=== PATIENT | female | born 1940 | race Caucasian/White ===

== ENCOUNTER → 2016-08-15 | Outpatient (CLI) | payer OTHER ==
[~2016-08-15] MED LIST: AMLO10CA PO; AMOX875T PO; ASCO100T PO; ASPI81TA28 PO; ATOR-22 PO; CHOL1000 PO; CIPR-255 PO; DFL100 PO; FERR1TAB23 PO; FURO40TA3 PO; GLC/500 PO; GLIM2TAB2 PO; MOME6000 NAE; OXYC-57 PO; PHEN-775 PO; PHEN-939 PO; POTA10CA28 PO; PRD10 PO; PRED-301 PO; PRED10TA PO
[2016-08-15 13:53] LABS: ESTIMATED AVERAGE GLUCOSE 203 mg/dl; HA1C FLAG Normal (Normal)
[2016-08-15 13:59] LABS: BLOOD UREA NITROGEN 17 mg/dl (7-18); BUN/CREATININE RATIO 20.4 (10-20); CALCIUM 8.9 mg/dl (8.5-10.1); CARBON DIOXIDE 25 mmol/L (21-32); CHLORIDE 106 mmol/L (98-107); CREATININE 0.82 mg/dl (0.60-1.20); GLUCOSE 162 mg/dl (70-99); POTASSIUM 3.7 mmol/L (3.5-5.1); SODIUM 139 mmol/L (136-145)
[2016-08-15 14:01] LABS: ALB/GLOB RATIO 0.8 (0.9-2); ALKALINE PHOSPHATASE 70 U/L (45-117); ALT/SGPT 17 U/L (12-78); AST/SGOT 10 U/L (15-37)
--- NOTE | 2016-08-20 12:50 | CODING QUERY MEDICAL NECESSITY ---
SUPPORTING DIAGNOSIS NEEDED Dr. Hanna, A supporting diagnosis is required for the test/procedure performed on this patient in order for us to be reimbursed by the patient's insurance. Please provide a supporting diagnosis for the following test/procedure listed below next to the test name along with your signature. *If there is no additional diagnosis for this patient that would support the following test/procedure please document that below next to the test/procedure. Test(s)/Procedure(s) that require a supporting diagnosis: * [id number] GLYCATED HEMOGLOBIN DIAGNOSIS: DATE OF SERVICE: 08/15/16 Provider Signature: Date: Thank you Ricardo Pearson [facility] Information Management Once completed, please kindly fax back to [phone] For questions please call [phone]
== END | disposition home or self-care (01) ==
LOC: C.LABBC 10:00
PROVIDERS: ATTEND Internal Medicine
DX: E78.5 Hyperlipidemia, unspecified (principal); E11.9 Type 2 diabetes mellitus without complications

== ENCOUNTER 2016-08-24 18:12 | Inpatient (IN) | payer OTHER ==
[~2016-08-24] VITALS: Ht 144.8 cm; Wt 67.4 kg
[2016-08-24] MEDS ORDERED: SODIUM CHLORIDE 0.9% 1000ML 1,000 ML IV ONE (18:17)
[2016-08-24] MEDS ORDERED: ACETAMINOPHEN 500 MG TAB PO STA (18:17)
[2016-08-24] MEDS ORDERED: GLIM2TAB2 PO (18:37)
[2016-08-24] MEDS ORDERED: ASCO100T4 PO (18:37)
[2016-08-24] MEDS ORDERED: ATOR-22 PO (18:37)
[2016-08-24] MEDS ORDERED: FERR1TAB23 PO (18:37)
[2016-08-24] MEDS ORDERED: ASPI81TA28 PO (18:37)
[2016-08-24] MEDS ORDERED: CHOL1000 PO (18:37)
[2016-08-24] MEDS ORDERED: GLC/500 PO (18:37)
[2016-08-24] MEDS ORDERED: PRED-301 PO (18:37)
[2016-08-24] MEDS ORDERED: MOME6000 NAE (18:37)
[2016-08-24] MEDS ORDERED: AMLO10CA PO (18:37)
[2016-08-24 18:40] LABS: BASO % 0.2 %; BASO ABS # 0.01 K/uL (0-0.2); COMPLETE YES; EOS % 0.2 %; HEMATOCRIT 31.1 % (37-47); LYMPH ABS # 0.43 K/uL (1.2-3.4); MEAN CELL VOLUME 90.4 fL (80-100); MEAN CORPUSCULAR HEMOGLOBIN 29.9 pg (25-34); MEAN CORPUSCULAR HGB CONC 33.1 g/dl (32-36); MEAN PLATELET VOLUME 9.3 fL (7.4-10.4); MONO % 0.5 %; NEUT % 91.1 %; PLATELET COUNT 318 K/uL (130-400); RED BLOOD COUNT 3.44 M/uL (4.2-5.4); WHITE BLOOD COUNT 6.12 K/uL (4.8-10.8)
[2016-08-24 18:48] LABS: INR 1.2 (0.9-1.1); PARTIAL THROMBOPLASTIN RATIO 1.2; PROTHROMBIN TIME (PATIENT) 13.1 SECONDS (9.0-12.0)
--- NOTE | 2016-08-24 19:03 | DIAGNOSTIC IMAGING REPORT ---
CHEST ONE VIEW PORTABLE CLINICAL HISTORY: Sepsis dyspnea COMPARISON STUDY: 06/09/2013 FINDINGS: Infiltrate left base. Lungs otherwise appear clear. No evidence for cardiac enlargement. IMPRESSION: Infiltrate left base Electronically signed by: Richardson Boo M.D. 08/24/2016 7:02 PM Dictated Date/Time: 08/24/2016 7:02 PM
[2016-08-24] MEDS ORDERED: SODIUM CHLORIDE 0.9% 1000ML 1,000 ML IV STA (19:06)
[2016-08-24] MEDS ORDERED: LEVAQUIN 750MG / 150ML D5W IV STA (19:06)
[2016-08-24 19:38] LABS: ALB/GLOB RATIO 0.8 (0.9-2); ALKALINE PHOSPHATASE 186 U/L (45-117); ALT/SGPT 15 U/L (12-78); AST/SGOT 15 U/L (15-37); BLOOD UREA NITROGEN 35 mg/dl (7-18); BUN/CREATININE RATIO 14.4 (10-20); CALCIUM 8.5 mg/dl (8.5-10.1); CARBON DIOXIDE 17 mmol/L (21-32); CHLORIDE 105 mmol/L (98-107); GLUCOSE 199 mg/dl (70-99); PHOSPHORUS 3.8 mg/dl (2.5-4.9); SODIUM 140 mmol/L (136-145)
[2016-08-24] MEDS ORDERED: VANCOMYCIN INJ 1,000 MG in SODIUM CHLORIDE 0.9% 250ML 250 ML IV STA (20:49)
[2016-08-24] MEDS ORDERED: NOREPINEPHRINE BIT INJ 8 MG in DEXTROSE 5% 500ML 500 ML IV STA (20:52)
[2016-08-24] MEDS ORDERED: PIPERACILLIN/TAZOBACTAM 3.375 GM/100ML D5W IV STA (20:52)
[2016-08-24] MEDS ORDERED: FLUTICASONE PROPIONATE NA SPR 16 GM BTL NAE PRN (21:00)
[2016-08-24] MEDS ORDERED: LEVOFLOXACIN / D5W 500 MG in PREMIXED IN D5W 100 ML IV SCH (21:00)
[2016-08-24] MEDS ORDERED: LEVALBUTEROL/IPRATROPIUM NEB INH SCH (21:00)
[2016-08-24] MEDS ORDERED: ONDANSETRON INJ 2 MG/ML 2 ML VIAL IV PRN (21:00)
[2016-08-24] MEDS ORDERED: GLUCOSE 40% GEL 15 GM TUBE PO PRN (21:00)
[2016-08-24] MEDS ORDERED: GLUCAGON FOR INJ 1 MG VIAL SQ PRN (21:00)
[2016-08-24] MEDS ORDERED: GLUCOSE 10 TABS/TUBE PO PRN (21:00)
[2016-08-24 21:14] LABS: INFLUENZA A PCR Neg for Influ A (NEG); INFLUENZA B PCR Neg for Influ B (NEG)
--- NOTE | 2016-08-24 21:21 | EMERGENCY ROOM VISIT NOTE ---
History Report prepared by Shahram: Ute Brar Under the Supervision of: Dr. Hamlet Holguin D.O. First contact with patient: 18:12 Chief Complaint: FEVER Stated Complaint: FEVER, LETHERGY, SOB History of Present Illness The patient is a 75 year old female who presents to the Emergency Room with complaints of a persistent fever starting yesterday evening. She also reports chills, weakness, back pain, and fatigue. She was brought to the ED by EMS and received 1 L of fluid en route. EMS reports that she was alert and oriented on the way here. She denies any urinary symptoms. She denies any cough, SOB, chest pain, or rhinorrhea. She had the flu back in July and says that the symptoms do not feel similar. She denies any tobacco or alcohol use. Source of History: patient Onset: yesterday evening Position: other (global) Quality: other (fever) Timing: other (persistent) Associated Symptoms: + back pain, + chills, + fatigue, + weakness, No SOB, No chest pain, No cough, No urinary symptoms Note: Pt denies rhinorrhea. Review of Systems See HPI for pertinent positives & negatives. A total of 10 systems reviewed and were otherwise negative. Past Medical & Surgical Medical Problems: (1) Diabetes (2) High cholesterol (3) Septic shock Family History Non contributory secondary to age. Social History Alcohol Use: none Marital Status: Occupation Status: retired Current/Historical Medications Scheduled Amlodipine/Benazepril (Lotrel 10MG/20MG), 1 CAP PO DAILY Ascorbic Acid (Vitamin C), 1 TAB PO DAILY Aspirin (Aspirin Ec), 81 MG PO DAILY Atorvastatin (Lipitor), 20 MG PO DAILY Cholecalciferol (Vitamin D3), 3 TAB PO DAILY Ferrous Sulfate (Iron), 1 TAB PO DAILY Glimepiride (Glimepiride), 1 TAB PO DAILY Metformin Hcl (Glucophage), 1,000 MG PO BID Prednisone (Prednisone), 9 MG PO DAILY Scheduled PRN Mometasone Furoate (Nasal) (Mometasone Furoate), 2 SPRAYS JAKOB DAILY PRN for Nasal Congestion Allergies Coded Allergies: No Known Allergies (Unverified , 08/24/16) Physical Exam Vital Signs Date Time Temp Pulse Resp B/P Pulse Ox O2 Delivery O2 Flow Rate FiO2 08/24/16 21:22 96 18 71/55 100 Room Air 08/24/16 20:53 97 18 76/43 98 Room Air 08/24/16 20:20 102 27 94 08/24/16 20:15 102 23 72/61 93 08/24/16 20:10 102 33 94 08/24/16 20:05 104 19 94 08/24/16 20:00 102 26 81/45 93 08/24/16 19:48 38.0 104 16 86/49 93 Room Air 08/24/16 19:39 105 08/24/16 18:22 93 Room Air 08/24/16 18:16 39.5 107 28 80/62 93 Room Air Physical Exam GENERAL: Patient is awake, alert, and non-anxious. Patient is febrile. EYES: The conjunctivae are clear. The pupils are round and reactive. EARS, NOSE, MOUTH AND THROAT: The nose is without any evidence of any deformity. Mucous membranes are dry tongue is midline NECK: The neck is nontender and supple. RESPIRATORY: Lung sounds diminished at left base. Mild conversational dyspnea noted. CARDIOVASCULAR: Tachycardic rate and regular rhythm. No definite murmurs appreciated. GASTROINTESTINAL: The abdomen is soft. Bowel sounds are present in all quadrants. Abdomen is nontender MUSCULOSKELETAL/EXTREMITIES: There is no evidence of gross deformity full range of motion is noted in the hips and shoulders SKIN: Warm and dry. Trace pedal edema bilaterally. NEUROLOGIC: Patient is awake alert and oriented x3 Medical Decision & Procedures ER Provider Diagnostic Interpretation: X-ray results as stated below per interpretation by me and the radiologist. CHEST ONE VIEW PORTABLE CLINICAL HISTORY: Sepsis dyspnea COMPARISON STUDY: 06/09/2013 FINDINGS: Infiltrate left base. Lungs otherwise appear clear. No evidence for cardiac enlargement. IMPRESSION: Infiltrate left base Electronically signed by: Ricahrdson Boo M.D. 08/24/2016 7:02 PM Dictated Date/Time: 08/24/2016 7:02 PM Laboratory Results 08/24/16 17:30 Red Blood Count 3.44, Mean Corpuscular Volume 90.4, Mean Corpuscular Hemoglobin 29.9, Mean Corpuscular Hemoglobin Concent 33.1, Mean Platelet Volume 9.3, Neutrophils (%) (Auto) 91.1, Lymphocytes (%) (Auto) 7.0, Monocytes (%) (Auto) 0.5, Eosinophils (%) (Auto) 0.2, Basophils (%) (Auto) 0.2, Neutrophils # (Auto) 5.58, Lymphocytes # (Auto) 0.43, Monocytes # (Auto) 0.03, Eosinophils # (Auto) 0.01, Basophils # (Auto) 0.01 08/24/16 17:30 Test 08/24/16 17:30 08/24/16 18:17 White Blood Count 6.12 K/uL (4.8-10.8) Red Blood Count 3.44 M/uL (4.2-5.4) Hemoglobin 10.3 g/dL (12.0-16.0) Hematocrit 31.1 % (37-47) Mean Corpuscular Volume 90.4 fL (80-100) Mean Corpuscular Hemoglobin 29.9 pg (25-34) Mean Corpuscular Hemoglobin Concent 33.1 g/dl (32-36) Platelet Count 318 K/uL (130-400) Mean Platelet Volume 9.3 fL (7.4-10.4) Neutrophils (%) (Auto) 91.1 % Lymphocytes (%) (Auto) 7.0 % Monocytes (%) (Auto) 0.5 % Eosinophils (%) (Auto) 0.2 % Basophils (%) (Auto) 0.2 % Neutrophils # (Auto) 5.58 K/uL (1.4-6.5) Lymphocytes # (Auto) 0.43 K/uL (1.2-3.4) Monocytes # (Auto) 0.03 K/uL (0.11-0.59) Eosinophils # (Auto) 0.01 K/uL (0-0.5) Basophils # (Auto) 0.01 K/uL (0-0.2) RDW Standard Deviation 48.6 fL (36.4-46.3) RDW Coefficient of Variation 14.9 % (11.5-14.5) Immature Granulocyte % (Auto) 1.0 % Immature Granulocyte # (Auto) 0.06 K/uL (0.00-0.02) Erythrocyte Sedimentation Rate 50 mm/hr (0-21) Prothrombin Time 13.1 SECONDS (9.0-12.0) Prothromb Time International Ratio 1.2 (0.9-1.1) Activated Partial Thromboplast Time 30.3 SECONDS (21.0-31.0) Partial Thromboplastin Ratio 1.2 Anion Gap 18.0 mmol/L (3-11) Est Creatinine Clear Calc Drug Dose 14.3 ml/min Estimated GFR () 22.0 Estimated GFR (Non- 19.0 BUN/Creatinine Ratio 14.4 (10-20) Calcium Level 8.5 mg/dl (8.5-10.1) Phosphorus Level 3.8 mg/dl (2.5-4.9) Magnesium Level 1.0 mg/dl (1.8-2.4) Total Bilirubin 0.6 mg/dl (0.2-1) Aspartate Amino Transf (AST/SGOT) 15 U/L (15-37) Alanine Aminotransferase (ALT/SGPT) 15 U/L (12-78) Alkaline Phosphatase 186 U/L (45-117) Total Creatine Kinase 66 U/L (26-192) Creatine Kinase MB < 0.5 ng/ml (0.5-3.6) Creatine Kinase MB Ratio (0-3.0) Troponin I 0.123 ng/ml (0-0.045) C-Reactive Protein 18.80 mg/dl (0-0.29) Pro-B-Type Natriuretic Peptide 74589 pg/ml (0-1800) Total Protein 7.0 gm/dl (6.4-8.2) Albumin 3.1 gm/dl (3.4-5.0) Globulin 3.9 gm/dl (2.5-4.0) Albumin/Globulin Ratio 0.8 (0.9-2) Lipase 97 U/L (73-393) Influenza Type A (RT-PCR) Neg for Influ A (NEG) Influenza Type A Antigen Neg for Influ A (NEG) Influenza Type B Antigen Neg for Influ B (NEG) Influenza Type B (RT-PCR) Neg for Influ B (NEG) Laboratory results per my review. Medications Administered Medications (Trade) Dose Ordered Sig/Tamika Route Start Time Stop Time Status Last Admin Dose Admin Sodium Chloride (Nss 1000ml) 1,000 ml @ 999 mls/hr Q1H1M ONCE IV 08/24/16 18:17 08/24/16 19:17 DC 08/24/16 18:46 999 MLS/HR Acetaminophen 1000 mg 1,000 mg NOW STAT PO 3/24/17 18:17 08/24/16 18:20 DC 08/24/16 18:45 1,000 MG Sodium Chloride (Nss 1000ml) 1,000 ml @ 999 mls/hr Q1H1M STAT IV 08/24/16 19:06 08/24/16 20:06 DC 08/24/16 19:48 999 MLS/HR Levofloxacin (Levaquin / D5W) 750 mg NOW STAT IV 08/24/16 19:06 08/24/16 19:07 DC 08/24/16 19:48 750 MG Piperacillin Sod/ Tazobactam Sod 3.375 gm 3.375 gm NOW STAT IV 08/24/16 20:52 08/24/16 20:53 DC 08/24/16 21:17 3.375 GM Norepinephrine Bitartrate/ Dextrose (Levophed Inj/ D5W 500ml) 508 ml @ 0 mls/hr Q0M STAT IV 08/24/16 20:52 08/24/16 20:53 DC 08/24/16 21:17 32 MLS/HR Procedure Femoral Central Venous Catheter Indication: sepsis Catheter Type: triple lumen Location: right femoral vein Verbal consent was obtained after the risks and benefits were explained, including but not limited to intra-abdominal injury, vessel injury, bleeding, scarring, infection, pain, and bone/joint/nerve damage. At this time, the risks of the procedure are less than the risks of NOT performing the procedure. A time out was taken and the correct patient and site identified. The patient was placed in the supine position and the skin was prepped in the standard fashion with chlorhexidine and full sterile drapes applied. The proper landmarks were identified, anesthetized with 1% lidocaine without epinephrine, and the needle was inserted through the skin in the standard fashion. The needle was carefully advanced into blood vessel lumen with ultrasound guidance. The guidewire was placed uneventfully. The vessel is dilated and the catheter was placed. It was sutured into position. There was good blood return from all ports. The patient tolerated the procedure well and there were no complications. ECG Indication: weakness Rate (beats per minute): 111 Rhythm: sinus tachycardia Findings: ST depression (Lateral), T-wave inversion (Lateral), no ectopy Comparison ECG Date: no prior available ED Course 1814: The patient was evaluated in room C9. A complete history and physical examination were performed. 1816: Acetaminophen 1000 mg PO, NSS 1000 ml @ 999 mls/hr IV. 1904: I reevaluated the patient. She is resting comfortably. 1905: Levofloxacin 750 mg IV, NSS 1000 ml @ 999 mls/hr IV. 1908: I reevaluated the patient. She is resting comfortably. 1957: I discussed the patient's case with AIDEN Romero - hospitalkarine. She will be evaluated for further management. 2019: I reevaluated the patient. Many of her family members have come. I updated them on the results and treatment plan. They verbalized agreement and understanding. The patient will be evaluated for further management and care. 2029: I placed a central line according to the procedure note. Medical Decision Prior records/ancillary studies reviewed. Triage Nursing notes reviewed. Additional history obtained from the patient's family. Differential diagnosis: Etiologies such as sepsis, UTI, pneumonia, metabolic, electrolyte abnormalities , cardiac sources, intracerebral event, toxicologic, neurologic, as well as others were entertained. The patient is a 75-year-old female who presented to the emergency department for an evaluation of fever. The patient states that she's been having difficulty breathing and cough. She had similar symptoms a few weeks ago when she had the flu. The patient has not had Tylenol recently. She was treated with IV fluids by the prehospital personnel prior to arrival. The patient was treated with IV fluids and IV antibiotics. She had continued hypotension so a central line was placed and she was started on pressors. I discussed the patient 's laboratory and radiographic studies with her as well as her family members. I discussed his case with the on-call [facility] hospitalist group. They've agreed to evaluate the patient in the emergency department for further management and disposition. The patient had persistent hypotension while she was in the emergency department. She did respond somewhat to IV fluid. She was found have an elevated creatinine from her baseline. Consults Time Called: 1952 Consulting Physician: AIDEN Romero - hospitalist Returned Call: 1957 I discussed the patient's case with him. She will be evaluated for further management. Impression Primary Impression: Sepsis Additional Impressions: Left lower lobe pneumonia Fever Abnormal EKG Critical Care I have personally spent greater than 45 minutes of critical care time in the direct management of this patient. This includes bedside care, interpretation of diagnostic studies, and testing, discussion with consultants, patient, and family members, and other required patient management activities. This 45 minutes is in excess of all separately billable procedures. Scribe Attestation The scribe's documentation has been prepared under my direction and personally reviewed by me in its entirety. I confirm that the note above accurately reflects all work, treatment, procedures, and medical decision making performed by me. Departure Information Dispostion Being Evaluated By Hospitalist Felton Fofana M.D. (PCP) Patient Instructions My [facility] Problem Qualifiers Primary Impression: Sepsis Sepsis type: sepsis due to unspecified organism Qualified Codes: A41.9 - Sepsis, unspecified organism Additional Impressions: Left lower lobe pneumonia Pneumonia type: due to unspecified organism Qualified Codes: J18.1 - Lobar pneumonia, unspecified organism Fever Fever type: unspecified Qualified Codes: R50.9 - Fever, unspecified
--- NOTE | 2016-08-24 22:00 | History and Physical ---
History & Physical Date & Time of Service: Aug 24, 2016 at 22:00 Chief Complaint: Fever, Lethergy, Sob Primary Care Physician: Felton Hanna M.D. History of Present Illness Source: patient, family The patient is a 75-year-old female presents emergency department with elevated temperature, chills, generalized weakness, back pain and fatigue since yesterday evening. She was given 1 L of fluid en route to the ED via EMS. She has not had any recent travels. She does not have any sick exposures. She did have the flu in July for which the symptoms resolved. She denies any shortness of breath and any urinary symptoms. Past Medical/Surgical History Medical Problems: (1) Diabetes Status: Chronic (2) High cholesterol Status: Chronic Social History Smoking Status: Never Smoker Smokeless Tobacco Use: No Alcohol Use: none Drug Use: none Marital Status: Occupational Status: retired Multi-Drug Resistant Organisms History of MDRO: No Allergies Coded Allergies: No Known Allergies (Unverified , 08/24/16) Home Medications Scheduled Amlodipine/Benazepril (Lotrel 10MG/20MG), 1 CAP PO DAILY Ascorbic Acid (Vitamin C), 1 TAB PO DAILY Aspirin (Aspirin Ec), 81 MG PO DAILY Atorvastatin (Lipitor), 20 MG PO DAILY Cholecalciferol (Vitamin D3), 3 TAB PO DAILY Ferrous Sulfate (Iron), 1 TAB PO DAILY Glimepiride (Glimepiride), 1 TAB PO DAILY Metformin Hcl (Glucophage), 1,000 MG PO BID Prednisone (Prednisone), 9 MG PO DAILY Scheduled PRN Mometasone Furoate (Nasal) (Mometasone Furoate), 2 SPRAYS JAKOB DAILY PRN for Nasal Congestion Review of Systems The patient denies chest pain, palpitations, shortness of breath, cough, lower extremity swelling, vision change, hearing change, sweats, weight change, fatigue, nausea, vomiting, abdominal pain, pelvic pain, blood in urine or stool , dysuria, urinary frequency or urgency, memory loss, rash, abnormal bruising or bleeding, imbalance, focal weakness, numbness or tingling in arms or legs, arthralgias or myalgias, back or neck pain, night sweats, or allergy symptoms. The review of systems is otherwise negative other than for that already noted above, and at least 10 systems have been reviewed. Physical Exam Vital Signs Date Time Temp Pulse Resp B/P Pulse Ox O2 Delivery O2 Flow Rate FiO2 08/24/16 21:22 96 18 71/55 100 Room Air 08/24/16 20:53 97 18 76/43 98 Room Air 08/24/16 20:20 102 27 94 08/24/16 20:15 102 23 72/61 93 08/24/16 20:10 102 33 94 08/24/16 20:05 104 19 94 08/24/16 20:00 102 26 81/45 93 08/24/16 19:48 38.0 104 16 86/49 93 Room Air 08/24/16 19:39 105 08/24/16 18:22 93 Room Air 08/24/16 18:16 39.5 107 28 80/62 93 Room Air The patient is awake, well-developed and adequately nourished, alert and oriented 3, normocephalic and atraumatic, lying in bed and in no acute distress. HEENT--PERRL, EOMI, mucous membranes and oropharynx dry. Neck--supple, no JVD or bruits, thyroid normal, trachea midline, no adenopathy. Heart--normal S1 and S2, no extra beats, no murmurs, rubs or gallops. Lungs--clear bilaterally ,no respiratory distress, no accessory muscle use. Abdomen--normal bowel sounds and soft, nontender and nondistended, no hernias or masses, no organomegaly. Extremities--no cyanosis, clubbing or edema. There are good distal pulses b/l. Dermatologic--normal skin turgor, normal color, warm and dry, no abnormal lymph nodes, no rash. Neurologic--cranial nerves II through XII grossly intact, motor and sensory examination normal. Rheumatologic--normal range of motion, nontender, muscles and joints. Psychiatric--normal affect. Diagnostics Laboratory Results Results Past 24 Hours Test 08/24/16 17:30 08/24/16 18:17 Range/Units White Blood Count 6.12 4.8-10.8 K/uL Red Blood Count 3.44 4.2-5.4 M/uL Hemoglobin 10.3 12.0-16.0 g/dL Hematocrit 31.1 37-47 % Mean Corpuscular Volume 90.4 80-100 fL Mean Corpuscular Hemoglobin 29.9 25-34 pg Mean Corpuscular Hemoglobin Concent 33.1 32-36 g/dl Platelet Count 318 130-400 K/uL Mean Platelet Volume 9.3 7.4-10.4 fL Neutrophils (%) (Auto) 91.1 % Lymphocytes (%) (Auto) 7.0 % Monocytes (%) (Auto) 0.5 % Eosinophils (%) (Auto) 0.2 % Basophils (%) (Auto) 0.2 % Neutrophils # (Auto) 5.58 1.4-6.5 K/uL Lymphocytes # (Auto) 0.43 1.2-3.4 K/uL Monocytes # (Auto) 0.03 0.11-0.59 K/uL Eosinophils # (Auto) 0.01 0-0.5 K/uL Basophils # (Auto) 0.01 0-0.2 K/uL RDW Standard Deviation 48.6 36.4-46.3 fL RDW Coefficient of Variation 14.9 11.5-14.5 % Immature Granulocyte % (Auto) 1.0 % Immature Granulocyte # (Auto) 0.06 0.00-0.02 K/uL Erythrocyte Sedimentation Rate 50 0-21 mm/hr Prothrombin Time 13.1 9.0-12.0 SECONDS Prothromb Time International Ratio 1.2 0.9-1.1 Activated Partial Thromboplast Time 30.3 21.0-31.0 SECONDS Partial Thromboplastin Ratio 1.2 Sodium Level 140 136-145 mmol/L Potassium Level 4.0 3.5-5.1 mmol/L Chloride Level 105 98-107 mmol/L Carbon Dioxide Level 17 21-32 mmol/L Anion Gap 18.0 3-11 mmol/L Blood Urea Nitrogen 35 7-18 mg/dl Creatinine 2.40 0.60-1.20 mg/dl Est Creatinine Clear Calc Drug Dose 14.3 ml/min Estimated GFR () 22.0 Estimated GFR (Non- 19.0 BUN/Creatinine Ratio 14.4 10-20 Random Glucose 199 70-99 mg/dl Calcium Level 8.5 8.5-10.1 mg/dl Phosphorus Level 3.8 2.5-4.9 mg/dl Magnesium Level 1.0 1.8-2.4 mg/dl Total Bilirubin 0.6 0.2-1 mg/dl Aspartate Amino Transf (AST/SGOT) 15 15-37 U/L Alanine Aminotransferase (ALT/SGPT) 15 12-78 U/L Alkaline Phosphatase 186 45-117 U/L Total Creatine Kinase 66 26-192 U/L Creatine Kinase MB < 0.5 0.5-3.6 ng/ml Creatine Kinase MB Ratio 0-3.0 Troponin I 0.123 0-0.045 ng/ml C-Reactive Protein 18.80 0-0.29 mg/dl Pro-B-Type Natriuretic Peptide 08664 0-1800 pg/ml Total Protein 7.0 6.4-8.2 gm/dl Albumin 3.1 3.4-5.0 gm/dl Globulin 3.9 2.5-4.0 gm/dl Albumin/Globulin Ratio 0.8 0.9-2 Lipase 97 73-393 U/L Random Cortisol 52.70 mcg/dl Influenza Type A (RT-PCR) Neg for Influ A NEG Influenza Type A Antigen Neg for Influ A NEG Influenza Type B Antigen Neg for Influ B NEG Influenza Type B (RT-PCR) Neg for Influ B NEG Microbiology Results 08/24/16 Blood Culture, Received Pending 08/24/16 Blood Culture, Received Pending Diagnostic Radiology Patient Name: APRIL LUJAN Unit Number: [id number] Dictated: 08/24/161901 Transcribed: 08/24/161901 MS Printed Date/Time: [~ rep prt dt]/[~ rep prt tm] [~ rep ct labl] - [~ rep ct ivnm] [facility] Radiology Department [place] [id number] Dictated: 08/24/161901 Transcribed: 08/24/161901 MS Printed Date/Time: [~ rep prt dt]/[~ rep prt tm] [~ rep ct labl] - [~ rep ct ivnm] CHEST ONE VIEW PORTABLE CLINICAL HISTORY: Sepsis dyspnea COMPARISON STUDY: 06/09/2013 FINDINGS: Infiltrate left base. Lungs otherwise appear clear. No evidence for cardiac enlargement. IMPRESSION: Infiltrate left base Electronically signed by: Richardson Boo M.D. 08/24/2016 7:02 PM Dictated Date/Time: 08/24/2016 7:02 PM The status of this report is Signed. Draft = Not yet reviewed or approved by Radiologist. Signed = Reviewed and approved by Radiologist. <AttendingPhy></AttendingPhy> <FamilyPhy>Felton Hanna M.D.</FamilyPhy> < PrimaryPhy>Felton Hanna M.D.</PrimaryPhy> <UnitNumber>[id number]</UnitNumber> <VisitNumber>[id number]</VisitNumber> <PatientName>APRIL LUJAN</PatientName> < DateOfBirth>1940</DateOfBirth> <Location>[facility]</Location> <ServiceDate></ServiceDate> <MNE>ESINDI</MNE> <OrderingPhy>Hamlet Holguin D.O.</ OrderingPhy> <OrderingPhyMNE>f rep ord dr ambrose</OrderingPhyMNE> <DictatingPhyMNE> f rep dict dr ambrose</DictatingPhyMNE> <CCListMNE>f rep ct mne</CCListMNE> < AdmittingPhyMNE>f pt admit dr ambrose</AdmittingPhyMNE> <AttendingPhyMNE>f pt attend dr ambrose</AttendingPhyMNE> <ConsultingPhyMNE>f pt consult dr ambrose</ConsultingPhyMNE> <FamilyPhyMNE>f pt fam dr ambrose</FamilyPhyMNE> <OtherPhyMNE>f pt other dr ambrose</OtherPhyMNE> < PrimaryPhyMNE>f pt prim care dr ambrose</PrimaryPhyMNE> <ReferringPhyMNE>f pt referring dr ambrose</ReferringPhyMNE> EKG EKG shows sinus tachycardia at 111 bpm, with nonspecific lateral ST/T changes. Impression Assessment and Plan Septic shock/elevated troponin 0.123--the patient will be admitted to the ICU for serial cardiac enzymes, cardiac rhythm monitoring and a 2-D echocardiogram with Dopplers. She's received 2 L of normal saline in the ED +1 L en route for a total of 3 L. She'll be continued on normal saline at 150 ML's per hour.. We 'll start levofed infusion per protocol for MAP of greater than or equal to 65. Antibiotic therapy with vancomycin IV renal dosing, Zosyn 3.375 mg IV every 8 hours, levofloxacin 500 mg IV every 24 hours, and Xopenex with Atrovent nebulizer every 6 hours while awake and every 2 hours when necessary. Hold prednisone 10 mg by mouth daily, and place on methylprednisolone 20 mg IV every 8 hours. Sources of infection including possible left lower lobe pneumonia and/ or UTI. Follow blood cultures. We'll follow serial CBC with differential, BMP , magnesium, liver profile and PT PTT every morning. Continue aspirin 81 mg by mouth daily. Hold amlodipine 10 mg by mouth daily and benazepril 20 mg by mouth daily. Acute renal failure/hypertension--creatinine 2.40 well above baseline of 0.9 few weeks ago. Hydrate as noted above with IV fluids, repeat labs serially. Holding amlodipine and benazepril as noted. Hypomagnesemia--magnesium was 1.0. We'll give 3 g magnesium sulfate IV and repeat labs in a.m. Diabetes mellitus--hold metformin 1000 mg by mouth twice a day and did not resume unless creatinine 1.3 or less. Hold glime[address]ide. Place on Accu-Cheks before meals and at bedtime with NovoLog coverage. Hypercholesterolemia--continue atorvastatin 20 mg by mouth daily. Critical care time was 50 minutes. Level of Care Telemetry Advanced Directives Existing Advance Directive: No Existing Living Will: No Existing Power of Instructor Adjunct Pharmacy Technician: No Resuscitation Status FULL RESUSCITATION VTE Prophylaxis VTE Risk Assessment Done? Y/N: Yes Risk Level: Moderate Given or contraindicated: SCD's
[2016-08-24 22:14] VITALS: BP 97/68; PULSE 109; TEMP 38.1; O2SAT 96; Ht 144.8 cm; Wt 67.4 kg
[2016-08-24] MEDS ORDERED: LEVALBUTEROL 1.25MG/0.5ML NEB INH PRN (22:15)
[2016-08-24] MEDS ORDERED: LEVOFLOXACIN CONSULT ACTIVE PRN (22:15)
[2016-08-24] MEDS ORDERED: IPRATROPIUM BROMIDE NEB SOLN 0.02% 2.5 ML VIAL INH PRN (22:15)
[2016-08-24] MEDS ORDERED: PIPERACILL/TAZOBAC CONSULT ACTIVE PRN (22:15)
[2016-08-24] MEDS ORDERED: VANCOMYCIN CONSULT ACTIVE PRN (22:15)
[2016-08-24 22:18] LABS: URINE APPEARANCE TURBID (CLEAR); URINE BILIRUBIN NEG (NEG); URINE COLOR YELLOW; URINE EPITHELIAL CELL AUTO >30 /lpf (0-5); URINE NITRITE NEG (NEG); URINE PH 5.5 (4.5-7.5); URINE SPECIFIC GRAVITY 1.013 (1.000-1.030); UROBILINOGEN NEG (NEG); ZZUR CULT IF INDIC CLEAN CATCH YES
[2016-08-24 22:19] LABS: MANUAL MICROSCOPIC REQUIRED? NO; REVIEW REQ? YES
[2016-08-24] MEDS: METHYLPREDNISOLONE IV 20 MG in SYRINGE 0 ML IV SCH (22:27)
[2016-08-24] MEDS: SODIUM CHLORIDE 0.9% 1000ML 1,000 ML IV SCH (22:27)
[2016-08-24] MEDS: INSULIN ASPART 100 UNITS/ML 3 ML PEN SC SCH (22:28)
[2016-08-24] MEDS ORDERED: VANCOMYCIN INJ 1,400 MG in SODIUM CHLORIDE 0.9% 500ML 500 ML IV SCH (22:30)
[2016-08-24 23:00] VITALS: BP 102/55; PULSE 132; O2SAT 92
[2016-08-24 23:30] VITALS: BP 107/42; PULSE 134; O2SAT 92
[2016-08-24 23:35] VITALS: TEMP 39.1
[2016-08-24] MEDS: GUAIFENESIN 200 MG TAB PO SCH (23:35)
[2016-08-24] MEDS: LORAZEPAM 2 MG/ML 1 ML VIAL IV PRN (23:36)
[2016-08-24] MEDS: ACETAMINOPHEN 325 MG TAB PO PRN (23:36)
[2016-08-24 23:59] VITALS: O2SAT 94
[2016-08-25] VITALS (48 sets, daily range): BP systolic 61–148; BP diastolic 39–83; PULSE 94–135; TEMP 36.7–38.7; O2SAT 87–100
[2016-08-25] MEDS: MAGNESIUM SULFATE 1GM / D5W 1 GM in PREMIXED IN D5W 100 ML IV SCH ×3 (01:33→03:22)
[2016-08-25] MEDS: LEVALBUTEROL 1.25MG/0.5ML NEB INH SCH ×3 (02:13→15:00)
[2016-08-25] MEDS: IPRATROPIUM BROMIDE NEB SOLN 0.02% 2.5 ML VIAL INH SCH ×3 (02:13→15:00)
[2016-08-25] MEDS: ACETAMINOPHEN 325 MG TAB PO PRN ×2 (04:09→08:28)
[2016-08-25] MEDS: LORAZEPAM 2 MG/ML 1 ML VIAL IV PRN (04:28)
[2016-08-25] MEDS ORDERED: NURSING VERBAL MED ORDER STA ×2 (05:23→06:01)
[2016-08-25] MEDS: SODIUM CHLORIDE 0.9% 1000ML 1,000 ML IV SCH (05:28)
[2016-08-25] MEDS: NOREPINEPHRINE BIT INJ 8 MG in DEXTROSE 5% 500ML 500 ML IV PRN ×4 (05:30→21:59)
[2016-08-25] MEDS: METHYLPREDNISOLONE IV 20 MG in SYRINGE 0 ML IV SCH ×2 (05:31→14:40)
[2016-08-25] MEDS ORDERED: ALBUMIN HUMAN 25% 12.5 GM/50 ML VIAL IV STA ×2 (05:32→06:08)
[2016-08-25 05:36] LABS: HEMATOCRIT 26.1 % (37-47); MEAN CELL VOLUME 92.2 fL (80-100); MEAN CORPUSCULAR HGB CONC 32.6 g/dl (32-36); MEAN PLATELET VOLUME 9.4 fL (7.4-10.4); PLATELET COUNT 205 K/uL (130-400); RED BLOOD COUNT 2.83 M/uL (4.2-5.4); WHITE BLOOD COUNT 9.86 K/uL (4.8-10.8)
[2016-08-25] MEDS: HEPARIN SOD 5000 UNIT/0.5 ML CARP SQ SCH ×3 (05:39→21:39)
[2016-08-25] MEDS ORDERED: SODIUM BICARB 8.4% INJ 50 MEQ/50 ML SYR IV ONE ×4 (05:46→20:00)
[2016-08-25 05:50] LABS: INR 1.5 (0.9-1.1); PARTIAL THROMBOPLASTIN RATIO 1.4; PROTHROMBIN TIME (PATIENT) 16.3 SECONDS (9.0-12.0)
[2016-08-25 05:57] LABS: ISTAT ALLEN TEST Pass; ISTAT ARTERIAL BLOOD GAS HCO3 11 meq/L (19-24); ISTAT ARTERIAL BLOOD GAS PCO2 24 mmHg (35-46); ISTAT ARTERIAL BLOOD GAS PO2 73 mmHg (80-95); ISTAT ARTERIAL BLOOD GAS pH 7.28 (7.35-7.45); ISTAT CARBON DIOXIDE 12 mEq/l (24-31); ISTAT DELIVERY SYSTEM Cannula; ISTAT SITE R Radial
[2016-08-25] MEDS: INSULIN ASPART 100 UNITS/ML 3 ML PEN SC SCH ×3 (06:00→21:00)
[2016-08-25 06:12] LABS: BASO ABS # 0.35 K/uL (0-0.2); BASOPHIL % 3.5 %; COMPLETE YES; ECHINOCYTES 2+; EOSINOPHIL % 1.7 %; GIANT PLATELETS 1+; LYMPH ABS # 0.42 K/uL (1.2-3.4); LYMPHOCYTE % 4.3 %; META ABS # 2.23 K/uL (0-0); METAMYELOCYTE % 22.6 %; VACUOLIZATION 2+
[2016-08-25] MEDS ORDERED: NURSING VERBAL MED ORDER ONE ×6 (06:15→23:15)
[2016-08-25 06:49] LABS: BUN/CREATININE RATIO 14.1 (10-20); CALCIUM 6.8 mg/dl (8.5-10.1); CKMB/CK RATIO 1.8 (0-3.0); CREATININE 2.7 mg/dl (0.60-1.20); MAGNESIUM 1.8 mg/dl (1.8-2.4); PHOSPHORUS 3.9 mg/dl (2.5-4.9); POTASSIUM 3.8 mmol/L (3.5-5.1)
--- NOTE | 2016-08-25 07:32 | DIAGNOSTIC IMAGING REPORT ---
SINGLE VIEW CHEST CLINICAL HISTORY: Pneumonia. FINDINGS: An AP, portable, upright chest radiograph is compared to study dated 08/24/2016. The examination is degraded by portable technique and patient rotation. The heart is mildly enlarged. Pulmonary vascular congestion is new from yesterday. There is elevation of the right hemidiaphragm. Left basilar airspace consolidation is unchanged from yesterday. No large pleural effusion is identified. No pneumothorax is seen. The skeletal structures are osteopenic. The bony thorax is grossly intact. IMPRESSION: 1. Mild cardiac enlargement. Pulmonary vascular congestion is new from yesterday. 2. Left basilar airspace consolidation persists. Electronically signed by: Gabriele Díaz M.D. 08/25/2016 7:31 AM Dictated Date/Time: 08/25/2016 7:30 AM
[2016-08-25] MEDS: ATORVASTATIN 20 MG TAB PO SCH ×2 (08:25→08:51)
[2016-08-25] MEDS: PANTOprazole INJ 40 MG in SYRINGE 0 ML IV SCH (08:25)
[2016-08-25] MEDS: GUAIFENESIN 200 MG TAB PO SCH ×3 (08:25→20:38)
[2016-08-25] MEDS: ASPIRIN 81 MG ECTAB PO SCH ×2 (08:25→08:51)
[2016-08-25] MEDS: CHOLECALCIFEROL 1000 INTER.UNIT TAB PO SCH ×2 (08:25→08:52)
[2016-08-25] MEDS: PIPERACILL/TAZOBAC IV 3.375 GM in DEXTROSE 5% 100ML 100 ML IV SCH ×2 (08:25→21:04)
[2016-08-25] MEDS ORDERED: SODIUM BICARB 8.4% INJ 50 MEQ/50 ML SYR IV STA ×2 (08:35→21:19)
[2016-08-25] MEDS ORDERED: SODIUM BICARBONATE 8.4% INJ 150 MEQ in DEXTROSE 5% 1000ML 1,000 ML IV STA (08:35)
[2016-08-25] MEDS ORDERED: CALCIUM CHLORIDE 10% 10 ML SYR IV STA (08:41)
[2016-08-25] MEDS ORDERED: PHARMACY GLYCEMIC MGMT CONSULT SCH (08:48)
[2016-08-25] MEDS: SODIUM CHLORIDE 0.9% 500ML 500 ML IV SCH ×2 (08:52→09:25)
[2016-08-25] MEDS: VASOPRESSIN INJ 50 UNITS in SODIUM CHLORIDE 0.9% 500ML 500 ML IV SCH (09:15)
--- NOTE | 2016-08-25 09:27 | Pharmacy Progress Note ---
Pharmacy Antibiotic Consult Date of Service: Aug 25, 2016. Pharmacy Dosing Scope Pharmacy is consulted to initiate IV Vancomycin dosing therapy, order appropriate labs and adjust drug dose/frequency. Subjective The patient is a 75 year old female admitted on Aug 24, 2016 at 20:49. Objective Height (Feet): 4 Height (Inches): 9.00 Weight (Kilograms): 60.500 Lab Results (24hrs): Laboratory Tests Test 08/24/16 17:30 08/25/16 04:59 BUN/Creatinine Ratio 14.4 14.1 Blood Urea Nitrogen 35 mg/dl 38 mg/dl Creatinine 2.40 mg/dl 2.70 mg/dl White Blood Count 6.12 K/uL 9.86 K/uL Red Blood Count 3.44 M/uL 2.83 M/uL Hemoglobin 10.3 g/dL 8.5 g/dL Hematocrit 31.1 % 26.1 % Mean Corpuscular Volume 90.4 fL 92.2 fL Mean Corpuscular Hemoglobin 29.9 pg 30.0 pg Mean Corpuscular Hemoglobin Concent 33.1 g/dl 32.6 g/dl Platelet Count 318 K/uL 205 K/uL Mean Platelet Volume 9.3 fL 9.4 fL Neutrophils (%) (Auto) 91.1 % Lymphocytes (%) (Auto) 7.0 % Monocytes (%) (Auto) 0.5 % Eosinophils (%) (Auto) 0.2 % Basophils (%) (Auto) 0.2 % Neutrophils # (Auto) 5.58 K/uL Lymphocytes # (Auto) 0.43 K/uL Monocytes # (Auto) 0.03 K/uL Eosinophils # (Auto) 0.01 K/uL Basophils # (Auto) 0.01 K/uL Micro Results: Item Value Date Time MRSA DNA Surveillance Screen - Final Complete 08/24/16 0000 Nasal Specimen Negative for MRSA by DNA Probe Urine Culture Received 08/24/16 0000 Urine , Clean Catch Pending Blood Culture Received 08/24/16 1930 Blood Pending Blood Culture Received 08/24/16 193 Blood Pending Recent Pertinent Medications Item Value Date Time Vancomycin HCl 528 ml @ 200 mls/hr 08/24/162229 1400 mg/Sodium TODAY@2230/IV 08/24/16 2227 Chloride Item Value Date Time Levofloxacin 750 mg 08/24/16 1906 (Levaquin / D5W) NOW STAT/IV 08/24/16 194 Levofloxacin 500 100 ml @ 100 mls/hr 08/26/16 2000 mg/Prmx Q48H/IV Item Value Date Time Piperacillin Sod/ 3.375 gm 08/24/162051 Tazobactam Sod NOW STAT/IV 08/24/162116 (Zosyn Iv) Piperacillin Sod/ 115 ml @ 28 mls/hr 08/25/16 0900 Tazobactam Sod Q12H/IV 08/25/16 0825 3.375 gm/Dextrose Assessment & Plan Vancomycin * Loading dose: Vancomycin 1400mg IV x 1 dose (~25mg/kg) * Goal peak level: 30-40mcg/mL * Goal trough level: 15-20mcg/mL * Est half-life ~ 45hr, pt renal fxn declined further overnight * Random level has been ordered for: 08/26/16 AM Labs Pharmacy will continue to follow and will adjust dose/frequency as necessary. Thank you
[2016-08-25 10:32] LABS: IPAP 12; ISTAT ARTERIAL BLOOD GAS HCO3 12 meq/L (19-24); ISTAT ARTERIAL BLOOD GAS PCO2 29 mmHg (35-46); ISTAT ARTERIAL BLOOD GAS PO2 82 mmHg (80-95); ISTAT ARTERIAL BLOOD GAS pH 7.22 (7.35-7.45); ISTAT CARBON DIOXIDE 12 mEq/l (24-31); ISTAT DELIVERY SYSTEM BIPAP; ISTAT FIO2 50 %; ISTAT RATE 33; ISTAT SITE Art Line
[2016-08-25] MEDS ORDERED: FENTANYL CITRATE INJ 50 MCG/1 ML 2 ML VIAL ONE ×2 (11:08→12:28)
[2016-08-25] MEDS ORDERED: PROPOFOL IV EMULSION 10 MG/ML 100 ML VIAL IV ONE (11:08)
--- NOTE | 2016-08-25 11:20 | DIAGNOSTIC IMAGING REPORT ---
CT SCAN OF THE ABDOMEN AND PELVIS WITHOUT IV CONTRAST CLINICAL HISTORY: Sepsis. COMPARISON STUDY: Fluoroscopic upper GI series dated 11/13/2011. TECHNIQUE: CT scan of the abdomen and pelvis is performed from the lung bases to the proximal femora. Images are reviewed in the axial, sagittal, and coronal planes. IV contrast was not administered for this examination as per the referring clinician. Note that the examination was performed in significantly suboptimal fashion without oral and IV contrast. Automated dose control exposure was utilized. CT DOSE: 501.83 mGy.cm FINDINGS: Lung bases: The heart is top normal in size and without pericardial effusion. The coronary arteries are densely calcified. There is diminished attenuation of the cardiac blood pool as compared to the myocardium suggesting anemia. There are small pleural effusions, right larger than left. Bibasilar airspace consolidation is identified, also greater on the right. There is a small hiatal hernia. Liver: The unenhanced liver is enlarged, measuring 20.5 cm in length. The liver is otherwise normal in contour and attenuation. There is no intrahepatic biliary ductal dilatation. Mild periportal edema is suspected. Gallbladder: The gallbladder is mildly distended. There is mild nonspecific gallbladder wall thickening. No calcified gallstones are identified. Spleen: Normal in size and attenuation. Pancreas: The unenhanced pancreas is grossly unremarkable. Adrenal glands: There is nodular thickening of both adrenal glands. Kidneys: The unenhanced kidneys demonstrate cortical atrophy. There is rotation of the right kidney which is located somewhat inferiorly within the retroperitoneal space. There is a 12 mm obstructing calculus in the right proximal ureter at the level of L4. This is best seen on axial image #208, and this causes mild to moderate right hydronephrosis. There are 2 additional large nonobstructing right renal calculi measuring up to 13 mm. There is a 5 mm calculus along the course of left ureter seen on image #230. A 19 mm calculus is seen within the left renal pelvis on image #164. A large cluster of nonobstructing calculi in the left lower pole measures 2.3 cm. Additional smaller lateral calculi are identified. There is mild left-sided hydronephrosis. Gas within the left renal collecting system suggests infection. Asymmetric perinephric stranding is seen on the left kidney as compared the right. There is no evidence of contour deforming renal mass lesion. Abdominal vasculature: The abdominal aorta is normal in course and caliber noting advanced atherosclerotic calcification. A right femoral venous catheter is in place. Bowel: The small bowel and colon are normal in course and caliber. The appendix is normal as visualized. Peritoneum: There is trace perihepatic ascites, as well as trace free fluid in the pelvis. No intraperitoneal free air is seen. Lymphadenopathy: None. Pelvic viscera: The bladder is decompressed around a Crocker catheter. Foci of intraluminal gas may be related to instrumentation. The bladder wall appears thickened but this is not well assessed. The uterus and adnexa are normal as imaged. There are small bilateral fat-containing inguinal hernias. Skeletal structures: The Skeletal structures are osteopenic. There is moderate lumbosacral spondylosis as well as mild scoliosis. No lytic or blastic lesions are seen. Soft tissues: There is mild body wall edema. IMPRESSION: 1. Suboptimal examination without oral and IV contrast. 2. There are small pleural effusions with dense bibasilar airspace consolidation, right greater than left. The appearance is typical for pneumonia. 3. There is a 12 mm obstructing calculus in the right proximal ureter which causes mild to moderate right-sided hydronephrosis. 4. There is a 5 mm calcification along the course of the mid left ureter. It is unclear if this represents a ureteral stone or an adjacent calcification. 5. There is a 19 mm calculus in the left renal pelvis with mild left-sided hydronephrosis. 6. Additional large bilateral nonobstructing renal calculi as above. 7. There is bilateral perinephric stranding, left greater than right. There are foci of gas within the left renal collecting system. This is nonspecific but suggests infection. Correlation with clinical findings and urinalysis will be required. 8. The bladder is decompressed around a Crocker catheter. Bladder wall thickening is suggested but this is not well assessed. Again, correlation with urinalysis will be required. 9. There is a small volume of abdominopelvic ascites. 10. The gallbladder is distended with mild nonspecific wall thickening. Correlate clinically and with serum bilirubin levels for evidence of cholecystitis. 11. Hepatomegaly. 12. Additional findings as documented above. Electronically signed by: Gabriele Díaz M.D. 08/25/2016 11:19 AM Dictated Date/Time: 08/25/2016 11:04 AM
--- NOTE | 2016-08-25 12:02 | Progress Note ---
Progress Note Date of Service Aug 25, 2016. 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 Dictated consult to follow. Placed on bipap shortly after I walked in the room this morning. Arterial line placed and started on vasopressin and sodium bicarbonate infusion. CT abd/pelvis ordered - shows R hydronephrosis and obstructing stone. As I was beginning to review the CT scan , she became unresponsive. I emergently intubated her without difficulty but had sats in 80's - ETT pulled back and OGT placed with decompression of her stomach and improvement in sats. She probably aspirated. Procedure notes to follow. I spoke to Dr. Mathews from urology who is seeing her now. I have updated the family as well.
--- NOTE | 2016-08-25 12:04 | DIAGNOSTIC IMAGING REPORT ---
SINGLE VIEW CHEST CLINICAL HISTORY: Intubation. Pneumonia. FINDINGS: An AP, portable, upright chest radiograph is compared to study performed earlier the same day 08/25/2016. The examination is degraded by portable technique and patient rotation. An endotracheal tube has been placed. The tip of the catheter projects 4.5 cm above the italo. An enteric tube has been placed. The tip projects below the diaphragm over the stomach. The heart is mildly enlarged. Pulmonary vascular congestion has improved. There is mild elevation of the right hemidiaphragm. Left basilar airspace consolidation persists. There is airspace consolidation is now seen at the right lung base. No large pleural effusion is identified. No pneumothorax is seen. The skeletal structures are osteopenic. The bony thorax is grossly intact. IMPRESSION: 1. Endotracheal and enteric tubes have been placed as detailed above. 2. Left basilar airspace consolidation persists. There is new airspace consolidation at the right lung base. Correlate clinically for evidence of pneumonia/aspiration pneumonitis. 3. Mild cardiac enlargement. Pulmonary vascular congestion appears improved from earlier today. Electronically signed by: Gabriele Díaz M.D. 08/25/2016 12:02 PM Dictated Date/Time: 08/25/2016 12:00 PM
--- NOTE | 2016-08-25 12:20 | Urology Consultation ---
History General Date of Service: Aug 25, 2016. Chief Complaint: Sepsis with bilateral obstructing stones. Primary Care Physician: Felton Hanna M.D. Pt seen a urologist before?: No History of Present Illness 75 yo female, intubated and sedated in ICU, family including sisters and daughters in room. History obtained from family due to patient's status and inpatient and outpatient chart, limited under the circumstances. They note she was in her usual state of health until night when she began to feel fevers and chills. She declined her family's suggestions to be evaluated acutely over the following days as she also developed SP pain, f/c and eventually mental status changes for which she was then brought to the ER. She has decompensated with evidence of sepsis and is currently hypotensive, tachycardic and intubated for respiratory failure. Family also noted a history of back pain for several months attributed to her prior history of polymyalgia. She has no known history of stone disease, but did have a history of UTI and yeast infection attributed to her DM and age. Urology consultation is sought out acutely in the context of bilateral upper ureteral obstructing stones in the context of sepsis, renal failure. CT images personally reviewed. HPI - Stones Number: Multiple Size: Large Location: left, right, kidney, ureter Patient has: + fever, + hydronephrosis HPI - UTI Symptoms: suprapubic pain, mental status change History of Surgery: none Associated History: + menopause Imaging Imaging: CT Laboratory Last 24 Hours Test 08/24/16 17:30 08/24/16 18:17 08/24/16 22:13 08/25/16 04:59 White Blood Count 6.12 K/uL 9.86 K/uL Red Blood Count 3.44 M/uL 2.83 M/uL Hemoglobin 10.3 g/dL 8.5 g/dL Hematocrit 31.1 % 26.1 % Mean Corpuscular Volume 90.4 fL 92.2 fL Mean Corpuscular Hemoglobin 29.9 pg 30.0 pg Mean Corpuscular Hemoglobin Concent 33.1 g/dl 32.6 g/dl Platelet Count 318 K/uL 205 K/uL Mean Platelet Volume 9.3 fL 9.4 fL Neutrophils (%) (Auto) 91.1 % Lymphocytes (%) (Auto) 7.0 % Monocytes (%) (Auto) 0.5 % Eosinophils (%) (Auto) 0.2 % Basophils (%) (Auto) 0.2 % Neutrophils # (Auto) 5.58 K/uL Lymphocytes # (Auto) 0.43 K/uL Monocytes # (Auto) 0.03 K/uL Eosinophils # (Auto) 0.01 K/uL Basophils # (Auto) 0.01 K/uL RDW Standard Deviation 48.6 fL 50.7 fL RDW Coefficient of Variation 14.9 % 15.1 % Immature Granulocyte % (Auto) 1.0 % Immature Granulocyte # (Auto) 0.06 K/uL Erythrocyte Sedimentation Rate 50 mm/hr Prothrombin Time 13.1 SECONDS 16.3 SECONDS Prothromb Time International Ratio 1.2 1.5 Activated Partial Thromboplast Time 30.3 SECONDS 36.9 SECONDS Partial Thromboplastin Ratio 1.2 1.4 Sodium Level 140 mmol/L 138 mmol/L Potassium Level 4.0 mmol/L 3.8 mmol/L Chloride Level 105 mmol/L 107 mmol/L Carbon Dioxide Level 17 mmol/L 15 mmol/L Anion Gap 18.0 mmol/L 16.0 mmol/L Blood Urea Nitrogen 35 mg/dl 38 mg/dl Creatinine 2.40 mg/dl 2.70 mg/dl Est Creatinine Clear Calc Drug Dose 14.3 ml/min 13.3 ml/min Estimated GFR () 22.0 19.1 Estimated GFR (Non- 19.0 16.5 BUN/Creatinine Ratio 14.4 14.1 Random Glucose 199 mg/dl 242 mg/dl Calcium Level 8.5 mg/dl 6.8 mg/dl Phosphorus Level 3.8 mg/dl 3.9 mg/dl Magnesium Level 1.0 mg/dl 1.8 mg/dl Total Bilirubin 0.6 mg/dl 0.7 mg/dl Aspartate Amino Transf (AST/SGOT) 15 U/L 36 U/L Alanine Aminotransferase (ALT/SGPT) 15 U/L 21 U/L Alkaline Phosphatase 186 U/L 161 U/L Total Creatine Kinase 66 U/L 371 U/L Creatine Kinase MB < 0.5 ng/ml 6.7 ng/ml Creatine Kinase MB Ratio 1.8 Troponin I 0.123 ng/ml 1.860 ng/ml C-Reactive Protein 18.80 mg/dl Pro-B-Type Natriuretic Peptide 35635 pg/ml Total Protein 7.0 gm/dl 5.7 gm/dl Albumin 3.1 gm/dl 2.4 gm/dl Globulin 3.9 gm/dl Albumin/Globulin Ratio 0.8 Lipase 97 U/L Random Cortisol 52.70 mcg/dl Influenza Type A (RT-PCR) Neg for Influ A Influenza Type A Antigen Neg for Influ A Influenza Type B Antigen Neg for Influ B Influenza Type B (RT-PCR) Neg for Influ B Bedside Glucose 166 mg/dl Neutrophils % (Manual) 67.0 % Lymphocytes % (Manual) 4.3 % Monocytes % (Manual) 0.9 % Eosinophils % (Manual) 1.7 % Basophils % (Manual) 3.5 % Metamyelocytes % 22.6 % Neutrophils # (Manual) 6.61 K/uL Total Absolute Neutrophils 6.61 K/uL Lymphocytes # (Manual) 0.42 K/uL Total Absolute Lymphocytes 0.42 K/uL Monocytes # (Manual) 0.09 K/uL Eosinophils # (Manual) 0.17 K/uL Basophils # (Manual) 0.35 K/uL Metamyelocytes # 2.23 K/uL Toxic Vacuolation 2+ Giant Platelets 1+ Echinocytes 2+ Direct Bilirubin 0.3 mg/dl Test 08/25/16 05:44 08/25/16 05:50 08/25/16 09:10 08/25/16 10:19 Blood Gas Sample Site R Radial Art Line Bedside Blood Gas pH (LAB) 7.28 7.22 Bedside Blood Gas pCO2 (LAB) 24 mmHg 29 mmHg Bedside Blood Gas pO2 (LAB) 73 mmHg 82 mmHg Bedside Blood Gas HCO3 (LAB) 11 meq/L 12 meq/L Bedside Blood Gas Total CO2 12 mEq/l 12 mEq/l Bedside Blood Gas Base Excess (LAB) -15.0 meq/L -16.0 meq/L Bedside Blood Gas O2 Saturation 91.0 % 93.0 % Jaren Test Pass NA Oxygen Delivery Device Cannula BIPAP Bedside Glucose (other) 261 mg/dl Lactic Acid Level 8.3 mmol/L Bedside Oxygen Rate (breaths/min) 33 Bedside FiO2 50 % Blood Gas IPAP 12 Problem List Medical Problems: (1) Abnormal EKG Status: Acute (2) Fever Status: Acute (3) Left lower lobe pneumonia Status: Acute (4) Sepsis Status: Acute Past History arthritis, diabetes, glaucoma, high cholesterol, hypertension, kidney stones, urinary tract infection Past Surgical History: colonoscopy, other (cataracts, c/section, tooth extraction) Family History BRCA, daughters with stones, HTN, hyperlipidemia Social History Hx Tobacco Use In Past Year?: No Smoking: non-smoker Marital status: Housing status: lives with family Occupation status: retired History of MDRO No Allergies Coded Allergies: No Known Allergies (Unverified , 08/24/16) Medications Home Medications: Home Meds and Scripts Medications Dose Route/Sig Max Daily Dose Days Date Category Dose Instructions Vitamin D3 (Cholecalciferol) 1,000 Unit Tab 3 Tab PO DAILY 90 08/24/16 Reported Vitamin C (Ascorbic Acid) Unknown Strength Tab 1 Tab PO DAILY 08/24/16 Reported Prednisone 5 Mg Tab 9 Mg PO DAILY 08/24/16 Reported TAPER DOWN TO 7 MG DAILY IN SEPTEMBER Mometasone Furoate (Mometasone Furoate (Nasal)) 50 Mcg/Act Spr 2 Sprays JAKOB DAILY PRN 08/24/16 Reported Glucophage (Metformin Hcl) 500 Mg Tab 1,000 Mg PO BID 08/24/16 Reported Iron (Ferrous Sulfate) 325 Mg Tab 1 Tab PO DAILY 08/24/16 Reported Glimepiride 2 Mg Tab 1 Tab PO DAILY 90 08/24/16 Reported Lipitor (Atorvastatin Calcium) 20 Mg Tab 20 Mg PO DAILY 08/24/16 Reported Aspirin Ec (Aspirin) 81 Mg Tab 81 Mg PO DAILY 08/24/16 Reported Lotrel 10MG/20MG (Amlodipine/Benazepril HCl) 10 Mg/20 Mg Cap 1 Cap PO DAILY 08/24/16 Reported Inpatient Medications: Current Inpatient Medications Medications (Trade) Dose Ordered Sig/Tamika Route Start Time Stop Time Status Last Admin Dose Admin Heparin Sodium (Porcine) (Heparin Sq 5000 Unit/0.5ml) 5,000 unit Q8 SQ 08/25/16 06:00 09/24/16 05:59 08/25/16 05:39 5,000 UNIT Acetaminophen (Tylenol Tab) 650 mg Q4H PRN PO 08/24/16 21:00 09/23/16 20:59 08/25/16 04:09 650 MG Lorazepam 0.5 mg 0.5 mg Q4H PRN IV 08/24/16 21:00 09/23/16 20:59 08/25/16 04:28 0.5 MG Pantoprazole Sodium 40 mg/ Syringe 10 ml @ 5 mls/min DAILY IV 08/25/16 09:00 09/24/16 08:59 08/25/16 08:25 5 MLS/MIN Piperacillin Sod/ Tazobactam Sod 3.375 gm/Dextrose 115 ml @ 28 mls/hr Q12H IV 08/25/16 09:00 08/27/16 08:59 08/25/16 08:25 28 MLS/HR Methylprednisolone Sodium Succinate/ Syringe (Solu-Medrol IV/ Syringe) 0.32 ml @ 1.5 mls/min Q8H IV 08/24/16 22:00 09/23/16 21:59 08/25/16 05:31 1.5 MLS/MIN Ondansetron HCl (Zofran Inj) 4 mg Q6H PRN IV 08/24/16 21:00 09/23/16 20:59 Guaifenesin (Organidin Nr Tab) 600 mg BID PO 08/24/16 21:00 09/23/16 20:59 08/24/16 23:35 600 MG Aspirin (Ecotrin Tab) 81 mg DAILY PO 08/25/16 09:00 09/24/16 08:59 Atorvastatin Calcium (Lipitor Tab) 20 mg DAILY PO 08/25/16 09:00 09/24/16 08:59 Cholecalciferol (Vitamin D Tab) 3,000 inter.unit DAILY PO 08/25/16 09:00 09/24/16 08:59 Fluticasone Propionate (Flonase Nasal [place]) 2 sprays DAILY PRN JAKOB 08/24/16 21:00 09/23/16 20:59 Insulin Aspart (novoLOG ASPART) SLIDING SCALE If C... ACHS SC 08/24/16 21:00 09/23/16 20:59 08/25/16 06:00 4 UNITS Glucose (Glucose 40% Gel) UD PRN PO 08/24/16 21:00 09/23/16 20:59 Glucose (Glucose Chew Tab) 1 tabs UD PRN PO 08/24/16 21:00 09/23/16 20:59 Dextrose (Dextrose 50% 50ML Syringe) 50 ml UD PRN IV 08/24/16 21:00 09/23/16 20:59 Glucagon 1 mg 1 mg UD PRN SQ 08/24/16 21:00 09/23/16 20:59 Norepinephrine Bitartrate/ Dextrose (Levophed Inj/ D5W 500ml) 508 ml @ 0 mls/hr Q0M PRN IV 08/24/16 20:56 09/23/16 20:55 08/25/16 09:20 120 MLS/HR Ipratropium [place] (Atrovent 0.02% 0.5MG/2.5ML Neb) 0.5 mg Q6R INH 08/25/16 03:00 09/24/16 02:59 08/25/16 06:46 0.5 MG Levalbuterol (Xopenex 1.25MG/ 0.5ML Neb) 1.25 mg Q6R INH 08/25/16 03:00 09/24/16 02:59 08/25/16 05:00 1.25 MG Ipratropium [place] (Atrovent 0.02% 0.5MG/2.5ML Neb) 0.5 mg Q2H PRN INH 08/24/16 22:15 09/23/16 22:14 Levalbuterol (Xopenex 1.25MG/ 0.5ML Neb) 1.25 mg Q2H PRN INH 08/24/16 22:15 09/23/16 22:14 Vancomycin HCl (Consult) 1 ea UD PRN N/A 08/24/16 22:15 09/23/16 22:14 Levofloxacin (Consult) 1 ea UD PRN N/A 08/24/16 22:15 09/23/16 22:14 Piperacillin Sod/ Tazobactam Sod 1 ea 1 ea UD PRN N/A 08/24/16 22:15 09/23/16 22:14 Vasopressin 50 units/Sodium Chloride 502.5 ml @ 24 mls/hr [id number] IV 08/25/16 08:35 09/24/16 08:34 08/25/16 09:15 24 MLS/HR Sodium Bicarbonate/ Dextrose (Sodium Bicarbonate 8.4% Inj/D5W 1000ml) 1,150 ml @ 150 mls/hr Q7H40M STAT IV 08/25/16 08:35 08/25/16 16:14 08/25/16 09:24 150 MLS/HR Miscellaneous Information 1 ea 1 ea UD N/A 08/25/16 08:48 09/24/16 08:47 Levofloxacin/Prmx (Levaquin / D5W/ Premixed D5W) 100 ml @ 100 mls/hr Q48H IV 08/26/16 20:00 08/26/16 20:59 Review of Systems Review of Systems Constitutional: + chills, + fever Neurological: + dizzy Gastrointestinal: + abdominal pain Respiratory: + shortness of breath Musculoskeletal: + back pain Female : + infections, + see HPI Physical Exam Vital Signs: Vital Signs Past 12 Hours Date Time Temp Pulse Resp B/P Pulse Ox O2 Delivery O2 Flow Rate FiO2 08/25/16 09:30 130 96 08/25/16 07:02 117 22 93 Nasal Cannula 6.0 08/25/16 06:48 37.1 08/25/16 06:12 119 29 94/49 94 08/25/16 06:00 125 21 61/43 95 08/25/16 05:34 38.5 08/25/16 05:30 122 29 99/50 92 08/25/16 05:15 128 30 99/49 87 08/25/16 05:00 132 24 94 Nasal Cannula 6.0 08/25/16 04:30 132 32 114/59 90 08/25/16 04:00 98 Nasal Cannula 2.0 08/25/16 04:00 116 36 78/55 90 08/25/16 04:00 38.3 08/25/16 03:30 104 26 98/47 96 08/25/16 03:00 97 26 72/39 97 08/25/16 03:00 36.7 08/25/16 02:30 98 15 85/46 96 08/25/16 02:13 100 16 98 Nasal Cannula 2.0 08/25/16 02:00 36.7 08/25/16 02:00 99 20 85/48 100 08/25/16 01:30 104 16 82/44 98 08/25/16 01:00 104 29 76/44 97 08/25/16 00:30 111 32 84/40 96 08/25/16 00:00 117 31 77/40 92 Physical Exam: General Appearance: no apparent distress (intubated, sedated) Neck: no JVD Respiratory/Chest: chest non-tender Cardiovascular: no JVD Gastrointestinal: Abdomen: normal abdomen Liver: normal liver Extremities: + pertinent finding (cool) Neurologic/Psychiatric: + motor weakness (sedated) Assessment & Plan Assessment & Plan Treatment Planned: cystoscopy w/ stent A/P 75 yo female with apparent urosepsis and bilateral upper ureteral stones. Findings reviewed with family, consent obtained from daughter present. As noted , it is quite possible she will continue to deteriorate until her kidneys are drained if they are the source of infection as suspected by ICU service. The risk of septic decompensation with stent placement is noted. She has been covered with broad spectrum antibiotics so far but remains in critical condition. The alternative is PCN placement but seen the lack of intervention radiology services locally I think stents should be attempted for prompt intervention. Should we be unable to place a stent, the need for PCNs and transfer is also reviewed. They vocalize understanding of the treatment plan.
[2016-08-25] MEDS ORDERED: PROPOFOL IV EMULSION 10 MG/ML 20 ML VIAL IV ONE (12:28)
[2016-08-25] MEDS ORDERED: PHENYLEPHRINE 100MCG/ML 5ML SYR ONE (12:28)
[2016-08-25] MEDS ORDERED: ROCURONIUM BROMIDE 10 MG/ML 5 ML VIAL ONE (12:28)
[2016-08-25] MEDS ORDERED: MIDAZOLAM HCL 1 MG/ML 2ML VIAL ONE (12:28)
[2016-08-25] MEDS ORDERED: EpHEDrine SULFATE INJ 50 MG/ML AMP IV PRN (12:30)
[2016-08-25] MEDS ORDERED: ATROPINE SULFATE 0.1 MG/ML 5ML SYR IV PRN (12:30)
[2016-08-25] MEDS ORDERED: CONRAY 60% 50 ML VIAL ONE (12:35)
[2016-08-25 12:43] LABS: ISTAT ARTERIAL BLOOD GAS HCO3 16 meq/L (19-24); ISTAT ARTERIAL BLOOD GAS PCO2 34 mmHg (35-46); ISTAT ARTERIAL BLOOD GAS PO2 132 mmHg (80-95); ISTAT ARTERIAL BLOOD GAS pH 7.28 (7.35-7.45); ISTAT CARBON DIOXIDE 16 mEq/l (24-31); ISTAT DELIVERY SYSTEM Ventilator; ISTAT FIO2 100 %; ISTAT PEEP 12; ISTAT RATE 20; ISTAT SITE Art Line; VE 15.6; Vt 500
--- NOTE | 2016-08-25 12:46 | Progress Note ---
Subjective Date of Service: Aug 25, 2016. Subjective Pt evaluation today including: conversation w/ family, physical exam, chart review, lab review, review of studies, conversation w/ bridal stylist sales consultant, review of inpatient medication list Voiding: sadler catheter in place pt is seen and examined by me, altered mental status, moaning and unable to provide any medical history. Pt daughter is at the bedside. Pt MAP was dropping on max Levophed and desaturating on 6L NC. Pt was put on BIPAP and an emergent A line was placed by pick up driver. Pt during placement of A- line desaturated and intubated by pick up driver. Pt was started on the vasopressin and bicarb drip by pick up driver. Pt family wants every thing to be done per her wishes.Pt is currently intubated and sedated and on ventilator support. Problem List Medical Problems: (1 ) Sepsis Status: Acute (2) Left lower lobe pneumonia Status: Acute (3) Hypotension Status: Acute (4) Acute Resp failure requiring vent support Status: Acute (3) Fever Status: Acute Review of Systems Constitutional: + chills, + fever Neurological: + dizzy Gastrointestinal: + abdominal pain Respiratory: + shortness of breath Musculoskeletal: + back pain Female : + infections, + see HPI Medications Medications (Trade) Dose Ordered Sig/Tamika Route Start Time Stop Time Status Last Admin Dose Admin Sodium Chloride (Nss 1000ml) 1,000 ml @ 999 mls/hr Q1H1M ONCE IV 08/24/16 18:17 08/24/16 19:17 DC 08/24/16 18:46 999 MLS/HR Acetaminophen 1000 mg 1,000 mg NOW STAT PO 08/24/16 18:17 08/24/16 18:20 DC 08/24/16 18:45 1,000 MG Sodium Chloride (Nss 1000ml) 1,000 ml @ 999 mls/hr Q1H1M STAT IV 08/24/16 19:06 08/24/16 20:06 DC 08/24/16 19:48 999 MLS/HR Levofloxacin (Levaquin / D5W) 750 mg NOW STAT IV 08/24/16 19:06 08/24/16 19:07 DC 08/24/16 19:48 750 MG Piperacillin Sod/ Tazobactam Sod 3.375 gm 3.375 gm NOW STAT IV 08/24/16 20:52 08/24/16 20:53 DC 08/24/16 21:17 3.375 GM Norepinephrine Bitartrate/ Dextrose (Levophed Inj/ D5W 500ml) 508 ml @ 0 mls/hr Q0M STAT IV 08/24/16 20:52 08/24/16 20:53 DC 08/24/16 21:17 32 MLS/HR Heparin Sodium (Porcine) 5000 unit 5,000 unit Q8 SQ 08/25/16 06:00 09/24/16 05:59 08/25/16 05:39 5,000 UNIT Sodium Chloride (Nss 1000ml) 1,000 ml @ 75 mls/hr [id number] IV 08/24/16 22:00 08/25/16 06:18 DC 08/24/16 22:27 150 MLS/HR Acetaminophen (Tylenol Tab) 650 mg Q4H PRN PO 08/24/16 21:00 09/23/16 20:59 08/25/16 04:09 650 MG Lorazepam 0.5 mg 0.5 mg Q4H PRN IV 08/24/16 21:00 09/23/16 20:59 08/25/16 04:28 0.5 MG Pantoprazole Sodium 40 mg/ Syringe 10 ml @ 5 mls/min DAILY IV 08/25/16 09:00 09/24/16 08:59 08/25/16 08:25 5 MLS/MIN Piperacillin Sod/ Tazobactam Sod 3.375 gm/Dextrose 115 ml @ 28 mls/hr Q12H IV 08/25/16 09:00 08/27/16 08:59 08/25/16 08:25 28 MLS/HR Methylprednisolone Sodium Succinate/ Syringe (Solu-Medrol IV/ Syringe) 0.32 ml @ 1.5 mls/min Q8H IV 08/24/16 22:00 09/23/16 21:59 08/25/16 05:31 1.5 MLS/MIN Guaifenesin (Organidin Nr Tab) 600 mg BID PO 08/24/16 21:00 09/23/16 20:59 08/24/16 23:35 600 MG Insulin Aspart SLIDING SCALE If C... ACHS SC 08/24/16 21:00 09/23/16 20:59 08/25/16 12:38 6 UNITS Norepinephrine Bitartrate/ Dextrose (Levophed Inj/ D5W 500ml) 508 ml @ 0 mls/hr Q0M PRN IV 08/24/16 20:56 09/23/16 20:55 08/25/16 09:20 120 MLS/HR Ipratropium [place] (Atrovent 0.02% 0.5MG/2.5ML Neb) 0.5 mg Q6R INH 08/25/16 03:00 09/24/16 02:59 08/25/16 06:46 0.5 MG Levalbuterol 1.25 mg 1.25 mg Q6R INH 08/25/16 03:00 09/24/16 02:59 08/25/16 05:00 1.25 MG Vancomycin HCl 1400 mg/Sodium Chloride 528 ml @ 200 mls/hr TODAY@2230 IV 08/24/16 22:30 08/25/16 01:09 DC 08/24/16 22:27 200 MLS/HR Magnesium Sulfate/ Prmx (Magnesium Sulfate/Premixed D5W) 100 ml @ 100 mls/hr Q1H IV 08/25/16 01:15 08/25/16 04:14 DC 08/25/16 03:22 100 MLS/HR Albumin Human (Albumin 25%) 25 gm NOW STAT IV 08/25/16 05:32 08/25/16 05:33 DC 08/25/16 05:39 25 GM Sodium Bicarbonate (Sodium Bicarbonate 8.4% Inj) 100 ml STK-MED ONCE IV 08/25/16 05:46 08/25/16 05:49 DC 08/25/16 05:59 100 ML Albumin Human 25 gm 25 gm NOW STAT IV 08/25/16 06:08 08/25/16 06:09 DC 08/25/16 06:15 25 GM Vasopressin 50 units/Sodium Chloride 502.5 ml @ 24 mls/hr [id number] IV 08/25/16 08:35 09/24/16 08:34 08/25/16 09:15 24 MLS/HR Sodium Chloride 500 ml @ 999 mls/hr Q31M IV 08/25/16 08:45 08/25/16 09:38 DC 08/25/16 08:52 999 MLS/HR Sodium Bicarbonate/ Dextrose (Sodium Bicarbonate 8.4% Inj/D5W 1000ml) 1,150 ml @ 150 mls/hr Q7H40M STAT IV 08/25/16 08:35 08/25/16 16:14 08/25/16 09:24 150 MLS/HR Calcium Chloride (Calcium Chloride 10%) 1,000 mg NOW STAT IV 08/25/16 08:41 08/25/16 08:49 DC 08/25/16 09:10 1,000 MG Sodium Bicarbonate (Sodium Bicarbonate 8.4% Inj) 50 ml STK-MED ONCE IV 08/25/16 10:20 08/25/16 10:24 DC 08/25/16 10:39 50 ML Sodium Bicarbonate (Sodium Bicarbonate 8.4% Inj) 50 ml STK-MED ONCE IV 08/25/16 10:31 08/25/16 10:34 DC 08/25/16 10:39 50 ML Propofol (Diprivan Iv Emulsion 100ml Vial) 1 dose STK-MED ONCE IV 08/25/16 11:08 08/25/16 11:11 DC 08/25/16 12:31 1 DOSE Fentanyl Citrate (Fentanyl Inj) 100 mcg STK-MED ONCE .ROUTE 08/25/16 11:08 08/25/16 11:12 DC 08/25/16 12:32 50 MCG Objective Vital Signs Date Time Temp Pulse Resp B/P Pulse Ox O2 Delivery O2 Flow Rate FiO2 08/25/16 09:30 130 96 08/25/16 07:02 117 22 93 Nasal Cannula 6.0 08/25/16 06:48 37.1 08/25/16 06:12 119 29 94/49 94 08/25/16 06:00 125 21 61/43 95 08/25/16 05:34 38.5 08/25/16 05:30 122 29 99/50 92 08/25/16 05:15 128 30 99/49 87 08/25/16 05:00 132 24 94 Nasal Cannula 6.0 08/25/16 04:30 132 32 114/59 90 08/25/16 04:00 98 Nasal Cannula 2.0 08/25/16 04:00 116 36 78/55 90 08/25/16 04:00 38.3 08/25/16 03:30 104 26 98/47 96 08/25/16 03:00 97 26 72/39 97 08/25/16 03:00 36.7 08/25/16 02:30 98 15 85/46 96 08/25/16 02:13 100 16 98 Nasal Cannula 2.0 08/25/16 02:00 36.7 08/25/16 02:00 99 20 85/48 100 08/25/16 01:30 104 16 82/44 98 08/25/16 01:00 104 29 76/44 97 08/25/16 00:30 111 32 84/40 96 08/25/16 00:00 117 31 77/40 92 08/24/16 23:59 94 Nasal Cannula 4.0 Humidified Oxygen 08/24/16 23:35 39.1 08/24/16 23:30 134 29 107/42 92 08/24/16 23:00 132 22 102/55 92 08/24/16 22:14 38.1 109 32 97/68 96 Room Air 08/24/16 21:22 96 18 71/55 100 Room Air 08/24/16 20:53 97 18 76/43 98 Room Air 08/24/16 20:20 102 27 94 08/24/16 20:15 102 23 72/61 93 08/24/16 20:10 102 33 94 08/24/16 20:05 104 19 94 08/24/16 20:00 102 26 81/45 93 08/24/16 19:48 38.0 104 16 86/49 93 Room Air 08/24/16 19:39 105 08/24/16 18:22 93 Room Air 08/24/16 18:16 39.5 107 28 80/62 93 Room Air Physical Exam Comments: General Appearance: no apparent distress (intubated, sedated) Neck: no JVD Respiratory/Chest: chest non-tender Cardiovascular: no JVD Gastrointestinal: Abdomen: normal abdomen Liver: normal liver Extremities: + pertinent finding (cool) Neurologic/Psychiatric: + motor weakness (sedated) Laboratory Results Last 24 Hours Test 08/24/16 17:30 08/24/16 18:17 08/24/16 22:13 08/25/16 04:59 White Blood Count 6.12 K/uL 9.86 K/uL Red Blood Count 3.44 M/uL 2.83 M/uL Hemoglobin 10.3 g/dL 8.5 g/dL Hematocrit 31.1 % 26.1 % Mean Corpuscular Volume 90.4 fL 92.2 fL Mean Corpuscular Hemoglobin 29.9 pg 30.0 pg Mean Corpuscular Hemoglobin Concent 33.1 g/dl 32.6 g/dl Platelet Count 318 K/uL 205 K/uL Mean Platelet Volume 9.3 fL 9.4 fL Neutrophils (%) (Auto) 91.1 % Lymphocytes (%) (Auto) 7.0 % Monocytes (%) (Auto) 0.5 % Eosinophils (%) (Auto) 0.2 % Basophils (%) (Auto) 0.2 % Neutrophils # (Auto) 5.58 K/uL Lymphocytes # (Auto) 0.43 K/uL Monocytes # (Auto) 0.03 K/uL Eosinophils # (Auto) 0.01 K/uL Basophils # (Auto) 0.01 K/uL RDW Standard Deviation 48.6 fL 50.7 fL RDW Coefficient of Variation 14.9 % 15.1 % Immature Granulocyte % (Auto) 1.0 % Immature Granulocyte # (Auto) 0.06 K/uL Erythrocyte Sedimentation Rate 50 mm/hr Prothrombin Time 13.1 SECONDS 16.3 SECONDS Prothromb Time International Ratio 1.2 1.5 Activated Partial Thromboplast Time 30.3 SECONDS 36.9 SECONDS Partial Thromboplastin Ratio 1.2 1.4 Sodium Level 140 mmol/L 138 mmol/L Potassium Level 4.0 mmol/L 3.8 mmol/L Chloride Level 105 mmol/L 107 mmol/L Carbon Dioxide Level 17 mmol/L 15 mmol/L Anion Gap 18.0 mmol/L 16.0 mmol/L Blood Urea Nitrogen 35 mg/dl 38 mg/dl Creatinine 2.40 mg/dl 2.70 mg/dl Est Creatinine Clear Calc Drug Dose 14.3 ml/min 13.3 ml/min Estimated GFR () 22.0 19.1 Estimated GFR (Non- 19.0 16.5 BUN/Creatinine Ratio 14.4 14.1 Random Glucose 199 mg/dl 242 mg/dl Calcium Level 8.5 mg/dl 6.8 mg/dl Phosphorus Level 3.8 mg/dl 3.9 mg/dl Magnesium Level 1.0 mg/dl 1.8 mg/dl Total Bilirubin 0.6 mg/dl 0.7 mg/dl Aspartate Amino Transf (AST/SGOT) 15 U/L 36 U/L Alanine Aminotransferase (ALT/SGPT) 15 U/L 21 U/L Alkaline Phosphatase 186 U/L 161 U/L Total Creatine Kinase 66 U/L 371 U/L Creatine Kinase MB < 0.5 ng/ml 6.7 ng/ml Creatine Kinase MB Ratio 1.8 Troponin I 0.123 ng/ml 1.860 ng/ml C-Reactive Protein 18.80 mg/dl Pro-B-Type Natriuretic Peptide 12731 pg/ml Total Protein 7.0 gm/dl 5.7 gm/dl Albumin 3.1 gm/dl 2.4 gm/dl Globulin 3.9 gm/dl Albumin/Globulin Ratio 0.8 Lipase 97 U/L Random Cortisol 52.70 mcg/dl Influenza Type A (RT-PCR) Neg for Influ A Influenza Type A Antigen Neg for Influ A Influenza Type B Antigen Neg for Influ B Influenza Type B (RT-PCR) Neg for Influ B Bedside Glucose 166 mg/dl Neutrophils % (Manual) 67.0 % Lymphocytes % (Manual) 4.3 % Monocytes % (Manual) 0.9 % Eosinophils % (Manual) 1.7 % Basophils % (Manual) 3.5 % Metamyelocytes % 22.6 % Neutrophils # (Manual) 6.61 K/uL Total Absolute Neutrophils 6.61 K/uL Lymphocytes # (Manual) 0.42 K/uL Total Absolute Lymphocytes 0.42 K/uL Monocytes # (Manual) 0.09 K/uL Eosinophils # (Manual) 0.17 K/uL Basophils # (Manual) 0.35 K/uL Metamyelocytes # 2.23 K/uL Toxic Vacuolation 2+ Giant Platelets 1+ Echinocytes 2+ Direct Bilirubin 0.3 mg/dl Test 08/25/16 05:44 08/25/16 05:50 08/25/16 09:10 08/25/16 10:19 Blood Gas Sample Site R Radial Art Line Bedside Blood Gas pH (LAB) 7.28 7.22 Bedside Blood Gas pCO2 (LAB) 24 mmHg 29 mmHg Bedside Blood Gas pO2 (LAB) 73 mmHg 82 mmHg Bedside Blood Gas HCO3 (LAB) 11 meq/L 12 meq/L Bedside Blood Gas Total CO2 12 mEq/l 12 mEq/l Bedside Blood Gas Base Excess (LAB) -15.0 meq/L -16.0 meq/L Bedside Blood Gas O2 Saturation 91.0 % 93.0 % Jaren Test Pass NA Oxygen Delivery Device Cannula BIPAP Bedside Glucose (other) 261 mg/dl Lactic Acid Level 8.3 mmol/L Bedside Oxygen Rate (breaths/min) 33 Bedside FiO2 50 % Blood Gas IPAP 12 Test 08/25/16 11:25 08/25/16 12:29 Blood Gas Sample Site Art Line Bedside Blood Gas pH (LAB) 7.28 Bedside Blood Gas pCO2 (LAB) 34 mmHg Bedside Blood Gas pO2 (LAB) 132 mmHg Bedside Blood Gas HCO3 (LAB) 16 meq/L Bedside Blood Gas Total CO2 16 mEq/l Bedside Blood Gas Base Excess (LAB) -11.0 meq/L Bedside Blood Gas O2 Saturation 98.0 % Jaren Test NA Oxygen Delivery Device Ventilator Bedside Oxygen Rate (breaths/min) 20 Blood Gas Minute Ventilation 15.6 Bedside FiO2 100 % Blood Gas Tidal Volume 500 Blood Gas PEEP 12 Assessment and Plan (1) Septic shock (2) Fever (3) Sepsis (4) Left lower lobe pneumonia 1). Sepsis with septic shock secondary to UTI, Pneumonia , with bilateral upper ureteral obstructing stones with acute renal failure -current intubated, sedated and on vent support in ICU. - Urology on consult, We will suggest ID consult as well. - On Levophed , vasopressor and Bicarb drip, and IVF - On IV antibiotics Zosyn, Vanco, and Levaquin - Possible ureteral stent if possible for obstruction if cleared by anesthesia or her current sepsis requiring pressor support. - Pt prognosis is guarded. - We did talk to family and explain the pt current poor prognosis, and she wants her full code. 2). Acute Resp Failure. - Multifactorial could be secondary to Left basilar airspace consolidation as well new right consolidation at the right lung base, could be secondary to pneumonia/aspiration pneumonitis. - Currently on vent support and Antibiotics. - Consult ID. - Will repeat CXR, CBC, BMP, MG, Phos, ABG in am. - Consider pulmonary input. 3). Acute Renal failure. - Cr of 2.70, base line is 0.82. acute kidney injury could be secondary to septic shock vs dehydration vs bilateral hydronephrosis. Urology on case. Cont IVF and antibiotics, if stable may receive ureteral stents. 4). Elevated troponin - Could be secondary to septic shock vs demand ischemia, will cont to monitor serial troponin.I trending upward will consider echo and cardio consult. 5). GI proph 6) DVT proph Continued [facility] stay due to: multiple IV medications needed Discharge planning: intermediate facility Problem Qualifiers (1) Fever: Fever type: unspecified Qualified Codes: R50.9 - Fever, unspecified (2) Sepsis: Sepsis type: sepsis due to unspecified organism Qualified Codes: A41.9 - Sepsis, unspecified organism (3) Left lower lobe pneumonia: Pneumonia type: due to unspecified organism Qualified Codes: J18.1 - Lobar pneumonia, unspecified organism
[2016-08-25 13:16] LABS: CKMB/CK RATIO 2.7 (0-3.0)
[2016-08-25] MEDS ORDERED: VASOPRESSIN 20 UNIT/ML VIAL ONE (13:19)
[2016-08-25] MEDS ORDERED: ACETAMINOPHEN SOLN 650MG/20.3 ML UDC PO PRN (13:30)
--- NOTE | 2016-08-25 13:53 | [facility] Post Operative Brief Note ---
Immediate Operative Summary Operative Date Aug 25, 2016. Pre-Operative Diagnosis Urosepsis and Bilateral Upper Ureteral Stones Post-Operative Diagnosis Same Procedure(s) Performed Cystoscopy, right retrograde pyelography, bilateral ureteral stent placement. Surgeon Bradley Mathews Protein Specialist Surgeon(s) None Estimated Blood Loss 0 mL Findings Bilateral upper ureteral stones, purulent hydronephrotic drip L>R, good stent position on fluoro and visualization in the bladder Specimens A: Bladder urine for culture after stent placement. Drains 6 fr 24 cm JJ stent bilateral Anesthesia GAET Complication(s) None Disposition Surgical ICU
--- NOTE | 2016-08-25 14:11 | DIAGNOSTIC IMAGING REPORT ---
INTRAOPERATIVE RADIOGRAPHS CLINICAL HISTORY: Bilateral ureteral stent placement. Fluoroscopy time: 133 seconds. FINDINGS: 7 spot fluoroscopic views of the abdomen from a bilateral ureteral stent placement procedure are correlated with abdominal CT dated 08/25/2016. Large bilateral renal calculi are identified. The initial 3 images show cannulation of the right ureter with placement of a right ureteral stent. The final 4 images show a similar procedure performed on the left. An enteric tube is noted. IMPRESSION: Intraoperative images from bilateral ureteral stent placements. See operative report for detailed findings. Electronically signed by: Gabriele Díaz M.D. 08/25/2016 2:10 PM Dictated Date/Time: 08/25/2016 2:08 PM
[2016-08-25] MEDS ORDERED: INSULIN GLARGINE SOLOSTAR 100 UNITS/ML 3 ML PEN SC STA (14:16)
--- NOTE | 2016-08-25 14:16 | OPERATIVE REPORT ---
DATE OF OPERATION: 08/25/2016 PREOPERATIVE DIAGNOSIS: Urosepsis, renal failure, bilateral obstructive upper ureteral stones. POSTOPERATIVE DIAGNOSIS: Same. PROCEDURE: Cystoscopy, right retrograde pyelography, bilateral ureteral stent placement. SURGEON: Dr. Bradley Mathews. OIL AND GAS EXPLORATION TECHNICIAN: None. ANESTHESIA: General anesthesia with endotracheal intubation. COMPLICATIONS: None. FINDINGS: Bilateral hydronephrotic drip after placement of stent passed obstructive upper ureteral stone, right ureteral tortuosity, purulent urine on both sides, left greater than right, good stent position on fluoroscopy. SPECIMEN SENT TO PATHOLOGY: Urine for culture and sensitivity after placement of stents. BRIEF HISTORY: Ms. Garcia is a 75-year-old critically ill, intubated female admitted to the ICU for whom I am urgently consulted for septic decompensation in the context of bilateral obstructive upper ureteral stones. Please see urology consultation for further details. She is being brought urgently to the operating room for decompression of her collecting systems. Care was discussed with the family preoperatively and consent obtained from the daughter urgently. The patient has been covered with broad spectrum antibiotics due to her condition. She requires pressors to maintain adequate blood pressure in the context of respiratory failure, tachycardia and hypertension. SCDs in place for DVT prophylaxis. PROCEDURE: The patient was properly identified and brought to the operative suite after identification of appropriate consent on the patient was transported from the ICU in intubated condition. contract clerk-out procedure was followed. The patient was prepped and draped in the dorsal lithotomy position and a Crocker catheter was removed. A 22 [place] rigid cystoscope was passed into the bladder under direct visualization. Purulent debris was present within the bladder with no intravesical masses or papillary calculi. Right-sided ureteral orifice was cannulated and a wire was attempted to be placed up to the level of the renal pelvis. Radiopaque stones were appreciated in the right upper quadrant consistent with the patient's previous CT imaging findings. Unfortunately, the wire could not be easily passed at the level of the UPJ. An open-ended catheter was advanced and a small amount of low pressure contrast was instilled. Tortuosity of the ureter at this level was noted and stone was able to be retropulsed into the kidney. An angled sensor wire was able to be placed past this area. An open-ended catheter was advanced until the ureter straightened. Open ended catheter was backloaded off the wire and a 6 [place] 24 cm double-J ureteral stent was placed with a full coil present within the bladder on direct visualization and stent present within the upper pole of the kidney on fluoroscopy. Attention was then turned to the left. Purulent hydronephrotic drip was appreciated on this side. Attention was then turned to the left were a angled sensor wire was able to be advanced up to the level of the renal pelvis. This advanced past the area of the patient's stone without resistance or difficulties. This was followed by a 6-[place] 24 cm double-J ureteral stent with a full coil present within the bladder and stent proximal to the stone on fluoroscopic imaging. A purulent hydronephrotic drip was noted on this side, greater than on the right. Urine specimen was taken after placement of both stents. A 16 [place] Crocker catheter was placed with 10 mL of sterile water in the balloon. The patient was then transferred intubated back to ICU in critical condition on pressor support. However, she did not decompensate from her baseline status over the course of the case. I attest to the content of the Intraoperative Record and any orders documented therein. Any exceptio ns are noted below.
--- NOTE | 2016-08-25 14:17 | Anesthesiology Progress Note ---
Anesthesia Post Op Note Date & Time Aug 25, 2016 at 14:08 Vital Signs Pain Intensity: 0.0 Vital Signs Past 12 Hours Date Time Temp Pulse Resp B/P Pulse Ox O2 Delivery O2 Flow Rate FiO2 08/25/16 12:02 100 08/25/16 12:00 126 28 108/49 99 08/25/16 12:00 38.4 126 28 108/49 99 Mechanical Ventilator 100 08/25/16 12:00 Mechanical Ventilator 100 08/25/16 11:48 135 29 148/54 98 08/25/16 10:00 122 29 73/58 08/25/16 09:45 120 28 94/61 98 08/25/16 09:30 130 96 08/25/16 09:30 117 26 100/59 96 08/25/16 09:18 121 26 100/56 99 08/25/16 09:00 123 28 89/53 99 08/25/16 08:43 124 30 90/52 97 08/25/16 08:30 131 23 93/60 89 08/25/16 08:00 Nasal Cannula 6.0 08/25/16 08:00 37.9 127 27 88/57 95 08/25/16 07:30 135 27 111/83 89 08/25/16 07:02 117 22 93 Nasal Cannula 6.0 08/25/16 07:00 117 22 99/58 92 08/25/16 06:48 37.1 08/25/16 06:12 119 29 94/49 94 08/25/16 06:00 125 21 61/43 95 08/25/16 05:34 38.5 08/25/16 05:30 122 29 99/50 92 08/25/16 05:15 128 30 99/49 87 08/25/16 05:00 132 24 94 Nasal Cannula 6.0 08/25/16 04:30 132 32 114/59 90 08/25/16 04:00 98 Nasal Cannula 2.0 08/25/16 04:00 116 36 78/55 90 08/25/16 04:00 38.3 08/25/16 03:30 104 26 98/47 96 08/25/16 03:00 97 26 72/39 97 08/25/16 03:00 36.7 08/25/16 02:30 98 15 85/46 96 08/25/16 02:13 100 16 98 Nasal Cannula 2.0 Notes Mental Status: see Notes Nausea / Vomiting: adequately controlled Pain: adequately controlled Airway Patency, RR, SpO2: stable & adequate BP & HR: see Notes Hydration State: stable & adequate Anesthetic Complications: no major complications apparent Pt admitted to ICU with sepsis, hypotension. Found to have bilateral ureteral calculi and a left lung infiltrate. Was intubated and started on vasopressors in ICU. Pt was taken to OR and given general anesthesia. She had cystoscopy and bilateral ureteral stents placed. IV infusions and ventilation were continued as previously. Pt tolerated procedure without complications and was returned to ICU post op. Placed on mechanical ventilation, +BLBS, VSS. Report given to lay ups assembler Dr. Vick.
--- NOTE | 2016-08-25 16:45 | Pharmacy Progress Note ---
Glycemic Control Intl Consult Date of Service Aug 25, 2016. Scope Glycemic Pharmacist consulted by Dr Vick on 08/25/16 for glycemic control and to write orders per [facility] inpatient glycemic control protocol Objective Weight (Kilograms): 60.500 Accuchecks BSG (last 24hrs): Test 08/24/16 17:30 08/24/16 22:13 08/25/16 04:59 Random Glucose 199 mg/dl (70-99) 242 mg/dl (70-99) Bedside Glucose 166 mg/dl (70-90) Laboratory Data (last 24hrs) Test 08/24/16 17:30 08/25/16 04:59 Anion Gap 18.0 mmol/L 16.0 mmol/L BUN/Creatinine Ratio 14.4 14.1 Blood Urea Nitrogen 35 mg/dl 38 mg/dl Creatinine 2.40 mg/dl 2.70 mg/dl Potassium Level 4.0 mmol/L 3.8 mmol/L Sodium Level 140 mmol/L 138 mmol/L White Blood Count 6.12 K/uL 9.86 K/uL Red Blood Count 3.44 M/uL 2.83 M/uL Hemoglobin 10.3 g/dL 8.5 g/dL Hematocrit 31.1 % 26.1 % Mean Corpuscular Volume 90.4 fL 92.2 fL Mean Corpuscular Hemoglobin 29.9 pg 30.0 pg Mean Corpuscular Hemoglobin Concent 33.1 g/dl 32.6 g/dl Platelet Count 318 K/uL 205 K/uL Mean Platelet Volume 9.3 fL 9.4 fL Neutrophils (%) (Auto) 91.1 % Lymphocytes (%) (Auto) 7.0 % Monocytes (%) (Auto) 0.5 % Eosinophils (%) (Auto) 0.2 % Basophils (%) (Auto) 0.2 % Neutrophils # (Auto) 5.58 K/uL Lymphocytes # (Auto) 0.43 K/uL Monocytes # (Auto) 0.03 K/uL Eosinophils # (Auto) 0.01 K/uL Basophils # (Auto) 0.01 K/uL Recent Pertinent Medications Outpatient Anti-diabetic Regimen: * Amaryl 2 mg daily, Metformin 1 Gm bid * A1c = 8.7 % 08/15/16 The patient is currently receiving: * Basal insulin: none at this time * Correctional Insulin: Novolog Correction per scale ACHS Goal Range: Low 140 mg/dL - High 180 mg/dL Correction Factor: 25 mg/dL/unit * Prandial insulin: Per carb ratio of 1 unit per 10 grams CHO consumed * Oral Agents: none Risk Factors for Insulin Resistance: * Steroids: Solumedrol 20 mg q8h * Infection: possible aspiration pneumonia, Gm(-) bacteremia, on Zosyn, Levaquin , vancomycin IV * Pressors: norepinephrine, vasopressin * IVF: D5W + NaHCO3 @150 ml/hr * Recent Surgery: OR today,emergency cystoscopy and placement ureteral stents * Diet: type 2 diabetic,AHA- now npo on ventilator * Mechanical Ventilation: yes Assessment & Plan ASSESSMENT: * ADA & AACE recommend a goal blood sugar range 140-180 mg/dl for the majority of critically ill & non-critically ill patients. However, more stringent targets may be selected in individual cases. * 75 yo type 2 diabetic, moderately well controlled for age on oral meds. Now with multiple stressors. Tightened correction factor and gave one-time dose of Lantus. If BSG's remain over 300, would have a low threshold for starting an insulin drip. PLAN FOR INPATIENT GLYCEMIC CONTROL: * IF BSG's remain over 300, Starting IV insulin infusion per moderate stress protocol * Goal Range 140-180 mg/dl * In the critical care setting, continuous IV insulin infusion has been shown to be the best method for achieving glycemic targets. * Holding outpatient oral diabetes medications * Basal insulin with LANTUS 10 units x 1 dose * Correctional Insulin with NOVOLOG per scale ACHS or Q6hrs while NPO * Goal Range: Low 140 mg/dL - High 180 mg/dL * Correction Factor: 25 mg/dL/unit * Nutritional / Prandial insulin per carb ratio of 1 unit per 10 grams CHO consumed * Please note that the plan above was derived based on current level of insulin resistance and hospital stress. These recommendations are appropriate for inpatient admission only. Plan of care upon discharge will need to be reassessed to avoid potential outpatient hypo/hyperglycemia. Thank you.
[2016-08-25 17:24] LABS: HEMATOCRIT 25.9 % (37-47)
[2016-08-25] MEDS: ALBUMIN HUMAN 25% 12.5 GM/50 ML VIAL IV SCH ×3 (17:26→17:52)
[2016-08-25 17:43] LABS: BUN/CREATININE RATIO 13.3 (10-20); CALCIUM 6.9 mg/dl (8.5-10.1); CREATININE 3.1 mg/dl (0.60-1.20); POTASSIUM 3.9 mmol/L (3.5-5.1)
[2016-08-25 17:52] LABS: BETA-HYDROXYBUTYRATE 2.16 mg/dL (0.2-2.81)
[2016-08-25] MEDS ORDERED: INSULIN ASPART 100 UNITS/ML 3 ML PEN SC SCH (18:00)
[2016-08-25] MEDS ORDERED: INSULIN HUMAN REGULAR IV BOLUS 1.5 UNIT in SYRINGE 0 ML IV SCH (18:30)
[2016-08-25] MEDS: SODIUM BICARBONATE 8.4% INJ 150 MEQ in DEXTROSE 5% 1000ML 1,000 ML IV SCH (19:26)
[2016-08-25] MEDS: INSULIN REGULAR 250 UNITS in SODIUM CHLORIDE 0.9% 250ML 250 ML IV SCH (19:26)
[2016-08-25] MEDS: IPRATROPIUM BROMIDE HFA INHALER INH SCH (19:39)
[2016-08-25] MEDS: LEValbuterol HFA 15GM INHALER INH SCH (19:39)
--- NOTE | 2016-08-25 19:49 | CRITICAL CARE CONSULTATION ---
DATE OF CONSULTATION: 08/25/2016 CHIEF COMPLAINT: Fever. HISTORY OF PRESENT ILLNESS: The patient is a 76-year-old woman with history of diabetes mellitus and hyperlipidemia who presented to the Emergency Department last night with back pain and fever as well as fatigue. According to her family, her back pain has been occurring for approximately a week, but the fever started the day before she was seen in the Emergency Department. She had poor appetite, but no nausea or vomiting. She is not coughing. She did not communicate to them she had dysuria or hematuria. She was taken to the Emergency Department by EMS who gave her 1 liter of IV fluid en route. In the Emergency Department, she was given 2 additional liters of IV fluid as well as acetaminophen, Levaquin and a femoral triple lumen catheter was placed in order to start Levophed. Chest x-ray showed an infiltrate in the left base. She was admitted by the hospitalist service to the ICU for septic shock arriving late last evening. Over the course of the night she received albumin as well as several boluses of sodium bicarbonate. When I arrived this morning she was on 0.5 mcg per kilogram per minute of Levophed. I started vasopressin at 0.04 units per minute and continued to bolus her with IV fluids. I ordered a CT scan of the abdomen and emergently placed a left femoral arterial line. Additionally, she was placed on BiPAP. CT scan of the abdomen revealed a 12 mm obstructing calculus in the right proximal ureter with mild to moderate right-sided hydronephrosis as well as a 5 mm calcification along the course of the mid left ureter, a 19 mm near calculus in the left renal pelvis with mild left-sided hydronephrosis. There are also additional large nonobstructing renal calculi. There was bilateral perinephric stranding, left greater than right and a foci of gas within the left renal collecting system. The bladder wall was thickened and there was a small amount of abdominal-pelvic ascites. The gallbladder wall was distended with mild nonspecific wall thickening. She also had hepatomegaly. The urology service was consulted and she has undergone a retrograde pyelogram with bilateral ureteral stents. Additionally, I should note that she returned from CT scan and became unresponsive, requiring emergent intubation. She remains on Levophed, vasopressin and is receiving Levaquin, Zosyn and vancomycin, Solu-Medrol 20 mg IV q. 8 hours. PAST MEDICAL HISTORY: Diabetes mellitus, hypertension, Schatzki's ring status post dilatation, hiatal hernia, gastritis. ALLERGIES: No known drug allergies. OUTPATIENT MEDICATIONS: Amlodipine, ascorbic acid, aspirin, atorvastatin, vitamin D3, ferrous sulfate, glimepiride, metformin, mometasone, prednisone. PRESENT MEDICATIONS: Acetaminophen, albumin, aspirin, atorvastatin, vitamin D, Flonase, subcutaneous heparin, insulin infusion, Atrovent, Xopenex, Levaquin, Solu-Medrol, norepinephrine, Zofran, Protonix, Zosyn, propofol, vancomycin, vasopressin. SOCIAL HISTORY: She is and retired. She has never smoked. FAMILY HISTORY: Noncontributory. REVIEW OF SYSTEMS: Not obtainable. She is intubated and on the ventilator. She was not able to really converse with me earlier in the day today. Her family tells me that she does not complain much. They thought maybe her back pain was due to her polymyalgia. PHYSICAL EXAMINATION: VITAL SIGNS: Maximum temperature 39.5 in the Emergency Department, heart rate 98-134, respiratory rate 25-30, oxygen saturation 92%-96%. Present ventilator settings assist control rate 20, tidal volume 500, FiO2 90%, PEEP of 12. HEENT: Pupils are equally round and reactive to light. Oral mucosa is somewhat dry. She has no top teeth. I cannot see her posterior pharynx through the BiPAP mask. NECK: Veins are flat. No adenopathy. LUNGS: Bibasilar rales. No rhonchi or wheezes, left greater than right. HEART: Tachycardic, regular. ABDOMEN: Distended, firm, nontender, hypoactive bowel sounds. EXTREMITIES: Cool without edema. NEUROLOGIC: She would move all 4 extremities, was oriented to person and place but not the year. LABORATORY DATA: White blood cell count 9.86, hemoglobin 8.5, hematocrit 26.1, platelets 205. Sodium 139, potassium 3.9, chloride 100, CO2 of 19, BUN 41, creatinine 3.1. Lactic acid 8.3 and 12.1, blood sugar 324, calcium 6.9. CPK 392. Troponin I 5.07, hemoglobin A1c pending. PT 16.3, INR 1.5, PTT 36.9. Urinalysis with large leukocyte esterase, greater than 30 white cells, 10-30 red cells. Stool occult blood is negative. Influenza A and B negative. MICROBIOLOGY DATA. Two sets of blood cultures positive for Gram-negative rods. Urine culture is to be recollected. Radiographs have been reviewed. Most recent chest x-ray shows development of a right lower lobe infiltrate along with the previously described left lower lobe infiltrate. EKG this morning shows sinus tachycardia with ST segment depressions in the anterolateral leads. IMPRESSION: 1. Septic shock secondary to obstructive uropathy and pyelonephritis. She has Gram-negative bacteremia and is status post bilateral ureteral stents. 2. Acute hypercapnic hypoxemic respiratory failure secondary to #1. 3. Possible pneumonia, she may have aspirated prior to intubation as well. 4. Acute kidney injury secondary to #1. 5. Metabolic encephalopathy. 6. Diabetes mellitus with hyperglycemia. 7. Coagulopathy secondary to #1. 8. History of hyperlipidemia. 9. Acute anemia, likely secondary to I believe this is likely dilutional. No signs of active bleeding. 10. Probable non-ST segment elevation myocardial infarction. Echocardiogram was ordered last evening and still has not been completed. PLAN: Neuro: Continue propofol for sedation. I will also add some fentanyl to see if it will give us more room on our blood pressure. Pulmonary: Continue bronchodilators and obtain a sputum culture. We will likely decrease her tidal volume and increase her PEEP as well. She may develop ARDS. Cardiovascular: Continue Levophed and vasopressin. Consider adding epinephrine. Continue to trend cardiac enzymes and await echocardiogram. Consider placing IJ triple lumen catheter and measuring SCV O2. Renal: She is on sodium bicarbonate infusion and urine output is sluggish. Continuous volume resuscitation and follow electrolytes carefully. Heme: She has been typed and crossed for 1 unit of packed red blood cells. Consider transfusing 1 unit of packed red blood cells. Watch for any signs of bleeding, particularly follow her coagulopathy and correct if needed. Subcutaneous heparin for DVT prophylaxis. Endocrine: Glycemic consultation and insulin infusion. Solu-Cortef 100 mg IV q. 8 hours. Gastrointestinal: Maintain n.p.o. status. Proton pump inhibitor IV for GI prophylaxis. Infectious disease: Continue broad-spectrum antibiotics and double cover Gram-negatives. Check sputum culture as well. I discussed her care with her family earlier today. Although it has taken me some time to actually dictate this consult, I have been in and out of her room multiple times today. She is critically ill and in multisystem organ failure. I think her family understands how ill she is and is appropriately concerned. She is a full code status. Critical care time excluding procedures is 120 minutes.
[2016-08-25 20:03] LABS: ISTAT ARTERIAL BLOOD GAS HCO3 13 meq/L (19-24); ISTAT ARTERIAL BLOOD GAS PCO2 29 mmHg (35-46); ISTAT ARTERIAL BLOOD GAS PO2 88 mmHg (80-95); ISTAT ARTERIAL BLOOD GAS pH 7.27 (7.35-7.45); ISTAT CARBON DIOXIDE 14 mEq/l (24-31); ISTAT DELIVERY SYSTEM Ventilator; ISTAT FIO2 60 %; ISTAT PEEP 12; ISTAT RATE 20; ISTAT SITE Art Line; VE 13.1; Vt 500
[2016-08-25] MEDS: HYDROCORTISONE IV 100 MG in SYRINGE 0 ML IV SCH (20:38)
[2016-08-25] MEDS ORDERED: AZITHROMYCIN IV 500 MG in DEXTROSE 5% 250ML 250 ML IV ONE (20:45)
--- NOTE | 2016-08-25 20:49 | Procedure Note ---
Procedure Note Procedure Date Aug 25, 2016. Procedure Description Procedure Name: Endotracheal intubation Consent obtained: emergent consent implied Time of procedure: 11:20 Performed by: attending Contraindications: none Description: The patient became unresponsive acutely after returning from CT. She had respiratory effort but it was poor and her oxygen saturations were in the 80's. She was bagged with 100% O2 while preparations were made for emergent intubation. Saturations were mid 80's with bagging even with an oral airway. I used a 3.0 Mac blade to directly visualize the cords and placed a 7.0 ETT through them. There was a small amount of greenish sputum in the posterior pharynx but the cords were clear. CO2 detector was + and BS equal bilaterally. No sedation was used. Sats were 80's after intubation. She was suctioned without any return or improvement. The abdomen was very distended tympanic and an NGT was placed. With decompression of the stomach her saturations improved. Blood pressure was satisfactory throughout. Complications: none Post-procedure vital signs: reviewed and stable
[2016-08-25 21:49] LABS: ISTAT ARTERIAL BLOOD GAS HCO3 16 meq/L (19-24); ISTAT ARTERIAL BLOOD GAS PCO2 26 mmHg (35-46); ISTAT ARTERIAL BLOOD GAS PO2 76 mmHg (80-95); ISTAT ARTERIAL BLOOD GAS pH 7.39 (7.35-7.45); ISTAT CARBON DIOXIDE 16 mEq/l (24-31); ISTAT DELIVERY SYSTEM Ventilator; ISTAT FIO2 60 %; ISTAT PEEP 10; ISTAT RATE 24; ISTAT SITE Art Line; VE 12.7; Vt 450
[2016-08-25] MEDS: PROPOFOL IV EMULSION 10 MG/ML 100 ML VIAL IV PRN (21:59)
[2016-08-25] MEDS ORDERED: EPINEPHRINE HCL 4 MG in DEXTROSE 5% 250ML IV PRN (23:30)
[2016-08-26] VITALS (19 sets, daily range): BP systolic 93–149; BP diastolic 48–71; PULSE 93–114; TEMP 36.4–37.3; O2SAT 93–100
[2016-08-26] MEDS ORDERED: NURSING VERBAL MED ORDER ONE ×3 (00:30→21:00)
[2016-08-26] MEDS ORDERED: CALCIUM CHLORIDE 10% 1,000 MG in SODIUM CHLORIDE 0.9% 50ML 50 ML IV STA (00:32)
[2016-08-26] MEDS ORDERED: LINEZOLID / D5W 600 MG in PREMIXED IN D5W 300 ML IV ONE (00:51)
[2016-08-26] MEDS: ALBUMIN HUMAN 25% 12.5 GM/50 ML VIAL IV SCH ×6 (01:34→19:30)
[2016-08-26] MEDS: LEValbuterol HFA 15GM INHALER INH SCH ×4 (01:45→21:08)
[2016-08-26] MEDS: IPRATROPIUM BROMIDE HFA INHALER INH SCH ×4 (01:45→21:08)
[2016-08-26] MEDS: HYDROCORTISONE IV 100 MG in SYRINGE 0 ML IV SCH ×2 (03:16→10:50)
[2016-08-26] MEDS: VASOPRESSIN INJ 50 UNITS in SODIUM CHLORIDE 0.9% 500ML 500 ML IV SCH (05:10)
[2016-08-26] MEDS: HEPARIN SOD 5000 UNIT/0.5 ML CARP SQ SCH (05:11)
[2016-08-26] MEDS: SODIUM BICARBONATE 8.4% INJ 150 MEQ in DEXTROSE 5% 1000ML 1,000 ML IV SCH ×2 (06:28→16:19)
[2016-08-26 06:41] LABS: INR 2.5 (0.9-1.1); PARTIAL THROMBOPLASTIN RATIO 2.1; PROTHROMBIN TIME (PATIENT) 27.8 SECONDS (9.0-12.0)
[2016-08-26 07:14] LABS: BUN/CREATININE RATIO 14.7 (10-20); CALCIUM 7.1 mg/dl (8.5-10.1); CREATININE 3.1 mg/dl (0.60-1.20); MAGNESIUM 1.6 mg/dl (1.8-2.4); POTASSIUM 3.3 mmol/L (3.5-5.1)
[2016-08-26 07:16] LABS: HEMATOCRIT 24.8 % (37-47); MEAN CELL VOLUME 85.8 fL (80-100); MEAN CORPUSCULAR HEMOGLOBIN 29.8 pg (25-34); MEAN CORPUSCULAR HGB CONC 34.7 g/dl (32-36); MEAN PLATELET VOLUME 10.3 fL (7.4-10.4); PLATELET COUNT 90 K/uL (130-400); RED BLOOD COUNT 2.89 M/uL (4.2-5.4); WHITE BLOOD COUNT 33.28 K/uL (4.8-10.8)
[2016-08-26 07:25] LABS: PHOSPHORUS 4.9 mg/dl (2.5-4.9)
[2016-08-26 07:38] LABS: ACANTHOCYTES 1+; COMPLETE YES; ECHINOCYTES 1+; VACUOLIZATION 1+
--- NOTE | 2016-08-26 07:53 | DIAGNOSTIC IMAGING REPORT ---
CHEST ONE VIEW PORTABLE CLINICAL HISTORY: Pneumonia but COMPARISON STUDY: Chest radiograph August 25, 2016. FINDINGS: The tip of the nasogastric tube is within the gastric fundus. The tip of the endotracheal tube is 3.1 cm above the italo. There is no pneumothorax. Right basilar consolidation is slightly improved. There is persistent left basilar opacity. There is pulmonary vascular congestion without overt pulmonary edema. There is a small right pleural effusion. IMPRESSION: 1. Persistent, but slightly improved, bibasilar opacities which could reflect pneumonia or atelectasis. 2. Pulmonary vascular congestion. 3. Small right pleural effusion. Electronically signed by: David Nichols M.D. 08/26/2016 7:51 AM Dictated Date/Time: 08/26/2016 7:49 AM
[2016-08-26] MEDS: INSULIN ASPART 100 UNITS/ML 3 ML PEN SC SCH ×4 (08:00→20:45)
[2016-08-26 08:48] LABS: ISTAT ARTERIAL BLOOD GAS HCO3 18 meq/L (19-24); ISTAT ARTERIAL BLOOD GAS PCO2 25 mmHg (35-46); ISTAT ARTERIAL BLOOD GAS PO2 76 mmHg (80-95); ISTAT ARTERIAL BLOOD GAS pH 7.48 (7.35-7.45); ISTAT CARBON DIOXIDE 19 mEq/l (24-31); ISTAT DELIVERY SYSTEM Ventilator; ISTAT FIO2 60 %; ISTAT PEEP 10; ISTAT RATE 24; ISTAT SITE Art Line; VE 13.7; Vt 450
[2016-08-26] MEDS: ASPIRIN 81 MG ECTAB PO SCH (08:53)
[2016-08-26] MEDS: ATORVASTATIN 20 MG TAB PO SCH (08:54)
[2016-08-26] MEDS: GUAIFENESIN 200 MG TAB PO SCH (09:00)
[2016-08-26] MEDS ORDERED: PERFLUTREN LIPID MICROSPHERE (DEFINITY) IV ONE (09:08)
[2016-08-26] MEDS: PANTOprazole INJ 40 MG in SYRINGE 0 ML IV SCH (09:09)
[2016-08-26] MEDS: PIPERACILL/TAZOBAC IV 3.375 GM in DEXTROSE 5% 100ML 100 ML IV SCH ×2 (09:10→20:53)
[2016-08-26] MEDS ORDERED: POTASSIUM CHLORIDE 20 MEQ/15 ML UDC PO STA (09:24)
[2016-08-26] MEDS ORDERED: CALCIUM CHLORIDE 10% 10 ML SYR IV STA (09:24)
[2016-08-26] MEDS: NOREPINEPHRINE BIT INJ 8 MG in DEXTROSE 5% 500ML 500 ML IV PRN (09:29)
[2016-08-26] MEDS ORDERED: FENTANYL CITRATE INJ 50 MCG/1 ML 2 ML VIAL IV ONE (09:30)
--- NOTE | 2016-08-26 10:50 | DIAGNOSTIC IMAGING REPORT ---
ABDOMINAL ULTRASOUND, RIGHT UPPER QUADRANT HISTORY: Leukocytosis. Septic shock. COMPARISON: CT of the abdomen and pelvis August 25, 2016. FINDINGS: This exam was compromised by suboptimal penetration. Liver morphology was normal. No biliary ductal dilatation was identified. There was suspected slow flow within the main portal vein. No definite portal venous thrombus was identified by sonography. Incidental note was made of a right pleural effusion and a small amount of ascites. The pancreas is sonographically normal. There is no right hydronephrosis. This has likely improved since exam of August 25, 2016. The right renal calculi and the proximal right ureteral calculus shown on prior CT were not evident on this exam, possibly due to technique. Marked gallbladder wall thickening is noted. No gallstones are identified. IMPRESSION: 1. Marked gallbladder wall thickening, a nonspecific finding. No gallstones identified. 2. No biliary ductal dilatation. 3. Suspected slow flow within the main portal vein. By sonography, it is difficult to differentiate slow flow from vessel occlusion but no definite evidence for portal venous thrombus on this exam. 4. Small amount of ascites and a small right pleural effusion. 5. Interval resolution of right hydronephrosis. Electronically signed by: David Nichols M.D. 08/26/2016 10:48 AM Dictated Date/Time: 08/26/2016 10:44 AM
--- NOTE | 2016-08-26 12:48 | Progress Note ---
Subjective Date of Service: Aug 26, 2016. Subjective Pt evaluation today including: conversation w/ patient, conversation w/ family , physical exam, chart review, lab review, review of studies, conversation w/ field technical support consultant, review of inpatient medication list PO Intake: NPO, NGT Voiding: sadler catheter in place (clear slightly concentrated urine, no clots) 75 yo female with urosepsis, bilateral obstructing upper ureteral stones POD#1 s /p bilateral ureteral stent placement. She remains intubated in ICU, less sedated than yesterday. Family in room today. She remains in critical condition with elevated troponins and LFTs, as well as on pressor support but BP and HR somewhat improved. Notes and labs reviewed. Cultures show gram negative bacilli growing, sensitivities and identification pending. WBC spiked to 33K, Cr has risen and plateaued at 3.1. History limited by inability to communicate verbally. Problem List Medical Problems: (1) Abnormal EKG Status: Acute (2) Fever Status: Acute (3) Left lower lobe pneumonia Status: Acute (4) Sepsis Status: Acute Review of Systems Constitutional: + fever (febrile last night) Abdomen: No vomiting (OG tube in place) Female : + see HPI Objective Vital Signs Date Time Temp Pulse Resp B/P Pulse Ox O2 Delivery O2 Flow Rate FiO2 08/26/16 12:00 60 08/26/16 12:00 36.9 96 24 146/62 96 Mechanical Ventilator 60 08/26/16 12:00 Mechanical Ventilator 60 08/26/16 11:00 37.1 93 26 97 Mechanical Ventilator 60 08/26/16 10:00 37.1 95 24 134/60 96 Mechanical Ventilator 60 08/26/16 09:00 37.1 93 27 126/55 96 Mechanical Ventilator 60 08/26/16 08:00 Mechanical Ventilator 60 08/26/16 08:00 Mechanical Ventilator 60 08/26/16 08:00 60 08/26/16 08:00 37.1 94 29 93/66 98 Mechanical Ventilator 60 08/26/16 07:36 60 08/26/16 07:00 37.2 94 29 119/53 96 Mechanical Ventilator 60 08/26/16 06:00 96 24 117/53 97 Mechanical Ventilator 60 08/26/16 05:08 60 08/26/16 04:00 36.8 96 30 115/55 100 Mechanical Ventilator 60 08/26/16 04:00 60 08/26/16 04:00 Mechanical Ventilator 60 08/26/16 02:01 99 24 121/55 97 Mechanical Ventilator 60 08/26/16 01:45 60 08/26/16 00:01 37.3 100 24 117/48 93 Mechanical Ventilator 60 08/25/16 23:59 Mechanical Ventilator 60 08/25/16 23:59 60 08/25/16 23:12 60 08/25/16 22:00 37.7 96 26 99/50 95 Mechanical Ventilator 60 08/25/16 21:30 38.7 94 26 100/50 97 08/25/16 21:00 37.8 98 26 95/49 96 08/25/16 20:45 37.8 97 26 97/47 97 08/25/16 20:15 37.8 99 26 107/49 96 08/25/16 20:00 Mechanical Ventilator 60 08/25/16 20:00 60 08/25/16 20:00 37.8 102 26 112/49 97 Mechanical Ventilator 60 08/25/16 20:00 37.8 100 26 103/47 97 08/25/16 20:00 60 08/25/16 19:45 37.8 102 26 112/49 97 08/25/16 19:39 60 08/25/16 18:00 37.8 104 30 112/51 100 Mechanical Ventilator 80 08/25/16 18:00 60 08/25/16 17:00 37.9 108 30 116/50 99 Mechanical Ventilator 80 08/25/16 16:30 37.8 108 26 110/48 98 Mechanical Ventilator 90 08/25/16 16:00 37.8 111 25 118/49 100 Mechanical Ventilator 90 08/25/16 16:00 Mechanical Ventilator 100 08/25/16 16:00 90 08/25/16 15:40 37.7 111 29 120/51 100 Mechanical Ventilator 100 08/25/16 15:15 90 08/25/16 15:00 37.7 108 24 107/49 100 Mechanical Ventilator 100 08/25/16 14:30 37.6 107 25 110/49 98 Mechanical Ventilator 100 08/25/16 14:22 37.6 107 25 113/50 98 Mechanical Ventilator 100 08/25/16 14:05 37.6 108 24 111/50 98 Mechanical Ventilator 100 08/25/16 13:55 37.6 107 20 100/49 96 Mechanical Ventilator 100 08/25/16 13:54 37.5 106 23 82/58 93 Mechanical Ventilator 100 08/25/16 13:45 37.4 106 20 97/44 93 Mechanical Ventilator 100 NIBP Physical Exam General Appearance: no apparent distress Respiratory/Chest: no respiratory distress Cardiovascular: no JVD Abdomen: soft Neurologic/Psychiatric: + pertinent finding (sedated) Laboratory Results Last 24 Hours Test 08/25/16 12:45 08/25/16 17:14 08/25/16 18:13 08/25/16 19:46 Total Creatine Kinase 392 U/L Creatine Kinase MB 10.4 ng/ml Creatine Kinase MB Ratio 2.7 Troponin I 5.070 ng/ml Hemoglobin 8.6 g/dL Hematocrit 25.9 % Sodium Level 139 mmol/L Potassium Level 3.9 mmol/L Chloride Level 100 mmol/L Carbon Dioxide Level 19 mmol/L Anion Gap 20.0 mmol/L Blood Urea Nitrogen 41 mg/dl Creatinine 3.10 mg/dl Est Creatinine Clear Calc Drug Dose 11.5 ml/min Estimated GFR () 16.1 Estimated GFR (Non- 13.9 BUN/Creatinine Ratio 13.3 Random Glucose 324 mg/dl Lactic Acid Level 12.1 mmol/L Calcium Level 6.9 mg/dl Beta-Hydroxybutyric Acid 2.16 mg/dL Bedside Glucose (other) 310 mg/dl Blood Gas Sample Site Art Line Bedside Blood Gas pH (LAB) 7.27 Bedside Blood Gas pCO2 (LAB) 29 mmHg Bedside Blood Gas pO2 (LAB) 88 mmHg Bedside Blood Gas HCO3 (LAB) 13 meq/L Bedside Blood Gas Total CO2 14 mEq/l Bedside Blood Gas Base Excess (LAB) -14.0 meq/L Bedside Blood Gas O2 Saturation 95.0 % Jaren Test NA Oxygen Delivery Device Ventilator Bedside Oxygen Rate (breaths/min) 20 Blood Gas Minute Ventilation 13.1 Bedside FiO2 60 % Blood Gas Tidal Volume 500 Blood Gas PEEP 12 Test 08/25/16 21:36 08/25/16 23:10 08/25/16 23:37 08/25/16 23:59 Blood Gas Sample Site Art Line Bedside Blood Gas pH (LAB) 7.39 Bedside Blood Gas pCO2 (LAB) 26 mmHg Bedside Blood Gas pO2 (LAB) 76 mmHg Bedside Blood Gas HCO3 (LAB) 16 meq/L Bedside Blood Gas Total CO2 16 mEq/l Bedside Blood Gas Base Excess (LAB) -9.0 meq/L Bedside Blood Gas O2 Saturation 95.0 % Jaren Test NA Oxygen Delivery Device Ventilator Bedside Oxygen Rate (breaths/min) 24 Blood Gas Minute Ventilation 12.7 Bedside FiO2 60 % Blood Gas Tidal Volume 450 Blood Gas PEEP 10 Bedside Glucose (other) 292 mg/dl Troponin I 14.200 ng/ml Lactic Acid Level 14.9 mmol/L Test 08/26/16 05:58 08/26/16 08:01 08/26/16 08:05 08/26/16 09:26 White Blood Count 33.28 K/uL Red Blood Count 2.89 M/uL Hemoglobin 8.6 g/dL Hematocrit 24.8 % Mean Corpuscular Volume 85.8 fL Mean Corpuscular Hemoglobin 29.8 pg Mean Corpuscular Hemoglobin Concent 34.7 g/dl Platelet Count 90 K/uL Mean Platelet Volume 10.3 fL RDW Standard Deviation 48.6 fL RDW Coefficient of Variation 15.3 % Neutrophils % (Manual) 94.0 % Lymphocytes % (Manual) 3.0 % Monocytes % (Manual) 3.0 % Neutrophils # (Manual) 31.28 K/uL Total Absolute Neutrophils 31.28 K/uL Lymphocytes # (Manual) 1.00 K/uL Total Absolute Lymphocytes 1.00 K/uL Monocytes # (Manual) 1.00 K/uL Toxic Vacuolation 1+ Echinocytes 1+ Acanthocytes 1+ Prothrombin Time 27.8 SECONDS Prothromb Time International Ratio 2.5 Activated Partial Thromboplast Time 55.3 SECONDS Partial Thromboplastin Ratio 2.1 Sodium Level 137 mmol/L Potassium Level 3.3 mmol/L Chloride Level 95 mmol/L Carbon Dioxide Level 18 mmol/L Anion Gap 24.0 mmol/L Blood Urea Nitrogen 46 mg/dl Creatinine 3.10 mg/dl Est Creatinine Clear Calc Drug Dose 12.1 ml/min Estimated GFR () 16.1 Estimated GFR (Non- 13.9 BUN/Creatinine Ratio 14.7 Random Glucose 163 mg/dl Lactic Acid Level 10.8 mmol/L Calcium Level 7.1 mg/dl Phosphorus Level 4.9 mg/dl Magnesium Level 1.6 mg/dl Total Bilirubin 1.5 mg/dl Direct Bilirubin 0.7 mg/dl Aspartate Amino Transf (AST/SGOT) 4526 U/L Alanine Aminotransferase (ALT/SGPT) 1779 U/L Alkaline Phosphatase 64 U/L Troponin I 24.100 ng/ml Total Protein 5.8 gm/dl Albumin 3.3 gm/dl Random Vancomycin Level 9.9 mcg/ml Blood Gas Sample Site Art Line Bedside Blood Gas pH (LAB) 7.48 Bedside Blood Gas pCO2 (LAB) 25 mmHg Bedside Blood Gas pO2 (LAB) 76 mmHg Bedside Blood Gas HCO3 (LAB) 18 meq/L Bedside Blood Gas Total CO2 19 mEq/l Bedside Blood Gas Base Excess (LAB) -5.0 meq/L Bedside Blood Gas O2 Saturation 96.0 % Jaren Test NA Oxygen Delivery Device Ventilator Bedside Oxygen Rate (breaths/min) 24 Blood Gas Minute Ventilation 13.7 Bedside FiO2 60 % Blood Gas Tidal Volume 450 Blood Gas PEEP 10 Bedside Glucose (other) 131 mg/dl 113 mg/dl Test 08/26/16 10:00 08/26/16 10:05 08/26/16 10:37 08/26/16 11:06 Heparin-PF4 Antibody Screen NEG Bedside Glucose (other) 103 mg/dl 105 mg/dl 105 mg/dl Test 08/26/16 12:18 Bedside Glucose (other) 114 mg/dl Assessment and Plan A/P 75 yo female POD#1 s/p bilateral ureteral stent placement for urosepsis and bilateral stones. Care d/w Dr. Vick. Patient remains in critical condition with pressor support and broad spectrum coverage. Continue ICU supportive management. Will await recovery and treatment of infection before considering stone treatment. Will arrange for outpatient follow-up in several weeks to discuss this with patient depending on her hospital course. No further surgical intervention should be needed at this time. Will sign off , please recall with any questions or concerns. Thank you for allowing our service to participate in this patient's care. Continued [facility] stay due to: multiple IV medications needed Discharge planning: care home facility
[2016-08-26] MEDS: LINEZOLID / D5W 600 MG in PREMIXED IN D5W 300 ML IV SCH (12:54)
--- NOTE | 2016-08-26 13:31 | ECHOCARDIOGRAM REPORT ---
*NOTICE TO RECEIVING [employer] This information is strictly Confidential and protected under [place] law. [place] law prohibits you from making any further disclosure of this information unless further disclosure is expressly permitted by the written consent of the person to whom it pertains or is authorized by law. A general authorization for the release of medical or other information is not sufficient for this purpose. Hospital accepts no responsibility if the information is made available to any other person, INCLUDING THE PATIENT. Interpretation Summary * Name: APRIL LUJAN Study Date: 08/26/2016 08:28 AM BP: 117/53 mmHg * Patient Location: .MSICU\S\E107\S\1 HR: 96 * : 1940 (M/d/yyyy) Gender: Female Height: 57 in * Age: 75 yrs Ethnicity: CA Weight: 133 lb * Ordering Physician: Patsy Vick * Performed By: Loli Pagan RDCS * * Reason For Study: Hypotension, septic shock, elevated troponin * BSA: 1.5 m2 * -- Conclusions -- * The left ventricle is mildly dilated. * There is normal left ventricular wall thickness. * Left ventricular systolic function is severely reduced. * Ejection Fraction = 15-20%. * Stroke Volume 25-30 cc * There is severe global hypokinesis of the left ventricle. * Dilated RV with at least moderate Hypokinesis (TAPSE 1.1cm). the RV free wall is not well seen and function may be worse. * Aortic valve sclerosis mild, without significant aortic valvular stenosis. * Dilated inferior vena cava with reduced collapsability with sniff indicates an elevated right atrial pressure of 15 mmHg * Grade I diastolic dysfunction, (abnormal relaxation pattern). * E to e' ratio =15 suggesting elevated LA pressures Procedure Details * A complete two-dimensional transthoracic echocardiogram was performed (2D, M-mode, Doppler and color flow Doppler). * A contrast injection of Definity was performed to improve assessment of LV function. * Contrast was injected into an intravenous site in the central line. * A contrast injection of Definity was performed to improve assessment for apical thrombus. * One vial of Definity ultrasound contrast was diluted in normal saline to a total volume of 10 ml. A total of '2' ml of solution was administered during imaging. * Lot # [id number] of Definity utilized for procedure. * Expiration date SEP 18. * The attending nurse who injected the contrast agent was Ernestine Fox RN. Left Ventricle * The left ventricle is mildly dilated. * There is normal left ventricular wall thickness. * Left ventricular systolic function is severely reduced. * Ejection Fraction = 15-20%. * Stroke Volume 25-30 cc * There is severe global hypokinesis of the left ventricle. Right Ventricle * Dilated RV with at least moderate Hypokinesis (TAPSE 1.1cm). the RV free wall is not well seen and function may be worse. Atria * The left atrium is moderately dilated. * Right atrial size is normal. Mitral Valve * There is moderate mitral annular calcification. * There is trace mitral regurgitation. Tricuspid Valve * The tricuspid valve is not well visualized, but is grossly normal. * Significant tricuspid regurgitation is absent. Aortic Valve * Aortic valve sclerosis mild, without significant aortic valvular stenosis. * Trace aortic regurgitation. Pulmonic Valve * The pulmonic valve is not well visualized. Great Vessels * The aortic root is normal size. Pericardium/Pleural * There is no pericardial effusion. Great Vessels * Dilated inferior vena cava with reduced collapsability with sniff indicates an elevated right atrial pressure of 15 mmHg Left Ventricular Diastolic Function * Grade I diastolic dysfunction, (abnormal relaxation pattern). * E to e' ratio =15 suggesting elevated LA pressures MMode 2D Measurements and Calculations IVSd 1.2 cm LVIDd 4.4 cm LVIDs 3.7 cm LVPWd 1.1 cm IVS/LVPW 1.1 FS 14.7 % EDV(Teich) 85.7 ml ESV(Teich) 58.8 ml EF(Teich) 31.4 % EDV(cubed) 82.8 ml ESV(cubed) 51.4 ml EF(cubed) 37.9 % LV mass(C)d 184.6 grams LV mass(C)dI 122.1 grams/m\S\2 SV(Teich) 26.9 ml SI(Teich) 17.8 ml/m\S\2 SV(cubed) 31.3 ml SI(cubed) 20.7 ml/m\S\2 Ao root diam 2.6 cm Ao root area 5.4 cm\S\2 ACS 1.6 cm LA dimension 2.7 cm asc Aorta Diam 3.4 cm LA/Ao 1.0 LVOT diam 2.0 cm LVOT area 3.2 cm\S\2 LVAd ap4 24.6 cm\S\2 LVLd ap4 7.3 cm EDV(MOD-sp4) 68.3 ml EDV(sp4-el) 70.4 ml LVAs ap4 18.2 cm\S\2 LVLs ap4 6.5 cm ESV(MOD-sp4) 42.6 ml ESV(sp4-el) 43.4 ml EF(MOD-sp4) 37.7 % EF(sp4-el) 38.4 % LVAd ap2 21.6 cm\S\2 LVLd ap2 6.8 cm EDV(MOD-sp2) 62.0 ml EDV(sp2-el) 58.8 ml LVAs ap2 17.3 cm\S\2 LVLs ap2 6.6 cm ESV(MOD-sp2) 40.7 ml ESV(sp2-el) 38.4 ml EF(MOD-sp2) 34.3 % EF(sp2-el) 34.7 % LVLd %diff -8.18 % EDV(MOD-bp) 67.5 ml LVLs %diff 2.0 % ESV(MOD-bp) 41.3 ml EF(MOD-bp) 38.8 % SV(MOD-sp4) 25.8 ml SI(MOD-sp4) 17.0 ml/m\S\2 SV(MOD-sp2) 21.2 ml SI(MOD-sp2) 14.0 ml/m\S\2 SV(MOD-bp) 26.2 ml SI(MOD-bp) 17.3 ml/m\S\2 SV(sp4-el) 27.0 ml SI(sp4-el) 17.9 ml/m\S\2 SV(sp2-el) 20.4 ml SI(sp2-el) 13.5 ml/m\S\2 Doppler Measurements and Calculations MV E max alyson 45.7 cm/sec MV A max alyson 57.2 cm/sec MV E/A 0.80 MV P1/2t max alyson 57.5 cm/sec MV P1/2t 53.7 msec MVA(P1/2t) 4.1 cm\S\2 MV dec slope 313.7 cm/sec\S\2 MV dec time 0.16 sec Ao V2 max 81.4 cm/sec Ao max PG 2.7 mmHg Ao max PG (full) 1.3 mmHg REYNA(V,A) 2.3 cm\S\2 REYNA(V,D) 2.3 cm\S\2 LV V1 max PG 1.3 mmHg LV V1 mean PG 0.72 mmHg LV V1 max 57.2 cm/sec LV V1 mean 38.4 cm/sec LV V1 VTI 9.6 cm MR max alyson 380.1 cm/sec MR max PG 57.8 mmHg MR mean alyson 293.0 cm/sec MR mean PG 38.5 mmHg MR VTI 116.1 cm SV(LVOT) 31.0 ml SI(LVOT) 20.5 ml/m\S\2 PA V2 max 51.4 cm/sec PA max PG 1.1 mmHg PA acc slope 424.8 cm/sec\S\2 PA acc time 0.08 sec PA pr(Accel) 41.0 mmHg
[2016-08-26] MEDS ORDERED: FUROSEMIDE 40 MG/4 ML VIAL IV STA (13:54)
[2016-08-26] MEDS: INSULIN REGULAR 250 UNITS in SODIUM CHLORIDE 0.9% 250ML 250 ML IV SCH (14:26)
--- NOTE | 2016-08-26 15:39 | Pharmacy Progress Note ---
Glycemic Control: Progress Nt Date of Service Aug 26, 2016. Scope Glycemic Pharmacist consulted by Dr Vick on 08/25/16 for glycemic control and to write orders per [facility] inpatient glycemic control protocol. Objective Accuchecks BSG (last 24hrs): Test 08/25/16 17:14 08/26/16 05:58 Random Glucose 324 mg/dl (70-99) 163 mg/dl (70-99) Laboratory Data (last 24hrs) Test 08/25/16 17:14 08/26/16 05:58 Anion Gap 20.0 mmol/L 24.0 mmol/L BUN/Creatinine Ratio 13.3 14.7 Blood Urea Nitrogen 41 mg/dl 46 mg/dl Creatinine 3.10 mg/dl 3.10 mg/dl Potassium Level 3.9 mmol/L 3.3 mmol/L Sodium Level 139 mmol/L 137 mmol/L White Blood Count 33.28 K/uL Red Blood Count 2.89 M/uL Hemoglobin 8.6 g/dL Hematocrit 24.8 % Mean Corpuscular Volume 85.8 fL Mean Corpuscular Hemoglobin 29.8 pg Mean Corpuscular Hemoglobin Concent 34.7 g/dl Platelet Count 90 K/uL Mean Platelet Volume 10.3 fL HbA1c: 08/15/16 Hgb A1c 8.7% Recent Pertinent Medications Outpatient Anti-diabetic Regimen: * Amaryl 2 mg daily, Metformin 1 Gm bid * A1c = 8.7 % 08/15/16 The patient is currently receiving: * Basal insulin: Insulin infusion 1 unit/ml in NSS, rate per infusion adjustment calculator * Correctional Insulin: per insulin infusion rate adjustment calculator * Prandial insulin: npo Risk Factors for Insulin Resistance: * Steroids: Solumedrol 20 mg q8h, change to hydrocortisone 100 mg q8h, then 75 mg q8h * Infection: possible aspiration pneumonia, Gm(-) bacteremia, on Zosyn, Levaquin , Zyvox IV * Pressors: norepinephrine, vasopressin, epinephrine * IVF: D5W + NaHCO3 @150 ml/hr, propofol * Recent Surgery: POD#1, emergency cystoscopy and placement ureteral stents * Diet: type 2 diabetic,AHA- now npo on ventilator * Mechanical Ventilation: yes Assessment & Plan ASSESSMENT: * ADA & AACE recommend a goal blood sugar range 140-180 mg/dl for the majority of critically ill & non-critically ill patients. However, more stringent targets may be selected in individual cases. 08/25/16 * 75 yo type 2 diabetic, moderately well controlled for age on oral meds. Now with multiple stressors. Tightened correction factor and gave one-time dose of Lantus. If BSG's remain over 300, would have a low threshold for starting an insulin drip. 08/26/16 * Insulin drip started 08/25 @1830. BSG's have trended down, but patient still has many risk factors for insulin resistance, so will continue insulin infusion and reassess in am. PLAN FOR INPATIENT GLYCEMIC CONTROL: * Continuing IV insulin infusion per moderate stress protocol * Goal Range 140-180 mg/dl * In the critical care setting, continuous IV insulin infusion has been shown to be the best method for achieving glycemic targets. * Holding outpatient oral diabetes medications * Please note that the plan above was derived based on current level of insulin resistance and hospital stress. These recommendations are appropriate for inpatient admission only. Plan of care upon discharge will need to be reassessed to avoid potential outpatient hypo/hyperglycemia. Thank you.
--- NOTE | 2016-08-26 16:09 | CRITICAL CARE PROGRESS NOTE ---
DATE: 08/26/2016 SUBJECTIVE: Today is ICU day #2 for this 75-year-old woman who presented to the Emergency Department in septic shock. She underwent bilateral ureteral stenting yesterday and remains on Levophed, vasopressin and epinephrine infusions. She is not having any significant endotracheal tube secretions when she is having bowel movements. Her urine output has been dwindling since yesterday afternoon. PHYSICAL EXAMINATION: VITAL SIGNS: Maximum temperature 37.9, heart rate 90s, respiratory rate 24-30, blood pressure is 95-119/50s, and oxygen saturation 92%-98%. VENTILATOR SETTINGS: Assist control, tidal volume 450, rate 24, FiO2 at 60%, and PEEP 10. 24-hour fluid balance positive 6.7 liters. GENERAL: This is a woman lying in bed, who will open her eyes very weakly. NEUROLOGIC: She follows commands and weakly moves fingers and toes. HEENT: Pupils are equally round and reactive to light. LUNGS: Have bilateral rales about prison up on both lung diaz. No rhonchi or wheezes. HEART: Regular rate and rhythm. I do not note any murmurs. ABDOMEN: Softer than yesterday, moderately distended, nontender, and hypoactive bowel sounds. EXTREMITIES: Slightly cool with 1+ dorsalis pedis and radial pulses. There is minimal edema in the upper and lower extremities. LABORATORY DATA: White blood cell count 33.28, hemoglobin 8.6, hematocrit 24.8, and platelets 90. Sodium 137, potassium 3.3, chloride 95, CO2 of 18, BUN 46, and creatinine 3.1. Lactic acid 10.8, glucose 163, calcium 7.1, and magnesium 1.6. Total bilirubin 1.5. AST 4526 and ALT 1779. Troponin I is 24.1 and albumin 3.3. MICROBIOLOGY DATA: Blood cultures from August 24 show gram negative cocci in both sets. Urine culture August 25, less than 1000 colonies to report. Clean catch urine on August 24, 3 organize organisms present, suggest to reculture. C. diff negative. Portable chest x-ray from this morning was reviewed and shows persistent, but slightly improved bilateral opacities with pulmonary vascular congestion and a small right pleural effusion. Right upper quadrant ultrasound today shows marked gallbladder wall thickening, no biliary ductal dilatation and suspected slow flow within the main portal vein as well as a small amount of ascites and right pleural effusion. Resolution of right hydronephrosis. HIT assay negative. Stool for occult blood negative. MEDICATIONS AND INFUSIONS: Acetaminophen, albumin, aspirin, atorvastatin, chlorhexidine, epinephrine infusion, fentanyl, hydrocortisone, insulin sliding scale, Atrovent, Xopenex, Levaquin day 2, linezolid day 1, norepinephrine, Zofran, Protonix, Zosyn day 2, propofol, D5W with 3 amps of sodium bicarbonate at 100 mL per hour, and vasopressin. IMPRESSION: 1. Septic shock, secondary to gram negative bacteremia, felt most likely to be secondary to obstructive uropathy. Her initial urine culture had 3 organisms with high counts - lab recommended repeating the collection. During her stent placements, another specimen was collected but I don't see it reflected in the micro data. The culture from yesterday afternoon showed less than 1000cfu/ml and there is no identification of the organism. Her gallbladder is enlarged on U/S, but there is no mention of a thickened wall or pericholecystic fluid. Repeat blood cultures were drawn today. She remains on double gram negative coverage as well as linezolid for the time being. 2. Acute hypoxemic respiratory failure with possible aspiration. She is developing acute respiratory distress syndrome and plateau pressures are 24-28. 3. Acute kidney injury secondary to obstructive uropathy and sepsis. 4. Elevated transaminases likely secondary to shock liver. I suspect that she was hypotensive for a period of time prior to even arriving in the Emergency Department. She has slow flow through the portal vein and this may be due to her cardiomyopathy and be contributing. 5. Leukocytosis, white blood count is much higher than yesterday. This may be due to her sepsis in combination with steroids, which were started secondary to her chronic outpatient steroid use for polymyalgia. 6. Decreased platelets secondary to sepsis. HIT assay is negative. 7. Elevated troponin and non-ST segment elevation myocardial infarction. Echocardiogram with global hypokinesis, right ventricular dilitation and ejection fraction 15-20% 8. Acute anemia, status post 1 unit packed red blood cells, no signs of active bleeding. This may be secondary to dilution. 9. Diabetes mellitus with hyperglycemia, treated with insulin infusion. 10. History of polymyalgia. PLAN: NEUROLOGIC: Continue propofol at low doses. She is really not requiring very much at all at this point. She has p.r.n. fentanyl. PULMONARY: The ventilator was adjusted. I would like to decrease her tidal volume and recheck an arterial blood gas this afternoon. She is getting chlorhexidine and head of bed to be at 30 degrees. CARDIOVASCULAR: She remains on Levophed 0.18 mcg per kilogram per minute and vasopressin 0.04 units per hour and epinephrine 0.01 mcg per kilogram per minute. Consider changing the epinephrine to dobutamine. She was given 40 mg of IV Lasix. Follow the lactate. Wean pressors for mean arterial pressure greater or equal to 65. Decrease albumin that was started overnight to 12.5 grams q8h x 3 doses. INFECTIOUS DISEASE: She was changed from vancomycin to linezolid last night and remains on Zosyn and Levaquin. Follow up blood cultures were drawn today. GASTROINTESTINAL: Follow liver function tests and maintain n.p.o. status for now. U/S portal vessels. ENDOCRINE: I decreased her hydrocortisone to 75 mg IV q. 8 hours. RENAL: Lasix 40 mg IV x1. Follow up electrolytes this afternoon and consider decreasing sodium bicarbonate infusion. HEMATOLOGY: Subcutaneous heparin was discontinued. Continue SCDs and consider transfusing another unit of blood given her elevated troponin and anemia. Follow coags and cbc. I discussed her care with her family in detail today. I was surprised that her left ventricular function is as poor as it is. Hopefully, this is secondary to sepsis. There are no regional wall motion abnormalities mentioned in the report. I am cautiously optimistic that she may turnaround from all of this. Please call me with any questions or concerns. Critical care time 60 minutes. MTDD
[2016-08-26 16:19] LABS: ISTAT ARTERIAL BLOOD GAS HCO3 18 meq/L (19-24); ISTAT ARTERIAL BLOOD GAS PCO2 29 mmHg (35-46); ISTAT ARTERIAL BLOOD GAS PO2 75 mmHg (80-95); ISTAT ARTERIAL BLOOD GAS pH 7.39 (7.35-7.45); ISTAT CARBON DIOXIDE 18 mEq/l (24-31); ISTAT DELIVERY SYSTEM Ventilator; ISTAT FIO2 60 %; ISTAT PEEP 10; ISTAT RATE 24; ISTAT SITE Art Line; VE 9.4; Vt 400
[2016-08-26] MEDS: DOBUTamine / D5W 500 MG IV PRN (16:19)
[2016-08-26 16:28] LABS: HEMATOCRIT 23.7 % (37-47); MEAN CELL VOLUME 86.2 fL (80-100); MEAN CORPUSCULAR HEMOGLOBIN 30.2 pg (25-34); MEAN PLATELET VOLUME 10.1 fL (7.4-10.4); PLATELET COUNT 61 K/uL (130-400); RED BLOOD COUNT 2.75 M/uL (4.2-5.4); WHITE BLOOD COUNT 34.71 K/uL (4.8-10.8)
[2016-08-26 16:37] LABS: BUN/CREATININE RATIO 16.2 (10-20); CALCIUM 7.3 mg/dl (8.5-10.1); CREATININE 3.1 mg/dl (0.60-1.20); POTASSIUM 3.2 mmol/L (3.5-5.1)
[2016-08-26] MEDS: HYDROCORTISONE IV 75 MG in SYRINGE 0 ML IV SCH (18:25)
[2016-08-26] MEDS: PROPOFOL IV EMULSION 10 MG/ML 100 ML VIAL IV PRN (18:26)
[2016-08-26] MEDS: POTASSIUM CHLR 20 MEQ / WTR 20 MEQ in PREMIXED WATER 100 ML IV SCH ×2 (18:26→20:45)
[2016-08-26 18:52] LABS: INR 1.9 (0.9-1.1); PARTIAL THROMBOPLASTIN RATIO 2.2; PROTHROMBIN TIME (PATIENT) 20.7 SECONDS (9.0-12.0)
[2016-08-26] MEDS ORDERED: LEVOFLOXACIN / D5W 500 MG in PREMIXED IN D5W 100 ML IV SCH (20:00)
[2016-08-26] MEDS: FENTANYL CITRATE INJ 50 MCG/1 ML 2 ML VIAL IV PRN (20:27)
[2016-08-26] MEDS: CHLORHEXIDINE GLUCONATE 0.12% 480 ML MT SCH (20:45)
--- NOTE | 2016-08-26 22:29 | Progress Note ---
Subjective Date of Service: Aug 26, 2016. Subjective Pt evaluation today including: conversation w/ family, physical exam, chart review, lab review, review of studies, conversation w/ [employer] consultant, review of inpatient medication list Pain: intubate, sedated and remain on vent support PO Intake: none Voiding: sadler catheter in place Day 2 in the ICU, remains intubated, sedated and vent support.Pt open eyes to loud sound, and moves her toes if ask. Pt has trace edema upper and lower extremities. Problem List Medical Problems: (1) Abnormal EKG Status: Acute (2) Fever Status: Acute (3) Left lower lobe pneumonia Status: Acute (4) Sepsis Status: Acute Review of Systems Constitutional: + see HPI (unable to provide ROS) Medications Medications (Trade) Dose Ordered Sig/Tamika Route Start Time Stop Time Status Last Admin Dose Admin Levofloxacin 500 mg/Prmx 100 ml @ 100 mls/hr Q48H IV 08/26/16 20:00 09/08/16 19:59 08/26/16 19:32 100 MLS/HR Epinephrine HCl 4 mg/Dextrose 254 ml @ 0 mls/hr Q0M PRN IV 08/25/16 23:30 09/24/16 23:29 08/25/16 23:44 2.4 MLS/HR Calcium Chloride 1000 mg/Sodium Chloride 60 ml @ 240 mls/hr NOW STAT IV 08/26/16 00:32 08/26/16 00:46 DC 08/26/16 00:48 240 MLS/HR Linezolid 600 mg/ Prmx 300 ml @ 300 mls/hr Q12H IV 08/26/16 13:00 09/02/16 12:59 08/26/16 12:54 300 MLS/HR Linezolid/Prmx (Zyvox / D5W/ Premixed D5W) 300 ml @ 300 mls/hr 0051 ONCE IV 08/26/16 00:51 08/26/16 01:50 DC 08/26/16 01:14 300 MLS/HR Albumin Human (Albumin 25%) 25 gm Q4H IV 08/26/16 01:30 08/26/16 17:30 DC 08/26/16 16:22 25 GM Perflutren Lipid Microsphere (Definity) 2 ml ONE ONCE IV 08/26/16 09:08 08/26/16 09:09 DC 08/26/16 09:08 2 ML Potassium Chloride 20 meq 20 meq NOW STAT PO 08/26/16 09:24 08/26/16 10:28 DC 08/26/16 10:50 20 MEQ Hydrocortisone Sodium Succinate/ Syringe (Solu-Cortef IV/ Syringe) 1.5 ml @ 4 mls/min Q8H IV 08/26/16 19:00 09/25/16 18:59 08/26/16 18:25 4 MLS/MIN Fentanyl Citrate (Fentanyl Inj) 25 mcg Q2H PRN IV 08/26/16 09:30 09/09/16 09:29 08/26/16 20:27 25 MCG Fentanyl Citrate (Fentanyl Inj) 25 mcg NOW ONCE IV 08/26/16 09:30 08/26/16 10:32 DC 08/26/16 10:52 25 MCG Chlorhexidine Gluconate (Peridex Oral Soln) 15 ml BID MT 08/26/16 21:00 09/25/16 20:59 08/26/16 20:45 15 ML Calcium Chloride (Calcium Chloride 10%) 1,000 mg NOW STAT IV 08/26/16 09:24 08/26/16 10:32 DC 08/26/16 10:50 1,000 MG Furosemide 40 mg 40 mg NOW STAT IV 08/26/16 13:54 08/26/16 13:59 DC 08/26/16 14:14 40 MG Dobutamine HCl (DOBUTamine / D5W) 250 ml @ 0 mls/hr Q0M PRN IV 08/26/16 15:30 09/25/16 15:29 08/26/16 16:19 4.8 MLS/HR Albumin Human 12.5 gm 12.5 gm Q6H IV 08/26/16 19:30 08/27/16 19:29 08/26/16 19:30 12.5 GM Potassium Chloride/Prmx (Kcl 20 Meq / Wtr/Premixed Water) 100 ml @ 50 mls/hr Q1H IV 08/26/16 18:30 08/26/16 20:29 DC 08/26/16 20:45 50 MLS/HR Objective Vital Signs Date Time Temp Pulse Resp B/P Pulse Ox O2 Delivery O2 Flow Rate FiO2 08/26/16 22:00 36.5 110 27 111/52 97 Mechanical Ventilator 60 08/26/16 21:08 65 08/26/16 21:00 36.4 111 26 100/49 97 Mechanical Ventilator 60 08/26/16 20:00 60 08/26/16 20:00 36.4 111 22 113/51 97 Mechanical Ventilator 60 08/26/16 20:00 Mechanical Ventilator 60 08/26/16 19:00 36.5 114 23 114/49 98 08/26/16 17:00 37.0 102 22 149/65 95 Mechanical Ventilator 60 08/26/16 16:00 Mechanical Ventilator 60 08/26/16 16:00 60 08/26/16 16:00 37.0 94 24 124/54 96 Mechanical Ventilator 60 08/26/16 15:00 36.9 95 29 135/57 94 Mechanical Ventilator 60 08/26/16 14:52 60 08/26/16 14:00 36.8 93 24 106/71 98 Mechanical Ventilator 60 08/26/16 13:00 36.8 93 26 129/54 95 Mechanical Ventilator 60 08/26/16 12:00 60 08/26/16 12:00 36.9 96 24 146/62 96 Mechanical Ventilator 60 08/26/16 12:00 Mechanical Ventilator 60 08/26/16 11:14 60 08/26/16 11:00 37.1 93 26 97 Mechanical Ventilator 60 08/26/16 10:00 37.1 95 24 134/60 96 Mechanical Ventilator 60 08/26/16 09:00 37.1 93 27 126/55 96 Mechanical Ventilator 60 08/26/16 08:00 Mechanical Ventilator 60 08/26/16 08:00 Mechanical Ventilator 60 08/26/16 08:00 60 08/26/16 08:00 37.1 94 29 93/66 98 Mechanical Ventilator 60 08/26/16 07:36 60 08/26/16 07:00 37.2 94 29 119/53 96 Mechanical Ventilator 60 08/26/16 06:00 96 24 117/53 97 Mechanical Ventilator 60 08/26/16 05:08 60 08/26/16 04:00 36.8 96 30 115/55 100 Mechanical Ventilator 60 08/26/16 04:00 60 08/26/16 04:00 Mechanical Ventilator 60 08/26/16 02:01 99 24 121/55 97 Mechanical Ventilator 60 3/26/17 01:45 60 08/26/16 00:01 37.3 100 24 117/48 93 Mechanical Ventilator 60 08/25/16 23:59 Mechanical Ventilator 60 08/25/16 23:59 60 08/25/16 23:12 60 Physical Exam Comments: VENTILATOR SETTINGS: Assist control, tidal volume 450, rate 24, FiO2 at 60%, and PEEP 10. 24-hour fluid balance positive 6.7 liters. GA: This is a woman lying in bed, who will open her eyes very weakly. NEURO: She follows commands and weakly moves fingers and toes. HEENT: Pupils are equally round and reactive to light. LUNGS: Have bilateral rales about fdc up on both lung diaz. No rhonchi or wheezes. HEART: Regular rate and rhythm. I do not note any murmurs. ABDOMEN: Softer than yesterday, moderately distended, nontender, and hypoactive bowel sounds. EXTREMITIES: Slightly cool with 1+ dorsalis pedis and radial pulses. There is minimal edema in the upper and lower extremities. Laboratory Results Last 24 Hours Test 08/25/16 23:10 08/25/16 23:37 08/25/16 23:59 08/26/16 05:58 Bedside Glucose (other) 292 mg/dl Troponin I 14.200 ng/ml 24.100 ng/ml Lactic Acid Level 14.9 mmol/L 10.8 mmol/L White Blood Count 33.28 K/uL Red Blood Count 2.89 M/uL Hemoglobin 8.6 g/dL Hematocrit 24.8 % Mean Corpuscular Volume 85.8 fL Mean Corpuscular Hemoglobin 29.8 pg Mean Corpuscular Hemoglobin Concent 34.7 g/dl Platelet Count 90 K/uL Mean Platelet Volume 10.3 fL RDW Standard Deviation 48.6 fL RDW Coefficient of Variation 15.3 % Neutrophils % (Manual) 94.0 % Lymphocytes % (Manual) 3.0 % Monocytes % (Manual) 3.0 % Neutrophils # (Manual) 31.28 K/uL Total Absolute Neutrophils 31.28 K/uL Lymphocytes # (Manual) 1.00 K/uL Total Absolute Lymphocytes 1.00 K/uL Monocytes # (Manual) 1.00 K/uL Toxic Vacuolation 1+ Echinocytes 1+ Acanthocytes 1+ Prothrombin Time 27.8 SECONDS Prothromb Time International Ratio 2.5 Activated Partial Thromboplast Time 55.3 SECONDS Partial Thromboplastin Ratio 2.1 Sodium Level 137 mmol/L Potassium Level 3.3 mmol/L Chloride Level 95 mmol/L Carbon Dioxide Level 18 mmol/L Anion Gap 24.0 mmol/L Blood Urea Nitrogen 46 mg/dl Creatinine 3.10 mg/dl Est Creatinine Clear Calc Drug Dose 12.1 ml/min Estimated GFR () 16.1 Estimated GFR (Non- 13.9 BUN/Creatinine Ratio 14.7 Random Glucose 163 mg/dl Calcium Level 7.1 mg/dl Phosphorus Level 4.9 mg/dl Magnesium Level 1.6 mg/dl Total Bilirubin 1.5 mg/dl Direct Bilirubin 0.7 mg/dl Aspartate Amino Transf (AST/SGOT) 4526 U/L Alanine Aminotransferase (ALT/SGPT) 1779 U/L Alkaline Phosphatase 64 U/L Total Protein 5.8 gm/dl Albumin 3.3 gm/dl Random Vancomycin Level 9.9 mcg/ml Test 08/26/16 08:01 08/26/16 08:05 08/26/16 09:26 08/26/16 10:00 Blood Gas Sample Site Art Line Bedside Blood Gas pH (LAB) 7.48 Bedside Blood Gas pCO2 (LAB) 25 mmHg Bedside Blood Gas pO2 (LAB) 76 mmHg Bedside Blood Gas HCO3 (LAB) 18 meq/L Bedside Blood Gas Total CO2 19 mEq/l Bedside Blood Gas Base Excess (LAB) -5.0 meq/L Bedside Blood Gas O2 Saturation 96.0 % Jaren Test NA Oxygen Delivery Device Ventilator Bedside Oxygen Rate (breaths/min) 24 Blood Gas Minute Ventilation 13.7 Bedside FiO2 60 % Blood Gas Tidal Volume 450 Blood Gas PEEP 10 Bedside Glucose (other) 131 mg/dl 113 mg/dl Heparin-PF4 Antibody Screen NEG Test 08/26/16 10:05 08/26/16 10:37 08/26/16 11:06 08/26/16 12:18 Bedside Glucose (other) 103 mg/dl 105 mg/dl 105 mg/dl 114 mg/dl Test 08/26/16 13:14 08/26/16 14:22 08/26/16 16:07 08/26/16 16:10 Bedside Glucose (other) 125 mg/dl 204 mg/dl Blood Gas Sample Site Art Line Bedside Blood Gas pH (LAB) 7.39 Bedside Blood Gas pCO2 (LAB) 29 mmHg Bedside Blood Gas pO2 (LAB) 75 mmHg Bedside Blood Gas HCO3 (LAB) 18 meq/L Bedside Blood Gas Total CO2 18 mEq/l Bedside Blood Gas Base Excess (LAB) -7.0 meq/L Bedside Blood Gas O2 Saturation 94.0 % Jaren Test NA Oxygen Delivery Device Ventilator Bedside Oxygen Rate (breaths/min) 24 Blood Gas Minute Ventilation 9.4 Bedside FiO2 60 % Blood Gas Tidal Volume 400 Blood Gas PEEP 10 White Blood Count 34.71 K/uL Red Blood Count 2.75 M/uL Hemoglobin 8.3 g/dL Hematocrit 23.7 % Mean Corpuscular Volume 86.2 fL Mean Corpuscular Hemoglobin 30.2 pg Mean Corpuscular Hemoglobin Concent 35.0 g/dl RDW Standard Deviation 49.1 fL RDW Coefficient of Variation 15.5 % Platelet Count 61 K/uL Mean Platelet Volume 10.1 fL Nucleated RBC Absolute Count (auto) 0.03 K/uL Nucleated Red Blood Cells % 0.1 % Sodium Level 137 mmol/L Potassium Level 3.2 mmol/L Chloride Level 94 mmol/L Carbon Dioxide Level 21 mmol/L Anion Gap 22.0 mmol/L Blood Urea Nitrogen 50 mg/dl Creatinine 3.10 mg/dl Est Creatinine Clear Calc Drug Dose 12.1 ml/min Estimated GFR () 16.1 Estimated GFR (Non- 13.9 BUN/Creatinine Ratio 16.2 Random Glucose 152 mg/dl Lactic Acid Level 11.1 mmol/L Calcium Level 7.3 mg/dl Total Bilirubin 2.2 mg/dl Direct Bilirubin 1.2 mg/dl Aspartate Amino Transf (AST/SGOT) 2493 U/L Alanine Aminotransferase (ALT/SGPT) 986 U/L Alkaline Phosphatase 80 U/L Troponin I 21.100 ng/ml Total Protein 5.5 gm/dl Albumin 3.5 gm/dl Test 08/26/16 16:11 08/26/16 17:11 08/26/16 18:12 08/26/16 18:20 Bedside Glucose (other) 155 mg/dl 146 mg/dl 141 mg/dl Prothrombin Time 20.7 SECONDS Prothromb Time International Ratio 1.9 Activated Partial Thromboplast Time 56.9 SECONDS Partial Thromboplastin Ratio 2.2 Test 08/26/16 19:22 08/26/16 20:34 08/26/16 21:32 3/26/17 21:50 Bedside Glucose (other) 135 mg/dl 136 mg/dl 123 mg/dl Lactic Acid Level 9.1 mmol/L Assessment and Plan (1) Septic shock (2) Fever (3) Sepsis (4) Left lower lobe pneumonia 1). Sepsis with septic shock secondary to UTI, Pneumonia , with bilateral upper ureteral obstructing stones with acute renal failure - Day 2 currently intubated, sedated and remain on AC vent support in ICU. - Urology on case,s/p uretal stents - On Levophed , vasopressor and epinephrine - On IV antibiotics Zosyn, Vanco, and Zyvox - elevated WBC white blood count is much higher than yesterday. This may be due to her sepsis in combination with steroids, which were started secondary to her chronic outpatient steroid use for polymyalgia. Ucx pending - Pt prognosis is guarded. - full code 2). Acute Hypoxemic Resp Failure. - Multifactorial could be secondary to Left basilar airspace consolidation as well new right consolidation at the right lung base, could be secondary to pneumonia/aspiration pneumonitis, ARDS with plt pressure. - Currently on vent support and Antibiotics. - Will repeat CXR, CBC, BMP, MG, Phos, ABG in am. 3). Acute Renal failure. - Cr of 3.10, base line is 0.82. acute kidney injury could be secondary to septic shock vs dehydration vs bilateral hydronephrosis. Urology on case. Cont IVF and antibiotics, if stable may receive ureteral stents. 4). Elevated troponin - Could be secondary to septic shock vs demand ischemia, Elevated troponin and non-ST segment elevation myocardial infarction. - Echocardiogram with global hypokinesis, right ventricular dilatation and ejection fraction 15-20% 5) Decreased platelets - secondary to sepsis - HIT assay is negative. 6). Acute anemia - s/p 1 unit packed red blood cells, no signs of active bleeding. - possible dilution. 7). Diabetes mellitus with hyperglycemia, treated with insulin infusion Continued [facility] stay due to: multiple IV medications needed Discharge planning: [facility] facility Problem Qualifiers (1) Fever: Fever type: unspecified Qualified Codes: R50.9 - Fever, unspecified (2) Sepsis: Sepsis type: sepsis due to unspecified organism Qualified Codes: A41.9 - Sepsis, unspecified organism (3) Left lower lobe pneumonia: Pneumonia type: due to unspecified organism Qualified Codes: J18.1 - Lobar pneumonia, unspecified organism
[2016-08-27] VITALS (15 sets, daily range): BP systolic 83–112; BP diastolic 36–57; PULSE 98–105; TEMP 36.6–37; O2SAT 94–98
[2016-08-27] MEDS: DEXTROSE 50% 50 ML SYR IV PRN ×2 (00:03→16:46)
[2016-08-27] MEDS: ALBUMIN HUMAN 25% 12.5 GM/50 ML VIAL IV SCH ×3 (00:33→13:30)
[2016-08-27] MEDS: LINEZOLID / D5W 600 MG in PREMIXED IN D5W 300 ML IV SCH (00:33)
[2016-08-27] MEDS: VASOPRESSIN INJ 50 UNITS in SODIUM CHLORIDE 0.9% 500ML 500 ML IV SCH (01:55)
[2016-08-27] MEDS: LEValbuterol HFA 15GM INHALER INH SCH ×4 (02:03→19:23)
[2016-08-27] MEDS: IPRATROPIUM BROMIDE HFA INHALER INH SCH ×4 (02:03→19:23)
[2016-08-27] MEDS: HYDROCORTISONE IV 75 MG in SYRINGE 0 ML IV SCH ×3 (02:19→18:46)
[2016-08-27] MEDS: PROPOFOL IV EMULSION 10 MG/ML 100 ML VIAL IV PRN (04:39)
[2016-08-27 06:32] LABS: INR 1.5 (0.9-1.1); PARTIAL THROMBOPLASTIN RATIO 1.7; PROTHROMBIN TIME (PATIENT) 16.8 SECONDS (9.0-12.0)
[2016-08-27 06:34] LABS: MEAN CELL VOLUME 85.8 fL (80-100); MEAN CORPUSCULAR HEMOGLOBIN 29.5 pg (25-34); MEAN CORPUSCULAR HGB CONC 34.3 g/dl (32-36); MEAN PLATELET VOLUME 10.8 fL (7.4-10.4); PLATELET COUNT 60 K/uL (130-400); RED BLOOD COUNT 2.68 M/uL (4.2-5.4); WHITE BLOOD COUNT 40.27 K/uL (4.8-10.8)
[2016-08-27 06:35] LABS: COMPLETE YES; ECHINOCYTES 1+; LYMPH ABS # 0.72 K/uL (1.2-3.4); LYMPHOCYTE % 1.8 %; NEUTROPHILS % 96.4 %; OVALOCYTES 1+; PLT ESTIMATE DECREASED; TOXIC GRANULATION 2+
[2016-08-27 06:36] LABS: BUN/CREATININE RATIO 15.6 (10-20); CALCIUM 7.2 mg/dl (8.5-10.1); CREATININE 3.1 mg/dl (0.60-1.20); MAGNESIUM 1.4 mg/dl (1.8-2.4); POTASSIUM 3.4 mmol/L (3.5-5.1)
[2016-08-27 06:54] LABS: PHOSPHORUS 3.3 mg/dl (2.5-4.9)
--- NOTE | 2016-08-27 07:14 | OPERATIVE REPORT ---
DATE OF OPERATION: 08/25/2016 PROCEDURE: Right femoral arterial line placement. PREPROCEDURE DIAGNOSIS: Septic shock. POSTPROCEDURE DIAGNOSIS: Same. INDICATION: Need for continuous blood pressure monitoring while patient is on vasopressors. DESCRIPTION OF PROCEDURE: As follows: This procedure was performed this morning around 8:30 a.m. Informed consent was obtained and a timeout was performed. I laid the patient supine and donned a hat, mask, sterile gown and sterile gloves. I prepared the right groin with chlorhexidine and this was allowed to dry. I had to remove the dressing from the right femoral triple lumen catheter. The entire area was cleaned very well with chlorhexidine and this was allowed to dry. I then draped the patient in sterile fashion and used 1 mL of 1% lidocaine to numb the skin adjacent to the right femoral artery. Using ultrasound guidance, I cannulated the right femoral artery with a 20-gauge needle from the [employer] arterial line kit. A wire was placed through the needle and the needle was removed. A 12 cm 20-gauge arterial catheter was then placed over the wire and the wire was removed. I then connected the catheter to the transducer tubing. The line was then sutured in place. Hemostasis was achieved and there were no complications. The patient tolerated the procedure well. The nurse placed a dressing over both catheters. I attest to the content of the Intraoperative Record and any orders documented therein. Any exceptio ns are noted below.
--- NOTE | 2016-08-27 07:28 | DIAGNOSTIC IMAGING REPORT ---
CHEST ONE VIEW PORTABLE CLINICAL HISTORY: hypoxia RESPIRATORY FAILURE COMPARISON STUDY: 08/26/2016 FINDINGS: The heart is enlarged. There is an endotracheal tube 3 cm above the italo. There is a nasogastric tube within the stomach. A subpulmonic right pleural effusion is suspected. There are persistent airspace opacities within the left lower lobe, right perihilar region, and right medial lung base..[ IMPRESSION: 1. Persistent bilateral airspace opacities 2. Subglottic right pleural effusion 3. No significant change given differences in technique Electronically signed by: Americo Wilkinson M.D. 08/27/2016 7:27 AM Dictated Date/Time: 08/27/2016 7:25 AM
[2016-08-27] MEDS: MAGNESIUM SULFATE 1GM / D5W 1 GM in PREMIXED IN D5W 100 ML IV SCH ×2 (07:59→09:04)
[2016-08-27] MEDS: INSULIN ASPART 100 UNITS/ML 3 ML PEN SC SCH (08:00)
[2016-08-27] MEDS: PIPERACILL/TAZOBAC IV 3.375 GM in DEXTROSE 5% 100ML 100 ML IV SCH ×2 (08:05→21:14)
[2016-08-27] MEDS: PANTOprazole INJ 40 MG in SYRINGE 0 ML IV SCH (08:06)
[2016-08-27] MEDS: ASPIRIN 81 MG ECTAB PO SCH (08:06)
[2016-08-27] MEDS: ATORVASTATIN 20 MG TAB PO SCH (08:07)
[2016-08-27] MEDS: CHLORHEXIDINE GLUCONATE 0.12% 480 ML MT SCH ×2 (08:12→21:14)
[2016-08-27] MEDS ORDERED: MIDAZOLAM HCL 1 MG/ML 2ML VIAL IV PRN (09:30)
[2016-08-27] MEDS ORDERED: HEPARIN SOD 5000 UNIT/0.5 ML CARP SQ ONE (09:30)
[2016-08-27] MEDS ORDERED: FUROSEMIDE INJ 40 MG in SYRINGE 0 ML IV ONE (09:30)
[2016-08-27 09:39] LABS: ISTAT ARTERIAL BLOOD GAS HCO3 23 meq/L (19-24); ISTAT ARTERIAL BLOOD GAS PCO2 29 mmHg (35-46); ISTAT ARTERIAL BLOOD GAS PO2 82 mmHg (80-95); ISTAT ARTERIAL BLOOD GAS pH 7.51 (7.35-7.45); ISTAT CARBON DIOXIDE 24 mEq/l (24-31); ISTAT DELIVERY SYSTEM Ventilator; ISTAT FIO2 50 %; ISTAT PEEP 10; ISTAT RATE 24; ISTAT SITE Art Line; VE 11.2; Vt 400
[2016-08-27] MEDS: POTASSIUM CHLR 20MEQ / WTR IV SCH ×3 (10:08→13:30)
[2016-08-27 10:09] LABS: VEN BLD GAS O2 SATURATION 74.9 %; VEN BLOOD GAS BASE EXCESS 0.3 mmol/L
--- NOTE | 2016-08-27 10:41 | Progress Note ---
Progress Note Date of Service Aug 27, 2016. Progress Note ID Consult Dictated # [id number] A/P: 1. Septic Shock with MODS 2. Polymicrobial Sepsis - E. coli and second GNR 3. Complicated uti with obstructing stones s/p b/l stents 08/25 4. Severe Leukocytosis 5. Fever -resolved -Continue zosyn and levaquin pending ID/sensitivity of second GNR, no need for zyvox (already d/c) -follow repeat blood cultures -Add caspo as yeast seen on initial UA -Continue supportive care -will follow, thank you
[2016-08-27] MEDS ORDERED: CASPOFUNGIN INJ 70 MG in SODIUM CHLORIDE 0.9% 250ML 250 ML IV ONE (11:00)
[2016-08-27] MEDS: FENTANYL CITRATE INJ 50 MCG/1 ML 2 ML VIAL IV PRN ×2 (13:26→21:21)
[2016-08-27] MEDS ORDERED: NURSING VERBAL MED ORDER ONE (13:45)
--- NOTE | 2016-08-27 14:04 | INFECT. DISEASE CONSULTATION ---
DATE OF CONSULTATION: 08/27/2016 REQUESTING PHYSICIAN: Dr. Plaza. HISTORY OF PRESENT ILLNESS: This is a 75-year-old female who was admitted from home after she had 1-2 days of sudden onset back pain and fatigue. She also had subjective fevers and chills at home. She was brought to the hospital by EMS. She was noted to have a fever of 39.5 in the Emergency Room. She was also tachycardic and hypotensive with a blood pressure that was as low as 71/55. She was initially given a fluid bolus in the ambulance and then was continued with supportive measures upon arrival to the hospital. She was started on broad spectrum antibiotics consisting of Zosyn, levofloxacin and Zyvox. Infectious disease was consulted for Zyvox use. She was also started on pressor therapy. She continued to be febrile throughout her stay with a T-max of 38.7 on the . On the , she is afebrile and has been afebrile since the . She was noted to initially have a white blood cell count of 6; however, this has increased to 40.2 today. Her lactic acid was elevated at 7.9 and increased to 14.9, but now is trending back down. Her troponin upon admission to the hospital was 0.1 and has trended up to 24. Her creatinine was 2.4 on admission and has now trended up to 3.1. This is maintained at 3.1. Her initial LFTs were within normal limits; however, on the , these increased significantly with an AST of 4526 and an ALT of 1779. They are trending back down and today her AST is 876 and her ALT is 1057. The flu swab was negative in the Emergency Room. Her family reports that she did have a fall once in July of 2016. She did have a urinalysis on the which had greater than 30 WBCs, 4+ bacteria and yeast was also noted, however, culture was considered contaminant with greater than 3 organisms. On the , a repeat urine culture was obtained and was negative. Her blood cultures from the are growing 2 gram-negative rods. One has been identified as E. coli with resistance to trimethoprim, sulfamethoxazole only an intermediate sensitivity to tobramycin. Her second gram negative robert has not yet been identified. Blood cultures were repeated on the and results of that are pending. C. diff has been obtained and is negative. Her initial chest x-ray showed left basilar infiltration. She also had a CAT scan of the abdomen and pelvis as part of her initial workup. It shows some mild gallbladder distention and an enlarged liver. She also had bilateral renal stones which her family reports is a new diagnosis. On the right, she had a 12 mm obstructing stone with associated hydronephrosis. On the left, she had nonobstructing stones, one measuring 19 mm and then a large cluster of stones in the left renal pole measuring 2.3 cm. She also had hydronephrosis and perinephric stranding with gas in her collecting system. Urology consult was obtained and on the , she underwent bilateral renal stent placement. She tolerated this procedure well. She also had an ultrasound of the gallbladder which showed marked thickening. She remains on the ventilator and on pressor therapy. She is hypotensive and tachycardic, but her fever appears to have resolved. She is awake on the ventilator. She is able to open her eyes and answer yes or no questions. She currently denies any fevers or any pain. She did have a left femoral artery catheter placed upon arrival to the hospital and this remains in place. A Crocker and an orotracheal remained in place as well. She is being followed by cardiology for elevated troponin. PAST MEDICAL HISTORY: Significant for type 2 diabetes and high cholesterol. PAST SURGICAL HISTORY: Unknown. SOCIAL HISTORY: Negative for tobacco use, alcohol use or drug use. ALLERGIES: She has no known drug allergies. FAMILY HISTORY: Noncontributory. CURRENT MEDICATIONS: Include subQ heparin, Versed, potassium, Peridex, albumin, hydrocortisone, dobutamine, fentanyl, Atrovent, Xopenex, Protonix, Zosyn, aspirin, levofloxacin, Zofran, norepinephrine, and Zyvox has been discontinued. PHYSICAL EXAMINATION: VITAL SIGNS: She has been afebrile for the last 24 hours, pulse was 102, respiratory rate is in the 20s, blood pressure is 103/45 by arterial line, and pulse ox is 96-97% on a 50% FiO2. GENERAL: She is awake on the ventilator. She is in no acute distress on my examination. HEART: Tachycardic. LUNGS: Clear anteriorly with decreased breath sounds at the bases. ABDOMEN: Distended but nontender. There is no lower extremity edema. A right femoral artery catheter is in place. SKIN: Without rash. LABORATORY STUDIES: CBC today reveals a white blood cell count of 40.2, hemoglobin 7.9, hematocrit 23 and platelets are 60. Chemistry panel reveals sodium of 136, potassium 3.4, chloride 93, bicarbonate 24, anion gap is 19, BUN 48, creatinine 3.1, glucose 106. Lactate is 7.9 down from its peak of 14.9. LFTs today show a bilirubin of 2.3, direct bilirubin 1.3, AST is 876, ALT is 1057. Her most recent troponin on the is 21. Urinalysis done on the had 3+ blood, large leukocyte esterase, greater than 30 WBCs, 4+ bacteria and urine present. Stool for blood was negative. Influenza PCR is negative. Initial urine culture had 3 types of organisms. Blood cultures from the grew E. coli and a second gram negative robert and C. diff was negative on the as well as the . Repeat blood cultures on the are pending. Repeat urine culture on the showed no growth. IMAGING: As reviewed previously. ASSESSMENT AND PLAN: 1. Gram negative septicemia secondary to urinary source and obstructing stones. 2. Severe leukocytosis. 3. Multiple organ dysfunction with cardiac and liver manifestations as well as need for intubation. She will be continued on broad spectrum gram negative coverage until her second gram negative robert is identified. Her repeat blood cultures are pending. Her Zyvox has been discontinued. She did have yeast on the urinalysis and caspofungin will be added empirically. She will remain in the intensive care unit with supportive measures and if her femoral line can be removed that should be done to prevent additional infection. We will follow along with you. Thank you for this consultation.
--- NOTE | 2016-08-27 14:30 | Pharmacy Progress Note ---
Glycemic Control: Progress Nt Date of Service Aug 27, 2016. Scope Glycemic Pharmacist consulted by Dr Vick on 08/25/16 for glycemic control and to write orders per [facility] inpatient glycemic control protocol. Objective Accuchecks BSG (last 24hrs): Test 08/26/16 16:10 08/27/16 05:40 Random Glucose 152 mg/dl (70-99) 104 mg/dl (70-99) Laboratory Data (last 24hrs) Test 08/26/16 16:10 08/27/16 05:40 Anion Gap 22.0 mmol/L 19.0 mmol/L BUN/Creatinine Ratio 16.2 15.6 Blood Urea Nitrogen 50 mg/dl 48 mg/dl Creatinine 3.10 mg/dl 3.10 mg/dl Potassium Level 3.2 mmol/L 3.4 mmol/L Sodium Level 137 mmol/L 136 mmol/L White Blood Count 34.71 K/uL 40.27 K/uL Red Blood Count 2.68 M/uL Hemoglobin 7.9 g/dL Hematocrit 23.0 % Mean Corpuscular Volume 85.8 fL Mean Corpuscular Hemoglobin 29.5 pg Mean Corpuscular Hemoglobin Concent 34.3 g/dl Platelet Count 60 K/uL Mean Platelet Volume 10.8 fL HbA1c: 8.7% 08/15/16 Recent Pertinent Medications Outpatient Anti-diabetic Regimen: * Glimepiride 2mg daily * Metformin 1gm BID * A1c = 8.7 % 08/15/16 The patient is currently receiving: * IV insulin protocol --- currently on hold however Risk Factors for Insulin Resistance: * Steroids: Solu-Cortef 75mg IV Q 8 hours * Infection: septic shock, b/l nephrolithiasis, e coli bacteremia; questionable aspiration pnx; receiving Zosyn + Levofloxacin * Pressors: dobutamine + norepi * Recent Surgery: POD # 2 * Diet: NPO * Mechanical Ventilation: remains on vent Assessment & Plan ASSESSMENT: 08/27/16 * Patient was started on IV insulin drip on 08/25 for BSGs in the 300's * Overnight insulin drip was titrated down to 0.3 units/hr and then turned off this AM * Continuation of the drip was discussed on rounds this AM, the plan is to leave the drip off, however restart the insulin drip if the BSG climbs to > 180. This patient still has significant stressors and remains critically ill on pressor support. The standard of care for such patients is an insulin infusion. She is a type 2 diabetic that remains NPO, thus she may not require insulin while fasting. * Will check BSGs Q 4 hrs PLAN FOR INPATIENT GLYCEMIC CONTROL: * Hold insulin drip for now * Monitor BSGs Q 4 hrs * Restart insulin drip at 0.3units/hr if BSGs climb to greater than 180 - then adjust rate using insulin infusion protocol * Please note that the plan above was derived based on current level of insulin resistance and hospital stress. These recommendations are appropriate for inpatient admission only. Plan of care upon discharge will need to be reassessed to avoid potential outpatient hypo/hyperglycemia. Thank you.
[2016-08-27 15:33] LABS: CREATININE 3.3 mg/dl (0.60-1.20); MAGNESIUM 1.9 mg/dl (1.8-2.4); POTASSIUM 3.9 mmol/L (3.5-5.1)
[2016-08-27 15:51] LABS: PHOSPHORUS 2.7 mg/dl (2.5-4.9)
--- NOTE | 2016-08-27 16:17 | Progress Note ---
Subjective Date of Service: Aug 27, 2016. Subjective Pt evaluation today including: physical exam, chart review, lab review, conversation w/ webmethods consultant (ICU team), review of inpatient medication list Problem List Medical Problems: (1) Abnormal EKG Status: Acute (2) Fever Status: Acute (3) Left lower lobe pneumonia Status: Acute (4) Sepsis Status: Acute (5) Septic shock Status: Acute Review of Systems ROS is unobtainable intubated sedated Medications Current Inpatient Medications Medications (Trade) Dose Ordered Sig/Tamika Route Start Time Stop Time Status Last Admin Dose Admin Acetaminophen 650 mg 650 mg Q4H PRN PO 08/24/16 21:00 09/23/16 20:59 Future Hold 08/25/16 04:09 650 MG Pantoprazole Sodium 40 mg/ Syringe 10 ml @ 5 mls/min DAILY IV 08/25/16 09:00 09/24/16 08:59 08/27/16 08:06 5 MLS/MIN Piperacillin Sod/ Tazobactam Sod/ Dextrose (Zosyn Iv/D5 100ml) 115 ml @ 28 mls/hr Q12H IV 08/25/16 09:00 09/08/16 08:59 08/27/16 08:05 28 MLS/HR Ondansetron HCl (Zofran Inj) 4 mg Q6H PRN IV 08/24/16 21:00 09/23/16 20:59 Aspirin (Ecotrin Tab) 81 mg DAILY PO 08/25/16 09:00 09/24/16 08:59 08/27/16 08:06 81 MG Atorvastatin Calcium (Lipitor Tab) 20 mg DAILY PO 08/25/16 09:00 09/24/16 08:59 Future Hold 08/27/16 08:07 20 MG Fluticasone Propionate (Flonase Nasal [place]) 2 sprays DAILY PRN JAKOB 08/24/16 21:00 09/23/16 20:59 Glucose (Glucose 40% Gel) UD PRN PO 08/24/16 21:00 09/23/16 20:59 Glucose (Glucose Chew Tab) 1 tabs UD PRN PO 08/24/16 21:00 09/23/16 20:59 Dextrose (Dextrose 50% 50ML Syringe) 50 ml UD PRN IV 08/24/16 21:00 09/23/16 20:59 08/27/16 00:03 50 ML Glucagon 1 mg 1 mg UD PRN SQ 08/24/16 21:00 09/23/16 20:59 Norepinephrine Bitartrate/ Dextrose (Levophed Inj/ D5W 500ml) 508 ml @ 0 mls/hr Q0M PRN IV 08/24/16 20:56 09/23/16 20:55 08/26/16 09:29 24 MLS/HR Levofloxacin (Consult) 1 ea UD PRN N/A 08/24/16 22:15 09/23/16 22:14 Piperacillin Sod/ Tazobactam Sod (Consult) 1 ea UD PRN N/A 08/24/16 22:15 09/23/16 22:14 Miscellaneous Information (Consult Glycemic Management Pharmacy) 1 ea UD N/A 08/25/16 08:48 09/24/16 08:47 Acetaminophen 650 mg 650 mg Q4H PRN PO 08/25/16 13:30 09/24/16 13:29 Future Hold Insulin Human Regular/Sodium Chloride (novoLIN-R/Nss 250ml) 252.5 ml @ 0 mls/hr DAILY@1130 IV 08/25/16 18:30 09/24/16 18:29 Future Hold 08/26/16 14:26 1.8 MLS/HR Insulin Aspart (novoLOG ASPART) SLIDING SCALE PCHS SC 08/25/16 21:00 09/24/16 20:59 Future Hold Ipratropium [place] (Atrovent Hfa Inhaler) 4 puffs Q6R INH 08/25/16 21:00 09/24/16 20:59 08/27/16 07:15 4 PUFFS Levalbuterol 4 puffs 4 puffs Q6R INH 08/25/16 21:00 09/24/16 20:59 08/27/16 07:15 4 PUFFS Hydrocortisone Sodium Succinate/ Syringe (Solu-Cortef IV/ Syringe) 1.5 ml @ 4 mls/min Q8H IV 08/26/16 19:00 09/25/16 18:59 08/27/16 11:32 4 MLS/MIN Fentanyl Citrate (Fentanyl Inj) 25 mcg Q2H PRN IV 08/26/16 09:30 09/09/16 09:29 08/27/16 13:26 25 MCG Chlorhexidine Gluconate 15 ml 15 ml BID MT 08/26/16 21:00 09/25/16 20:59 08/27/16 08:12 15 ML Dobutamine HCl (DOBUTamine / D5W) 250 ml @ 0 mls/hr Q0M PRN IV 08/26/16 15:30 09/25/16 15:29 08/26/16 16:19 4.8 MLS/HR Midazolam HCl (Versed Inj) 2 mg Q2H PRN IV 08/27/16 09:30 09/26/16 09:29 Heparin Sodium (Porcine) (Heparin Sq 5000 Unit/0.5ml) 5,000 unit Q12 SQ 08/27/16 21:00 09/26/16 20:59 Miscellaneous Information 1 ea 1 ea Q4 N/A 08/27/16 12:00 09/26/16 11:59 Caspofungin/ Sodium Chloride (Cancidas Inj/ Nss 250ml) 260 ml @ 250 mls/hr Q24H IV 08/28/16 11:00 09/05/16 12:03 Objective Vital Signs Date Time Temp Pulse Resp B/P Pulse Ox O2 Delivery O2 Flow Rate FiO2 08/27/16 14:00 99 33 86/43 96 Mechanical Ventilator 40 08/27/16 13:45 100 29 83/40 94 Mechanical Ventilator 40 08/27/16 12:06 40 08/27/16 12:00 37.0 104 29 99/43 95 Mechanical Ventilator 40 08/27/16 12:00 Mechanical Ventilator 40 08/27/16 12:00 50 08/27/16 10:00 98 30 90/39 94 Mechanical Ventilator 40 90/46 08/27/16 08:00 50 08/27/16 08:00 36.6 100 28 102/46 97 Mechanical Ventilator 50 08/27/16 08:00 Mechanical Ventilator 50 08/27/16 07:15 50 08/27/16 06:00 102 29 103/45 96 Mechanical Ventilator 50 08/27/16 05:14 50 08/27/16 04:00 36.7 102 26 104/46 97 Mechanical Ventilator 50 08/27/16 04:00 Mechanical Ventilator 50 08/27/16 04:00 50 08/27/16 03:00 36.7 104 24 112/48 97 Mechanical Ventilator 50 08/27/16 02:22 50 08/27/16 02:00 36.6 104 29 98/44 98 Mechanical Ventilator 60 08/27/16 01:00 36.7 105 24 102/44 97 60 08/27/16 00:00 36.6 104 27 96/49 97 Mechanical Ventilator 60 08/26/16 23:59 60 08/26/16 23:59 Mechanical Ventilator 60 08/26/16 23:17 60 08/26/16 22:00 36.5 110 27 111/52 97 Mechanical Ventilator 60 08/26/16 21:08 60 08/26/16 21:00 36.4 111 26 100/49 97 Mechanical Ventilator 60 08/26/16 20:00 60 08/26/16 20:00 36.4 111 22 113/51 97 Mechanical Ventilator 60 08/26/16 20:00 Mechanical Ventilator 60 08/26/16 19:00 36.5 114 23 114/49 98 08/26/16 17:00 37.0 102 22 149/65 95 Mechanical Ventilator 60 Physical Exam General Appearance: no apparent distress Eyes: normal inspection ENT: normal ENT inspection Neck: supple Respiratory/Chest: chest non-tender, lungs clear, normal breath sounds, no respiratory distress Cardiovascular: regular rate, rhythm, no edema, no gallop, no JVD, + systolic murmur Abdomen: non tender, soft Extremities: non-tender, no pedal edema, no calf tenderness Neurologic/Psychiatric: + pertinent finding (intubated sedated but followed commands) Skin: normal color, warm/dry Laboratory Results Last 24 Hours Test 08/26/16 16:10 08/26/16 16:11 08/26/16 17:11 08/26/16 18:12 White Blood Count 34.71 K/uL Red Blood Count 2.75 M/uL Hemoglobin 8.3 g/dL Hematocrit 23.7 % Mean Corpuscular Volume 86.2 fL Mean Corpuscular Hemoglobin 30.2 pg Mean Corpuscular Hemoglobin Concent 35.0 g/dl RDW Standard Deviation 49.1 fL RDW Coefficient of Variation 15.5 % Platelet Count 61 K/uL Mean Platelet Volume 10.1 fL Nucleated RBC Absolute Count (auto) 0.03 K/uL Nucleated Red Blood Cells % 0.1 % Sodium Level 137 mmol/L Potassium Level 3.2 mmol/L Chloride Level 94 mmol/L Carbon Dioxide Level 21 mmol/L Anion Gap 22.0 mmol/L Blood Urea Nitrogen 50 mg/dl Creatinine 3.10 mg/dl Est Creatinine Clear Calc Drug Dose 12.1 ml/min Estimated GFR () 16.1 Estimated GFR (Non- 13.9 BUN/Creatinine Ratio 16.2 Random Glucose 152 mg/dl Lactic Acid Level 11.1 mmol/L Calcium Level 7.3 mg/dl Total Bilirubin 2.2 mg/dl Direct Bilirubin 1.2 mg/dl Aspartate Amino Transf (AST/SGOT) 2493 U/L Alanine Aminotransferase (ALT/SGPT) 986 U/L Alkaline Phosphatase 80 U/L Troponin I 21.100 ng/ml Total Protein 5.5 gm/dl Albumin 3.5 gm/dl Bedside Glucose (other) 155 mg/dl 146 mg/dl Prothrombin Time 20.7 SECONDS Prothromb Time International Ratio 1.9 Activated Partial Thromboplast Time 56.9 SECONDS Partial Thromboplastin Ratio 2.2 Test 08/26/16 18:20 08/26/16 19:22 08/26/16 20:34 08/26/16 21:32 Bedside Glucose (other) 141 mg/dl 135 mg/dl 136 mg/dl 123 mg/dl Test 08/26/16 21:50 08/26/16 22:32 08/26/16 23:52 08/27/16 00:43 Lactic Acid Level 9.1 mmol/L Bedside Glucose (other) 114 mg/dl 99 mg/dl 165 mg/dl Test 08/27/16 01:46 08/27/16 02:30 08/27/16 03:47 08/27/16 04:33 Bedside Glucose (other) 162 mg/dl 156 mg/dl 129 mg/dl 117 mg/dl Test 08/27/16 05:40 08/27/16 05:50 08/27/16 07:29 08/27/16 09:27 White Blood Count 40.27 K/uL Red Blood Count 2.68 M/uL Hemoglobin 7.9 g/dL Hematocrit 23.0 % Mean Corpuscular Volume 85.8 fL Mean Corpuscular Hemoglobin 29.5 pg Mean Corpuscular Hemoglobin Concent 34.3 g/dl Platelet Count 60 K/uL Mean Platelet Volume 10.8 fL RDW Standard Deviation 48.9 fL RDW Coefficient of Variation 15.5 % Neutrophils % (Manual) 96.4 % Lymphocytes % (Manual) 1.8 % Monocytes % (Manual) 1.8 % Neutrophils # (Manual) 38.82 K/uL Total Absolute Neutrophils 38.82 K/uL Lymphocytes # (Manual) 0.72 K/uL Total Absolute Lymphocytes 0.72 K/uL Monocytes # (Manual) 0.72 K/uL Toxic Granulation 2+ Platelet Estimate DECREASED Ovalocytes 1+ Echinocytes 1+ Prothrombin Time 16.8 SECONDS Prothromb Time International Ratio 1.5 Activated Partial Thromboplast Time 45.2 SECONDS Partial Thromboplastin Ratio 1.7 Sodium Level 136 mmol/L Potassium Level 3.4 mmol/L Chloride Level 93 mmol/L Carbon Dioxide Level 24 mmol/L Anion Gap 19.0 mmol/L Blood Urea Nitrogen 48 mg/dl Creatinine 3.10 mg/dl Est Creatinine Clear Calc Drug Dose 12.1 ml/min Estimated GFR () 16.1 Estimated GFR (Non- 13.9 BUN/Creatinine Ratio 15.6 Random Glucose 104 mg/dl Calcium Level 7.2 mg/dl Phosphorus Level 3.3 mg/dl Magnesium Level 1.4 mg/dl Total Bilirubin 2.3 mg/dl Direct Bilirubin 1.3 mg/dl Aspartate Amino Transf (AST/SGOT) 876 U/L Alanine Aminotransferase (ALT/SGPT) 1057 U/L Alkaline Phosphatase 112 U/L Total Protein 5.4 gm/dl Albumin 3.4 gm/dl Bedside Glucose (other) 106 mg/dl Lactic Acid Level 7.9 mmol/L Blood Gas Sample Site Art Line Bedside Blood Gas pH (LAB) 7.51 Bedside Blood Gas pCO2 (LAB) 29 mmHg Bedside Blood Gas pO2 (LAB) 82 mmHg Bedside Blood Gas HCO3 (LAB) 23 meq/L Bedside Blood Gas Total CO2 24 mEq/l Bedside Blood Gas Base Excess (LAB) 0.0 meq/L Bedside Blood Gas O2 Saturation 97.0 % Jaren Test NA Oxygen Delivery Device Ventilator Bedside Oxygen Rate (breaths/min) 24 Blood Gas Minute Ventilation 11.2 Bedside FiO2 50 % Blood Gas Tidal Volume 400 Blood Gas PEEP 10 Test 08/27/16 09:56 08/27/16 12:49 08/27/16 14:50 Venous Blood pH 7.44 Venous Blood Partial Pressure CO2 37 mmHg Venous Blood Partial Pressure O2 43 mmHg Venous Blood HCO3 25 mmol/L Venous Blood Oxygen Saturation 74.9 % Venous Blood Base Excess 0.3 mmol/L Ionized Calcium 0.85 mmol/l Bedside Glucose (other) 77 mg/dl Sodium Level 135 mmol/L Potassium Level 3.9 mmol/L Chloride Level 94 mmol/L Carbon Dioxide Level 25 mmol/L Anion Gap 16.0 mmol/L Blood Urea Nitrogen 50 mg/dl Creatinine 3.30 mg/dl Est Creatinine Clear Calc Drug Dose 11.7 ml/min Estimated GFR () 15.0 Estimated GFR (Non- 12.9 BUN/Creatinine Ratio 15.0 Random Glucose 70 mg/dl Calcium Level 7.0 mg/dl Phosphorus Level 2.7 mg/dl Magnesium Level 1.9 mg/dl Assessment and Plan (1) Septic shock (2) Fever (3) Sepsis Assessment & Plan: 1). septic shock secondary to complicated UTI POA, remain on AC vent support in ICU. Urology on case,s/p uretal stents On pressors as per critical care team On IV antibiotics as per ID, zosyn and levaquin UCx growing E coli plus a second GNR initial UA showed yeast plus the severe leukocytosis (possibly steroids are contributing) , can not be explained by GNR infection, Dr. Mendoza added caspo 2). Acute Hypoxemic Resp Failure. - Multifactorial could be secondary to Left basilar airspace consolidation as well new right consolidation at the right lung base, could be secondary to pneumonia/aspiration pneumonitis, ARDS with plt pressure. - Currently on vent support and Antibiotics. 3). Acute Renal failure. - multifactorial, obstructive uropathy plus pre renal from hypotension 4). Elevated troponin - likely demand ischemia, plus renal failure - Echocardiogram with global hypokinesis, right ventricular dilatation and ejection fraction 15-20% 5) Decreased platelets - secondary to sepsis - HIT assay is negative. 6). Acute anemia - s/p 1 unit packed red blood cells, no signs of active bleeding. - possible dilution. 7). Diabetes mellitus with hyperglycemia, treated with insulin infusion Continued [facility] stay due to: multiple IV medications needed Discharge planning: TBD (4) Left lower lobe pneumonia Continued [facility] stay due to: multiple IV medications needed Discharge planning: half-way facility Problem Qualifiers (1) Fever: Fever type: unspecified Qualified Codes: R50.9 - Fever, unspecified (2) Sepsis: Sepsis type: sepsis due to unspecified organism Qualified Codes: A41.9 - Sepsis, unspecified organism (3) Left lower lobe pneumonia: Pneumonia type: due to unspecified organism Qualified Codes: J18.1 - Lobar pneumonia, unspecified organism
--- NOTE | 2016-08-27 16:59 | Critical Care Progress Note ---
Critical Care Progress Note Date of Service Aug 27, 2016. ICU Day ICU Day Number: [address] Billings Subjective Patient is comfortable; denies any pain Awakens to voice and can sustain attention Follows simple commands Verbal communication not possible due to intubated status Objective Constitutional: Vital signs as noted below were reviewed. Eyes: Pupils equal, round, and reactive to light. Extraocular muscles are intact. No proptosis. No photophobia. ENT: Mucous membranes are moist. Oropharynx is clear. No sinus tenderness. TMs are clear bilaterally. Orogastric Tube in place Cardiovascular: Heart with a regular rate and rhythm. Pulses are palpable and symmetric in all 4 extremities. No pedal edema appreciated. Respiratory: No accessory muscle use. No retractions. No increased work of breathing. Good air entry; coarse breath sounds bilaterally; No wheezes, rales, or rhonchi appreciated. ET tube secure in place GI: Abdomen soft, nontender, nondistended. Normal active bowel sounds. No abdominal hernias appreciated. No rebound. No guarding. : No CVA tenderness appreciated. Musculoskeletal: No midline cervical or vertebral tenderness. No gross deformities. No bony tenderness. No calf swelling or tenderness. Integumentary: Warm, dry, no rashes appreciated. Neurological: Patient awake, alert, calm. Able to follow simple commands. Unable to speak as she is intubated Lymph: No cervical lymphadenopathy appreciated. Assessment & Plan 75 year old female on day 2 of her ICU admission for the following problems: - Urosepsis, s/p bilateral ureteral stent placement - Gram negative bacteremia - NSTEMI / Coronary Artery Disease - Acute Kidney Injury - Hypokalemia - Hypomagnesemia - Hypocalcemia - Hyperbilirubinemia with transaminitis - Acute Anemia - Thrombocytopenia. - Chronic Hypertension - Type 2 Diabetes Mellitus - Polymyalgia Rheumatica Clinically the patient appears quite well. However, review of labs and SOFA scoring indicates that she has evolving multi-systems organ familure. [place]-CR[place] score was calculated at 33, with predicted mortality upwards of 70%. While we have reassured her that her clinical examination looks much better than biochemical data, we are still concerned about prognosis and have made it clear to patient and family that at the present time, she requires aggressive treatment of problems above. We have reviewed with patient her wishes in case she continues to decompensate. She clearly stated that she wants to remain full code at this time. Our plan for her is as follows. NEUROLOGICAL - GCS: 15 - Sedation: Propofol 15 mcg/kg - RASS: 0 Patient presents with sepsis and hypotension; propofol at risk of worsening vasodilatory hypotension Discontinue Propofol; Start Midazolam Renew restraints - CAM-ICU negative - Pain regimen: Fentanyl 25 mcg q 2 hr PRN pain CARDIAC - BP: 84/36 MAP: 52 - Vasopressor support: Dobutamine 5 mcg/kg/min Levofed 0.04 mcg/kg/min - IV Fluids: Sodium Bicarb @ 50 ml/hr Chronic Hypertension - Hold Amlodipine/Benazipril due to hypotension and HERBER NSTEMI/Coronary Artery Disease - No complaints of chest pain - Continue ASA 81 mg daily - Atorvastatin 20 mg daily - Troponin trending stopped; peak at 24; repeat cardiac enzymes with AM labs RESPIRATORY - Ventilator settings: Volume A/C; RR 24; Vt 400 ml; PEEP 10; FiO2 50 - Patient cannot be extubated at the following time due to: Continued need for vasopressor support Requires PEEP support > 5 mmHg - Acute Hypoxemic Respiratory Failure ABG 08/27: pH 7.51; pCO2 29; pO2 82; HCO3 23; Cannot adequate interpret ABG as patient is on supplementary Bicarbonate; will repeat ABG with AM labs and stop Bicarb drip at this time Continue Xopenex and Ipratropium inhalers GASTROINTESTINAL - Diet: NPO; orogastric tube in place; warrants consideration for starting tube feeds - GI Prophylaxis: Protonix 40 mg IV daily - Bowel regimen: None; last BM on 08/26 Shock Liver/Acute Transaminitis - Secondary to hypoperfusion due to hypotension - Repeat LFTs daily and follow - Avoid hepatotoxic medication RENAL//ENDOCRINE - Fluid Balance 24 hour: In 5000 / Out 500 / Net + 4500 ml Cumulative: In 14237 / Out 1000 / Net + 53892 - 24-hour UO: 0.12 - Cr: 3.3, continues to trend upwards (Baseline: 0.6) - Electrolytes: K 3.4 (low) Mag 1.4 (low) Ca 7.2 (low) - IV Fluids: No lone fluids; patient receiving fluids adjunctly via multiple IV medications daily Cumulative positive fluid balance Discontinue Bicarb infusion Type 2 Diabetes Mellitus - BS-156 - Continue q4 hr Accuchecks - Pharmacy Consulted for Glycemic management; recommend re-starting IV regular insulin if BSG > 180; will continue to follow accuchecks and re-assess Acute Kidney Injury - Cr. 3.3; continue to trend Hypokaelemia - 40 mEQ IV KCl Hypomagnesemia - 2 g IV Mag Sulfate stat; repeat with 1500 labs Hypocalcemia - Confirm with ionized calcium level Positive Fluid Balance - 40 mg IV Lasix one - Cautious administration due to HERBER Urosepsis s/p bilateral ureteral stenting - Continue treatment of urosepsis prior to further intervention from urology - Urology consulted and recommendations appreciated Polymyalgia Rheumatica - Patient on chronic Prednisone 5 mg - Avoid adrenal insufficiency; continue Hydrocortisone 75 mg IV q8 hourly HEME/INFECTIOUS DISEASE - Tmax: 36.7 WBC: 40 (increased from 34) - Hb/Hct 7.9/23 - Plt 60 Urosepsis - Antibiotics: Discontinue Levaquin and Linezolid Continue Zosyn (Currently day 3) Per ID, start Caspofungin - Repeat Blood Cx 08/26 pending - E coli x 2 blood cultures on 08/24 - Urine Cx negative - C.diff screen 08/26 negative Acute Anemia - s/p 2 units PRBC transfused - Hb 7.9; given concurrent NSTEMI, may warrant transfusion goal > 9.0 - DVT Prophylaxis 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 Nicole was resident physician during care of patient. I separately evaluated patient and did history and exam. I discussed the case with the resident and generally agree with the findings and plan. Stopping propofol as patient is hypotensive, on multiple pressors. Start intermittent bolus for said for sedation when necessary, continue the bicarbonate drip, trend troponins however I think this is secondary to severe sepsis. Patient not a candidate for extubation due to significant vasopressor requirement, spontaneous awakening and spontaneous breathing trial tomorrow morning, shock liver continue to trend LFTs and bilirubin which are currently downtrending. Went to keep patient globally negative. Infectious disease: Discontinue the nasal little Levaquin continue Zosyn, per ID's recommendation will start caspofungin. Mixed venous oxygen saturation (not central mixed venous) is 74.9%, anticipate the patient has peaked in terms of her illness and sepsis and will hopefully continue to improve. We updated the family with regards to her clinical status and high sofa score patient is critically ill and carries a high risk for mortality. I have personally spent 60 minutes of critical care time in the direct management of this patient. This is a life/limb threatening event. This includes time spent evaluating patient, direct bedside care, chart review, placing orders, interpretation of diagnostic studies, discussion with consultants, patient, and family members, as well as other required patient management activities. This time is exclusive of all separately billable procedures, and teaching time and separate from and in addition to any other critical care service time. Documented By: Juan R Billings DO Consults & Procedures Consultants: Infectious Disease Urology Procedures: - Data Medications: Current Inpatient Medications Medications (Trade) Dose Ordered Sig/Tamika Route Start Time Stop Time Status Last Admin Dose Admin Acetaminophen 650 mg 650 mg Q4H PRN PO 08/24/16 21:00 09/23/16 20:59 Future Hold 08/25/16 04:09 650 MG Pantoprazole Sodium 40 mg/ Syringe 10 ml @ 5 mls/min DAILY IV 08/25/16 09:00 09/24/16 08:59 08/27/16 08:06 5 MLS/MIN Piperacillin Sod/ Tazobactam Sod/ Dextrose (Zosyn Iv/D5 100ml) 115 ml @ 28 mls/hr Q12H IV 08/25/16 09:00 09/08/16 08:59 08/27/16 08:05 28 MLS/HR Ondansetron HCl (Zofran Inj) 4 mg Q6H PRN IV 08/24/16 21:00 09/23/16 20:59 Aspirin (Ecotrin Tab) 81 mg DAILY PO 08/25/16 09:00 09/24/16 08:59 08/27/16 08:06 81 MG Atorvastatin Calcium (Lipitor Tab) 20 mg DAILY PO 08/25/16 09:00 09/24/16 08:59 Future Hold 08/27/16 08:07 20 MG Fluticasone Propionate (Flonase Nasal [place]) 2 sprays DAILY PRN JAKOB 08/24/16 21:00 09/23/16 20:59 Glucose (Glucose 40% Gel) UD PRN PO 08/24/16 21:00 09/23/16 20:59 Glucose (Glucose Chew Tab) 1 tabs UD PRN PO 08/24/16 21:00 09/23/16 20:59 Dextrose (Dextrose 50% 50ML Syringe) 50 ml UD PRN IV 08/24/16 21:00 09/23/16 20:59 08/27/16 00:03 50 ML Glucagon 1 mg 1 mg UD PRN SQ 08/24/16 21:00 09/23/16 20:59 Norepinephrine Bitartrate/ Dextrose (Levophed Inj/ D5W 500ml) 508 ml @ 0 mls/hr Q0M PRN IV 08/24/16 20:56 09/23/16 20:55 08/26/16 09:29 24 MLS/HR Levofloxacin (Consult) 1 ea UD PRN N/A 08/24/16 22:15 09/23/16 22:14 Piperacillin Sod/ Tazobactam Sod (Consult) 1 ea UD PRN N/A 08/24/16 22:15 09/23/16 22:14 Miscellaneous Information (Consult Glycemic Management Pharmacy) 1 ea UD N/A 08/25/16 08:48 09/24/16 08:47 Acetaminophen 650 mg 650 mg Q4H PRN PO 08/25/16 13:30 09/24/16 13:29 Future Hold Insulin Human Regular/Sodium Chloride (novoLIN-R/Nss 250ml) 252.5 ml @ 0 mls/hr DAILY@1130 IV 08/25/16 18:30 09/24/16 18:29 Future Hold 08/26/16 14:26 1.8 MLS/HR Insulin Aspart (novoLOG ASPART) SLIDING SCALE PCHS SC 08/25/16 21:00 09/24/16 20:59 Future Hold Ipratropium [place] (Atrovent Hfa Inhaler) 4 puffs Q6R INH 08/25/16 21:00 09/24/16 20:59 08/27/16 07:15 4 PUFFS Levalbuterol 4 puffs 4 puffs Q6R INH 08/25/16 21:00 09/24/16 20:59 08/27/16 07:15 4 PUFFS Hydrocortisone Sodium Succinate/ Syringe (Solu-Cortef IV/ Syringe) 1.5 ml @ 4 mls/min Q8H IV 08/26/16 19:00 09/25/16 18:59 08/27/16 11:32 4 MLS/MIN Fentanyl Citrate (Fentanyl Inj) 25 mcg Q2H PRN IV 08/26/16 09:30 09/09/16 09:29 08/27/16 13:26 25 MCG Chlorhexidine Gluconate 15 ml 15 ml BID MT 08/26/16 21:00 09/25/16 20:59 08/27/16 08:12 15 ML Dobutamine HCl (DOBUTamine / D5W) 250 ml @ 0 mls/hr Q0M PRN IV 08/26/16 15:30 09/25/16 15:29 08/26/16 16:19 4.8 MLS/HR Midazolam HCl (Versed Inj) 2 mg Q2H PRN IV 08/27/16 09:30 09/26/16 09:29 Heparin Sodium (Porcine) (Heparin Sq 5000 Unit/0.5ml) 5,000 unit Q12 SQ 08/27/16 21:00 09/26/16 20:59 Miscellaneous Information 1 ea 1 ea Q4 N/A 08/27/16 12:00 09/26/16 11:59 Caspofungin/ Sodium Chloride (Cancidas Inj/ Nss 250ml) 260 ml @ 250 mls/hr Q24H IV 08/28/16 11:00 09/05/16 12:03 I & O: 24-Hour Column 08/27/16 08:00 Intake Total 3879 ml Output Total 650 ml Balance 3229 ml Vital Signs: Date Time Temp Pulse Resp B/P Pulse Ox O2 Delivery O2 Flow Rate FiO2 08/27/16 14:00 99 33 86/43 96 Mechanical Ventilator 40 08/27/16 13:45 100 29 83/40 94 Mechanical Ventilator 40 08/27/16 12:06 40 08/27/16 12:00 37.0 104 29 99/43 95 Mechanical Ventilator 40 08/27/16 12:00 Mechanical Ventilator 40 08/27/16 12:00 50 08/27/16 10:00 98 30 90/39 94 Mechanical Ventilator 40 90/46 08/27/16 08:00 50 3/27/17 08:00 36.6 100 28 102/46 97 Mechanical Ventilator 50 08/27/16 08:00 Mechanical Ventilator 50 08/27/16 07:15 50 08/27/16 06:00 102 29 103/45 96 Mechanical Ventilator 50 08/27/16 05:14 50 08/27/16 04:00 36.7 102 26 104/46 97 Mechanical Ventilator 50 08/27/16 04:00 Mechanical Ventilator 50 08/27/16 04:00 50 08/27/16 03:00 36.7 104 24 112/48 97 Mechanical Ventilator 50 08/27/16 02:22 50 08/27/16 02:00 36.6 104 29 98/44 98 Mechanical Ventilator 60 08/27/16 01:00 36.7 105 24 102/44 97 60 08/27/16 00:00 36.6 104 27 96/49 97 Mechanical Ventilator 60 08/26/16 23:59 60 08/26/16 23:59 Mechanical Ventilator 60 08/26/16 23:17 60 08/26/16 22:00 36.5 110 27 111/52 97 Mechanical Ventilator 60 08/26/16 21:08 60 08/26/16 21:00 36.4 111 26 100/49 97 Mechanical Ventilator 60 08/26/16 20:00 60 08/26/16 20:00 36.4 111 22 113/51 97 Mechanical Ventilator 60 08/26/16 20:00 Mechanical Ventilator 60 08/26/16 19:00 36.5 114 23 114/49 98 08/26/16 17:00 37.0 102 22 149/65 95 Mechanical Ventilator 60 Laboratory Results: Last 24 Hours Test 08/26/16 17:11 08/26/16 18:12 08/26/16 18:20 08/26/16 19:22 Bedside Glucose (other) 146 mg/dl 141 mg/dl 135 mg/dl Prothrombin Time 20.7 SECONDS Prothromb Time International Ratio 1.9 Activated Partial Thromboplast Time 56.9 SECONDS Partial Thromboplastin Ratio 2.2 Test 08/26/16 20:34 08/26/16 21:32 08/26/16 21:50 08/26/16 22:32 Bedside Glucose (other) 136 mg/dl 123 mg/dl 114 mg/dl Lactic Acid Level 9.1 mmol/L Test 08/26/16 23:52 08/27/16 00:43 08/27/16 01:46 08/27/16 02:30 Bedside Glucose (other) 99 mg/dl 165 mg/dl 162 mg/dl 156 mg/dl Test 08/27/16 03:47 08/27/16 04:33 08/27/16 05:40 08/27/16 05:50 Bedside Glucose (other) 129 mg/dl 117 mg/dl 106 mg/dl White Blood Count 40.27 K/uL Red Blood Count 2.68 M/uL Hemoglobin 7.9 g/dL Hematocrit 23.0 % Mean Corpuscular Volume 85.8 fL Mean Corpuscular Hemoglobin 29.5 pg Mean Corpuscular Hemoglobin Concent 34.3 g/dl Platelet Count 60 K/uL Mean Platelet Volume 10.8 fL RDW Standard Deviation 48.9 fL RDW Coefficient of Variation 15.5 % Neutrophils % (Manual) 96.4 % Lymphocytes % (Manual) 1.8 % Monocytes % (Manual) 1.8 % Neutrophils # (Manual) 38.82 K/uL Total Absolute Neutrophils 38.82 K/uL Lymphocytes # (Manual) 0.72 K/uL Total Absolute Lymphocytes 0.72 K/uL Monocytes # (Manual) 0.72 K/uL Toxic Granulation 2+ Platelet Estimate DECREASED Ovalocytes 1+ Echinocytes 1+ Prothrombin Time 16.8 SECONDS Prothromb Time International Ratio 1.5 Activated Partial Thromboplast Time 45.2 SECONDS Partial Thromboplastin Ratio 1.7 Sodium Level 136 mmol/L Potassium Level 3.4 mmol/L Chloride Level 93 mmol/L Carbon Dioxide Level 24 mmol/L Anion Gap 19.0 mmol/L Blood Urea Nitrogen 48 mg/dl Creatinine 3.10 mg/dl Est Creatinine Clear Calc Drug Dose 12.1 ml/min Estimated GFR () 16.1 Estimated GFR (Non- 13.9 BUN/Creatinine Ratio 15.6 Random Glucose 104 mg/dl Calcium Level 7.2 mg/dl Phosphorus Level 3.3 mg/dl Magnesium Level 1.4 mg/dl Total Bilirubin 2.3 mg/dl Direct Bilirubin 1.3 mg/dl Aspartate Amino Transf (AST/SGOT) 876 U/L Alanine Aminotransferase (ALT/SGPT) 1057 U/L Alkaline Phosphatase 112 U/L Total Protein 5.4 gm/dl Albumin 3.4 gm/dl Test 08/27/16 07:29 08/27/16 09:27 08/27/16 09:56 08/27/16 12:49 Lactic Acid Level 7.9 mmol/L Blood Gas Sample Site Art Line Bedside Blood Gas pH (LAB) 7.51 Bedside Blood Gas pCO2 (LAB) 29 mmHg Bedside Blood Gas pO2 (LAB) 82 mmHg Bedside Blood Gas HCO3 (LAB) 23 meq/L Bedside Blood Gas Total CO2 24 mEq/l Bedside Blood Gas Base Excess (LAB) 0.0 meq/L Bedside Blood Gas O2 Saturation 97.0 % Jaren Test NA Oxygen Delivery Device Ventilator Bedside Oxygen Rate (breaths/min) 24 Blood Gas Minute Ventilation 11.2 Bedside FiO2 50 % Blood Gas Tidal Volume 400 Blood Gas PEEP 10 Venous Blood pH 7.44 Venous Blood Partial Pressure CO2 37 mmHg Venous Blood Partial Pressure O2 43 mmHg Venous Blood HCO3 25 mmol/L Venous Blood Oxygen Saturation 74.9 % Venous Blood Base Excess 0.3 mmol/L Ionized Calcium 0.85 mmol/l Bedside Glucose (other) 77 mg/dl Test 08/27/16 14:50 Sodium Level 135 mmol/L Potassium Level 3.9 mmol/L Chloride Level 94 mmol/L Carbon Dioxide Level 25 mmol/L Anion Gap 16.0 mmol/L Blood Urea Nitrogen 50 mg/dl Creatinine 3.30 mg/dl Est Creatinine Clear Calc Drug Dose 11.7 ml/min Estimated GFR () 15.0 Estimated GFR (Non- 12.9 BUN/Creatinine Ratio 15.0 Random Glucose 70 mg/dl Calcium Level 7.0 mg/dl Phosphorus Level 2.7 mg/dl Magnesium Level 1.9 mg/dl
[2016-08-27] MEDS: DOBUTamine / D5W 500 MG IV PRN (18:45)
[2016-08-27] MEDS: HEPARIN SOD 5000 UNIT/0.5 ML CARP SQ SCH (21:14)
[2016-08-27] MEDS ORDERED: ALBUMIN HUMAN 25% 12.5 GM/50 ML VIAL IV STA (22:26)
[2016-08-28] VITALS (15 sets, daily range): BP systolic 88–109; BP diastolic 36–55; PULSE 96–105; TEMP 36.6–37.8; O2SAT 94–98
[2016-08-28] MEDS: NOREPINEPHRINE BIT INJ 8 MG in DEXTROSE 5% 500ML 500 ML IV PRN (01:37)
[2016-08-28] MEDS: LEValbuterol HFA 15GM INHALER INH SCH ×3 (01:50→20:34)
[2016-08-28] MEDS: IPRATROPIUM BROMIDE HFA INHALER INH SCH ×3 (01:50→20:33)
[2016-08-28] MEDS: HYDROCORTISONE IV 75 MG in SYRINGE 0 ML IV SCH ×3 (03:33→18:40)
[2016-08-28 05:41] LABS: ISTAT ARTERIAL BLOOD GAS HCO3 27 meq/L (19-24); ISTAT ARTERIAL BLOOD GAS PCO2 36 mmHg (35-46); ISTAT ARTERIAL BLOOD GAS PO2 88 mmHg (80-95); ISTAT ARTERIAL BLOOD GAS pH 7.48 (7.35-7.45); ISTAT CARBON DIOXIDE 28 mEq/l (24-31); ISTAT DELIVERY SYSTEM Ventilator; ISTAT FIO2 40 %; ISTAT PEEP 10; ISTAT RATE 24; ISTAT SITE Art Line; VE 8.8; Vt 400
[2016-08-28 06:17] LABS: HEMATOCRIT 23.3 % (37-47); MEAN CELL VOLUME 84.4 fL (80-100); MEAN CORPUSCULAR HEMOGLOBIN 29.3 pg (25-34); MEAN CORPUSCULAR HGB CONC 34.8 g/dl (32-36); MEAN PLATELET VOLUME 11.1 fL (7.4-10.4); PLATELET COUNT 62 K/uL (130-400); RED BLOOD COUNT 2.76 M/uL (4.2-5.4)
[2016-08-28 06:23] LABS: BUN/CREATININE RATIO 15.1 (10-20); CALCIUM 7.1 mg/dl (8.5-10.1); CREATININE 3.5 mg/dl (0.60-1.20); MAGNESIUM 1.8 mg/dl (1.8-2.4); POTASSIUM 3.9 mmol/L (3.5-5.1)
[2016-08-28 06:28] LABS: CKMB/CK RATIO 1.5 (0-3.0); PHOSPHORUS 2.6 mg/dl (2.5-4.9)
[2016-08-28 06:34] LABS: INR 1.3 (0.9-1.1); PARTIAL THROMBOPLASTIN RATIO 1.5; PROTHROMBIN TIME (PATIENT) 13.5 SECONDS (9.0-12.0)
[2016-08-28 07:43] LABS: COMPLETE YES; DOHLE BODIES 1+; ECHINOCYTES 2+; LYMPH ABS # 1.25 K/uL (1.2-3.4); LYMPHOCYTE % 2.6 %; NEUTROPHILS % 94.8 %; OVALOCYTES 1+; TOXIC GRANULATION 1+
--- NOTE | 2016-08-28 07:43 | DIAGNOSTIC IMAGING REPORT ---
CHEST ONE VIEW PORTABLE CLINICAL HISTORY: acute respiratory failure COMPARISON STUDY: 08/27/2016 FINDINGS: The endotracheal tube is positioned 36 mm above the italo. There is a nasogastric tube within the stomach. The cardiac and mediastinal contours remain stable. A subpulmonic right pleural effusion is suspected. Right perihilar and left medial basal airspace opacities persist.[ IMPRESSION: Stable findings Electronically signed by: Americo Wilkinson M.D. 08/28/2016 7:42 AM Dictated Date/Time: 08/28/2016 7:41 AM
[2016-08-28] MEDS: FENTANYL CITRATE INJ 50 MCG/1 ML 2 ML VIAL IV PRN ×2 (08:08→15:08)
[2016-08-28] MEDS: ASPIRIN 81 MG ECTAB PO SCH (08:09)
[2016-08-28] MEDS: CHLORHEXIDINE GLUCONATE 0.12% 480 ML MT SCH ×2 (08:11→19:49)
[2016-08-28] MEDS: HEPARIN SOD 5000 UNIT/0.5 ML CARP SQ SCH ×2 (08:11→23:41)
[2016-08-28] MEDS: PIPERACILL/TAZOBAC IV 3.375 GM in DEXTROSE 5% 100ML 100 ML IV SCH (08:13)
[2016-08-28] MEDS: PANTOprazole INJ 40 MG in SYRINGE 0 ML IV SCH (08:13)
[2016-08-28] MEDS ORDERED: CASPOFUNGIN INJ 50 MG in SODIUM CHLORIDE 0.9% 250ML 250 ML IV SCH (11:00)
[2016-08-28] MEDS: INSULIN ASPART 100 UNITS/ML 3 ML PEN SC SCH ×2 (12:00→16:33)
[2016-08-28] MEDS ORDERED: NURSING VERBAL MED ORDER ONE (12:15)
[2016-08-28] MEDS ORDERED: MoRPHine SULFATE 2 MG/ML CARP IV ONE (12:30)
--- NOTE | 2016-08-28 12:32 | Pharmacy Progress Note ---
Glycemic Control: Progress Nt Date of Service Aug 28, 2016. Scope Glycemic Pharmacist consulted by Dr Vick on 08/25/16 for glycemic control and to write orders per [facility] inpatient glycemic control protocol. Objective Accuchecks BSG (last 24hrs): Test 08/27/16 14:50 08/28/16 05:24 Random Glucose 70 mg/dl (70-99) 130 mg/dl (70-99) Laboratory Data (last 24hrs) Test 08/27/16 14:50 08/28/16 05:24 Anion Gap 16.0 mmol/L 16.0 mmol/L BUN/Creatinine Ratio 15.0 15.1 Blood Urea Nitrogen 50 mg/dl 53 mg/dl Creatinine 3.30 mg/dl 3.50 mg/dl Potassium Level 3.9 mmol/L 3.9 mmol/L Sodium Level 135 mmol/L 134 mmol/L White Blood Count 47.90 K/uL Red Blood Count 2.76 M/uL Hemoglobin 8.1 g/dL Hematocrit 23.3 % Mean Corpuscular Volume 84.4 fL Mean Corpuscular Hemoglobin 29.3 pg Mean Corpuscular Hemoglobin Concent 34.8 g/dl Platelet Count 62 K/uL Mean Platelet Volume 11.1 fL HbA1c: 8.7% 08/15/16 Recent Pertinent Medications Outpatient Anti-diabetic Regimen: * Glimepiride 2mg daily * Metformin 1gm BID * A1c = 8.7 % 08/15/16 The patient is currently receiving: * IV insulin protocol --- currently on hold; BSG's begin checked Q 4 hrs; restart insulin drip if > 180 Risk Factors for Insulin Resistance: * Steroids: Solu-Cortef 75mg IV Q 8 hours * Infection: septic shock, b/l nephrolithiasis, e coli bacteremia; questionable aspiration pnx; Zosyn changed to Unasyn * Pressors: dobutamine @5mcg/kg/min * Recent Surgery: POD # 3 * Diet: NPO * Mechanical Ventilation: extubated this AM @1015 Assessment & Plan ASSESSMENT: 08/27/16 * Patient was started on IV insulin drip on 08/25 for BSGs in the 300's * Overnight insulin drip was titrated down to 0.3 units/hr and then turned off this AM * Continuation of the drip was discussed on rounds this AM, the plan is to leave the drip off, however restart the insulin drip if the BSG climbs to > 180. This patient still has significant stressors and remains critically ill on pressor support. The standard of care for such patients is an insulin infusion. She is a type 2 diabetic that remains NPO, thus she may not require insulin while fasting. * Will check BSGs Q 4 hrs 08/28/16 * BSGs have ranged 69-130 over the last 24 hours with no insulin administration * Patient has been fasting for > 3 days - and she appears to require no insulin in this state despite significant stressors * She was extubated this AM - which sometimes leads to changes in insulin sensitivity depending on pt's compliance w/ vent and work of breathing after extubation * Will change BSGs from Q 4 hrs to Q 6 hours - will add Novolog scale CF and CR based upon pt's weight and moderate stress wt based doses PLAN FOR INPATIENT GLYCEMIC CONTROL: * No basal insulin at this time - she may however require basal insulin as her diet advances * Change BSGs to Q 6 hours - or ACHS if permitted to eat * Cover BSG elevated with SQ Novolog * Goal range: 140-180 * Correction factor: 25mg/dL/unit * Carb ratio: 1 unit per 10gm CHO consumed when diet has been ordered * Please note that the plan above was derived based on current level of insulin resistance and hospital stress. These recommendations are appropriate for inpatient admission only. Plan of care upon discharge will need to be reassessed to avoid potential outpatient hypo/hyperglycemia. Thank you.
--- NOTE | 2016-08-28 13:39 | Progress Note ---
Subjective Date of Service: Aug 28, 2016. Subjective Pt evaluation today including: conversation w/ patient, conversation w/ family , physical exam, chart review, lab review family at bedside, pt awake on vent. c/o right sided flank pain. denies cp. asking to be extubated during my exam. tolerating abx. isolated fever 37.8 overnight. Initial blood cultures with E. coli x 2, resistant to bactrim. repeat blood cultures remain negative. wbc increased to 47, creat slightly increased as well. troponin/lft's trending down. remaining ros limited secondary to intubation but negative. bp improved. Problem List Medical Problems: (1) Abnormal EKG Status: Acute (2) Fever Status: Acute (3) Left lower lobe pneumonia Status: Acute (4) Sepsis Status: Acute (5) Septic shock Status: Acute Objective Vital Signs Date Time Temp Pulse Resp B/P Pulse Ox O2 Delivery O2 Flow Rate FiO2 08/28/16 10:00 99 27 100/40 97 Mechanical Ventilator 40 08/28/16 08:00 Mechanical Ventilator 40 08/28/16 08:00 36.9 98 25 88/36 97 Mechanical Ventilator 40 08/28/16 08:00 40 08/28/16 07:15 40 08/28/16 06:00 98 16 99/40 97 Mechanical Ventilator 40 08/28/16 05:30 40 08/28/16 05:00 101 26 109/42 98 Mechanical Ventilator 40 08/28/16 04:00 Mechanical Ventilator 40 08/28/16 04:00 40 08/28/16 04:00 37.2 105 33 109/43 96 Mechanical Ventilator 40 08/28/16 02:00 100 24 109/45 97 Mechanical Ventilator 40 08/28/16 01:50 40 08/28/16 01:00 102 27 105/43 96 Mechanical Ventilator 40 08/28/16 00:05 Mechanical Ventilator 40 08/28/16 00:05 40 08/28/16 00:00 37.8 103 25 109/47 96 Mechanical Ventilator 40 08/27/16 22:45 40 08/27/16 22:00 103 31 95/36 97 Mechanical Ventilator 40 08/27/16 21:00 105 30 101/41 95 Mechanical Ventilator 40 08/27/16 20:00 36.6 104 29 104/57 96 Mechanical Ventilator 40 08/27/16 20:00 40 08/27/16 20:00 Mechanical Ventilator 40 08/27/16 19:24 40 08/27/16 18:05 40 08/27/16 16:00 50 08/27/16 16:00 36.6 08/27/16 16:00 Mechanical Ventilator 50 08/27/16 14:20 40 08/27/16 14:00 99 33 86/43 96 Mechanical Ventilator 40 08/27/16 13:45 100 29 83/40 94 Mechanical Ventilator 40 Physical Exam General Appearance: WD/WN, no apparent distress, + pertinent finding (awake on vent) Eyes: normal inspection Neck: supple Respiratory/Chest: lungs clear, + decreased breath sounds Cardiovascular: regular rate, rhythm, no edema, no murmur Abdomen: soft Extremities: non-tender, no pedal edema Neurologic/Psychiatric: alert Skin: normal color Laboratory Results Last 24 Hours Test 08/27/16 14:50 08/27/16 16:24 08/27/16 17:07 08/27/16 20:54 Sodium Level 135 mmol/L Potassium Level 3.9 mmol/L Chloride Level 94 mmol/L Carbon Dioxide Level 25 mmol/L Anion Gap 16.0 mmol/L Blood Urea Nitrogen 50 mg/dl Creatinine 3.30 mg/dl Est Creatinine Clear Calc Drug Dose 11.7 ml/min Estimated GFR () 15.0 Estimated GFR (Non- 12.9 BUN/Creatinine Ratio 15.0 Random Glucose 70 mg/dl Calcium Level 7.0 mg/dl Phosphorus Level 2.7 mg/dl Magnesium Level 1.9 mg/dl Bedside Glucose (other) 69 mg/dl 115 mg/dl 90 mg/dl Test 08/28/16 00:05 08/28/16 03:40 08/28/16 05:24 08/28/16 05:28 Bedside Glucose (other) 104 mg/dl 123 mg/dl White Blood Count 47.90 K/uL Red Blood Count 2.76 M/uL Hemoglobin 8.1 g/dL Hematocrit 23.3 % Mean Corpuscular Volume 84.4 fL Mean Corpuscular Hemoglobin 29.3 pg Mean Corpuscular Hemoglobin Concent 34.8 g/dl Platelet Count 62 K/uL Mean Platelet Volume 11.1 fL RDW Standard Deviation 47.7 fL RDW Coefficient of Variation 15.5 % Nucleated RBC Absolute Count (auto) 0.04 K/uL Neutrophils % (Manual) 94.8 % Lymphocytes % (Manual) 2.6 % Monocytes % (Manual) 2.6 % Nucleated Red Blood Cells % 0.1 % Neutrophils # (Manual) 45.41 K/uL Total Absolute Neutrophils 45.41 K/uL Lymphocytes # (Manual) 1.25 K/uL Total Absolute Lymphocytes 1.25 K/uL Monocytes # (Manual) 1.25 K/uL Toxic Granulation 1+ Dohle Bodies 1+ Ovalocytes 1+ Echinocytes 2+ Prothrombin Time 13.5 SECONDS Prothromb Time International Ratio 1.3 Activated Partial Thromboplast Time 39.9 SECONDS Partial Thromboplastin Ratio 1.5 Sodium Level 134 mmol/L Potassium Level 3.9 mmol/L Chloride Level 92 mmol/L Carbon Dioxide Level 26 mmol/L Anion Gap 16.0 mmol/L Blood Urea Nitrogen 53 mg/dl Creatinine 3.50 mg/dl Est Creatinine Clear Calc Drug Dose 11.1 ml/min Estimated GFR () 13.9 Estimated GFR (Non- 12.0 BUN/Creatinine Ratio 15.1 Random Glucose 130 mg/dl Lactic Acid Level 4.6 mmol/L Calcium Level 7.1 mg/dl Ionized Calcium 0.88 mmol/l Phosphorus Level 2.6 mg/dl Magnesium Level 1.8 mg/dl Total Bilirubin 2.0 mg/dl Direct Bilirubin 1.2 mg/dl Aspartate Amino Transf (AST/SGOT) 357 U/L Alanine Aminotransferase (ALT/SGPT) 662 U/L Alkaline Phosphatase 140 U/L Total Creatine Kinase 227 U/L Creatine Kinase MB 3.4 ng/ml Creatine Kinase MB Ratio 1.5 Troponin I 6.190 ng/ml Total Protein 5.2 gm/dl Albumin 3.0 gm/dl Blood Gas Sample Site Art Line Bedside Blood Gas pH (LAB) 7.48 Bedside Blood Gas pCO2 (LAB) 36 mmHg Bedside Blood Gas pO2 (LAB) 88 mmHg Bedside Blood Gas HCO3 (LAB) 27 meq/L Bedside Blood Gas Total CO2 28 mEq/l Bedside Blood Gas Base Excess (LAB) 3.0 meq/L Bedside Blood Gas O2 Saturation 97.0 % Jaren Test NA Oxygen Delivery Device Ventilator Bedside Oxygen Rate (breaths/min) 24 Blood Gas Minute Ventilation 8.8 Bedside FiO2 40 % Blood Gas Tidal Volume 400 Blood Gas PEEP 10 Test 08/28/16 06:08 Bedside Glucose (other) 130 mg/dl Assessment and Plan (1) Septic shock Assessment & Plan: pt with sepsis and MODS. tronopin and lfts are improving, however, creat and wbc increased. blood cultures final as E.coli and repeat are negative to date. will narrow therapy. will need min 14 but suspect longer course. continue to follow cultures/wbc. (2) E. coli septicemia (3) Pyelonephritis (4) Leukocytosis (5) Fever Continued [facility] stay due to: multiple IV medications needed Discharge planning: custodial facility Problem Qualifiers (1) Fever: Fever type: unspecified Qualified Codes: R50.9 - Fever, unspecified
[2016-08-28] MEDS: LEVALBUTEROL 1.25MG/0.5ML NEB INH SCH ×2 (14:41→20:34)
[2016-08-28] MEDS: IPRATROPIUM BROMIDE NEB SOLN 0.02% 2.5 ML VIAL INH SCH ×2 (14:41→20:34)
--- NOTE | 2016-08-28 15:09 | Critical Care Progress Note ---
Critical Care Progress Note Date of Service Aug 28, 2016. ICU Day ICU Day Number: [address] Billings Subjective Patient office time denies any complaints No pain No events overnight per nursing Objective Constitutional: Vital signs as noted below were reviewed. Eyes: Pupils equal, round, and reactive to light. Extraocular muscles are intact. No proptosis. No photophobia. ENT: Mucous membranes are moist. Oropharynx is clear. No sinus tenderness. TMs are clear bilaterally. Orogastric Tube in place Cardiovascular: Heart with a regular rate and rhythm. Pulses are palpable and symmetric in all 4 extremities. No pedal edema appreciated. Respiratory: Mechanically ventilated. No accessory muscle use. No retractions. No increased work of breathing. Good air entry bilaterally; coarse breath sounds improved; No wheezes, rales , or rhonchi appreciated. ET tube secure in place GI: Abdomen soft, nontender, nondistended. Normal active bowel sounds. No abdominal hernias appreciated. No rebound. No guarding. : No CVA tenderness appreciated. Musculoskeletal: No midline cervical or vertebral tenderness. No gross deformities. No bony tenderness. No calf swelling or tenderness. Integumentary: Warm, dry, no rashes appreciated. Neurological: Patient awake, alert, calm. Able to follow simple commands. Unable to speak as she is intubated RASS score 0 Patient able to follow simple commands at the bedside including: Giving thumbs up, wiggling toes, raising arm Lymph: No cervical lymphadenopathy appreciated. Assessment & Plan 75 year old female on day 3 of her ICU admission for the following problems: - Urosepsis, s/p bilateral ureteral stent placement - Gram negative bacteremia - NSTEMI / Coronary Artery Disease - Acute Kidney Injury - Hypokalemia - Hypomagnesemia - Hypocalcemia - Shock Liver/Hyperbilirubinemia with transaminitis - Acute Anemia - Thrombocytopenia. - Chronic Hypertension - Type 2 Diabetes Mellitus - Polymyalgia Rheumatica Clinically the patient appears well today. Furthermore despite having a continued leukocytosis as well as worsening renal function, there are elements that do appear to be improving including her respiratory status and liver function. SOFA score today is calculated at 11, with predicted mortality 50%. [place] score calculated at 22, giving patient 42.4% predicted mortality. Although we are encouraged that she does appear to be clinically improving, objective measures do suggest maintaining a guarded prognosis at this time but continuing to treat aggressively and reassess frequently. At the time of evaluation this morning, is on a CPAP trial for consideration for extubation. Our plan for her is as follows. NEUROLOGICAL - GCS: 15 - Sedation: Propofol 15 mcg/kg - RASS: 0 - Versed 2 mg every 2 hours when necessary - CAM-ICU negative - Pain regimen: Fentanyl 25 mcg q 2 hr PRN pain CARDIAC - BP: MAP ranging 55-65 - Vasopressor support: Levofed has been discontinued Continue Dobutamine infusion at 5 mcg/kg/m - IV Fluids: None Chronic Hypertension - Hold Amlodipine/Benazipril due to hypotension and HERBER NSTEMI/Coronary Artery Disease - No complaints of chest pain - Continue ASA 81 mg daily - Atorvastatin 20 mg daily - Troponin trending stopped; peak at 24; most recent troponin decreased to 6 ; discontinued further monitoring unless patient is having active chest pain Acute congestive heart failure with reduced ejection fraction - EF 15-20% per echo done on this admission - Before meals beta grady are currently contraindicated due to hypotension and HERBER - Patient remains on dobutamine for inotropic support RESPIRATORY - Ventilator settings: Patient is a history of CHF and with extubation will be a high risk for flash pulmonary edema; spotting his breathing trial on PEEP 0, will be required to ensure flash pulmonary edema does not occur following extubation If patient is to be extubated, patient be immediately put on BiPAP support and gradually weaned off Patient is currently still on dobutamine infusion. However vasopressors have been weaned considerably over the past 48 hours and we feel it is safe to proceed with extubation if patient tolerates spottiness breathing trial - Acute Hypoxemic Respiratory Failure ABG 08/28, prior to spontaneous breathing trial: pH 7.48, PCO2 35.9, PO2 87, carbonate 26.9, SPO2 97%: Ventilator settings: Volume AC/ respiration rate 24 / title volume 400 / PEEP 10 / FiO2 40% Continue Xopenex and Ipratropium inhalers GASTROINTESTINAL - Diet: NPO; if patient can be extubated and all vasopressors can be weaned, we can start feeding the patient anteriorly - GI Prophylaxis: Protonix 40 mg IV daily - Bowel regimen: None; last BM on 08/26 Shock Liver/Acute Transaminitis - Secondary to hypoperfusion due to hypotension -Transaminases and T bili gradually improving - Hold hepatotoxic medication - Daily liver function monitoring RENAL//ENDOCRINE - Fluid Balance 24 hour: In 2240 ml / Out 290 / Net + 1950 ml Cumulative: In 08199 / Out 1400 / Net + [id number] Majority of fluid overload likely due to multiple intravenous medications, in particular, vasopressors and antibiotics - 24-hour UO: 0.14 mL/kg/hr; urine output continues to decrease - Cr: 3.5; continues to increase (Baseline: 0.6) - Electrolytes: Sodium 134, potassium 3.9, chloride 92, bicarbonate 26, BUN 53, creatinine 3.5 Mag 1.8, Phos 2.6 - IV Fluids: No lone fluids; patient receiving fluids adjunctly via multiple IV medications daily, which we are gradually scaling down on as tolerated Type 2 Diabetes Mellitus - BS and 130; patient had 1 mild episode of hypoglycemia yesterday, but was treated with an amp of dextrose and responded appropriately - Continue q4 hr Accuchecks - Pharmacy Consulted for Glycemic management; recommend re-starting IV regular insulin if BSG > 180; will continue to follow accuchecks and re-assess Acute Kidney Injury - Cr. 3.5, with reducing urine output daily Hypokalemia - Resolved; follow daily BMP Hypomagnesemia - Resolved; check daily mag level Hypocalcemia - iCal 0.88; if patient can be exudative, and by mouth regimen can be restarted, oral calcium supplementation will be provided Positive Fluid Balance - Hold the diuretic for today, due to ongoing HERBER Urosepsis s/p bilateral ureteral stenting - Continue treatment of urosepsis prior to further intervention from urology - Urology consulted and recommendations appreciated Polymyalgia Rheumatica - Patient on chronic Prednisone 5 mg - Avoid adrenal insufficiency; continue Hydrocortisone 75 mg IV q8 hourly HEME/INFECTIOUS DISEASE - Tmax: 37.8 WBC: 47, increased from 40 - Hb/Hct 8.1/23, stable - Plt 62, stable Urosepsis - Antibiotics: Discontinue Zosyn and do not start caspofungin; start Unasyn per ID recommendations - Repeat Blood Cx 08/26 preliminary but negative so far - E coli x 2 blood cultures on 08/24 - Urine Cx negative - C.diff screen 08/26 negative Acute Anemia - s/p 2 units PRBC transfused; hemoglobin/hematocrit currently stable, continue to monitor daily CBC - DVT Prophylaxis Heparin 5000 BID SCD and TEDs LINES/IV ACCESS - R antecubital 20 G - R femoral triple lumen catheter - R femora arterial line CODE STATUS - Full Code DISPOSITION - OT/PT: Patient lives at home with daughter Will have to order PT and OT when patient able to engage, for further recommendations and discharge planning Resident Physician Supervision Note: Dr. Nicole was resident physician during care of patient. I separately evaluated patient and did history and exam. I discussed the case with the resident and generally agree with the findings and plan. Patient successfully extubated today, remains on dobutamine for inotropic support. Very pleased with her overall improvement, the patient's [place] and sulfa score were very concerning. Patient is critically ill due to ongoing vasoactive medication requirements to maintain adequate blood pressure. I have personally spent 40 minutes of critical care time in the direct management of this patient. This is a life/limb threatening event. This includes time spent evaluating patient, direct bedside care, chart review, placing orders, interpretation of diagnostic studies, discussion with consultants, patient, and family members, as well as other required patient management activities. This time is exclusive of all separately billable procedures, and teaching time and separate from and in addition to any other critical care service time. Documented By: Juan R Billings DO Consults & Procedures Consultants: Infectious Disease Urology Procedures: - Data Medications: Current Inpatient Medications Medications (Trade) Dose Ordered Sig/Tamika Route Start Time Stop Time Status Last Admin Dose Admin Acetaminophen 650 mg 650 mg Q4H PRN PO 08/24/16 21:00 09/23/16 20:59 Future Hold 08/25/16 04:09 650 MG Pantoprazole Sodium/Syringe (Protonix Inj/ Syringe) 10 ml @ 5 mls/min DAILY IV 08/25/16 09:00 09/24/16 08:59 08/28/16 08:13 5 MLS/MIN Ondansetron HCl (Zofran Inj) 4 mg Q6H PRN IV 08/24/16 21:00 09/23/16 20:59 Aspirin (Ecotrin Tab) 81 mg DAILY PO 08/25/16 09:00 09/24/16 08:59 08/28/16 08:09 81 MG Atorvastatin Calcium (Lipitor Tab) 20 mg DAILY PO 08/25/16 09:00 09/24/16 08:59 Future Hold 08/27/16 08:07 20 MG Fluticasone Propionate (Flonase Nasal [place]) 2 sprays DAILY PRN JAKOB 08/24/16 21:00 09/23/16 20:59 Glucose (Glucose 40% Gel) UD PRN PO 08/24/16 21:00 09/23/16 20:59 Glucose (Glucose Chew Tab) 1 tabs UD PRN PO 08/24/16 21:00 09/23/16 20:59 Dextrose (Dextrose 50% 50ML Syringe) 50 ml UD PRN IV 08/24/16 21:00 09/23/16 20:59 08/27/16 16:46 50 ML Glucagon (Glucagon Inj) 1 mg UD PRN SQ 08/24/16 21:00 09/23/16 20:59 Miscellaneous Information (Consult Glycemic Management Pharmacy) 1 ea UD N/A 08/25/16 08:48 09/24/16 08:47 Acetaminophen (Tylenol Soln) 650 mg Q4H PRN PO 08/25/16 13:30 09/24/16 13:29 Future Hold Ipratropium [place] (Atrovent Hfa Inhaler) 4 puffs Q6R INH 08/25/16 21:00 09/24/16 20:59 08/28/16 08:45 4 PUFFS Levalbuterol 4 puffs 4 puffs Q6R INH 08/25/16 21:00 09/24/16 20:59 08/28/16 08:45 4 PUFFS Hydrocortisone Sodium Succinate/ Syringe (Solu-Cortef IV/ Syringe) 1.5 ml @ 4 mls/min Q8H IV 08/26/16 19:00 09/25/16 18:59 08/28/16 12:06 4 MLS/MIN Fentanyl Citrate (Fentanyl Inj) 25 mcg Q2H PRN IV 08/26/16 09:30 09/09/16 09:29 08/28/16 08:08 25 MCG Chlorhexidine Gluconate 15 ml 15 ml BID MT 08/26/16 21:00 09/25/16 20:59 08/28/16 08:11 15 ML Dobutamine HCl (DOBUTamine / D5W) 250 ml @ 0 mls/hr Q0M PRN IV 08/26/16 15:30 09/25/16 15:29 08/27/16 18:45 9.6 MLS/HR Midazolam HCl (Versed Inj) 2 mg Q2H PRN IV 08/27/16 09:30 09/26/16 09:29 Heparin Sodium (Porcine) (Heparin Sq 5000 Unit/0.5ml) 5,000 unit Q12 SQ 08/27/16 21:00 09/26/16 20:59 08/28/16 08:11 5,000 UNIT Heparin Sodium (Porcine) (Heparin 10 Unit/ ml 5 ml Flush) 5 ml PRN PRN FLUSH 08/28/16 00:45 09/27/16 00:44 Insulin Aspart SLIDING SCALE Q6 SC 08/28/16 12:00 09/27/16 11:59 Ampicillin Sodium/ Sulbactam Sodium/ Sodium Chloride (Unasyn Inj/Nss 100ml) 108 ml @ 216 mls/hr Q24H IV 08/28/16 16:00 09/07/16 15:59 Ipratropium [place] (Atrovent 0.02% 0.5MG/2.5ML Neb) 0.5 mg Q6R INH 08/28/16 15:00 09/27/16 14:59 Levalbuterol (Xopenex 1.25MG/ 0.5ML Neb) 1.25 mg Q6R INH 08/28/16 15:00 09/27/16 14:59 I & O: 24-Hour Column 08/28/16 08:00 Intake Total 1701 ml Output Total 190 ml Balance 1511 ml Vital Signs: Date Time Temp Pulse Resp B/P Pulse Ox O2 Delivery O2 Flow Rate FiO2 08/28/16 12:00 Nasal Cannula 4.0 08/28/16 12:00 96 14 93/38 94 Nasal Cannula 4.0 08/28/16 10:00 99 27 100/40 97 Mechanical Ventilator 40 08/28/16 08:00 Mechanical Ventilator 40 08/28/16 08:00 36.9 98 25 88/36 97 Mechanical Ventilator 40 08/28/16 08:00 40 08/28/16 07:15 40 08/28/16 06:00 98 16 99/40 97 Mechanical Ventilator 40 08/28/16 05:30 40 08/28/16 05:00 101 26 109/42 98 Mechanical Ventilator 40 08/28/16 04:00 Mechanical Ventilator 40 08/28/16 04:00 40 08/28/16 04:00 37.2 105 33 109/43 96 Mechanical Ventilator 40 08/28/16 02:00 100 24 109/45 97 Mechanical Ventilator 40 08/28/16 01:50 40 08/28/16 01:00 102 27 105/43 96 Mechanical Ventilator 40 08/28/16 00:05 Mechanical Ventilator 40 08/28/16 00:05 40 08/28/16 00:00 37.8 103 25 109/47 96 Mechanical Ventilator 40 08/27/16 22:45 40 08/27/16 22:00 103 31 95/36 97 Mechanical Ventilator 40 08/27/16 21:00 105 30 101/41 95 Mechanical Ventilator 40 08/27/16 20:00 36.6 104 29 104/57 96 Mechanical Ventilator 40 08/27/16 20:00 40 08/27/16 20:00 Mechanical Ventilator 40 08/27/16 19:24 40 08/27/16 18:05 40 08/27/16 16:00 50 08/27/16 16:00 36.6 08/27/16 16:00 Mechanical Ventilator 50 Laboratory Results: Last 24 Hours Test 08/27/16 14:50 08/27/16 16:24 08/27/16 17:07 08/27/16 20:54 Sodium Level 135 mmol/L Potassium Level 3.9 mmol/L Chloride Level 94 mmol/L Carbon Dioxide Level 25 mmol/L Anion Gap 16.0 mmol/L Blood Urea Nitrogen 50 mg/dl Creatinine 3.30 mg/dl Est Creatinine Clear Calc Drug Dose 11.7 ml/min Estimated GFR () 15.0 Estimated GFR (Non- 12.9 BUN/Creatinine Ratio 15.0 Random Glucose 70 mg/dl Calcium Level 7.0 mg/dl Phosphorus Level 2.7 mg/dl Magnesium Level 1.9 mg/dl Bedside Glucose (other) 69 mg/dl 115 mg/dl 90 mg/dl Test 08/28/16 00:05 08/28/16 03:40 08/28/16 05:24 08/28/16 05:28 Bedside Glucose (other) 104 mg/dl 123 mg/dl White Blood Count 47.90 K/uL Red Blood Count 2.76 M/uL Hemoglobin 8.1 g/dL Hematocrit 23.3 % Mean Corpuscular Volume 84.4 fL Mean Corpuscular Hemoglobin 29.3 pg Mean Corpuscular Hemoglobin Concent 34.8 g/dl Platelet Count 62 K/uL Mean Platelet Volume 11.1 fL RDW Standard Deviation 47.7 fL RDW Coefficient of Variation 15.5 % Nucleated RBC Absolute Count (auto) 0.04 K/uL Neutrophils % (Manual) 94.8 % Lymphocytes % (Manual) 2.6 % Monocytes % (Manual) 2.6 % Nucleated Red Blood Cells % 0.1 % Neutrophils # (Manual) 45.41 K/uL Total Absolute Neutrophils 45.41 K/uL Lymphocytes # (Manual) 1.25 K/uL Total Absolute Lymphocytes 1.25 K/uL Monocytes # (Manual) 1.25 K/uL Toxic Granulation 1+ Dohle Bodies 1+ Ovalocytes 1+ Echinocytes 2+ Prothrombin Time 13.5 SECONDS Prothromb Time International Ratio 1.3 Activated Partial Thromboplast Time 39.9 SECONDS Partial Thromboplastin Ratio 1.5 Sodium Level 134 mmol/L Potassium Level 3.9 mmol/L Chloride Level 92 mmol/L Carbon Dioxide Level 26 mmol/L Anion Gap 16.0 mmol/L Blood Urea Nitrogen 53 mg/dl Creatinine 3.50 mg/dl Est Creatinine Clear Calc Drug Dose 11.1 ml/min Estimated GFR () 13.9 Estimated GFR (Non- 12.0 BUN/Creatinine Ratio 15.1 Random Glucose 130 mg/dl Lactic Acid Level 4.6 mmol/L Calcium Level 7.1 mg/dl Ionized Calcium 0.88 mmol/l Phosphorus Level 2.6 mg/dl Magnesium Level 1.8 mg/dl Total Bilirubin 2.0 mg/dl Direct Bilirubin 1.2 mg/dl Aspartate Amino Transf (AST/SGOT) 357 U/L Alanine Aminotransferase (ALT/SGPT) 662 U/L Alkaline Phosphatase 140 U/L Total Creatine Kinase 227 U/L Creatine Kinase MB 3.4 ng/ml Creatine Kinase MB Ratio 1.5 Troponin I 6.190 ng/ml Total Protein 5.2 gm/dl Albumin 3.0 gm/dl Blood Gas Sample Site Art Line Bedside Blood Gas pH (LAB) 7.48 Bedside Blood Gas pCO2 (LAB) 36 mmHg Bedside Blood Gas pO2 (LAB) 88 mmHg Bedside Blood Gas HCO3 (LAB) 27 meq/L Bedside Blood Gas Total CO2 28 mEq/l Bedside Blood Gas Base Excess (LAB) 3.0 meq/L Bedside Blood Gas O2 Saturation 97.0 % Jaren Test NA Oxygen Delivery Device Ventilator Bedside Oxygen Rate (breaths/min) 24 Blood Gas Minute Ventilation 8.8 Bedside FiO2 40 % Blood Gas Tidal Volume 400 Blood Gas PEEP 10 Test 08/28/16 06:08 08/28/16 12:43 Bedside Glucose (other) 130 mg/dl 138 mg/dl
[2016-08-28] MEDS: AMPICILLIN/SULBACTAM SOD INJ 3,000 MG in SODIUM CHLORIDE 0.9% 100ML 100 ML IV SCH (16:31)
--- NOTE | 2016-08-28 18:15 | Progress Note ---
Subjective Date of Service: Aug 28, 2016. Subjective Pt evaluation today including: conversation w/ patient, physical exam, chart review, lab review, review of inpatient medication list Problem List Medical Problems: (1) Abnormal EKG Status: Acute (2) Fever Status: Acute (3) Left lower lobe pneumonia Status: Acute (4) Sepsis Status: Acute (5) Septic shock Status: Acute Review of Systems Constitutional: + fatigue, No chills, No fever, No problem reported, No see HPI , No sweats, No weakness, No weight loss Eyes: No diplopia, No discharge, No eye pain, No problem reported, No redness, No see HPI, No worsening of vision ENT: No dental problems, No hearing loss, No nasal symptoms, No problem reported, No see HPI, No sore throat, No tinnitus, No trouble swallowing, No unusual epistaxis Respiratory: + shortness of breath, No cough, No dyspnea at rest, No dyspnea on exertion, No hemoptysis, No problem reported, No see HPI, No sputum, No wheezing Cardiac: No PND, No chest pain, No claudication, No edema, No orthopnea, No palpitations, No problem reported, No see HPI Abdomen: No GI bleeding, No constipation, No diarrhea, No nausea, No pain, No problem reported, No see HPI, No vomiting Musculoskeletal: No calf pain, No joint pain, No muscle pain, No problem reported, No see HPI, No swelling Neurologic: No balance problems, No memory loss, No numbness/tingling, No paralysis, No problem reported, No see HPI, No vertigo, No weakness Psychiatric: No anhedonism, No anxiety, No depression symptoms, No insomnia, No problem reported, No see HPI, No substance abuse Heme: No abnormal bleeding/bruising, No clotting problems, No night sweats, No problem reported, No see HPI, No swollen lymph nodes Endo: No excessive thirst, No excessive urination, No fatigue, No problem reported, No see HPI Skin: No bleeding, No color change, No itch, No new/changing skin lesions, No problem reported, No rash, No see HPI Medications Current Inpatient Medications Medications (Trade) Dose Ordered Sig/Tamika Route Start Time Stop Time Status Last Admin Dose Admin Acetaminophen 650 mg 650 mg Q4H PRN PO 08/24/16 21:00 09/23/16 20:59 Future Hold 08/25/16 04:09 650 MG Pantoprazole Sodium/Syringe (Protonix Inj/ Syringe) 10 ml @ 5 mls/min DAILY IV 08/25/16 09:00 09/24/16 08:59 08/28/16 08:13 5 MLS/MIN Ondansetron HCl (Zofran Inj) 4 mg Q6H PRN IV 08/24/16 21:00 09/23/16 20:59 Aspirin (Ecotrin Tab) 81 mg DAILY PO 08/25/16 09:00 09/24/16 08:59 08/28/16 08:09 81 MG Atorvastatin Calcium (Lipitor Tab) 20 mg DAILY PO 08/25/16 09:00 09/24/16 08:59 Future Hold 08/27/16 08:07 20 MG Fluticasone Propionate (Flonase Nasal Dixon) 2 sprays DAILY PRN JAKOB 08/24/16 21:00 09/23/16 20:59 Glucose (Glucose 40% Gel) UD PRN PO 08/24/16 21:00 09/23/16 20:59 Glucose (Glucose Chew Tab) 1 tabs UD PRN PO 08/24/16 21:00 09/23/16 20:59 Dextrose (Dextrose 50% 50ML Syringe) 50 ml UD PRN IV 08/24/16 21:00 09/23/16 20:59 08/27/16 16:46 50 ML Glucagon (Glucagon Inj) 1 mg UD PRN SQ 08/24/16 21:00 09/23/16 20:59 Miscellaneous Information (Consult Glycemic Management Pharmacy) 1 ea UD N/A 08/25/16 08:48 09/24/16 08:47 Acetaminophen (Tylenol Soln) 650 mg Q4H PRN PO 08/25/16 13:30 09/24/16 13:29 Future Hold Ipratropium [place] (Atrovent Hfa Inhaler) 4 puffs Q6R INH 08/25/16 21:00 09/24/16 20:59 08/28/16 08:45 4 PUFFS Levalbuterol 4 puffs 4 puffs Q6R INH 08/25/16 21:00 09/24/16 20:59 08/28/16 08:45 4 PUFFS Hydrocortisone Sodium Succinate/ Syringe (Solu-Cortef IV/ Syringe) 1.5 ml @ 4 mls/min Q8H IV 08/26/16 19:00 09/25/16 18:59 08/28/16 12:06 4 MLS/MIN Fentanyl Citrate (Fentanyl Inj) 25 mcg Q2H PRN IV 08/26/16 09:30 09/09/16 09:29 08/28/16 15:08 25 MCG Chlorhexidine Gluconate 15 ml 15 ml BID MT 08/26/16 21:00 09/25/16 20:59 08/28/16 08:11 15 ML Dobutamine HCl (DOBUTamine / D5W) 250 ml @ 0 mls/hr Q0M PRN IV 08/26/16 15:30 09/25/16 15:29 08/27/16 18:45 9.6 MLS/HR Midazolam HCl (Versed Inj) 2 mg Q2H PRN IV 08/27/16 09:30 09/26/16 09:29 Heparin Sodium (Porcine) (Heparin Sq 5000 Unit/0.5ml) 5,000 unit Q12 SQ 08/27/16 21:00 09/26/16 20:59 08/28/16 08:11 5,000 UNIT Heparin Sodium (Porcine) (Heparin 10 Unit/ ml 5 ml Flush) 5 ml PRN PRN FLUSH 08/28/16 00:45 09/27/16 00:44 Insulin Aspart SLIDING SCALE Q6 SC 08/28/16 12:00 09/27/16 11:59 Ampicillin Sodium/ Sulbactam Sodium/ Sodium Chloride (Unasyn Inj/Nss 100ml) 108 ml @ 216 mls/hr Q24H IV 08/28/16 16:00 09/07/16 15:59 08/28/16 16:31 216 MLS/HR Ipratropium [place] (Atrovent 0.02% 0.5MG/2.5ML Neb) 0.5 mg Q6R INH 08/28/16 15:00 09/27/16 14:59 08/28/16 14:41 0.5 MG Levalbuterol (Xopenex 1.25MG/ 0.5ML Neb) 1.25 mg Q6R INH 08/28/16 15:00 09/27/16 14:59 08/28/16 14:41 1.25 MG Objective Vital Signs Date Time Temp Pulse Resp B/P Pulse Ox O2 Delivery O2 Flow Rate FiO2 08/28/16 16:00 36.6 98 14 100/55 94 Nasal Cannula 4.0 96/41 08/28/16 16:00 Nasal Cannula 4.0 08/28/16 14:00 99 25 94 Nasal Cannula 4.0 08/28/16 12:00 Nasal Cannula 4.0 08/28/16 12:00 96 14 93/38 94 Nasal Cannula 4.0 08/28/16 10:00 99 27 100/40 97 Mechanical Ventilator 40 08/28/16 08:00 Mechanical Ventilator 40 08/28/16 08:00 36.9 98 25 88/36 97 Mechanical Ventilator 40 08/28/16 08:00 40 08/28/16 07:15 40 08/28/16 06:00 98 16 99/40 97 Mechanical Ventilator 40 08/28/16 05:30 40 08/28/16 05:00 101 26 109/42 98 Mechanical Ventilator 40 08/28/16 04:00 Mechanical Ventilator 40 08/28/16 04:00 40 08/28/16 04:00 37.2 105 33 109/43 96 Mechanical Ventilator 40 08/28/16 02:00 100 24 109/45 97 Mechanical Ventilator 40 08/28/16 01:50 40 08/28/16 01:00 102 27 105/43 96 Mechanical Ventilator 40 08/28/16 00:05 Mechanical Ventilator 40 08/28/16 00:05 40 08/28/16 00:00 37.8 103 25 109/47 96 Mechanical Ventilator 40 08/27/16 22:45 40 08/27/16 22:00 103 31 95/36 97 Mechanical Ventilator 40 08/27/16 21:00 105 30 101/41 95 Mechanical Ventilator 40 08/27/16 20:00 36.6 104 29 104/57 96 Mechanical Ventilator 40 08/27/16 20:00 40 08/27/16 20:00 Mechanical Ventilator 40 08/27/16 19:24 40 Physical Exam General Appearance: no apparent distress Eyes: normal inspection, EOMI ENT: normal ENT inspection, hearing grossly normal Neck: supple Respiratory/Chest: chest non-tender, + decreased breath sounds, + crackles Cardiovascular: regular rate, rhythm, no edema, no gallop, no JVD Abdomen: normal bowel sounds, non tender, soft Extremities: normal range of motion, non-tender, normal inspection Neurologic/Psychiatric: drapery hemmer automatic II-XII nml as tested, no motor/sensory deficits, alert, oriented x 3 Skin: normal color, warm/dry, no rash Laboratory Results Last 24 Hours Test 08/27/16 20:54 08/28/16 00:05 08/28/16 03:40 08/28/16 05:24 Bedside Glucose (other) 90 mg/dl 104 mg/dl 123 mg/dl White Blood Count 47.90 K/uL Red Blood Count 2.76 M/uL Hemoglobin 8.1 g/dL Hematocrit 23.3 % Mean Corpuscular Volume 84.4 fL Mean Corpuscular Hemoglobin 29.3 pg Mean Corpuscular Hemoglobin Concent 34.8 g/dl Platelet Count 62 K/uL Mean Platelet Volume 11.1 fL RDW Standard Deviation 47.7 fL RDW Coefficient of Variation 15.5 % Nucleated RBC Absolute Count (auto) 0.04 K/uL Neutrophils % (Manual) 94.8 % Lymphocytes % (Manual) 2.6 % Monocytes % (Manual) 2.6 % Nucleated Red Blood Cells % 0.1 % Neutrophils # (Manual) 45.41 K/uL Total Absolute Neutrophils 45.41 K/uL Lymphocytes # (Manual) 1.25 K/uL Total Absolute Lymphocytes 1.25 K/uL Monocytes # (Manual) 1.25 K/uL Toxic Granulation 1+ Dohle Bodies 1+ Ovalocytes 1+ Echinocytes 2+ Prothrombin Time 13.5 SECONDS Prothromb Time International Ratio 1.3 Activated Partial Thromboplast Time 39.9 SECONDS Partial Thromboplastin Ratio 1.5 Sodium Level 134 mmol/L Potassium Level 3.9 mmol/L Chloride Level 92 mmol/L Carbon Dioxide Level 26 mmol/L Anion Gap 16.0 mmol/L Blood Urea Nitrogen 53 mg/dl Creatinine 3.50 mg/dl Est Creatinine Clear Calc Drug Dose 11.1 ml/min Estimated GFR () 13.9 Estimated GFR (Non- 12.0 BUN/Creatinine Ratio 15.1 Random Glucose 130 mg/dl Lactic Acid Level 4.6 mmol/L Calcium Level 7.1 mg/dl Ionized Calcium 0.88 mmol/l Phosphorus Level 2.6 mg/dl Magnesium Level 1.8 mg/dl Total Bilirubin 2.0 mg/dl Direct Bilirubin 1.2 mg/dl Aspartate Amino Transf (AST/SGOT) 357 U/L Alanine Aminotransferase (ALT/SGPT) 662 U/L Alkaline Phosphatase 140 U/L Total Creatine Kinase 227 U/L Creatine Kinase MB 3.4 ng/ml Creatine Kinase MB Ratio 1.5 Troponin I 6.190 ng/ml Total Protein 5.2 gm/dl Albumin 3.0 gm/dl Test 08/28/16 05:28 08/28/16 06:08 08/28/16 12:43 08/28/16 16:32 Blood Gas Sample Site Art Line Bedside Blood Gas pH (LAB) 7.48 Bedside Blood Gas pCO2 (LAB) 36 mmHg Bedside Blood Gas pO2 (LAB) 88 mmHg Bedside Blood Gas HCO3 (LAB) 27 meq/L Bedside Blood Gas Total CO2 28 mEq/l Bedside Blood Gas Base Excess (LAB) 3.0 meq/L Bedside Blood Gas O2 Saturation 97.0 % Jaren Test NA Oxygen Delivery Device Ventilator Bedside Oxygen Rate (breaths/min) 24 Blood Gas Minute Ventilation 8.8 Bedside FiO2 40 % Blood Gas Tidal Volume 400 Blood Gas PEEP 10 Bedside Glucose (other) 130 mg/dl 138 mg/dl Bedside Glucose 140 mg/dl Assessment and Plan (1) Septic shock (2) Fever (3) Sepsis (4) Left lower lobe pneumonia Assessment & Plan: 1). septic shock secondary to complicated UTI POA, S/P successful extubation Urology on case,s/p uretal stents On pressors as per critical care team / currently off levophed and remains on Dobutamine (5MIC/k/m) On IV antibiotics as per ID, DC zosyn and levaquin , currently only on Unasyn UCx growing E coli caspo was not started severe leukocytosis, possibly leukomoid reaction as she is clinically improving , repeat Cx are thus far negative repeat C dif in case of diarrhea 2). Acute Hypoxemic Resp Failure. - Multifactorial could be secondary to Left basilar airspace consolidation as well new right consolidation at the right lung base, could be secondary to pneumonia/aspiration pneumonitis, ARDS with plt pressure. - Currently on vent support and Antibiotics. 3). Acute Renal failure. - multifactorial, obstructive uropathy plus pre renal from hypotension 4). Elevated troponin - likely demand ischemia, plus renal failure - Echocardiogram with global hypokinesis, right ventricular dilatation and ejection fraction 15-20% 5) Decreased platelets - secondary to sepsis - HIT assay is negative. 6). Acute anemia - s/p 1 unit packed red blood cells, no signs of active bleeding. - possible dilution. 7). Diabetes mellitus with hyperglycemia, treated with insulin infusion Continued [facility] stay due to: multiple IV medications needed Discharge planning: TBD Continued [facility] stay due to: multiple IV medications needed [facility]charge planning[facility] jail facility Problem Qualifiers (1) Fever: Fever type: unspecified Qualified Codes: R50.9 - Fever, unspecified (2) Sepsis: Sepsis type: sepsis due to unspecified organism Qualified Codes: A41.9 - Sepsis, unspecified organism (3) Left lower lobe pneumonia: Pneumonia type: due to unspecified organism Qualified Codes: J18.1 - Lobar pneumonia, unspecified organism
[2016-08-28] MEDS ORDERED: LORAZEPAM 2 MG/ML 1 ML VIAL IV STA (22:20)
[2016-08-28] MEDS: DOBUTamine / D5W 500 MG IV PRN (23:40)
[2016-08-28] MEDS: CARVEDILOL 3.125 MG TAB PO SCH (23:42)
[2016-08-29] VITALS (26 sets, daily range): BP systolic 85–117; BP diastolic 48–79; PULSE 69–101; TEMP 36.6–36.9; O2SAT 91–97
[2016-08-29] MEDS: LEVALBUTEROL 1.25MG/0.5ML NEB INH SCH ×4 (02:32→20:05)
[2016-08-29] MEDS: IPRATROPIUM BROMIDE NEB SOLN 0.02% 2.5 ML VIAL INH SCH ×4 (02:32→20:05)
[2016-08-29] MEDS: IPRATROPIUM BROMIDE HFA INHALER INH SCH (02:32)
[2016-08-29] MEDS: LEValbuterol HFA 15GM INHALER INH SCH (02:32)
[2016-08-29] MEDS: HYDROCORTISONE IV 75 MG in SYRINGE 0 ML IV SCH ×3 (03:30→20:00)
[2016-08-29] MEDS: INSULIN ASPART 100 UNITS/ML 3 ML PEN SC SCH ×5 (06:00→21:01)
[2016-08-29 06:47] LABS: INR 1.2 (0.9-1.1); PARTIAL THROMBOPLASTIN RATIO 1.2; PROTHROMBIN TIME (PATIENT) 13.1 SECONDS (9.0-12.0)
[2016-08-29 06:52] LABS: HEMATOCRIT 24.3 % (37-47); MEAN CELL VOLUME 86.2 fL (80-100); MEAN CORPUSCULAR HEMOGLOBIN 29.4 pg (25-34); MEAN CORPUSCULAR HGB CONC 34.2 g/dl (32-36); MEAN PLATELET VOLUME 11.1 fL (7.4-10.4); PLATELET COUNT 50 K/uL (130-400); RED BLOOD COUNT 2.82 M/uL (4.2-5.4); WHITE BLOOD COUNT 46.79 K/uL (4.8-10.8)
[2016-08-29 06:59] LABS: COMPLETE YES; LYMPHOCYTE % 1.7 %; NEUTROPHILS % 94.8 %; TOXIC GRANULATION 2+
[2016-08-29 07:08] LABS: BUN/CREATININE RATIO 16.1 (10-20); CALCIUM 7.1 mg/dl (8.5-10.1); CREATININE 3.7 mg/dl (0.60-1.20); MAGNESIUM 2.2 mg/dl (1.8-2.4); POTASSIUM 3.9 mmol/L (3.5-5.1)
[2016-08-29 07:13] LABS: PHOSPHORUS 4.2 mg/dl (2.5-4.9)
--- NOTE | 2016-08-29 07:19 | DIAGNOSTIC IMAGING REPORT ---
CHEST ONE VIEW PORTABLE CLINICAL HISTORY: Improving acute respiratory failure. COMPARISON STUDY: Chest radiograph August 20, 2016. FINDINGS: A right PICC has been placed. The tip projects over the cavoatrial junction. The endotracheal and nasogastric tubes have been removed. Cardiomediastinal silhouette is stable. There is no pneumothorax. Bilateral pleural effusions persist. Bibasilar opacity is noted with dense left lower lobe airspace opacity. This is unchanged. IMPRESSION: 1. Persistent bilateral opacities with dense left lower lobe opacity. This could reflect pneumonia or atelectasis with left lower lobe volume loss. 2. Bile pleural effusions. No pneumothorax. Electronically signed by: David Nichols M.D. 08/29/2016 7:17 AM Dictated Date/Time: 08/29/2016 7:16 AM
[2016-08-29] MEDS ORDERED: SODIUM BICARB 8.4% INJ 50 MEQ/50 ML SYR IV ONE (07:50)
[2016-08-29] MEDS ORDERED: FUROSEMIDE INJ 40 MG in SYRINGE 0 ML IV ONE (10:00)
[2016-08-29] MEDS ORDERED: POTASSIUM CHLORIDE 20 MEQ TABCR PO ONE (10:00)
[2016-08-29] MEDS ORDERED: LIDODERM (LIDOCAINE) PATCH 5% TD PRN (10:00)
[2016-08-29] MEDS: ASPIRIN 81 MG ECTAB PO SCH (10:36)
[2016-08-29] MEDS: CARVEDILOL 3.125 MG TAB PO SCH ×2 (10:37→20:01)
[2016-08-29] MEDS: HEPARIN SOD 5000 UNIT/0.5 ML CARP SQ SCH ×2 (10:39→21:05)
[2016-08-29] MEDS ORDERED: POTASSIUM CHLR 10 MEQ / WTR 10 MEQ in PREMIXED WATER 100 ML IV SCH (11:00)
[2016-08-29] MEDS ORDERED: CALCIUM GLUCONATE 10% 2,000 MG in SODIUM CHLORIDE 0.9% 50ML 50 ML IV ONE (11:00)
[2016-08-29] MEDS: POTASSIUM CHLR 20MEQ / WTR IV SCH ×2 (11:35→13:50)
--- NOTE | 2016-08-29 12:33 | Pharmacy Progress Note ---
Glycemic Control: Progress Nt Date of Service Aug 29, 2016. Scope Glycemic Pharmacist consulted by Dr Vick on 08/25/16 for glycemic control and to write orders per [facility] inpatient glycemic control protocol. Objective Accuchecks BSG (last 24hrs): Test 08/28/16 16:32 08/28/16 21:58 08/28/16 23:47 08/29/16 06:00 Bedside Glucose 140 mg/dl (70-90) 117 mg/dl (70-90) 115 mg/dl (70-90) Random Glucose 117 mg/dl (70-99) Test 08/29/16 06:03 08/29/16 11:21 Bedside Glucose 131 mg/dl (70-90) 162 mg/dl (70-90) Laboratory Data (last 24hrs) Test 08/29/16 06:00 Anion Gap 10.0 mmol/L BUN/Creatinine Ratio 16.1 Blood Urea Nitrogen 60 mg/dl Creatinine 3.70 mg/dl Potassium Level 3.9 mmol/L Sodium Level 136 mmol/L White Blood Count 46.79 K/uL Red Blood Count 2.82 M/uL Hemoglobin 8.3 g/dL Hematocrit 24.3 % Mean Corpuscular Volume 86.2 fL Mean Corpuscular Hemoglobin 29.4 pg Mean Corpuscular Hemoglobin Concent 34.2 g/dl Platelet Count 50 K/uL Mean Platelet Volume 11.1 fL HbA1c: 8.7% 08/15/16 Recent Pertinent Medications Outpatient Anti-diabetic Regimen: * Glimepiride 2mg daily * Metformin 1gm BID * A1c = 8.7 % 08/15/16 The patient is currently receiving: * Basal insulin: none * Correctional Insulin: Novolog SQ ACHS * Goal Range: 140 - 180mg/dL * Prandial Insulin: 1 unit per 10 grams carbs consumed Risk Factors for Insulin Resistance: * Steroids: Solu-Cortef 75mg IV Q 8 hours * Infection: septic shock, b/l nephrolithiasis, e coli bacteremia; questionable aspiration pnx; receiving Unasyn * Pressors: dobutamine titrated off this AM * Recent Surgery: POD # 4 * Diet: ordered T2DM / AHA diet * Mechanical Ventilation: extubated 08/28/16 AM Assessment & Plan ASSESSMENT: 08/27/16 * Patient was started on IV insulin drip on 08/25 for BSGs in the 300's * Overnight insulin drip was titrated down to 0.3 units/hr and then turned off this AM * Continuation of the drip was discussed on rounds this AM, the plan is to leave the drip off, however restart the insulin drip if the BSG climbs to > 180. This patient still has significant stressors and remains critically ill on pressor support. The standard of care for such patients is an insulin infusion. She is a type 2 diabetic that remains NPO, thus she may not require insulin while fasting. * Will check BSGs Q 4 hrs 08/28/16 * BSGs have ranged 69-130 over the last 24 hours with no insulin administration * Patient has been fasting for > 3 days - and she appears to require no insulin in this state despite significant stressors * She was extubated this AM - which sometimes leads to changes in insulin sensitivity depending on pt's compliance w/ vent and work of breathing after extubation * Will change BSGs from Q 4 hrs to Q 6 hours - will add Novolog scale CF and CR based upon pt's weight and moderate stress wt based doses 08/29/16 * BSGs have ranged 117-162 over the last 24 hours * No insulin has been given over the last 24 hours - however her diet has been poor * Will continue with the current insulin orders but monitor BSG trend. I suspect she will required some prandial and possibly some basal insulin as her diet improves give her need for both Amaryl and Metformin prior to admission ( both of which are on hold) PLAN FOR INPATIENT GLYCEMIC CONTROL: * No basal insulin at this time - she may however require basal insulin as her diet advances * Change BSGs to ACHS now that a diet is ordered * Cover BSG elevations with SQ Novolog * Change goal range to 130-160mg/dL * Continue correction factor of 25mg/dL/unit * Continue carb ratio of 1 unit per 10gm CHO consumed * Please note that the plan above was derived based on current level of insulin resistance and hospital stress. These recommendations are appropriate for inpatient admission only. Plan of care upon discharge will need to be reassessed to avoid potential outpatient hypo/hyperglycemia. Thank you.
--- NOTE | 2016-08-29 14:03 | Progress Note ---
Subjective Date of Service: Aug 29, 2016. Subjective Pt evaluation today including: conversation w/ patient, conversation w/ family , physical exam, chart review, lab review pt seen in follow up, family at bedside. extubated, on NC O2. eating lunch but little appetite. Still with some back pain, but improved. tolerating abx, changed to unasyn yesterday. repeat blood cultures remain negative. caspo stopped as well. Isolated temp overnight, 37.8, otherwise afebrile. breathing well. denies cp. awake, alert, talking with family. wbc slightly improved to 46.7. creat slightly increased to 3.7, LFTs continue to improve. All remaining ros reviewed and are negative. Problem List Medical Problems: (1) Abnormal EKG Status: Acute (2) Fever Status: Acute (3) Left lower lobe pneumonia Status: Acute (4) Sepsis Status: Acute (5) Septic shock Status: Acute Objective Vital Signs Date Time Temp Pulse Resp B/P Pulse Ox O2 Delivery O2 Flow Rate FiO2 08/29/16 12:00 Nasal Cannula 2.0 08/29/16 12:00 36.9 77 18 114/66 92 Nasal Cannula 2.0 08/29/16 11:00 75 23 106/66 91 Nasal Cannula 2.0 08/29/16 10:00 85 18 103/74 93 Nasal Cannula 2.0 08/29/16 09:00 76 17 91/59 94 Nasal Cannula 3.0 08/29/16 08:30 74 18 89/61 95 Nasal Cannula 3.0 08/29/16 08:15 69 18 91/53 97 Nasal Cannula 4.0 08/29/16 08:00 36.7 72 16 85/53 96 Nasal Cannula 4.0 08/29/16 08:00 Nasal Cannula 4.0 08/29/16 07:50 75 14 88/62 97 Nasal Cannula 4.0 08/29/16 07:30 87 14 96 Nasal Cannula 4.0 08/29/16 07:00 91 23 112/63 92 Nasal Cannula 4.0 08/29/16 06:00 89 20 114/65 94 Nasal Cannula 4.0 08/29/16 06:00 89 20 114/65 94 08/29/16 05:00 89 11 115/64 96 Nasal Cannula 4.0 08/29/16 04:00 Nasal Cannula 4.0 08/29/16 04:00 36.6 91 12 113/79 95 Nasal Cannula 4.0 08/29/16 03:00 97 13 114/79 95 Nasal Cannula 4.0 08/29/16 02:33 100 12 95 Nasal Cannula 4.0 08/29/16 02:00 101 13 117/75 95 Nasal Cannula 4.0 08/29/16 01:00 94 12 113/69 95 Nasal Cannula 4.0 08/29/16 00:19 36.6 93 16 110/61 94 Nasal Cannula 4.0 08/29/16 00:00 Nasal Cannula 4.0 08/28/16 22:00 100 27 101/40 94 Nasal Cannula 4.0 08/28/16 20:34 100 22 96 Nasal Cannula 4.0 08/28/16 20:00 Nasal Cannula 4.0 08/28/16 20:00 36.8 100 19 102/42 95 Nasal Cannula 4.0 08/28/16 18:00 98 14 104/43 96 Nasal Cannula 4.0 08/28/16 16:00 36.6 98 14 100/55 94 Nasal Cannula 4.0 96/41 08/28/16 16:00 Nasal Cannula 4.0 Physical Exam General Appearance: WD/WN, no apparent distress Eyes: normal inspection, EOMI Neck: supple Respiratory/Chest: lungs clear, normal breath sounds, no respiratory distress Cardiovascular: regular rate, rhythm, no edema Abdomen: non tender, soft Extremities: non-tender, normal inspection, no pedal edema Neurologic/Psychiatric: no motor/sensory deficits, alert, oriented x 3 Skin: normal color Laboratory Results Item Value Date Time C.difficile Toxin B Gene (PCR) - Final Complete 08/28/16 2205 Stool No C. difficile toxin B gene detected Blood Culture - Preliminary Resulted 08/26/16 1008 Blood NO GROWTH TO DATE. Last 24 Hours Test 08/28/16 16:32 08/28/16 21:58 08/28/16 23:47 08/29/16 06:00 Bedside Glucose 140 mg/dl 117 mg/dl 115 mg/dl White Blood Count 46.79 K/uL Red Blood Count 2.82 M/uL Hemoglobin 8.3 g/dL Hematocrit 24.3 % Mean Corpuscular Volume 86.2 fL Mean Corpuscular Hemoglobin 29.4 pg Mean Corpuscular Hemoglobin Concent 34.2 g/dl Platelet Count 50 K/uL Mean Platelet Volume 11.1 fL RDW Standard Deviation 49.2 fL RDW Coefficient of Variation 15.5 % Nucleated RBC Absolute Count (auto) 0.06 K/uL Neutrophils % (Manual) 94.8 % Lymphocytes % (Manual) 1.7 % Monocytes % (Manual) 3.5 % Nucleated Red Blood Cells % 0.1 % Neutrophils # (Manual) 44.36 K/uL Total Absolute Neutrophils 44.36 K/uL Lymphocytes # (Manual) 0.80 K/uL Total Absolute Lymphocytes 0.80 K/uL Monocytes # (Manual) 1.64 K/uL Toxic Granulation 2+ Prothrombin Time 13.1 SECONDS Prothromb Time International Ratio 1.2 Activated Partial Thromboplast Time 31.9 SECONDS Partial Thromboplastin Ratio 1.2 Sodium Level 136 mmol/L Potassium Level 3.9 mmol/L Chloride Level 95 mmol/L Carbon Dioxide Level 31 mmol/L Anion Gap 10.0 mmol/L Blood Urea Nitrogen 60 mg/dl Creatinine 3.70 mg/dl Est Creatinine Clear Calc Drug Dose 10.6 ml/min Estimated GFR () 13.0 Estimated GFR (Non- 11.2 BUN/Creatinine Ratio 16.1 Random Glucose 117 mg/dl Calcium Level 7.1 mg/dl Ionized Calcium 0.93 mmol/l Phosphorus Level 4.2 mg/dl Magnesium Level 2.2 mg/dl Total Bilirubin 1.4 mg/dl Direct Bilirubin 0.9 mg/dl Aspartate Amino Transf (AST/SGOT) 281 U/L Alanine Aminotransferase (ALT/SGPT) 603 U/L Alkaline Phosphatase 177 U/L Total Protein 5.2 gm/dl Albumin 2.7 gm/dl Test 08/29/16 06:03 08/29/16 11:21 Bedside Glucose 131 mg/dl 162 mg/dl Assessment and Plan (1) Septic shock Assessment & Plan: much improved, continue unasyn, maintain IV for now. continue to follow repeat culture, negative to date. duration will depend on response to therapy, min 14 days but suspect longer with stents in place. would restart caspo or fluconazole as yeast noted on ua as well. ok for transfer out of ICU from ID standpoint. (2) E. coli septicemia (3) Pyelonephritis (4) Leukocytosis (5) Fever Continued [facility] stay due to: multiple IV medications needed Discharge planning: senior living facility Problem Qualifiers (1) Fever: Fever type: unspecified Qualified Codes: R50.9 - Fever, unspecified
[2016-08-29] MEDS: AMPICILLIN/SULBACTAM SOD INJ 3,000 MG in SODIUM CHLORIDE 0.9% 100ML 100 ML IV SCH (16:58)
--- NOTE | 2016-08-29 17:34 | Progress Note ---
Subjective Date of Service: Aug 29, 2016. Subjective Pt evaluation today including: conversation w/ patient, physical exam, chart review, lab review, review of inpatient medication list Problem List Medical Problems: (1) Abnormal EKG Status: Acute (2) Fever Status: Acute (3) Left lower lobe pneumonia Status: Acute (4) Sepsis Status: Acute (5) Septic shock Status: Acute Review of Systems Constitutional: No chills, No fatigue, No fever, No problem reported, No see HPI, No sweats, No weakness, No weight loss Eyes: No diplopia, No discharge, No eye pain, No problem reported, No redness, No see HPI, No worsening of vision ENT: No dental problems, No hearing loss, No nasal symptoms, No problem reported, No see HPI, No sore throat, No tinnitus, No trouble swallowing, No unusual epistaxis Respiratory: No cough, No dyspnea at rest, No dyspnea on exertion, No hemoptysis, No problem reported, No see HPI, No shortness of breath, No sputum, No wheezing Cardiac: No PND, No chest pain, No claudication, No edema, No orthopnea, No palpitations, No problem reported, No see HPI Abdomen: No GI bleeding, No constipation, No diarrhea, No nausea, No pain, No problem reported, No see HPI, No vomiting Musculoskeletal: No calf pain, No joint pain, No muscle pain, No problem reported, No see HPI, No swelling Female : No abnormal vaginal bleeding, No dysuria, No hematuria, No incontinence, No problem reported, No see HPI, No urinary frequency, No vaginal discharge Neurologic: No balance problems, No memory loss, No numbness/tingling, No paralysis, No problem reported, No see HPI, No vertigo, No weakness Psychiatric: No anhedonism, No anxiety, No depression symptoms, No insomnia, No problem reported, No see HPI, No substance abuse Heme: No abnormal bleeding/bruising, No clotting problems, No night sweats, No problem reported, No see HPI, No swollen lymph nodes Endo: No excessive thirst, No excessive urination, No fatigue, No problem reported, No see HPI Skin: No bleeding, No color change, No itch, No new/changing skin lesions, No problem reported, No rash, No see HPI Medications Current Inpatient Medications Medications (Trade) Dose Ordered Sig/Tamika Route Start Time Stop Time Status Last Admin Dose Admin Acetaminophen (Tylenol Tab) 650 mg Q4H PRN PO 08/24/16 21:00 09/23/16 20:59 Future Hold 08/25/16 04:09 650 MG Ondansetron HCl (Zofran Inj) 4 mg Q6H PRN IV 08/24/16 21:00 09/23/16 20:59 Aspirin (Ecotrin Tab) 81 mg DAILY PO 08/25/16 09:00 09/24/16 08:59 08/29/16 10:36 81 MG Atorvastatin Calcium (Lipitor Tab) 20 mg DAILY PO 08/25/16 09:00 09/24/16 08:59 Future Hold 08/27/16 08:07 20 MG Fluticasone Propionate (Flonase Nasal [place]) 2 sprays DAILY PRN JAKOB 08/24/16 21:00 09/23/16 20:59 Glucose (Glucose 40% Gel) UD PRN PO 08/24/16 21:00 09/23/16 20:59 Glucose (Glucose Chew Tab) 1 tabs UD PRN PO 08/24/16 21:00 09/23/16 20:59 Dextrose (Dextrose 50% 50ML Syringe) 50 ml UD PRN IV 08/24/16 21:00 09/23/16 20:59 08/27/16 16:46 50 ML Glucagon (Glucagon Inj) 1 mg UD PRN SQ 08/24/16 21:00 09/23/16 20:59 Miscellaneous Information (Consult Glycemic Management Pharmacy) 1 ea UD N/A 08/25/16 08:48 09/24/16 08:47 Acetaminophen 650 mg 650 mg Q4H PRN PO 08/25/16 13:30 09/24/16 13:29 Future Hold Hydrocortisone Sodium Succinate 75 mg/Syringe 1.5 ml @ 4 mls/min Q8H IV 08/26/16 19:00 09/25/16 18:59 08/29/16 10:37 4 MLS/MIN Dobutamine HCl (DOBUTamine / D5W) 250 ml @ 0 mls/hr Q0M PRN IV 08/26/16 15:30 09/25/16 15:29 08/28/16 23:40 9.5 MLS/HR Heparin Sodium (Porcine) (Heparin Sq 5000 Unit/0.5ml) 5,000 unit Q12 SQ 3/27/17 21:00 09/26/16 20:59 08/29/16 10:39 5,000 UNIT Heparin Sodium (Porcine) 5 ml 5 ml PRN PRN FLUSH 08/28/16 00:45 09/27/16 00:44 Ampicillin Sodium/ Sulbactam Sodium/ Sodium Chloride (Unasyn Inj/Nss 100ml) 108 ml @ 216 mls/hr Q24H IV 08/28/16 16:00 09/07/16 15:59 08/29/16 16:58 216 MLS/HR Ipratropium [place] (Atrovent 0.02% 0.5MG/2.5ML Neb) 0.5 mg Q6R INH 08/28/16 15:00 09/27/16 14:59 08/29/16 14:07 0.5 MG Levalbuterol (Xopenex 1.25MG/ 0.5ML Neb) 1.25 mg Q6R INH 08/28/16 15:00 09/27/16 14:59 08/29/16 14:07 1.25 MG Carvedilol (Coreg Tab) 3.125 mg BID PO 08/28/16 21:00 09/27/16 20:59 08/29/16 10:37 3.125 MG Lidocaine (Lidoderm Patch 5%) 1 patch DAILY@0900 PRN TD 08/29/16 10:00 09/28/16 09:59 08/29/16 16:45 1 PATCH Miscellaneous (Remove Lidoderm Patch) 1 ea TODAY@2100 N/A 08/29/16 21:00 09/28/16 20:59 Insulin Aspart (novoLOG ASPART) SLIDING SCALE ACHS SC 08/29/16 16:00 09/28/16 15:59 08/29/16 17:01 2 UNITS Objective Vital Signs Date Time Temp Pulse Resp B/P Pulse Ox O2 Delivery O2 Flow Rate FiO2 08/29/16 16:09 81 95 08/29/16 16:00 75 22 117/64 95 Nasal Cannula 2.0 08/29/16 16:00 Nasal Cannula 2.0 08/29/16 14:07 81 16 96 Nasal Cannula 4.0 08/29/16 14:00 72 15 102/65 93 Nasal Cannula 2.0 08/29/16 12:00 Nasal Cannula 2.0 08/29/16 12:00 36.9 77 18 114/66 92 Nasal Cannula 2.0 08/29/16 11:00 75 23 106/66 91 Nasal Cannula 2.0 08/29/16 10:00 85 18 103/74 93 Nasal Cannula 2.0 08/29/16 09:00 76 17 91/59 94 Nasal Cannula 3.0 08/29/16 08:30 74 18 89/61 95 Nasal Cannula 3.0 08/29/16 08:15 69 18 91/53 97 Nasal Cannula 4.0 08/29/16 08:00 36.7 72 16 85/53 96 Nasal Cannula 4.0 08/29/16 08:00 Nasal Cannula 4.0 08/29/16 07:50 75 14 88/62 97 Nasal Cannula 4.0 08/29/16 07:30 87 14 96 Nasal Cannula 4.0 08/29/16 07:00 91 23 112/63 92 Nasal Cannula 4.0 08/29/16 06:00 89 20 114/65 94 Nasal Cannula 4.0 08/29/16 06:00 89 20 114/65 94 08/29/16 05:00 89 11 115/64 96 Nasal Cannula 4.0 08/29/16 04:00 Nasal Cannula 4.0 08/29/16 04:00 36.6 91 12 113/79 95 Nasal Cannula 4.0 08/29/16 03:00 97 13 114/79 95 Nasal Cannula 4.0 08/29/16 02:33 100 12 95 Nasal Cannula 4.0 08/29/16 02:00 101 13 117/75 95 Nasal Cannula 4.0 08/29/16 01:00 94 12 113/69 95 Nasal Cannula 4.0 08/29/16 00:19 36.6 93 16 110/61 94 Nasal Cannula 4.0 08/29/16 00:00 Nasal Cannula 4.0 08/28/16 22:00 100 27 101/40 94 Nasal Cannula 4.0 08/28/16 20:34 100 22 96 Nasal Cannula 4.0 08/28/16 20:00 Nasal Cannula 4.0 08/28/16 20:00 36.8 100 19 102/42 95 Nasal Cannula 4.0 08/28/16 18:00 98 14 104/43 96 Nasal Cannula 4.0 Physical Exam General Appearance: WD/WN, no apparent distress Eyes: normal inspection, EOMI ENT: normal ENT inspection, hearing grossly normal, pharynx normal Neck: supple Respiratory/Chest: chest non-tender, lungs clear, normal breath sounds, no respiratory distress, no accessory muscle use Cardiovascular: regular rate, rhythm, no edema, no gallop, no JVD, no murmur Abdomen: normal bowel sounds, non tender, soft, no organomegaly, no pulsatile mass Extremities: normal range of motion, non-tender, normal inspection, no pedal edema, no calf tenderness 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, no motor/sensory deficits, alert, normal mood/affect, oriented x 3 Skin: normal color, warm/dry, + rash Laboratory Results Last 24 Hours Test 08/28/16 21:58 08/28/16 23:47 08/29/16 06:00 08/29/16 06:03 Bedside Glucose 117 mg/dl 115 mg/dl 131 mg/dl White Blood Count 46.79 K/uL Red Blood Count 2.82 M/uL Hemoglobin 8.3 g/dL Hematocrit 24.3 % Mean Corpuscular Volume 86.2 fL Mean Corpuscular Hemoglobin 29.4 pg Mean Corpuscular Hemoglobin Concent 34.2 g/dl Platelet Count 50 K/uL Mean Platelet Volume 11.1 fL RDW Standard Deviation 49.2 fL RDW Coefficient of Variation 15.5 % Nucleated RBC Absolute Count (auto) 0.06 K/uL Neutrophils % (Manual) 94.8 % Lymphocytes % (Manual) 1.7 % Monocytes % (Manual) 3.5 % Nucleated Red Blood Cells % 0.1 % Neutrophils # (Manual) 44.36 K/uL Total Absolute Neutrophils 44.36 K/uL Lymphocytes # (Manual) 0.80 K/uL Total Absolute Lymphocytes 0.80 K/uL Monocytes # (Manual) 1.64 K/uL Toxic Granulation 2+ Prothrombin Time 13.1 SECONDS Prothromb Time International Ratio 1.2 Activated Partial Thromboplast Time 31.9 SECONDS Partial Thromboplastin Ratio 1.2 Sodium Level 136 mmol/L Potassium Level 3.9 mmol/L Chloride Level 95 mmol/L Carbon Dioxide Level 31 mmol/L Anion Gap 10.0 mmol/L Blood Urea Nitrogen 60 mg/dl Creatinine 3.70 mg/dl Est Creatinine Clear Calc Drug Dose 10.6 ml/min Estimated GFR () 13.0 Estimated GFR (Non- 11.2 BUN/Creatinine Ratio 16.1 Random Glucose 117 mg/dl Calcium Level 7.1 mg/dl Ionized Calcium 0.93 mmol/l Phosphorus Level 4.2 mg/dl Magnesium Level 2.2 mg/dl Total Bilirubin 1.4 mg/dl Direct Bilirubin 0.9 mg/dl Aspartate Amino Transf (AST/SGOT) 281 U/L Alanine Aminotransferase (ALT/SGPT) 603 U/L Alkaline Phosphatase 177 U/L Total Protein 5.2 gm/dl Albumin 2.7 gm/dl Test 08/29/16 11:21 08/29/16 16:33 Bedside Glucose 162 mg/dl 164 mg/dl Assessment and Plan (1) Septic shock (2) Fever (3) Sepsis (4) Left lower lobe pneumonia Assessment & Plan: 1). septic shock secondary to complicated UTI POA, S/P successful extubation Urology on case,s/p uretal stents On pressors as per critical care team / currently off levophed and Dobutamine On IV antibiotics as per ID, DC zosyn and levaquin , currently only on Unasyn, antifungal restarted by ID UCx growing E coli severe leukocytosis, possibly leukomoid reaction as she is clinically improving , repeat Cx are thus far negative repeat C dif in case of diarrhea 2). Acute Hypoxemic Resp Failure. - Multifactorial could be secondary to Left basilar airspace consolidation as well new right consolidation at the right lung base, could be secondary to pneumonia/aspiration pneumonitis, ARDS with plt pressure. - Currently on vent support and Antibiotics. 3). Acute Renal failure. - multifactorial, obstructive uropathy plus pre renal from hypotension 4). Elevated troponin - likely demand ischemia, plus renal failure - Echocardiogram with global hypokinesis, right ventricular dilatation and ejection fraction 15-20% 5) Decreased platelets - secondary to sepsis - HIT assay is negative. 6). Acute anemia - s/p 1 unit packed red blood cells, no signs of active bleeding. - possible dilution. 7). Diabetes mellitus with hyperglycemia, treated with insulin infusion Continued [facility] stay due to: multiple IV medications needed Discharge planning: TBD Continued [facility] stay due to: multiple IV medications needed Discharge planning: [facility] facility Problem Qualifiers (1) Fever: Fever type: unspecified Qualified Codes: R50.9 - Fever, unspecified (2) Sepsis: Sepsis type: sepsis due to unspecified organism Qualified Codes: A41.9 - Sepsis, unspecified organism (3) Left lower lobe pneumonia: Pneumonia type: due to unspecified organism Qualified Codes: J18.1 - Lobar pneumonia, unspecified organism
[2016-08-29] MEDS ORDERED: OXYCODONE HCL IR 5 MG TAB (IMMEDIATE RELEASE) PO STA (17:52)
[2016-08-29] MEDS ORDERED: INSULIN ASPART 100 UNITS/ML 3 ML PEN SC SCH (18:00)
[2016-08-29] MEDS ORDERED: DIPHENOXYLATE/ATROPINE 2.5/0.025MG TAB PO ONE (18:00)
--- NOTE | 2016-08-29 18:27 | Critical Care Progress Note ---
Critical Care Progress Note Date of Service Aug 29, 2016. ICU Day ICU Day Number: [address] Billings Subjective Patient doing well at this time Denies any complaints Slept well No pain Objective Constitutional: Vital signs as noted below were reviewed. Eyes: Pupils equal, round, and reactive to light. Extraocular muscles are intact. No proptosis. No photophobia. ENT: Mucous membranes are moist. Oropharynx is clear. No sinus tenderness. TMs are clear bilaterally. No hoarseness Cardiovascular: Heart with a regular rate and rhythm. Pulses are palpable and symmetric in all 4 extremities. No pedal edema appreciated. Respiratory: Comfortable breathing, no accessory muscle use. Vesicular breath sounds bilaterally No crackles or wheezing GI: Abdomen soft, nontender, nondistended. Normal active bowel sounds. No abdominal hernias appreciated. No rebound. No guarding. : No CVA tenderness appreciated. Musculoskeletal: No midline cervical or vertebral tenderness. No gross deformities. No bony tenderness. No calf swelling or tenderness. Integumentary: Warm, dry, no rashes appreciated. Neurological: Patient awake, alert, calm. Alert and oriented x 3 CAM-ICU negative Lymph: No cervical lymphadenopathy appreciated. Assessment & Plan 75 year old female on day 5 of her ICU admission for the following problems: - Urosepsis, s/p bilateral ureteral stent placement - E Coli. bacteremia - NSTEMI / Coronary Artery Disease - Acute Kidney Injury - Hypocalcemia - Shock Liver/Hyperbilirubinemia with transaminitis - Acute Anemia - Thrombocytopenia. - Chronic Hypertension - Type 2 Diabetes Mellitus - Polymyalgia Rheumatica Patient is doing well since being extubated. Our plan for her is as follows: NEUROLOGICAL - GCS: 15 CAM-ICU: Negative - Pain regimen: Discontinue Fentanyl Lidocaine patch PRN pain CARDIAC - BP: 110 systolic MAP ranging 80-90 - Vasopressor support: Patient is off all vasopressors at this time - IV Fluids: None as patient has positive fluid balance Chronic Hypertension - HERBER: continue to hold home anti-hypertensives NSTEMI/Coronary Artery Disease - No complaints of chest pain - Continue ASA 81 mg daily, Atorvastatin 20 mg daily - Coreg 3.125 mg BID started yesterday; patient tolerating well; continue Acute congestive heart failure with reduced ejection fraction - EF 15-20% per echo done on this admission - Carvedilol 3.125 BID - Hold Amlodipine/Benazapril due to HERBER RESPIRATORY - Patient extubated and doing well on nasal cannula Will provide incentive spirometry - Acute Hypoxemic Respiratory Failure Resolving; patient on nasal cannula; no home O2; current goal is to wean to room air Goal saturation > 92% GASTROINTESTINAL - Diet: Off vasopressors; restart AHA diet and advance as tolerated - GI Prophylaxis: Discontinue Protonix as patient will be feedin - Bowel regimen: None currently; patient is having bowel movements Shock Liver/Acute Transaminitis - Improving gradually - Supportive care; hold hepatotoxic medications - Continue daily LFT monitoring RENAL//ENDOCRINE - Fluid Balance 24 hour: In 984 ml / Out 300 / Net + 684 ml Cumulative: In 03661 / Out 1600 / Net + 32023 Positive fluid balance: 40 mg IV Lasix today one - UO: Improving today to 0.45 mL/kg/hr - Cr: 3.5; continues to increase (Baseline: 0.6) - Electrolytes: - Sodium 136, potassium 3.9, chloride 95, bicarbonate 31, BUN 60, creatinine 3.7 - Mag 2.2, Phos 4.2 - Goal for K 4.5: 40 mEq KCL IV and 40 Kcl PO today - Hypomagnesemia: resolved - Hypocalcemia: 2 g calcium gluconate today - IV Fluids: No lone fluids; patient receiving fluids adjunctly via multiple IV medications daily, which we are gradually scaling down on as tolerated Type 2 Diabetes Mellitus - BS-140, well controlled and stable - Patient will be able to eat starting today; change AC/HC Accucheks - Pharmacy Consulted for Glycemic management; recommendations appreciated - Acute Kidney Injury - Cr. 3.7 - Urine output picking up which is encouraging - Continue to follow daily BMP Urosepsis s/p bilateral ureteral stenting - Continue treatment of urosepsis prior to further intervention from urology - Urology consulted and recommendations appreciated Polymyalgia Rheumatica - Patient on chronic Prednisone 5 mg - Continue Hydrocortisone 75 mg IV q8 hourly HEME/INFECTIOUS DISEASE - Tmax: 37.2 WBC: 46, unchanged from previous - Hb/Hct 8.3, stable - Plt 50, decreased from 62 yesterday - ID consulted; recommendations appreciated Urosepsis - Continue Unasyn 3 g daily; ID recommends duration 14 days - Repeat Blood Cx 08/26 preliminary but negative so far; E coli x 2 blood cultures on 08/24 - Per ID consider addition of antifungal due to yeast in urine. Acute Anemia - stable at this time; follow daily CBC - DVT Prophylaxis Heparin 5000 BID SCD and TEDs LINES/IV ACCESS - Right double lumen PICC - R femoral triple lumen catheter and R femora arterial line discontinued CODE STATUS - Full Code DISPOSITION - OT/PT evaluations ordered Resident Physician Supervision Note: Dr. Nicole was resident physician during care of patient. I separately evaluated patient and did history and exam. I discussed the case with the resident and generally agree with the findings and plan. Attempting to wean off dobutamine, added Coreg continue gentle diuresis mild improvement in creatinine. Patient seems to be resolving from sepsis I'm concerned of possible nidus for infection remaining. We'll require 14 days of treatment since negative blood culture secondary to gram-negative bacteremia. I have personally spent 43 minutes of critical care time in the direct management of this patient. This is a life/limb threatening event. This includes time spent evaluating patient, direct bedside care, chart review, placing orders, interpretation of diagnostic studies, discussion with consultants, patient, and family members, as well as other required patient management activities. This time is exclusive of all separately billable procedures, and teaching time and separate from and in addition to any other critical care service time. Documented By: Juan R Billings DO Consults & Procedures Consultants: Infectious Disease Urology Procedures: - Data Medications: Current Inpatient Medications Medications (Trade) Dose Ordered Sig/Tamika Route Start Time Stop Time Status Last Admin Dose Admin Acetaminophen (Tylenol Tab) 650 mg Q4H PRN PO 08/24/16 21:00 09/23/16 20:59 Future Hold 08/25/16 04:09 650 MG Ondansetron HCl (Zofran Inj) 4 mg Q6H PRN IV 08/24/16 21:00 09/23/16 20:59 Aspirin (Ecotrin Tab) 81 mg DAILY PO 08/25/16 09:00 09/24/16 08:59 08/29/16 10:36 81 MG Atorvastatin Calcium (Lipitor Tab) 20 mg DAILY PO 08/25/16 09:00 09/24/16 08:59 Future Hold 08/27/16 08:07 20 MG Fluticasone Propionate (Flonase Nasal [place]) 2 sprays DAILY PRN JAKOB 08/24/16 21:00 09/23/16 20:59 Glucose (Glucose 40% Gel) UD PRN PO 08/24/16 21:00 09/23/16 20:59 Glucose (Glucose Chew Tab) 1 tabs UD PRN PO 08/24/16 21:00 09/23/16 20:59 Dextrose (Dextrose 50% 50ML Syringe) 50 ml UD PRN IV 08/24/16 21:00 09/23/16 20:59 08/27/16 16:46 50 ML Glucagon (Glucagon Inj) 1 mg UD PRN SQ 08/24/16 21:00 09/23/16 20:59 Miscellaneous Information (Consult Glycemic Management Pharmacy) 1 ea UD N/A 08/25/16 08:48 09/24/16 08:47 Acetaminophen 650 mg 650 mg Q4H PRN PO 08/25/16 13:30 09/24/16 13:29 Future Hold Hydrocortisone Sodium Succinate 75 mg/Syringe 1.5 ml @ 4 mls/min Q8H IV 08/26/16 19:00 09/25/16 18:59 08/29/16 10:37 4 MLS/MIN Dobutamine HCl (DOBUTamine / D5W) 250 ml @ 0 mls/hr Q0M PRN IV 08/26/16 15:30 09/25/16 15:29 08/28/16 23:40 9.5 MLS/HR Heparin Sodium (Porcine) (Heparin Sq 5000 Unit/0.5ml) 5,000 unit Q12 SQ 08/27/16 21:00 09/26/16 20:59 08/29/16 10:39 5,000 UNIT Heparin Sodium (Porcine) 5 ml 5 ml PRN PRN FLUSH 08/28/16 00:45 09/27/16 00:44 Ampicillin Sodium/ Sulbactam Sodium/ Sodium Chloride (Unasyn Inj/Nss 100ml) 108 ml @ 216 mls/hr Q24H IV 08/28/16 16:00 09/07/16 15:59 08/29/16 16:58 216 MLS/HR Ipratropium [place] (Atrovent 0.02% 0.5MG/2.5ML Neb) 0.5 mg Q6R INH 08/28/16 15:00 09/27/16 14:59 08/29/16 14:07 0.5 MG Levalbuterol (Xopenex 1.25MG/ 0.5ML Neb) 1.25 mg Q6R INH 08/28/16 15:00 09/27/16 14:59 08/29/16 14:07 1.25 MG Carvedilol (Coreg Tab) 3.125 mg BID PO 08/28/16 21:00 09/27/16 20:59 08/29/16 10:37 3.125 MG Lidocaine (Lidoderm Patch 5%) 1 patch DAILY@0900 PRN TD 08/29/16 10:00 09/28/16 09:59 08/29/16 16:45 1 PATCH Miscellaneous (Remove Lidoderm Patch) 1 ea TODAY@2100 N/A 08/29/16 21:00 09/28/16 20:59 Insulin Aspart (novoLOG ASPART) SLIDING SCALE ACHS SC 08/29/16 16:00 09/28/16 15:59 08/29/16 17:01 2 UNITS I & O: 24-Hour Column 08/29/16 08:00 Intake Total 808 ml Output Total 550 ml Balance 258 ml Vital Signs: Date Time Temp Pulse Resp B/P Pulse Ox O2 Delivery O2 Flow Rate FiO2 08/29/16 16:09 81 95 08/29/16 16:00 75 22 117/64 95 Nasal Cannula 2.0 08/29/16 16:00 Nasal Cannula 2.0 08/29/16 14:07 81 16 96 Nasal Cannula 4.0 08/29/16 14:00 72 15 102/65 93 Nasal Cannula 2.0 08/29/16 12:00 Nasal Cannula 2.0 08/29/16 12:00 36.9 77 18 114/66 92 Nasal Cannula 2.0 08/29/16 11:00 75 23 106/66 91 Nasal Cannula 2.0 08/29/16 10:00 85 18 103/74 93 Nasal Cannula 2.0 08/29/16 09:00 76 17 91/59 94 Nasal Cannula 3.0 08/29/16 08:30 74 18 89/61 95 Nasal Cannula 3.0 08/29/16 08:15 69 18 91/53 97 Nasal Cannula 4.0 08/29/16 08:00 36.7 72 16 85/53 96 Nasal Cannula 4.0 08/29/16 08:00 Nasal Cannula 4.0 08/29/16 07:50 75 14 88/62 97 Nasal Cannula 4.0 08/29/16 07:30 87 14 96 Nasal Cannula 4.0 08/29/16 07:00 91 23 112/63 92 Nasal Cannula 4.0 08/29/16 06:00 89 20 114/65 94 Nasal Cannula 4.0 08/29/16 06:00 89 20 114/65 94 08/29/16 05:00 89 11 115/64 96 Nasal Cannula 4.0 08/29/16 04:00 Nasal Cannula 4.0 08/29/16 04:00 36.6 91 12 113/79 95 Nasal Cannula 4.0 08/29/16 03:00 97 13 114/79 95 Nasal Cannula 4.0 08/29/16 02:33 100 12 95 Nasal Cannula 4.0 08/29/16 02:00 101 13 117/75 95 Nasal Cannula 4.0 08/29/16 01:00 94 12 113/69 95 Nasal Cannula 4.0 08/29/16 00:19 36.6 93 16 110/61 94 Nasal Cannula 4.0 08/29/16 00:00 Nasal Cannula 4.0 08/28/16 22:00 100 27 101/40 94 Nasal Cannula 4.0 08/28/16 20:34 100 22 96 Nasal Cannula 4.0 08/28/16 20:00 Nasal Cannula 4.0 08/28/16 20:00 36.8 100 19 102/42 95 Nasal Cannula 4.0 08/28/16 18:00 98 14 104/43 96 Nasal Cannula 4.0 Laboratory Results: Last 24 Hours Test 08/28/16 21:58 08/28/16 23:47 08/29/16 06:00 08/29/16 06:03 Bedside Glucose 117 mg/dl 115 mg/dl 131 mg/dl White Blood Count 46.79 K/uL Red Blood Count 2.82 M/uL Hemoglobin 8.3 g/dL Hematocrit 24.3 % Mean Corpuscular Volume 86.2 fL Mean Corpuscular Hemoglobin 29.4 pg Mean Corpuscular Hemoglobin Concent 34.2 g/dl Platelet Count 50 K/uL Mean Platelet Volume 11.1 fL RDW Standard Deviation 49.2 fL RDW Coefficient of Variation 15.5 % Nucleated RBC Absolute Count (auto) 0.06 K/uL Neutrophils % (Manual) 94.8 % Lymphocytes % (Manual) 1.7 % Monocytes % (Manual) 3.5 % Nucleated Red Blood Cells % 0.1 % Neutrophils # (Manual) 44.36 K/uL Total Absolute Neutrophils 44.36 K/uL Lymphocytes # (Manual) 0.80 K/uL Total Absolute Lymphocytes 0.80 K/uL Monocytes # (Manual) 1.64 K/uL Toxic Granulation 2+ Prothrombin Time 13.1 SECONDS Prothromb Time International Ratio 1.2 Activated Partial Thromboplast Time 31.9 SECONDS Partial Thromboplastin Ratio 1.2 Sodium Level 136 mmol/L Potassium Level 3.9 mmol/L Chloride Level 95 mmol/L Carbon Dioxide Level 31 mmol/L Anion Gap 10.0 mmol/L Blood Urea Nitrogen 60 mg/dl Creatinine 3.70 mg/dl Est Creatinine Clear Calc Drug Dose 10.6 ml/min Estimated GFR () 13.0 Estimated GFR (Non- 11.2 BUN/Creatinine Ratio 16.1 Random Glucose 117 mg/dl Calcium Level 7.1 mg/dl Ionized Calcium 0.93 mmol/l Phosphorus Level 4.2 mg/dl Magnesium Level 2.2 mg/dl Total Bilirubin 1.4 mg/dl Direct Bilirubin 0.9 mg/dl Aspartate Amino Transf (AST/SGOT) 281 U/L Alanine Aminotransferase (ALT/SGPT) 603 U/L Alkaline Phosphatase 177 U/L Total Protein 5.2 gm/dl Albumin 2.7 gm/dl Test 08/29/16 11:21 08/29/16 16:33 Bedside Glucose 162 mg/dl 164 mg/dl
[2016-08-30] VITALS (11 sets, daily range): BP systolic 97–136; BP diastolic 56–74; PULSE 64–86; TEMP 36.6–37; O2SAT 93–97
[2016-08-30] MEDS: LEVALBUTEROL 1.25MG/0.5ML NEB INH SCH ×2 (02:05→08:45)
[2016-08-30] MEDS: IPRATROPIUM BROMIDE NEB SOLN 0.02% 2.5 ML VIAL INH SCH ×2 (02:05→07:12)
[2016-08-30] MEDS ORDERED: FUROSEMIDE INJ 40 MG in SYRINGE 0 ML IV STA (03:17)
[2016-08-30] MEDS: HYDROCORTISONE IV 75 MG in SYRINGE 0 ML IV SCH (03:40)
[2016-08-30 06:47] LABS: ALB/GLOB RATIO 1.1 (0.9-2); BUN/CREATININE RATIO 21.3 (10-20); CALCIUM 7.7 mg/dl (8.5-10.1); CREATININE 3.5 mg/dl (0.60-1.20); MAGNESIUM 2.2 mg/dl (1.8-2.4); PHOSPHORUS 5.6 mg/dl (2.5-4.9); POTASSIUM 4.7 mmol/L (3.5-5.1)
[2016-08-30 07:06] LABS: HEMATOCRIT 25.4 % (37-47); MEAN CELL VOLUME 84.9 fL (80-100); MEAN CORPUSCULAR HEMOGLOBIN 29.1 pg (25-34); MEAN CORPUSCULAR HGB CONC 34.3 g/dl (32-36); PLATELET COUNT 42 K/uL (130-400); RED BLOOD COUNT 2.99 M/uL (4.2-5.4); WHITE BLOOD COUNT 42.13 K/uL (4.8-10.8)
[2016-08-30 07:07] LABS: PLT ESTIMATE DECREASED; TOXIC GRANULATION 1+
--- NOTE | 2016-08-30 08:24 | DIAGNOSTIC IMAGING REPORT ---
SINGLE VIEW CHEST CLINICAL HISTORY: Pulmonary congestion. FINDINGS: An AP, portable, upright chest radiograph is compared to study performed 08/29/2016 The examination is degraded by portable technique and patient rotation. A right PICC line is unchanged in position. The heart is mildly enlarged. Pulmonary vascular congestion persists. There is mild elevation of the right hemidiaphragm. Layering pleural effusions and bibasilar consolidation have not significantly changed from yesterday. No pneumothorax is seen. The skeletal structures are osteopenic. The bony thorax is grossly intact. IMPRESSION: 1. Mild cardiomegaly and pulmonary vascular congestion. This is similar to yesterday. 2. Layering pleural effusion with bibasilar airspace consolidation has also not significantly changed. This could represent atelectasis and/or developing pneumonia. Clinical correlation will be required. Electronically signed by: Gabriele Díaz M.D. 08/30/2016 8:22 AM Dictated Date/Time: 08/30/2016 8:20 AM
[2016-08-30] MEDS: ASPIRIN 81 MG ECTAB PO SCH (08:35)
[2016-08-30] MEDS: LATANOPROST 0.005% OP SOLN 2.5 ML BTL OP SCH (08:35)
[2016-08-30] MEDS: CARVEDILOL 3.125 MG TAB PO SCH ×2 (08:35→21:11)
[2016-08-30] MEDS: INSULIN ASPART 100 UNITS/ML 3 ML PEN SC SCH ×4 (08:36→21:00)
[2016-08-30 08:39] LABS: COMPLETE YES
[2016-08-30] MEDS: HEPARIN SOD 5000 UNIT/0.5 ML CARP SQ SCH (08:44)
[2016-08-30] MEDS ORDERED: PANTOprazole SOD 40 MG TAB PO ONE (10:45)
[2016-08-30] MEDS ORDERED: INSULIN GLARGINE SOLOSTAR 100 UNITS/ML 3 ML PEN SC ONE (12:00)
--- NOTE | 2016-08-30 12:41 | Pharmacy Progress Note ---
Glycemic Control: Progress Nt Date of Service Aug 30, 2016. Scope Glycemic Pharmacist consulted by Dr Vick on 08/25/16 for glycemic control and to write orders per [facility] inpatient glycemic control protocol. Objective Accuchecks BSG (last 24hrs): Test 08/29/16 16:33 08/29/16 20:58 08/30/16 05:51 08/30/16 05:52 Bedside Glucose 164 mg/dl (70-90) 191 mg/dl (70-90) 158 mg/dl (70-90) Random Glucose 156 mg/dl (70-99) Test 08/30/16 11:04 Bedside Glucose 252 mg/dl (70-90) Laboratory Data (last 24hrs) Test 08/30/16 05:51 Anion Gap 13.0 mmol/L BUN/Creatinine Ratio 21.3 Blood Urea Nitrogen 75 mg/dl Creatinine 3.50 mg/dl Potassium Level 4.7 mmol/L Sodium Level 138 mmol/L White Blood Count 42.13 K/uL Red Blood Count 2.99 M/uL Hemoglobin 8.7 g/dL Hematocrit 25.4 % Mean Corpuscular Volume 84.9 fL Mean Corpuscular Hemoglobin 29.1 pg Mean Corpuscular Hemoglobin Concent 34.3 g/dl Platelet Count 42 K/uL HbA1c: 8.7% 08/15/16 Recent Pertinent Medications Outpatient Anti-diabetic Regimen: * Glimepiride 2mg daily * Metformin 1gm BID * A1c = 8.7 % 08/15/16 The patient is currently receiving: * Basal insulin: none * Correctional Insulin: Novolog SQ ACHS * Goal Range: 140 - 180mg/dL * Correction Factor: 25mg/dL/unit * Prandial Insulin: 1 unit per 10 grams carbs consumed Risk Factors for Insulin Resistance: * Steroids: Solu-Cortef 75mg IV Q 8 hours --> changed to Prednisone 10mg daily (home dose was 9mg/day for Polymyalgia Rheumatica) * Infection: septic shock, b/l nephrolithiasis, e coli bacteremia; questionable aspiration pnx; receiving Unasyn - likely for at least 14 days * Pressors: dobutamine remains off * Recent Surgery: POD # 5 * Diet: ordered T2DM / AHA diet; PO intake appears to be improving * Mechanical Ventilation: extubated 08/28/16 AM Assessment & Plan ASSESSMENT: 08/27/16 * Patient was started on IV insulin drip on 08/25 for BSGs in the 300's * Overnight insulin drip was titrated down to 0.3 units/hr and then turned off this AM * Continuation of the drip was discussed on rounds this AM, the plan is to leave the drip off, however restart the insulin drip if the BSG climbs to > 180. This patient still has significant stressors and remains critically ill on pressor support. The standard of care for such patients is an insulin infusion. She is a type 2 diabetic that remains NPO, thus she may not require insulin while fasting. * Will check BSGs Q 4 hrs 08/28/16 * BSGs have ranged 69-130 over the last 24 hours with no insulin administration * Patient has been fasting for > 3 days - and she appears to require no insulin in this state despite significant stressors * She was extubated this AM - which sometimes leads to changes in insulin sensitivity depending on pt's compliance w/ vent and work of breathing after extubation * Will change BSGs from Q 4 hrs to Q 6 hours - will add Novolog scale CF and CR based upon pt's weight and moderate stress wt based doses 08/29/16 * BSGs have ranged 117-162 over the last 24 hours * No insulin has been given over the last 24 hours - however her diet has been poor * Will continue with the current insulin orders but monitor BSG trend. I suspect she will required some prandial and possibly some basal insulin as her diet improves give her need for both Amaryl and Metformin prior to admission ( both of which are on hold) 08/30/16 * BSGs are beginning to trend upward, both fasting and post prandial BSGs * Steroid dose is being reduced today, however PO intake is improving * Will begin to add basal insulin due to rising fasting BSG trend - will start with low dose as it isn't clear how well pt will tolerate diet - also renal fxn not greatly improved, although u.o. may have picked up in last 24 hrs * Will continue the same Novolog CF and CR for now and follow BSG trend for further adjustments; pre-lunch hyperglycemia today likely due to omission of prandial insulin this AM PLAN FOR INPATIENT GLYCEMIC CONTROL: * Begin Lantus 5 units SQ BID - 1st dose now * Change goal range to 120-150mg/dL * Continue correction factor of 25mg/dL/unit * Continue carb ratio of 1 unit per 10gm CHO consumed * Please note that the plan above was derived based on current level of insulin resistance and hospital stress. These recommendations are appropriate for inpatient admission only. Plan of care upon discharge will need to be reassessed to avoid potential outpatient hypo/hyperglycemia. Thank you.
[2016-08-30 13:32] LABS: LYMPH ABS # 1.26 K/uL (1.2-3.4)
--- NOTE | 2016-08-30 13:39 | Progress Note ---
Subjective Date of Service: Aug 30, 2016. Subjective Pt evaluation today including: conversation w/ patient, physical exam, chart review, lab review, review of studies, review of inpatient medication list Problem List Medical Problems: (1) Abnormal EKG Status: Acute (2) Fever Status: Acute (3) Left lower lobe pneumonia Status: Acute (4) Sepsis Status: Acute (5) Septic shock Status: Acute Review of Systems Constitutional: No chills, No fatigue, No fever, No problem reported, No see HPI, No sweats, No weakness, No weight loss Eyes: No diplopia, No discharge, No eye pain, No problem reported, No redness, No see HPI, No worsening of vision ENT: No dental problems, No hearing loss, No nasal symptoms, No problem reported, No see HPI, No sore throat, No tinnitus, No trouble swallowing, No unusual epistaxis Respiratory: No cough, No dyspnea at rest, No dyspnea on exertion, No hemoptysis, No problem reported, No see HPI, No shortness of breath, No sputum, No wheezing Cardiac: No PND, No chest pain, No claudication, No edema, No orthopnea, No palpitations, No problem reported, No see HPI Abdomen: No GI bleeding, No constipation, No diarrhea, No nausea, No pain, No problem reported, No see HPI, No vomiting Musculoskeletal: No calf pain, No joint pain, No muscle pain, No problem reported, No see HPI, No swelling Female : No abnormal vaginal bleeding, No dysuria, No hematuria, No incontinence, No problem reported, No see HPI, No urinary frequency, No vaginal discharge Neurologic: No balance problems, No memory loss, No numbness/tingling, No paralysis, No problem reported, No see HPI, No vertigo, No weakness Psychiatric: No anhedonism, No anxiety, No depression symptoms, No insomnia, No problem reported, No see HPI, No substance abuse Heme: No abnormal bleeding/bruising, No clotting problems, No night sweats, No problem reported, No see HPI, No swollen lymph nodes Endo: No excessive thirst, No excessive urination, No fatigue, No problem reported, No see HPI Skin: No bleeding, No color change, No itch, No new/changing skin lesions, No problem reported, No rash, No see HPI Medications Current Inpatient Medications Medications (Trade) Dose Ordered Sig/Tamika Route Start Time Stop Time Status Last Admin Dose Admin Acetaminophen (Tylenol Tab) 650 mg Q4H PRN PO 08/24/16 21:00 09/23/16 20:59 Future Hold 08/25/16 04:09 650 MG Ondansetron HCl (Zofran Inj) 4 mg Q6H PRN IV 08/24/16 21:00 09/23/16 20:59 Aspirin (Ecotrin Tab) 81 mg DAILY PO 08/25/16 09:00 09/24/16 08:59 08/30/16 08:35 81 MG Atorvastatin Calcium (Lipitor Tab) 20 mg DAILY PO 08/25/16 09:00 09/24/16 08:59 Future Hold 08/27/16 08:07 20 MG Fluticasone Propionate (Flonase Nasal Capulin) 2 sprays DAILY PRN JAKOB 08/24/16 21:00 09/23/16 20:59 Glucose (Glucose 40% Gel) UD PRN PO 08/24/16 21:00 09/23/16 20:59 Glucose (Glucose Chew Tab) 1 tabs UD PRN PO 08/24/16 21:00 09/23/16 20:59 Dextrose (Dextrose 50% 50ML Syringe) 50 ml UD PRN IV 08/24/16 21:00 09/23/16 20:59 08/27/16 16:46 50 ML Glucagon (Glucagon Inj) 1 mg UD PRN SQ 08/24/16 21:00 09/23/16 20:59 Miscellaneous Information (Consult Glycemic Management Pharmacy) 1 ea UD N/A 08/25/16 08:48 09/24/16 08:47 Acetaminophen (Tylenol Soln) 650 mg Q4H PRN PO 08/25/16 13:30 09/24/16 13:29 Future Hold Heparin Sodium (Porcine) (Heparin Sq 5000 Unit/0.5ml) 5,000 unit Q12 SQ 08/27/16 21:00 09/26/16 20:59 08/30/16 08:44 5,000 UNIT Heparin Sodium (Porcine) 5 ml 5 ml PRN PRN FLUSH 08/28/16 00:45 09/27/16 00:44 Ampicillin Sodium/ Sulbactam Sodium/ Sodium Chloride (Unasyn Inj/Nss 100ml) 108 ml @ 216 mls/hr Q24H IV 08/28/16 16:00 09/07/16 15:59 08/29/16 16:58 216 MLS/HR Carvedilol (Coreg Tab) 3.125 mg BID PO 08/28/16 21:00 09/27/16 20:59 08/30/16 08:35 3.125 MG Lidocaine (Lidoderm Patch 5%) 1 patch DAILY@0900 PRN TD 08/29/16 10:00 09/28/16 09:59 08/29/16 16:45 1 PATCH Miscellaneous (Remove Lidoderm Patch) 1 ea TODAY@2100 N/A 08/29/16 21:00 09/28/16 20:59 08/29/16 21:00 1 EA Insulin Aspart (novoLOG ASPART) SLIDING SCALE ACHS SC 08/29/16 16:00 09/28/16 15:59 08/30/16 11:35 8 UNITS Latanoprost (Xalatan Oph Soln) 1 drops QAM OP 08/30/16 09:00 09/29/16 08:59 08/30/16 08:35 1 DROPS Prednisone (PredniSONE TAB) 10 mg DAILY PO 08/31/16 09:00 09/30/16 08:59 Pantoprazole Sodium (Protonix Tab) 40 mg QAM PO 08/31/16 09:00 09/30/16 08:59 Insulin Glargine (Lantus Solostar Pen) 5 unit BID SC 08/30/16 21:00 09/29/16 20:59 Objective Vital Signs Date Time Temp Pulse Resp B/P Pulse Ox O2 Delivery O2 Flow Rate FiO2 08/30/16 12:00 Nasal Cannula 2.0 08/30/16 12:00 36.6 76 22 101/74 96 Nasal Cannula 2.0 08/30/16 08:01 36.9 86 13 136/70 93 Nasal Cannula 2.0 08/30/16 08:00 Nasal Cannula 2.0 08/30/16 07:15 73 16 96 Nasal Cannula 4.0 08/30/16 06:00 70 12 106/60 95 08/30/16 04:00 Nasal Cannula 2.0 08/30/16 04:00 36.9 71 15 105/61 93 08/30/16 02:00 69 12 99/58 95 Nasal Cannula 4.0 08/30/16 00:01 Nasal Cannula 2.0 08/30/16 00:00 37.0 72 10 97/56 94 08/29/16 22:00 74 11 99/48 94 08/29/16 20:09 80 16 94 Nasal Cannula 2.0 08/29/16 20:02 73 22 98/54 93 Nasal Cannula 2.0 08/29/16 20:00 Nasal Cannula 2.0 08/29/16 18:00 77 22 94/50 95 Nasal Cannula 2.0 08/29/16 16:09 81 95 08/29/16 16:00 75 22 117/64 95 Nasal Cannula 2.0 08/29/16 16:00 Nasal Cannula 2.0 08/29/16 14:07 81 16 96 Nasal Cannula 4.0 08/29/16 14:00 72 15 102/65 93 Nasal Cannula 2.0 Physical Exam General Appearance: no apparent distress Eyes: normal inspection, EOMI ENT: normal ENT inspection, hearing grossly normal Neck: supple Respiratory/Chest: chest non-tender, lungs clear, normal breath sounds, no respiratory distress Cardiovascular: regular rate, rhythm, no edema, no gallop, no murmur Abdomen: normal bowel sounds, non tender, soft, no organomegaly Extremities: normal range of motion, non-tender, normal inspection, no pedal edema Neurologic/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: 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, no motor/sensory deficits, alert, normal mood/affect, oriented x 3 Skin: normal color, warm/dry, no rash Laboratory Results Last 24 Hours Test 08/29/16 16:33 08/29/16 20:58 08/30/16 05:51 08/30/16 05:52 Bedside Glucose 164 mg/dl 191 mg/dl 158 mg/dl White Blood Count 42.13 K/uL Red Blood Count 2.99 M/uL Hemoglobin 8.7 g/dL Hematocrit 25.4 % Mean Corpuscular Volume 84.9 fL Mean Corpuscular Hemoglobin 29.1 pg Mean Corpuscular Hemoglobin Concent 34.3 g/dl Platelet Count 42 K/uL RDW Standard Deviation 48.2 fL RDW Coefficient of Variation 15.5 % Nucleated RBC Absolute Count (auto) 0.05 K/uL Neutrophils % (Manual) 96.0 % Lymphocytes % (Manual) 3.0 % Monocytes % (Manual) 1.0 % Nucleated Red Blood Cells % 0.1 % Toxic Granulation 1+ Platelet Estimate DECREASED Sodium Level 138 mmol/L Potassium Level 4.7 mmol/L Chloride Level 97 mmol/L Carbon Dioxide Level 28 mmol/L Anion Gap 13.0 mmol/L Blood Urea Nitrogen 75 mg/dl Creatinine 3.50 mg/dl Est Creatinine Clear Calc Drug Dose 11.3 ml/min Estimated GFR () 13.9 Estimated GFR (Non- 12.0 BUN/Creatinine Ratio 21.3 Random Glucose 156 mg/dl Calcium Level 7.7 mg/dl Ionized Calcium 0.99 mmol/l Phosphorus Level 5.6 mg/dl Magnesium Level 2.2 mg/dl Total Bilirubin 1.0 mg/dl Aspartate Amino Transf (AST/SGOT) 170 U/L Alanine Aminotransferase (ALT/SGPT) 485 U/L Alkaline Phosphatase 207 U/L Total Protein 5.0 gm/dl Albumin 2.6 gm/dl Globulin 2.4 gm/dl Albumin/Globulin Ratio 1.1 Test 08/30/16 10:18 08/30/16 11:04 Heparin-PF4 Antibody Screen NEG Bedside Glucose 252 mg/dl Assessment and Plan (1) Septic shock (2) Fever (3) Sepsis (4) Left lower lobe pneumonia Assessment & Plan: 1). septic shock secondary to complicated UTI POA, S/P successful extubation Urology on case,s/p uretal stents currently off levophed and Dobutamine On IV antibiotics as per ID, DC zosyn and levaquin , currently only on Unasyn, antifungal by ID UCx growing E coli severe leukocytosis, possibly leukomoid reaction as she is clinically improving , repeat Cx are thus far negative repeat C dif in case of diarrhea 2). Acute Hypoxemic Resp Failure. - Multifactorial could be secondary to Left basilar airspace consolidation as well new right consolidation at the right lung base, could be secondary to pneumonia/aspiration pneumonitis, ARDS with plt pressure. - Currently improved / on nasal cannula O2 support 3). Acute Renal failure. - multifactorial, obstructive uropathy plus pre renal from hypotension 4). Elevated troponin - likely demand ischemia, plus renal failure - Echocardiogram with global hypokinesis, right ventricular dilatation and ejection fraction 15-20% 5) Decreased platelets - secondary to sepsis - HIT assay is negative, it was resent today 08/30 , will follow up results -hold heparin/aspirin -SCD boots for dvt prophylaxis 6). Acute anemia - s/p 1 unit packed red blood cells, no signs of active bleeding. - possible dilution. 7). Diabetes mellitus with hyperglycemia, treated with insulin infusion Continued [facility] stay due to: multiple IV medications needed Discharge planning: TBD Continued [facility] stay due to: multiple IV medications needed Discharge planning: longterm facility Problem Qualifiers (1) Fever: Fever type: unspecified Qualified Codes: R50.9 - Fever, unspecified (2) Sepsis: Sepsis type: sepsis due to unspecified organism Qualified Codes: A41.9 - Sepsis, unspecified organism (3) Left lower lobe pneumonia: Pneumonia type: due to unspecified organism Qualified Codes: J18.1 - Lobar pneumonia, unspecified organism
--- NOTE | 2016-08-30 15:10 | Progress Note ---
Subjective Date of Service: Aug 30, 2016. Subjective Pt evaluation today including: conversation w/ patient, conversation w/ family , physical exam, chart review, lab review pt seen in follow up, tele status but remains in ICU due to bed availability. afebrile. awake, no complaints. tolerating abx. lfts improving, wbc slightly improved. repeat blood cultures negative. creat improving, eating but still poor po intake, no n/v/d. no abd pain, back pain improved. all remaining ros reviewed and are negative. Problem List Medical Problems: (1) Abnormal EKG Status: Acute (2) Fever Status: Acute (3) Left lower lobe pneumonia Status: Acute (4) Sepsis Status: Acute (5) Septic shock Status: Acute Objective Vital Signs Date Time Temp Pulse Resp B/P Pulse Ox O2 Delivery O2 Flow Rate FiO2 08/30/16 12:00 Nasal Cannula 2.0 08/30/16 12:00 36.6 76 22 101/74 96 Nasal Cannula 2.0 08/30/16 08:01 36.9 86 13 136/70 93 Nasal Cannula 2.0 08/30/16 08:00 Nasal Cannula 2.0 08/30/16 07:15 73 16 96 Nasal Cannula 4.0 08/30/16 06:00 70 12 106/60 95 08/30/16 04:00 Nasal Cannula 2.0 08/30/16 04:00 36.9 71 15 105/61 93 08/30/16 02:00 69 12 99/58 95 Nasal Cannula 4.0 08/30/16 00:01 Nasal Cannula 2.0 08/30/16 00:00 37.0 72 10 97/56 94 08/29/16 22:00 74 11 99/48 94 08/29/16 20:09 80 16 94 Nasal Cannula 2.0 08/29/16 20:02 73 22 98/54 93 Nasal Cannula 2.0 08/29/16 20:00 Nasal Cannula 2.0 08/29/16 18:00 77 22 94/50 95 Nasal Cannula 2.0 08/29/16 16:09 81 95 08/29/16 16:00 75 22 117/64 95 Nasal Cannula 2.0 08/29/16 16:00 Nasal Cannula 2.0 Physical Exam General Appearance: WD/WN, no apparent distress Eyes: normal inspection, EOMI Neck: supple Respiratory/Chest: lungs clear, normal breath sounds, no respiratory distress Cardiovascular: regular rate, rhythm, no edema Abdomen: non tender, soft Extremities: normal inspection, + pedal edema Neurologic/Psychiatric: alert, oriented x 3 Skin: normal color Laboratory Results Item Value Date Time Blood Culture - Final Complete 08/24/161929 Blood Escherichia Coli Blood Culture - Final Complete 08/24/161934 Blood Escherichia Coli Blood Culture - Preliminary Resulted 08/26/16 1000 Blood NO GROWTH TO DATE. Blood Culture - Preliminary Resulted 08/26/16 1008 Blood NO GROWTH TO DATE. Last 24 Hours Test 08/29/16 16:33 08/29/16 20:58 08/30/16 05:51 08/30/16 05:52 Bedside Glucose 164 mg/dl 191 mg/dl 158 mg/dl White Blood Count 42.13 K/uL Red Blood Count 2.99 M/uL Hemoglobin 8.7 g/dL Hematocrit 25.4 % Mean Corpuscular Volume 84.9 fL Mean Corpuscular Hemoglobin 29.1 pg Mean Corpuscular Hemoglobin Concent 34.3 g/dl Platelet Count 42 K/uL RDW Standard Deviation 48.2 fL RDW Coefficient of Variation 15.5 % Nucleated RBC Absolute Count (auto) 0.05 K/uL Neutrophils % (Manual) 97.0 % Lymphocytes % (Manual) 3.0 % Monocytes % (Manual) 1.0 % Nucleated Red Blood Cells % 0.1 % Neutrophils # (Manual) 40.87 K/uL Total Absolute Neutrophils 40.87 K/uL Lymphocytes # (Manual) 1.26 K/uL Total Absolute Lymphocytes 1.26 K/uL Toxic Granulation 1+ Platelet Estimate DECREASED Sodium Level 138 mmol/L Potassium Level 4.7 mmol/L Chloride Level 97 mmol/L Carbon Dioxide Level 28 mmol/L Anion Gap 13.0 mmol/L Blood Urea Nitrogen 75 mg/dl Creatinine 3.50 mg/dl Est Creatinine Clear Calc Drug Dose 11.3 ml/min Estimated GFR () 13.9 Estimated GFR (Non- 12.0 BUN/Creatinine Ratio 21.3 Random Glucose 156 mg/dl Calcium Level 7.7 mg/dl Ionized Calcium 0.99 mmol/l Phosphorus Level 5.6 mg/dl Magnesium Level 2.2 mg/dl Total Bilirubin 1.0 mg/dl Aspartate Amino Transf (AST/SGOT) 170 U/L Alanine Aminotransferase (ALT/SGPT) 485 U/L Alkaline Phosphatase 207 U/L Total Protein 5.0 gm/dl Albumin 2.6 gm/dl Globulin 2.4 gm/dl Albumin/Globulin Ratio 1.1 Test 08/30/16 10:18 08/30/16 11:04 Heparin-PF4 Antibody Screen NEG Bedside Glucose 252 mg/dl Assessment and Plan (1) Septic shock Assessment & Plan: continue unasyn, min 14 days but await final urology plans. will add low dose fluconazole as yeast on UA as well. trend lfts. continue to follow. (2) E. coli septicemia (3) Pyelonephritis (4) Leukocytosis (5) Fever Continued [facility] stay due to: multiple IV medications needed Discharge planning: halfway facility Problem Qualifiers (1) Fever: Fever type: unspecified Qualified Codes: R50.9 - Fever, unspecified
[2016-08-30] MEDS: AMPICILLIN/SULBACTAM SOD INJ 3,000 MG in SODIUM CHLORIDE 0.9% 100ML 100 ML IV SCH (15:54)
[2016-08-30] MEDS ORDERED: NURSING VERBAL MED ORDER ONE ×2 (19:15→22:45)
[2016-08-30] MEDS ORDERED: INSULIN GLARGINE SOLOSTAR 100 UNITS/ML 3 ML PEN SC SCH (21:00)
[2016-08-30] MEDS: TRAMADOL HCL 50 MG TAB PO PRN (21:11)
[2016-08-31] VITALS (11 sets, daily range): BP systolic 119–141; BP diastolic 59–76; PULSE 59–120; TEMP 36.4–36.9; O2SAT 94–97
[2016-08-31 07:00] LABS: ALB/GLOB RATIO 1.1 (0.9-2); BUN/CREATININE RATIO 27.5 (10-20); CALCIUM 7.4 mg/dl (8.5-10.1); CREATININE 3.1 mg/dl (0.60-1.20); MAGNESIUM 2.2 mg/dl (1.8-2.4)
[2016-08-31] MEDS: INSULIN ASPART 100 UNITS/ML 3 ML PEN SC SCH ×4 (07:00→21:00)
[2016-08-31 07:02] LABS: POTASSIUM 3.9 mmol/L (3.5-5.1)
[2016-08-31 07:16] LABS: HEMATOCRIT 28.2 % (37-47); MEAN CELL VOLUME 85.2 fL (80-100); MEAN CORPUSCULAR HEMOGLOBIN 29.3 pg (25-34); MEAN CORPUSCULAR HGB CONC 34.4 g/dl (32-36); PLATELET COUNT 47 K/uL (130-400); RED BLOOD COUNT 3.31 M/uL (4.2-5.4); WHITE BLOOD COUNT 48.94 K/uL (4.8-10.8)
[2016-08-31 08:05] LABS: COMPLETE YES; DOHLE BODIES 2+; LYMPHOCYTE % 4.3 %; MYELOCYTE % 0.9 %; NEUTROPHILS % 93.1 %; PLT ESTIMATE DECREASED; TOXIC GRANULATION 2+
[2016-08-31] MEDS: PANTOprazole SOD 40 MG TAB PO SCH (08:08)
[2016-08-31] MEDS: CALCIUM ACETATE 667MG GELCAP PO SCH ×3 (08:09→16:15)
[2016-08-31] MEDS: CARVEDILOL 3.125 MG TAB PO SCH ×2 (08:09→20:57)
[2016-08-31] MEDS: LATANOPROST 0.005% OP SOLN 2.5 ML BTL OP SCH (08:10)
[2016-08-31] MEDS ORDERED: AMPICILLIN/SULBACTAM CONSULT ACTIVE PRN ×2 (08:30)
[2016-08-31] MEDS: FLUCONAZOLE 100 MG TAB PO SCH (09:01)
--- NOTE | 2016-08-31 09:55 | Pharmacy Progress Note ---
Glycemic Control: Progress Nt Date of Service Aug 31, 2016. Scope Glycemic Pharmacist consulted for glycemic control and to write orders per [facility] inpatient glycemic control protocol. Objective Accuchecks BSG (last 24hrs): Test 08/30/16 11:04 08/30/16 16:04 08/30/16 20:08 08/31/16 05:30 Bedside Glucose 252 mg/dl (70-90) 132 mg/dl (70-90) 128 mg/dl (70-90) Random Glucose 53 mg/dl (70-99) Test 08/31/16 06:46 08/31/16 07:00 08/31/16 07:10 Bedside Glucose 61 mg/dl (70-90) 68 mg/dl (70-90) 81 mg/dl (70-90) Laboratory Data (last 24hrs) Test 08/31/16 05:30 Anion Gap 9.0 mmol/L BUN/Creatinine Ratio 27.5 Blood Urea Nitrogen 85 mg/dl Creatinine 3.10 mg/dl Potassium Level 3.9 mmol/L Sodium Level 140 mmol/L White Blood Count 48.94 K/uL Red Blood Count 3.31 M/uL Hemoglobin 9.7 g/dL Hematocrit 28.2 % Mean Corpuscular Volume 85.2 fL Mean Corpuscular Hemoglobin 29.3 pg Mean Corpuscular Hemoglobin Concent 34.4 g/dl Platelet Count 47 K/uL Recent Pertinent Medications Outpatient Anti-diabetic Regimen: * Glimepiride 2mg daily * Metformin 1gm BID * A1c = 8.7 % 08/15/16 The patient is currently receiving: * Basal insulin: Lantus 5 units BID (last dose 08/30 PM) * Correctional Insulin: Novolog SQ ACHS * Goal Range: 120 - 150 mg/dL * Correction Factor: 25 mg/dL/unit * Prandial Insulin: 1 unit per 10 grams carbs consumed Risk Factors for Insulin Resistance: * Steroids: Solu-Cortef 75mg IV Q 8 hours --> changed to Prednisone 10mg daily (home dose was 9mg/day for Polymyalgia Rheumatica) * Infection: septic shock, b/l nephrolithiasis, e coli bacteremia; questionable aspiration pnx; receiving Unasyn - likely for at least 14 days * Pressors: dobutamine remains off * Recent Surgery: POD #6 * Diet: ordered T2DM/renal; PO intake appears to be improving * Mechanical Ventilation: extubated 08/28/16 AM Assessment & Plan ASSESSMENT: * ADA & AACE recommend a goal blood sugar range 140-180 mg/dl for the majority of critically ill & non-critically ill patients. However, more stringent targets may be selected in individual cases. 08/29/16 * BSGs have ranged 117-162 over the last 24 hours * No insulin has been given over the last 24 hours - however her diet has been poor * Will continue with the current insulin orders but monitor BSG trend. I suspect she will required some prandial and possibly some basal insulin as her diet improves give her need for both Amaryl and Metformin prior to admission ( both of which are on hold) 08/30/16 * BSGs are beginning to trend upward, both fasting and post prandial BSGs * Steroid dose is being reduced today, however PO intake is improving * Will begin to add basal insulin due to rising fasting BSG trend - will start with low dose as it isn't clear how well pt will tolerate diet - also renal fxn not greatly improved, although u.o. may have picked up in last 24 hrs * Will continue the same Novolog CF and CR for now and follow BSG trend for further adjustments; pre-lunch hyperglycemia today likely due to omission of prandial insulin this AM 08/31/16 * Fasting BSG low this AM at 61 mg/dL after receiving a total of 10 units of Lantus yesterday. Will hold for today and resume at reduced dose tomorrow * Expect effects of Lantus to persist today. Will also loosen correction factor and carb ratio. * Prednisone continuing at 10 mg daily * SCr improving, albeit still significantly elevated from baseline PLAN FOR INPATIENT GLYCEMIC CONTROL: * Continue to hold outpatient oral diabetes medications 2nd renal dysfunction * Hold basal insulin with LANTUS today * Resume basal insulin with LANTUS tomorrow at 5 units SQ qAM (hold for BSG < 120 mg/dL) * Correctional Insulin with NOVOLOG per scale ACHS or Q6hrs while NPO * Goal Range: Low 120 mg/dL - High 160 mg/dL * Loosen Correction Factor: 35 mg/dL/unit * Loosen Nutritional / Prandial insulin per carb ratio of 1 unit per 12 grams CHO consumed * Please note that the plan above was derived based on current level of insulin resistance and hospital stress. These recommendations are appropriate for inpatient admission only. Plan of care upon discharge will need to be reassessed to avoid potential outpatient hypo/hyperglycemia. Thank you.
--- NOTE | 2016-08-31 11:45 | Progress Note ---
Subjective Date of Service: Aug 31, 2016. Subjective transferred from ICU, oob to chair. wbc elevated but lfts improving. tolerating abx. no f/c overnight. remains on unasyn. repeat blood cultures remain negative. no complaints. Problem List Medical Problems: (1) Abnormal EKG Status: Acute (2) Fever Status: Acute (3) Left lower lobe pneumonia Status: Acute (4) Sepsis Status: Acute (5) Septic shock Status: Acute Objective Vital Signs Date Time Temp Pulse Resp B/P Pulse Ox O2 Delivery O2 Flow Rate FiO2 08/31/16 08:45 62 08/31/16 08:32 36.4 120 20 130/67 94 Nasal Cannula 3.0 08/31/16 08:00 95 Nasal Cannula 2.0 08/31/16 04:02 Nasal Cannula 2.0 08/31/16 03:19 36.7 71 18 119/59 95 Nasal Cannula 2.0 08/31/16 00:00 Nasal Cannula 2.0 08/30/16 23:38 36.7 72 18 112/70 96 Nasal Cannula 2.0 08/30/16 20:00 Nasal Cannula 2.0 08/30/16 19:14 36.9 77 20 117/67 96 Nasal Cannula 2.0 08/30/16 18:45 36.8 64 18 95 2.0 08/30/16 16:00 95 Nasal Cannula 2.0 08/30/16 16:00 77 20 115/67 96 2.0 08/30/16 12:00 Nasal Cannula 2.0 08/30/16 12:00 36.6 76 22 101/74 96 Nasal Cannula 2.0 Physical Exam General Appearance: WD/WN, no apparent distress Eyes: normal inspection Neck: supple Respiratory/Chest: normal breath sounds, no respiratory distress Cardiovascular: regular rate, rhythm Extremities: + pedal edema Neurologic/Psychiatric: alert, oriented x 3 Skin: normal color Laboratory Results Item Value Date Time C.difficile Toxin B Gene (PCR) - Final Complete 08/28/162204 Stool No C. difficile toxin B gene detected Blood Culture - Preliminary Resulted 08/26/16 1008 Blood NO GROWTH TO DATE. Blood Culture - Final Complete 08/24/16 193 Blood Escherichia Coli Blood Culture - Final Complete 08/24/16 1930 Blood Escherichia Coli Last 24 Hours Test 08/30/16 16:04 08/30/16 20:08 08/31/16 05:30 08/31/16 06:46 Bedside Glucose 132 mg/dl 128 mg/dl 61 mg/dl White Blood Count 48.94 K/uL Red Blood Count 3.31 M/uL Hemoglobin 9.7 g/dL Hematocrit 28.2 % Mean Corpuscular Volume 85.2 fL Mean Corpuscular Hemoglobin 29.3 pg Mean Corpuscular Hemoglobin Concent 34.4 g/dl Platelet Count 47 K/uL RDW Standard Deviation 47.8 fL RDW Coefficient of Variation 15.4 % Nucleated RBC Absolute Count (auto) 0.10 K/uL Neutrophils % (Manual) 93.1 % Lymphocytes % (Manual) 4.3 % Monocytes % (Manual) 1.7 % Myelocytes % 0.9 % Nucleated Red Blood Cells % 0.2 % Neutrophils # (Manual) 45.56 K/uL Total Absolute Neutrophils 45.56 K/uL Lymphocytes # (Manual) 2.10 K/uL Total Absolute Lymphocytes 2.10 K/uL Monocytes # (Manual) 0.83 K/uL Myelocytes # 0.44 K/uL Toxic Granulation 2+ Dohle Bodies 2+ Platelet Estimate DECREASED Sodium Level 140 mmol/L Potassium Level 3.9 mmol/L Chloride Level 100 mmol/L Carbon Dioxide Level 31 mmol/L Anion Gap 9.0 mmol/L Blood Urea Nitrogen 85 mg/dl Creatinine 3.10 mg/dl Est Creatinine Clear Calc Drug Dose 12.4 ml/min Estimated GFR () 16.1 Estimated GFR (Non- 13.9 BUN/Creatinine Ratio 27.5 Random Glucose 53 mg/dl Calcium Level 7.4 mg/dl Phosphorus Level 6.0 mg/dl Magnesium Level 2.2 mg/dl Total Bilirubin 0.7 mg/dl Aspartate Amino Transf (AST/SGOT) 86 U/L Alanine Aminotransferase (ALT/SGPT) 358 U/L Alkaline Phosphatase 212 U/L Total Protein 4.8 gm/dl Albumin 2.5 gm/dl Globulin 2.3 gm/dl Albumin/Globulin Ratio 1.1 Test 08/31/16 07:00 08/31/16 07:10 08/31/16 11:29 Bedside Glucose 68 mg/dl 81 mg/dl 109 mg/dl Assessment and Plan (1) Septic shock Assessment & Plan: clinically much improved. unclear why wbc increased as she is significantly better. would continue unasyn for now, will need 14 days total , would give 14 days from first negative culture - stop 09/11, can change to po augmentin 875mg po bid upon d/c. Is stent to be removed? If so, would prefer while still on abx. will continue fluconazole until 09/07. No new ID recs at this time. (2) E. coli septicemia (3) Pyelonephritis (4) Leukocytosis (5) Fever Continued [facility] stay due to: multiple IV medications needed Discharge planning: intermediate facility Problem Qualifiers (1) Fever: Fever type: unspecified Qualified Codes: R50.9 - Fever, unspecified
[2016-08-31] MEDS: AMPICILLIN/SULBACTAM SOD INJ 3,000 MG in SODIUM CHLORIDE 0.9% 100ML 100 ML IV SCH (16:15)
--- NOTE | 2016-08-31 17:18 | Progress Note ---
Subjective Date of Service: Aug 31, 2016. Subjective Pt evaluation today including: conversation w/ patient, conversation w/ family , physical exam, chart review, lab review, review of inpatient medication list Problem List Medical Problems: (1) Abnormal EKG Status: Acute (2) Fever Status: Acute (3) Left lower lobe pneumonia Status: Acute (4) Sepsis Status: Acute (5) Septic shock Status: Acute Review of Systems Constitutional: No chills, No fatigue, No fever, No problem reported, No see HPI, No sweats, No weakness, No weight loss Eyes: No diplopia, No discharge, No eye pain, No problem reported, No redness, No see HPI, No worsening of vision ENT: No dental problems, No hearing loss, No nasal symptoms, No problem reported, No see HPI, No sore throat, No tinnitus, No trouble swallowing, No unusual epistaxis Respiratory: No cough, No dyspnea at rest, No dyspnea on exertion, No hemoptysis, No problem reported, No see HPI, No shortness of breath, No sputum, No wheezing Cardiac: No PND, No chest pain, No claudication, No edema, No orthopnea, No palpitations, No problem reported, No see HPI Abdomen: No GI bleeding, No constipation, No diarrhea, No nausea, No pain, No problem reported, No see HPI, No vomiting Musculoskeletal: No calf pain, No joint pain, No muscle pain, No problem reported, No see HPI, No swelling Female : No abnormal vaginal bleeding, No dysuria, No hematuria, No incontinence, No problem reported, No see HPI, No urinary frequency, No vaginal discharge Neurologic: No balance problems, No memory loss, No numbness/tingling, No paralysis, No problem reported, No see HPI, No vertigo, No weakness Psychiatric: No anhedonism, No anxiety, No depression symptoms, No insomnia, No problem reported, No see HPI, No substance abuse Heme: No abnormal bleeding/bruising, No clotting problems, No night sweats, No problem reported, No see HPI, No swollen lymph nodes Endo: No excessive thirst, No excessive urination, No fatigue, No problem reported, No see HPI Skin: No bleeding, No color change, No itch, No new/changing skin lesions, No problem reported, No rash, No see HPI Objective Vital Signs Date Time Temp Pulse Resp B/P Pulse Ox O2 Delivery O2 Flow Rate FiO2 3/31/17 16:00 95 Nasal Cannula 2.0 08/31/16 14:57 36.6 71 18 141/69 96 08/31/16 12:10 36.9 59 20 134/74 95 Room Air 08/31/16 12:00 95 Nasal Cannula 2.0 08/31/16 11:24 59 95 08/31/16 08:45 62 08/31/16 08:32 36.4 120 20 130/67 94 Nasal Cannula 3.0 08/31/16 08:00 95 Nasal Cannula 2.0 08/31/16 04:02 Nasal Cannula 2.0 08/31/16 03:19 36.7 71 18 119/59 95 Nasal Cannula 2.0 08/31/16 00:00 Nasal Cannula 2.0 08/30/16 23:38 36.7 72 18 112/70 96 Nasal Cannula 2.0 08/30/16 20:00 Nasal Cannula 2.0 08/30/16 19:14 36.9 77 20 117/67 96 Nasal Cannula 2.0 08/30/16 18:45 36.8 64 18 95 2.0 Physical Exam General Appearance: no apparent distress Eyes: normal inspection, EOMI ENT: normal ENT inspection, hearing grossly normal Neck: supple Respiratory/Chest: chest non-tender, lungs clear, normal breath sounds, no respiratory distress Cardiovascular: regular rate, rhythm, no edema, no gallop, no JVD, no murmur Abdomen: normal bowel sounds, non tender, soft Extremities: normal range of motion, non-tender, normal inspection, no pedal edema 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, no motor/sensory deficits, alert, normal mood/affect, oriented x 3 Skin: normal color, warm/dry, no rash Laboratory Results Last 24 Hours Test 08/30/16 20:08 08/31/16 05:30 08/31/16 06:46 08/31/16 07:00 Bedside Glucose 128 mg/dl 61 mg/dl 68 mg/dl White Blood Count 48.94 K/uL Red Blood Count 3.31 M/uL Hemoglobin 9.7 g/dL Hematocrit 28.2 % Mean Corpuscular Volume 85.2 fL Mean Corpuscular Hemoglobin 29.3 pg Mean Corpuscular Hemoglobin Concent 34.4 g/dl Platelet Count 47 K/uL RDW Standard Deviation 47.8 fL RDW Coefficient of Variation 15.4 % Nucleated RBC Absolute Count (auto) 0.10 K/uL Neutrophils % (Manual) 93.1 % Lymphocytes % (Manual) 4.3 % Monocytes % (Manual) 1.7 % Myelocytes % 0.9 % Nucleated Red Blood Cells % 0.2 % Neutrophils # (Manual) 45.56 K/uL Total Absolute Neutrophils 45.56 K/uL Lymphocytes # (Manual) 2.10 K/uL Total Absolute Lymphocytes 2.10 K/uL Monocytes # (Manual) 0.83 K/uL Myelocytes # 0.44 K/uL Toxic Granulation 2+ Dohle Bodies 2+ Platelet Estimate DECREASED Sodium Level 140 mmol/L Potassium Level 3.9 mmol/L Chloride Level 100 mmol/L Carbon Dioxide Level 31 mmol/L Anion Gap 9.0 mmol/L Blood Urea Nitrogen 85 mg/dl Creatinine 3.10 mg/dl Est Creatinine Clear Calc Drug Dose 12.4 ml/min Estimated GFR () 16.1 Estimated GFR (Non- 13.9 BUN/Creatinine Ratio 27.5 Random Glucose 53 mg/dl Calcium Level 7.4 mg/dl Phosphorus Level 6.0 mg/dl Magnesium Level 2.2 mg/dl Total Bilirubin 0.7 mg/dl Aspartate Amino Transf (AST/SGOT) 86 U/L Alanine Aminotransferase (ALT/SGPT) 358 U/L Alkaline Phosphatase 212 U/L Total Protein 4.8 gm/dl Albumin 2.5 gm/dl Globulin 2.3 gm/dl Albumin/Globulin Ratio 1.1 Test 08/31/16 07:10 08/31/16 11:29 08/31/16 16:22 Bedside Glucose 81 mg/dl 109 mg/dl 137 mg/dl Assessment and Plan (1) Septic shock (2) Fever (3) Sepsis (4) Left lower lobe pneumonia Assessment & Plan: 1). septic shock secondary to complicated UTI POA, Urology on case,s/p uretal stents currently off levophed and Dobutamine On IV antibiotics as per ID, DC zosyn and levaquin , currently only on Unasyn, antifungal by ID UCx growing E coli severe leukocytosis, possibly leukemoid reaction as she is clinically improving , repeat Cx are thus far negative repeat C dif in case of diarrhea 2). Acute Hypoxemic Resp Failure. S/P successful extubation - Multifactorial could be secondary to Left basilar airspace consolidation as well new right consolidation at the right lung base, could be secondary to pneumonia/aspiration pneumonitis, ARDS with plt pressure. - Currently improved / on nasal cannula O2 support 3). Acute Renal failure. - multifactorial, obstructive uropathy plus pre renal from hypotension 4). Elevated troponin - likely demand ischemia, plus renal failure - Echocardiogram with global hypokinesis, right ventricular dilatation and ejection fraction 15-20% 5) Decreased platelets - secondary to sepsis - HIT assay is negative, it was resent today 08/30 , will follow up results -hold heparin/aspirin -SCD boots for dvt prophylaxis 6). Acute anemia - s/p 1 unit packed red blood cells, no signs of active bleeding. - possible dilution. 7). Diabetes mellitus with hyperglycemia, treated with insulin infusion Continued [facility] stay due to: multiple IV medications needed Discharge planning: TBD Continued [facility] stay due to: multiple IV medications needed Discharge planning: [facility] facility Problem Qualifiers (1) Fever: Fever type: unspecified Qualified Codes: R50.9 - Fever, unspecified (2) Sepsis: Sepsis type: sepsis due to unspecified organism Qualified Codes: A41.9 - Sepsis, unspecified organism (3) Left lower lobe pneumonia: Pneumonia type: due to unspecified organism Qualified Codes: J18.1 - Lobar pneumonia, unspecified organism
[2016-08-31] MEDS: TRAMADOL HCL 50 MG TAB PO PRN (21:04)
[2016-09-01] VITALS (7 sets, daily range): BP systolic 99–174; BP diastolic 65–74; PULSE 61–77; TEMP 36.3–36.8; O2SAT 93–98
[2016-09-01] MEDS: CALCIUM ACETATE 667MG GELCAP PO SCH ×3 (08:49→16:45)
[2016-09-01] MEDS: FLUCONAZOLE 100 MG TAB PO SCH (08:50)
[2016-09-01] MEDS: CARVEDILOL 3.125 MG TAB PO SCH ×2 (08:51→20:07)
[2016-09-01] MEDS: LATANOPROST 0.005% OP SOLN 2.5 ML BTL OP SCH (08:52)
[2016-09-01] MEDS: INSULIN ASPART 100 UNITS/ML 3 ML PEN SC SCH ×4 (09:10→21:05)
[2016-09-01] MEDS: INSULIN GLARGINE SOLOSTAR 100 UNITS/ML 3 ML PEN SC SCH (09:11)
[2016-09-01] MEDS: PANTOprazole SOD 40 MG TAB PO SCH (09:12)
[2016-09-01 09:23] LABS: HEMATOCRIT 30.5 % (37-47); MEAN CELL VOLUME 86.2 fL (80-100); MEAN CORPUSCULAR HEMOGLOBIN 29.7 pg (25-34); MEAN CORPUSCULAR HGB CONC 34.4 g/dl (32-36); MEAN PLATELET VOLUME 11.5 fL (7.4-10.4); PLATELET COUNT 50 K/uL (130-400); RED BLOOD COUNT 3.54 M/uL (4.2-5.4); WHITE BLOOD COUNT 42.71 K/uL (4.8-10.8)
[2016-09-01 09:35] LABS: COMPLETE YES; DOHLE BODIES 1+; LYMPH ABS # 1.45 K/uL (1.2-3.4); LYMPHOCYTE % 3.4 %; NEUTROPHILS % 93.2 %; TOXIC GRANULATION 2+
[2016-09-01 09:42] LABS: BUN/CREATININE RATIO 32.8 (10-20); CREATININE 2.3 mg/dl (0.60-1.20); MAGNESIUM 2.1 mg/dl (1.8-2.4); POTASSIUM 4.2 mmol/L (3.5-5.1)
[2016-09-01 09:45] LABS: ALB/GLOB RATIO 1.1 (0.9-2)
--- NOTE | 2016-09-01 11:12 | Pharmacy Progress Note ---
Glycemic Control: Progress Nt Date of Service Sep 01, 2016. Scope Glycemic Pharmacist consulted for glycemic control and to write orders per [facility] inpatient glycemic control protocol. Objective Accuchecks BSG (last 24hrs): Test 08/31/16 11:29 08/31/16 16:22 08/31/16 20:57 09/01/16 09:06 Bedside Glucose 109 mg/dl (70-90) 137 mg/dl (70-90) 254 mg/dl (70-90) Random Glucose 223 mg/dl (70-99) Test 09/01/16 09:07 Bedside Glucose 199 mg/dl (70-90) Laboratory Data (last 24hrs) Test 09/01/16 09:06 Anion Gap 11.0 mmol/L BUN/Creatinine Ratio 32.8 Blood Urea Nitrogen 75 mg/dl Creatinine 2.30 mg/dl Potassium Level 4.2 mmol/L Sodium Level 140 mmol/L White Blood Count 42.71 K/uL Red Blood Count 3.54 M/uL Hemoglobin 10.5 g/dL Hematocrit 30.5 % Mean Corpuscular Volume 86.2 fL Mean Corpuscular Hemoglobin 29.7 pg Mean Corpuscular Hemoglobin Concent 34.4 g/dl Platelet Count 50 K/uL Mean Platelet Volume 11.5 fL Recent Pertinent Medications Outpatient Anti-diabetic Regimen: * Glimepiride 2mg daily * Metformin 1gm BID * A1c = 8.7 % 08/15/16 The patient is currently receiving: * Basal insulin: Lantus on hold 08/31, scheduled to resume at 5 units daily this AM * Correctional Insulin: Novolog SQ ACHS * Goal Range: 120 - 150 mg/dL * Correction Factor: 35 mg/dL/unit * Prandial Insulin: 1 unit per 12 grams carbs consumed Risk Factors for Insulin Resistance: * Steroids: Prednisone 10mg daily (home dose was 9mg/day for Polymyalgia Rheumatica) * Infection: septic shock, b/l nephrolithiasis, e coli bacteremia; questionable aspiration pnx; receiving Unasyn - likely for at least 14 days * Recent Surgery: POD #7 * Diet: ordered T2DM/renal; PO intake appears to be improving Assessment & Plan ASSESSMENT: * ADA & AACE recommend a goal blood sugar range 140-180 mg/dl for the majority of critically ill & non-critically ill patients. However, more stringent targets may be selected in individual cases. 08/31/16 * Fasting BSG low this AM at 61 mg/dL after receiving a total of 10 units of Lantus yesterday. Will hold for today and resume at reduced dose tomorrow * Expect effects of Lantus to persist today. Will also loosen correction factor and carb ratio. * Prednisone continuing at 10 mg daily * SCr improving, albeit still significantly elevated from baseline 09/01/16 * Fasting BSG elevated to 199 mg/dL this AM after holding Lantus yesterday. OK to resume this AM as ordered. * BSG's increased significantly from dinner to HS yesterday after loosening carb ratio and patient consuming 47 g CHO at dinner. Will tighten carb ratio. PLAN FOR INPATIENT GLYCEMIC CONTROL: * Continue to hold outpatient oral diabetes medications 2nd renal dysfunction * Basal insulin with LANTUS 5 units SQ qAM (hold for BSG < 120 mg/dL) * Correctional Insulin with NOVOLOG per scale ACHS or Q6hrs while NPO * Goal Range: Low 120 mg/dL - High 160 mg/dL * Correction Factor: 35 mg/dL/unit * Tighten Nutritional / Prandial insulin per carb ratio of 1 unit per 10 grams CHO consumed * Please note that the plan above was derived based on current level of insulin resistance and hospital stress. These recommendations are appropriate for inpatient admission only. Plan of care upon discharge will need to be reassessed to avoid potential outpatient hypo/hyperglycemia. Thank you.
--- NOTE | 2016-09-01 13:37 | Progress Note ---
Subjective Date of Service: Sep 01, 2016. Subjective Pt evaluation today including: conversation w/ patient, physical exam, chart review, lab review Problem List Medical Problems: (1) Abnormal EKG Status: Acute (2) Fever Status: Acute (3) Left lower lobe pneumonia Status: Acute (4) Sepsis Status: Acute (5) Septic shock Status: Acute Review of Systems Constitutional: No chills, No fatigue, No fever, No problem reported, No see HPI, No sweats, No weakness, No weight loss Eyes: No diplopia, No discharge, No eye pain, No problem reported, No redness, No see HPI, No worsening of vision ENT: No dental problems, No hearing loss, No nasal symptoms, No problem reported, No see HPI, No sore throat, No tinnitus, No trouble swallowing, No unusual epistaxis Respiratory: + dyspnea on exertion, + shortness of breath, No cough, No dyspnea at rest, No hemoptysis, No problem reported, No see HPI, No sputum, No wheezing Cardiac: No PND, No chest pain, No claudication, No edema, No orthopnea, No palpitations, No problem reported, No see HPI Abdomen: No GI bleeding, No constipation, No diarrhea, No nausea, No pain, No problem reported, No see HPI, No vomiting Musculoskeletal: No calf pain, No joint pain, No muscle pain, No problem reported, No see HPI, No swelling Female : No abnormal vaginal bleeding, No dysuria, No hematuria, No incontinence, No problem reported, No see HPI, No urinary frequency, No vaginal discharge Neurologic: No balance problems, No memory loss, No numbness/tingling, No paralysis, No problem reported, No see HPI, No vertigo, No weakness Psychiatric: No anhedonism, No anxiety, No depression symptoms, No insomnia, No problem reported, No see HPI, No substance abuse Heme: No abnormal bleeding/bruising, No clotting problems, No night sweats, No problem reported, No see HPI, No swollen lymph nodes Endo: No excessive thirst, No excessive urination, No fatigue, No problem reported, No see HPI Skin: No bleeding, No color change, No itch, No new/changing skin lesions, No problem reported, No rash, No see HPI Medications Current Inpatient Medications Medications (Trade) Dose Ordered Sig/[facility] Route Start Time Stop Time Status Last Admin Dose Admin Acetaminophen (Tylenol Tab) 650 mg Q4H PRN PO 08/24/16 21:00 09/23/16 20:59 Future Hold 08/25/16 04:09 650 MG Ondansetron HCl (Zofran Inj) 4 mg Q6H PRN IV 08/24/16 21:00 09/23/16 20:59 Atorvastatin Calcium (Lipitor Tab) 20 mg DAILY PO 08/25/16 09:00 09/24/16 08:59 Future Hold 08/27/16 08:07 20 MG Fluticasone Propionate (Flonase Nasal [place]) 2 sprays DAILY PRN JAKOB 08/24/16 21:00 09/23/16 20:59 Glucose (Glucose 40% Gel) UD PRN PO 08/24/16 21:00 09/23/16 20:59 Glucose (Glucose Chew Tab) 1 tabs UD PRN PO 08/24/16 21:00 09/23/16 20:59 Dextrose (Dextrose 50% 50ML Syringe) 50 ml UD PRN IV 08/24/16 21:00 09/23/16 20:59 08/27/16 16:46 50 ML Glucagon (Glucagon Inj) 1 mg UD PRN SQ 08/24/16 21:00 09/23/16 20:59 Miscellaneous Information (Consult Glycemic Management Pharmacy) 1 ea UD N/A 08/25/16 08:48 09/24/16 08:47 Acetaminophen (Tylenol Soln) 650 mg Q4H PRN PO 08/25/16 13:30 09/24/16 13:29 Future Hold Heparin Sodium (Porcine) 5 ml 5 ml PRN PRN FLUSH 08/28/16 00:45 09/27/16 00:44 Ampicillin Sodium/ Sulbactam Sodium/ Sodium Chloride (Unasyn Inj/Nss 100ml) 108 ml @ 216 mls/hr Q24H IV 08/28/16 16:00 09/11/16 15:59 08/31/16 16:15 216 MLS/HR Carvedilol (Coreg Tab) 3.125 mg BID PO 08/28/16 21:00 09/27/16 20:59 09/01/16 08:51 3.125 MG Lidocaine (Lidoderm Patch 5%) 1 patch DAILY@0900 PRN TD 08/29/16 10:00 09/28/16 09:59 3/29/17 16:45 1 PATCH Miscellaneous (Remove Lidoderm Patch) 1 ea TODAY@2100 N/A 08/29/16 21:00 09/28/16 20:59 08/29/16 21:00 1 EA Insulin Aspart (novoLOG ASPART) SLIDING SCALE ACHS SC 08/29/16 16:00 09/28/16 15:59 09/01/16 09:10 5 UNITS Latanoprost (Xalatan Oph Soln) 1 drops QAM OP 08/30/16 09:00 09/29/16 08:59 09/01/16 08:52 1 DROPS Prednisone (PredniSONE TAB) 10 mg DAILY PO 08/31/16 09:00 09/30/16 08:59 09/01/16 08:51 10 MG Pantoprazole Sodium (Protonix Tab) 40 mg QAM PO 08/31/16 09:00 09/30/16 08:59 09/01/16 09:12 40 MG Fluconazole (Diflucan Tab) 100 mg QAM PO 08/31/16 09:00 09/07/16 23:59 09/01/16 08:50 100 MG Tramadol HCl (Ultram Tab) 50 mg Q6H PRN PO 08/30/16 19:15 09/29/16 19:14 08/31/16 21:04 50 MG Ampicillin Sodium/ Sulbactam Sodium (Consult) 1 ea UD PRN N/A 08/31/16 08:30 09/11/16 23:59 Insulin Glargine (Lantus Solostar Pen) QAM SC 09/01/16 09:00 10/01/16 08:59 09/01/16 09:11 5 UNIT Calcium Acetate (Phoslo Cap) 1,334 mg TIDM PO 09/01/16 11:30 10/01/16 11:29 09/01/16 12:37 1,334 MG Objective Vital Signs Date Time Temp Pulse Resp B/P Pulse Ox O2 Delivery O2 Flow Rate FiO2 09/01/16 12:49 69 99/65 09/01/16 12:00 Nasal Cannula 2.0 09/01/16 12:00 36.8 74 22 128/68 93 Nasal Cannula 09/01/16 08:21 36.3 77 18 137/74 95 Nasal Cannula 3.0 09/01/16 08:00 Nasal Cannula 2.0 09/01/16 04:00 Nasal Cannula 2.0 09/01/16 03:58 36.6 61 17 137/73 97 Nasal Cannula 2.0 08/31/16 23:59 Nasal Cannula 2.0 08/31/16 23:13 36.4 70 19 127/68 97 Nasal Cannula 3.0 08/31/16 20:00 Nasal Cannula 2.0 08/31/16 19:50 36.6 63 18 139/76 97 Nasal Cannula 3.0 08/31/16 16:00 95 Nasal Cannula 2.0 08/31/16 14:57 36.6 71 18 141/69 96 Physical Exam General Appearance: no apparent distress Eyes: normal inspection, EOMI ENT: normal ENT inspection, hearing grossly normal, TMs normal Neck: supple, no adenopathy, thyroid normal Respiratory/Chest: chest non-tender, + decreased breath sounds, + crackles Cardiovascular: regular rate, rhythm, no edema, no gallop, no JVD, no murmur Abdomen: normal bowel sounds, non tender, soft, no organomegaly Extremities: normal range of motion, non-tender, normal inspection, no pedal edema 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, no motor/sensory deficits, alert, normal mood/affect, oriented x 3 Skin: normal color, warm/dry, no rash Laboratory Results Last 24 Hours Test 08/31/16 16:22 08/31/16 20:57 09/01/16 09:06 09/01/16 09:07 Bedside Glucose 137 mg/dl 254 mg/dl 199 mg/dl White Blood Count 42.71 K/uL Red Blood Count 3.54 M/uL Hemoglobin 10.5 g/dL Hematocrit 30.5 % Mean Corpuscular Volume 86.2 fL Mean Corpuscular Hemoglobin 29.7 pg Mean Corpuscular Hemoglobin Concent 34.4 g/dl Platelet Count 50 K/uL Mean Platelet Volume 11.5 fL RDW Standard Deviation 48.2 fL RDW Coefficient of Variation 15.3 % Neutrophils % (Manual) 93.2 % Lymphocytes % (Manual) 3.4 % Monocytes % (Manual) 3.4 % Neutrophils # (Manual) 39.81 K/uL Total Absolute Neutrophils 39.81 K/uL Lymphocytes # (Manual) 1.45 K/uL Total Absolute Lymphocytes 1.45 K/uL Monocytes # (Manual) 1.45 K/uL Toxic Granulation 2+ Dohle Bodies 1+ Sodium Level 140 mmol/L Potassium Level 4.2 mmol/L Chloride Level 100 mmol/L Carbon Dioxide Level 29 mmol/L Anion Gap 11.0 mmol/L Blood Urea Nitrogen 75 mg/dl Creatinine 2.30 mg/dl Est Creatinine Clear Calc Drug Dose 16.6 ml/min Estimated GFR () 23.2 Estimated GFR (Non- 20.0 BUN/Creatinine Ratio 32.8 Random Glucose 223 mg/dl Calcium Level 8.0 mg/dl Magnesium Level 2.1 mg/dl Total Bilirubin 0.8 mg/dl Aspartate Amino Transf (AST/SGOT) 47 U/L Alanine Aminotransferase (ALT/SGPT) 261 U/L Alkaline Phosphatase 205 U/L Total Protein 4.8 gm/dl Albumin 2.5 gm/dl Globulin 2.3 gm/dl Albumin/Globulin Ratio 1.1 Test 09/01/16 11:33 Bedside Glucose 138 mg/dl Assessment and Plan (1) Septic shock (2) Fever (3) Sepsis (4) Left lower lobe pneumonia Assessment & Plan: 1). septic shock secondary to complicated UTI POA, Urology on case,s/p uretal stents currently off levophed and Dobutamine On IV antibiotics as per ID, DC zosyn and levaquin , currently only on Unasyn, antifungal (yeast in initial UA ) UCx growing E coli severe leukocytosis, possibly leukemoid reaction as she is clinically improving , repeat Cx are thus far negative, WBC is improving repeat C dif in case of diarrhea 2). Acute Hypoxemic Resp Failure. S/P successful extubation - Multifactorial could be secondary to Left basilar airspace consolidation as well new right consolidation at the right lung base, could be secondary to pneumonia/aspiration pneumonitis, ARDS with plt pressure. - Currently improved / on nasal cannula O2 support 3). Acute Renal failure. - multifactorial, obstructive uropathy plus pre renal from hypotension 4). Elevated troponin - likely demand ischemia, plus renal failure - Echocardiogram with global hypokinesis, right ventricular dilatation and ejection fraction 15-20% 5) Decreased platelets - secondary to sepsis - HIT assay is negative, it was resent today 08/30 , will follow up results -hold heparin/aspirin -SCD boots for dvt prophylaxis 6). Acute anemia - s/p 1 unit packed red blood cells, no signs of active bleeding. - possible dilution. 7). Diabetes mellitus with hyperglycemia, treated with insulin infusion Continued [facility] stay due to: multiple IV medications needed Discharge planning: TBD Continued [facility] stay due to: multiple IV medications needed Discharge planning: halfway facility Problem Qualifiers (1) Fever: Fever type: unspecified Qualified Codes: R50.9 - Fever, unspecified (2) Sepsis: Sepsis type: sepsis due to unspecified organism Qualified Codes: A41.9 - Sepsis, unspecified organism (3) Left lower lobe pneumonia: Pneumonia type: due to unspecified organism Qualified Codes: J18.1 - Lobar pneumonia, unspecified organism
[2016-09-01] MEDS: AMPICILLIN/SULBACTAM SOD INJ 3,000 MG in SODIUM CHLORIDE 0.9% 100ML 100 ML IV SCH (14:41)
[2016-09-01] MEDS: TRAMADOL HCL 50 MG TAB PO PRN (20:09)
[2016-09-02] MEDS: AMPICILLIN/SULBACTAM SOD INJ 3,000 MG in SODIUM CHLORIDE 0.9% 100ML 100 ML IV SCH ×2 (01:58→15:24)
[2016-09-02 03:47] VITALS: BP 179/70; PULSE 73; TEMP 36.8; O2SAT 98
[2016-09-02 07:33] VITALS: BP 155/66; PULSE 76; TEMP 36.6; O2SAT 97
[2016-09-02] MEDS: CALCIUM ACETATE 667MG GELCAP PO SCH ×2 (07:35→12:06)
[2016-09-02 07:39] LABS: BUN/CREATININE RATIO 36.1 (10-20); CALCIUM 8.2 mg/dl (8.5-10.1); CREATININE 1.6 mg/dl (0.60-1.20); MAGNESIUM 2.2 mg/dl (1.8-2.4)
[2016-09-02 07:56] LABS: HEMATOCRIT 29.7 % (37-47); MEAN CELL VOLUME 89.2 fL (80-100); MEAN CORPUSCULAR HEMOGLOBIN 29.7 pg (25-34); MEAN CORPUSCULAR HGB CONC 33.3 g/dl (32-36); MEAN PLATELET VOLUME 11.9 fL (7.4-10.4); PLATELET COUNT 55 K/uL (130-400); RED BLOOD COUNT 3.33 M/uL (4.2-5.4); WHITE BLOOD COUNT 33.35 K/uL (4.8-10.8)
[2016-09-02 07:59] LABS: BASO % 0.2 %; BASO ABS # 0.06 K/uL (0-0.2); COMPLETE YES; EOS % 0.2 %; IG% 1.9 %; LYMPH % 6.8 %; LYMPH ABS # 2.27 K/uL (1.2-3.4); MONO % 6.4 %; NEUT % 84.5 %; TOXIC GRANULATION 1+
[2016-09-02] MEDS: LATANOPROST 0.005% OP SOLN 2.5 ML BTL OP SCH (08:00)
[2016-09-02] MEDS: FLUCONAZOLE 100 MG TAB PO SCH (08:00)
[2016-09-02] MEDS: PANTOprazole SOD 40 MG TAB PO SCH (08:01)
[2016-09-02] MEDS: CARVEDILOL 3.125 MG TAB PO SCH ×2 (08:02→20:14)
[2016-09-02 08:04] LABS: ALB/GLOB RATIO 0.9 (0.9-2); PHOSPHORUS 3.4 mg/dl (2.5-4.9)
[2016-09-02] MEDS: INSULIN GLARGINE SOLOSTAR 100 UNITS/ML 3 ML PEN SC SCH (08:04)
[2016-09-02] MEDS: INSULIN ASPART 100 UNITS/ML 3 ML PEN SC SCH ×4 (08:04→20:13)
[2016-09-02 12:00] VITALS: BP 149/71; PULSE 64; TEMP 36.8; O2SAT 98
--- NOTE | 2016-09-02 13:26 | Pharmacy Progress Note ---
Glycemic Control: Progress Nt Date of Service Sep 02, 2016. Scope Glycemic Pharmacist consulted for glycemic control and to write orders per [facility] inpatient glycemic control protocol. Objective Accuchecks BSG (last 24hrs): Test 09/01/16 16:20 09/01/16 20:48 09/02/16 06:33 09/02/16 06:52 Bedside Glucose 177 mg/dl (70-90) 239 mg/dl (70-90) 216 mg/dl (70-90) Random Glucose 226 mg/dl (70-99) Test 09/02/16 11:14 Bedside Glucose 223 mg/dl (70-90) Laboratory Data (last 24hrs) Test 09/02/16 06:33 Anion Gap 7.0 mmol/L BUN/Creatinine Ratio 36.1 Blood Urea Nitrogen 58 mg/dl Creatinine 1.60 mg/dl Potassium Level 4.0 mmol/L Sodium Level 144 mmol/L White Blood Count 33.35 K/uL Red Blood Count 3.33 M/uL Hemoglobin 9.9 g/dL Hematocrit 29.7 % Mean Corpuscular Volume 89.2 fL Mean Corpuscular Hemoglobin 29.7 pg Mean Corpuscular Hemoglobin Concent 33.3 g/dl Platelet Count 55 K/uL Mean Platelet Volume 11.9 fL Neutrophils (%) (Auto) 84.5 % Lymphocytes (%) (Auto) 6.8 % Monocytes (%) (Auto) 6.4 % Eosinophils (%) (Auto) 0.2 % Basophils (%) (Auto) 0.2 % Neutrophils # (Auto) 28.18 K/uL Lymphocytes # (Auto) 2.27 K/uL Monocytes # (Auto) 2.13 K/uL Eosinophils # (Auto) 0.08 K/uL Basophils # (Auto) 0.06 K/uL Recent Pertinent Medications Outpatient Anti-diabetic Regimen: * Glimepiride 2mg daily * Metformin 1gm BID * A1c = 8.7 % 08/15/16 The patient is currently receiving: * Basal insulin: Lantus 5 units daily (hold for BSG < 120 mg/dL) * Correctional Insulin: Novolog SQ ACHS * Goal Range: 120 - 160 mg/dL * Correction Factor: 35 mg/dL/unit * Prandial Insulin: 1 unit per 10 grams carbs consumed Risk Factors for Insulin Resistance: * Steroids: Prednisone 10mg daily (home dose was 9mg/day for Polymyalgia Rheumatica) * Infection: septic shock, b/l nephrolithiasis, e coli bacteremia; questionable aspiration pnx; receiving Unasyn - likely for at least 14 days * Recent Surgery: POD #8 * Diet: ordered T2DM/renal; PO intake appears to be improving Assessment & Plan ASSESSMENT: * ADA & AACE recommend a goal blood sugar range 140-180 mg/dl for the majority of critically ill & non-critically ill patients. However, more stringent targets may be selected in individual cases. 08/31/16 * Fasting BSG low this AM at 61 mg/dL after receiving a total of 10 units of Lantus yesterday. Will hold for today and resume at reduced dose tomorrow * Expect effects of Lantus to persist today. Will also loosen correction factor and carb ratio. * Prednisone continuing at 10 mg daily * SCr improving, albeit still significantly elevated from baseline 09/01/16 * Fasting BSG elevated to 199 mg/dL this AM after holding Lantus yesterday. OK to resume this AM as ordered. * BSG's increased significantly from dinner to HS yesterday after loosening carb ratio and patient consuming 47 g CHO at dinner. Will tighten carb ratio. 09/02/16 * BSG's ranging 117-239 mg/dL over the last 24 hours * Will increase Lantus to address AM fasting BSG of 216 mg/dL * Will tighten carb ratio and correction factor as BSG's post-prandially are persistently elevated PLAN FOR INPATIENT GLYCEMIC CONTROL: * Continue to hold outpatient oral diabetes medications 2nd renal dysfunction * Increase Basal insulin with LANTUS 8 units SQ qAM (1/2 for BSG < 120 mg/dL) * Correctional Insulin with NOVOLOG per scale ACHS or Q6hrs while NPO * Goal Range: Low 120 mg/dL - High 160 mg/dL * Tighten Correction Factor: 30 mg/dL/unit * Tighten Nutritional / Prandial insulin per carb ratio of 1 unit per 9 grams CHO consumed * Please note that the plan above was derived based on current level of insulin resistance and hospital stress. These recommendations are appropriate for inpatient admission only. Plan of care upon discharge will need to be reassessed to avoid potential outpatient hypo/hyperglycemia. Thank you.
[2016-09-02 15:35] VITALS: BP 185/72; PULSE 71; TEMP 36.6; O2SAT 98
--- NOTE | 2016-09-02 15:39 | Progress Note ---
Subjective Date of Service: Sep 02, 2016. Subjective Pt evaluation today including: conversation w/ patient, physical exam, chart review, lab review, review of inpatient medication list Problem List Medical Problems: (1) Abnormal EKG Status: Acute (2) Fever Status: Acute (3) Left lower lobe pneumonia Status: Acute (4) Sepsis Status: Acute (5) Septic shock Status: Acute Review of Systems Constitutional: + fatigue, No chills, No fever, No problem reported, No see HPI , No sweats, No weakness, No weight loss Eyes: No diplopia, No discharge, No eye pain, No problem reported, No redness, No see HPI, No worsening of vision ENT: No dental problems, No hearing loss, No nasal symptoms, No problem reported, No see HPI, No sore throat, No tinnitus, No trouble swallowing, No unusual epistaxis Respiratory: No cough, No dyspnea at rest, No dyspnea on exertion, No hemoptysis, No problem reported, No see HPI, No shortness of breath, No sputum, No wheezing Cardiac: No PND, No chest pain, No claudication, No edema, No orthopnea, No palpitations, No problem reported, No see HPI Abdomen: No GI bleeding, No constipation, No diarrhea, No nausea, No pain, No problem reported, No see HPI, No vomiting Musculoskeletal: No calf pain, No joint pain, No muscle pain, No problem reported, No see HPI, No swelling Female : No abnormal vaginal bleeding, No dysuria, No hematuria, No incontinence, No problem reported, No see HPI, No urinary frequency, No vaginal discharge Neurologic: No balance problems, No memory loss, No numbness/tingling, No paralysis, No problem reported, No see HPI, No vertigo, No weakness Psychiatric: No anhedonism, No anxiety, No depression symptoms, No insomnia, No problem reported, No see HPI, No substance abuse Heme: No abnormal bleeding/bruising, No clotting problems, No night sweats, No problem reported, No see HPI, No swollen lymph nodes Endo: No excessive thirst, No excessive urination, No fatigue, No problem reported, No see HPI Skin: No bleeding, No color change, No itch, No new/changing skin lesions, No problem reported, No rash, No see HPI Medications Current Inpatient Medications Medications (Trade) Dose Ordered Sig/Tamika Route Start Time Stop Time Status Last Admin Dose Admin Acetaminophen (Tylenol Tab) 650 mg Q4H PRN PO 08/24/16 21:00 09/23/16 20:59 Future Hold 08/25/16 04:09 650 MG Ondansetron HCl (Zofran Inj) 4 mg Q6H PRN IV 08/24/16 21:00 09/23/16 20:59 Atorvastatin Calcium (Lipitor Tab) 20 mg DAILY PO 08/25/16 09:00 09/24/16 08:59 Future Hold 08/27/16 08:07 20 MG Fluticasone Propionate (Flonase Nasal [place]) 2 sprays DAILY PRN JAKOB 08/24/16 21:00 09/23/16 20:59 Glucose (Glucose 40% Gel) UD PRN PO 08/24/16 21:00 09/23/16 20:59 Glucose (Glucose Chew Tab) 1 tabs UD PRN PO 08/24/16 21:00 09/23/16 20:59 Dextrose (Dextrose 50% 50ML Syringe) 50 ml UD PRN IV 08/24/16 21:00 09/23/16 20:59 08/27/16 16:46 50 ML Glucagon (Glucagon Inj) 1 mg UD PRN SQ 08/24/16 21:00 09/23/16 20:59 Miscellaneous Information (Consult Glycemic Management Pharmacy) 1 ea UD N/A 08/25/16 08:48 09/24/16 08:47 Acetaminophen (Tylenol Soln) 650 mg Q4H PRN PO 08/25/16 13:30 09/24/16 13:29 Future Hold Heparin Sodium (Porcine) (Heparin 10 Unit/ ml 5 ml Flush) 5 ml PRN PRN FLUSH 08/28/16 00:45 09/27/16 00:44 Carvedilol (Coreg Tab) 3.125 mg BID PO 08/28/16 21:00 09/27/16 20:59 09/01/16 20:07 3.125 MG Lidocaine (Lidoderm Patch 5%) 1 patch DAILY@0900 PRN TD 08/29/16 10:00 09/28/16 09:59 08/29/16 16:45 1 PATCH Miscellaneous (Remove Lidoderm Patch) 1 ea TODAY@2100 N/A 08/29/16 21:00 09/28/16 20:59 08/29/16 21:00 1 EA Insulin Aspart (novoLOG ASPART) SLIDING SCALE ACHS SC 08/29/16 16:00 09/28/16 15:59 09/01/16 21:05 2 UNITS Latanoprost (Xalatan Oph Soln) 1 drops QAM OP 08/30/16 09:00 09/29/16 08:59 09/01/16 08:52 1 DROPS Prednisone (PredniSONE TAB) 10 mg DAILY PO 08/31/16 09:00 09/30/16 08:59 09/01/16 08:51 10 MG Pantoprazole Sodium (Protonix Tab) 40 mg QAM PO 08/31/16 09:00 09/30/16 08:59 09/01/16 09:12 40 MG Fluconazole (Diflucan Tab) 100 mg QAM PO 08/31/16 09:00 09/07/16 23:59 09/01/16 08:50 100 MG Tramadol HCl (Ultram Tab) 50 mg Q6H PRN PO 08/30/16 19:15 09/29/16 19:14 09/01/16 20:09 50 MG Ampicillin Sodium/ Sulbactam Sodium (Consult) 1 ea UD PRN N/A 08/31/16 08:30 09/11/16 23:59 Insulin Glargine (Lantus Solostar Pen) QAM SC 09/01/16 09:00 10/01/16 08:59 09/01/16 09:11 5 UNIT Calcium Acetate 1334 mg 1,334 mg TIDM PO 09/01/16 11:30 10/01/16 11:29 09/01/16 16:45 1,334 MG Ampicillin Sodium/ Sulbactam Sodium/ Sodium Chloride (Unasyn Inj/Nss 100ml) 108 ml @ 216 mls/hr Q12H IV 09/01/16 15:00 09/11/16 15:59 09/02/16 01:58 216 MLS/HR Objective Vital Signs Date Time Temp Pulse Resp B/P Pulse Ox O2 Delivery O2 Flow Rate FiO2 09/02/16 04:00 Nasal Cannula 2.0 09/02/16 03:47 36.8 73 19 179/70 98 Nasal Cannula 2.0 09/01/16 23:59 Nasal Cannula 2.0 09/01/16 23:12 36.4 66 17 155/67 96 Nasal Cannula 2.0 09/01/16 20:00 Nasal Cannula 2.0 09/01/16 19:50 36.4 74 18 174/74 98 Nasal Cannula 3.0 09/01/16 16:00 Nasal Cannula 2.0 09/01/16 15:23 36.5 71 20 152/70 96 Nasal Cannula 2.0 09/01/16 12:49 69 99/65 09/01/16 12:00 Nasal Cannula 2.0 09/01/16 12:00 36.8 74 22 128/68 93 Nasal Cannula 09/01/16 08:21 36.3 77 18 137/74 95 Nasal Cannula 3.0 09/01/16 08:00 Nasal Cannula 2.0 Physical Exam General Appearance: no apparent distress Eyes: normal inspection, EOMI ENT: normal ENT inspection, hearing grossly normal, TMs normal Neck: supple, no adenopathy, thyroid normal Respiratory/Chest: chest non-tender, lungs clear, no respiratory distress, no accessory muscle use, + decreased breath sounds Cardiovascular: regular rate, rhythm, no edema, no gallop, no JVD, no murmur Abdomen: normal bowel sounds, non tender, soft, no organomegaly, no pulsatile mass Extremities: normal range of motion, non-tender, normal inspection, no pedal edema Neurologic/Psychiatric: anesthesiology technologist II-XII nml as tested, no motor/sensory deficits, alert, normal mood/affect, oriented x 3 Skin: normal color, warm/dry, no rash Laboratory Results Last 24 Hours Test 09/01/16 09:06 09/01/16 09:07 09/01/16 11:33 09/01/16 16:20 White Blood Count 42.71 K/uL Red Blood Count 3.54 M/uL Hemoglobin 10.5 g/dL Hematocrit 30.5 % Mean Corpuscular Volume 86.2 fL Mean Corpuscular Hemoglobin 29.7 pg Mean Corpuscular Hemoglobin Concent 34.4 g/dl Platelet Count 50 K/uL Mean Platelet Volume 11.5 fL RDW Standard Deviation 48.2 fL RDW Coefficient of Variation 15.3 % Neutrophils % (Manual) 93.2 % Lymphocytes % (Manual) 3.4 % Monocytes % (Manual) 3.4 % Neutrophils # (Manual) 39.81 K/uL Total Absolute Neutrophils 39.81 K/uL Lymphocytes # (Manual) 1.45 K/uL Total Absolute Lymphocytes 1.45 K/uL Monocytes # (Manual) 1.45 K/uL Toxic Granulation 2+ Dohle Bodies 1+ Sodium Level 140 mmol/L Potassium Level 4.2 mmol/L Chloride Level 100 mmol/L Carbon Dioxide Level 29 mmol/L Anion Gap 11.0 mmol/L Blood Urea Nitrogen 75 mg/dl Creatinine 2.30 mg/dl Est Creatinine Clear Calc Drug Dose 16.6 ml/min Estimated GFR () 23.2 Estimated GFR (Non- 20.0 BUN/Creatinine Ratio 32.8 Random Glucose 223 mg/dl Calcium Level 8.0 mg/dl Magnesium Level 2.1 mg/dl Total Bilirubin 0.8 mg/dl Aspartate Amino Transf (AST/SGOT) 47 U/L Alanine Aminotransferase (ALT/SGPT) 261 U/L Alkaline Phosphatase 205 U/L Total Protein 4.8 gm/dl Albumin 2.5 gm/dl Globulin 2.3 gm/dl Albumin/Globulin Ratio 1.1 Bedside Glucose 199 mg/dl 138 mg/dl 177 mg/dl Test 09/01/16 20:48 09/02/16 06:33 09/02/16 06:52 Bedside Glucose 239 mg/dl 216 mg/dl Assessment and Plan (1) Septic shock (2) Fever (3) Sepsis (4) Left lower lobe pneumonia Assessment & Plan: 1). septic shock secondary to complicated UTI POA, resolved Urology on case,s/p uretal stents currently off levophed and Dobutamine On IV antibiotics as per ID, DC zosyn and levaquin , currently on Unasyn, stop date 09/11unless stent removal is planed can change to po augmentin 875mg po bid upon d/c.prefer to continue Augmentin until stent removal antifungal (yeast in initial UA ) / will continue fluconazole until 09/07 UCx growing E coli severe leukocytosis, possibly leukemoid reaction as she is clinically improving , repeat Cx are thus far negative, WBC is improving repeat C dif in case of diarrhea 2). Acute Hypoxemic Resp Failure. S/P successful extubation - Multifactorial could be secondary to Left basilar airspace consolidation as well new right consolidation at the right lung base, could be secondary to pneumonia/aspiration pneumonitis, ARDS with plt pressure. - Currently improved / on nasal cannula O2 support 3). Acute Renal failure. improving - multifactorial, obstructive uropathy plus pre renal from hypotension 4). Elevated troponin - likely demand ischemia, plus renal failure - Echocardiogram with global hypokinesis, right ventricular dilatation and ejection fraction 15-20% 5) Thrombocytopenia, improving - secondary to sepsis - HIT assay is negative X 2 last was sent in 08/30 -hold heparin/aspirin -SCD boots for dvt prophylaxis 6). Acute anemia - s/p 1 unit packed red blood cells, no signs of active bleeding. - possible dilution. 7). Diabetes mellitus with hyperglycemia, treated with insulin infusion Continued [facility] stay due to: multiple IV medications needed Discharge planning: TBD Continued [facility] stay due to: multiple IV medications needed [facility] Problem Qualifiers (1) Fever: Fever type: unspecified Qualified Codes: R50.9 - Fever, unspecified (2) Sepsis: Sepsis type: sepsis due to unspecified organism Qualified Codes: A41.9 - Sepsis, unspecified organism (3) Left lower lobe pneumonia: Pneumonia type: due to unspecified organism Qualified Codes: J18.1 - Lobar pneumonia, unspecified organism
[2016-09-02 19:28] VITALS: BP 174/66; PULSE 76; TEMP 36.8; O2SAT 100
[2016-09-02] MEDS: TRAMADOL HCL 50 MG TAB PO PRN (20:13)
[2016-09-03] VITALS (8 sets, daily range): BP systolic 129–177; BP diastolic 63–75; PULSE 67–103; TEMP 36.4–36.9; O2SAT 90–98
[2016-09-03] MEDS: AMPICILLIN/SULBACTAM SOD INJ 3,000 MG in SODIUM CHLORIDE 0.9% 100ML 100 ML IV SCH ×3 (03:03→20:25)
[2016-09-03 06:54] LABS: HEMATOCRIT 29.6 % (37-47); MEAN CELL VOLUME 88.4 fL (80-100); MEAN CORPUSCULAR HEMOGLOBIN 29.3 pg (25-34); MEAN CORPUSCULAR HGB CONC 33.1 g/dl (32-36); RED BLOOD COUNT 3.35 M/uL (4.2-5.4); WHITE BLOOD COUNT 28.85 K/uL (4.8-10.8)
[2016-09-03 07:05] LABS: PLATELET COUNT 74 K/uL (130-400)
[2016-09-03 07:29] LABS: BASO % 0.1 %; BASO ABS # 0.02 K/uL (0-0.2); COMPLETE YES; EOS % 0.8 %; IG% 1.9 %; LYMPH ABS # 2.89 K/uL (1.2-3.4); MONO % 7.3 %; NEUT % 79.9 %; TOXIC GRANULATION 2+
[2016-09-03 07:30] LABS: BUN/CREATININE RATIO 34.9 (10-20); CALCIUM 8.6 mg/dl (8.5-10.1); MAGNESIUM 1.7 mg/dl (1.8-2.4); POTASSIUM 3.8 mmol/L (3.5-5.1)
[2016-09-03] MEDS: INSULIN ASPART 100 UNITS/ML 3 ML PEN SC SCH ×4 (07:34→22:10)
[2016-09-03] MEDS: INSULIN GLARGINE SOLOSTAR 100 UNITS/ML 3 ML PEN SC SCH (07:35)
[2016-09-03 07:36] LABS: PHOSPHORUS 2.4 mg/dl (2.5-4.9)
[2016-09-03] MEDS: CARVEDILOL 3.125 MG TAB PO SCH ×2 (08:02→20:30)
[2016-09-03] MEDS: PANTOprazole SOD 40 MG TAB PO SCH (08:02)
[2016-09-03] MEDS: FLUCONAZOLE 100 MG TAB PO SCH (08:02)
[2016-09-03] MEDS: LATANOPROST 0.005% OP SOLN 2.5 ML BTL OP SCH (08:04)
[2016-09-03] MEDS ORDERED: MAGNESIUM SULFATE 1GM / D5W 1 GM in PREMIXED IN D5W 100 ML IV ONE (08:45)
[2016-09-03] MEDS ORDERED: FUROSEMIDE INJ 20 MG in SYRINGE 0 ML IV ONE (12:15)
--- NOTE | 2016-09-03 13:46 | Hospitalist Progress Note ---
Hospitalist Progress Note Date of Service Sep 03, 2016. Subjective Pt evaluation today including: conversation w/ patient, conversation w/ family , physical exam, chart review, lab review, review of studies, conversation w/ [employer] hyperion consultant, review of inpatient medication list Patient reports feeling well today. Denies any fever or chills. Denies any chest pain or shortness of breath. Still has a mild cough. The sputum was yellow. It is now white. Additional Comments: 6 system review negative. Please see pertinent positives in the history of present illness section. Objective Vital Signs Date Time Temp Pulse Resp B/P Pulse Ox O2 Delivery O2 Flow Rate FiO2 09/03/16 12:00 Room Air 09/03/16 11:49 36.9 74 20 129/74 92 Room Air 09/03/16 10:33 90 09/03/16 08:00 Nasal Cannula 1.0 09/03/16 07:36 36.4 74 22 171/75 97 Nasal Cannula 2.0 09/03/16 04:45 36.9 75 18 156/75 98 09/03/16 04:00 Nasal Cannula 1.0 09/03/16 00:13 36.7 70 16 145/63 98 09/02/16 23:59 Nasal Cannula 1.0 09/02/16 20:00 Nasal Cannula 1.0 09/02/16 19:28 36.8 76 20 174/66 100 Nasal Cannula 3.0 09/02/16 16:00 Nasal Cannula 2.0 09/02/16 15:35 36.6 71 20 185/72 98 Physical Exam General Appearance: no apparent distress Eyes: EOMI Neck: no JVD Respiratory/Chest: lungs clear Cardiovascular: + pertinent finding (occasionally irregular. Faint systolic murmur noted.) Abdomen: normal bowel sounds, non tender, soft Extremities: + pertinent finding (+1 pitting edema in the lower extremities without any erythema or tenderness appreciated.) Neurologic/Psychiatric: no motor/sensory deficits, oriented x 3 Skin: warm/dry Laboratory Results 09/03/16 06:14 Red Blood Count 3.35, Mean Corpuscular Volume 88.4, Mean Corpuscular Hemoglobin 29.3, Mean Corpuscular Hemoglobin Concent 33.1, Mean Platelet Volume 11.0, Neutrophils (%) (Auto) 79.9, Lymphocytes (%) (Auto) 10.0, Monocytes (%) (Auto) 7.3, Eosinophils (%) (Auto) 0.8, Basophils (%) (Auto) 0.1, Neutrophils # (Auto) 23.03, Lymphocytes # (Auto) 2.89, Monocytes # (Auto) 2.12, Eosinophils # (Auto) 0.24, Basophils # (Auto) 0.02 09/03/16 06:14 Test 09/03/16 06:14 09/03/16 12:26 White Blood Count 28.85 K/uL (4.8-10.8) Red Blood Count 3.35 M/uL (4.2-5.4) Hemoglobin 9.8 g/dL (12.0-16.0) Hematocrit 29.6 % (37-47) Mean Corpuscular Volume 88.4 fL (80-100) Mean Corpuscular Hemoglobin 29.3 pg (25-34) Mean Corpuscular Hemoglobin Concent 33.1 g/dl (32-36) Platelet Count 74 K/uL (130-400) Mean Platelet Volume 11.0 fL (7.4-10.4) Neutrophils (%) (Auto) 79.9 % Lymphocytes (%) (Auto) 10.0 % Monocytes (%) (Auto) 7.3 % Eosinophils (%) (Auto) 0.8 % Basophils (%) (Auto) 0.1 % Neutrophils # (Auto) 23.03 K/uL (1.4-6.5) Lymphocytes # (Auto) 2.89 K/uL (1.2-3.4) Monocytes # (Auto) 2.12 K/uL (0.11-0.59) Eosinophils # (Auto) 0.24 K/uL (0-0.5) Basophils # (Auto) 0.02 K/uL (0-0.2) RDW Standard Deviation 49.2 fL (36.4-46.3) RDW Coefficient of Variation 15.3 % (11.5-14.5) Immature Granulocyte % (Auto) 1.9 % Immature Granulocyte # (Auto) 0.55 K/uL (0.00-0.02) Toxic Granulation 2+ Basophilic Stippling 1+ Anion Gap 5.0 mmol/L (3-11) Est Creatinine Clear Calc Drug Dose 37.9 ml/min Estimated GFR () 63.4 Estimated GFR (Non- 54.7 BUN/Creatinine Ratio 34.9 (10-20) Calcium Level 8.6 mg/dl (8.5-10.1) Phosphorus Level 2.4 mg/dl (2.5-4.9) Magnesium Level 1.7 mg/dl (1.8-2.4) Total Bilirubin 0.7 mg/dl (0.2-1) Aspartate Amino Transf (AST/SGOT) 32 U/L (15-37) Alanine Aminotransferase (ALT/SGPT) 174 U/L (12-78) Alkaline Phosphatase 201 U/L (45-117) Total Protein 5.1 gm/dl (6.4-8.2) Albumin 2.5 gm/dl (3.4-5.0) Globulin 2.6 gm/dl (2.5-4.0) Albumin/Globulin Ratio 1.0 (0.9-2) Bedside Glucose 127 mg/dl (70-90) Last 24 Hours Test 09/02/16 16:30 09/02/16 20:00 09/03/16 06:14 09/03/16 12:26 Bedside Glucose 162 mg/dl 148 mg/dl 127 mg/dl White Blood Count 28.85 K/uL Red Blood Count 3.35 M/uL Hemoglobin 9.8 g/dL Hematocrit 29.6 % Mean Corpuscular Volume 88.4 fL Mean Corpuscular Hemoglobin 29.3 pg Mean Corpuscular Hemoglobin Concent 33.1 g/dl Platelet Count 74 K/uL Mean Platelet Volume 11.0 fL Neutrophils (%) (Auto) 79.9 % Lymphocytes (%) (Auto) 10.0 % Monocytes (%) (Auto) 7.3 % Eosinophils (%) (Auto) 0.8 % Basophils (%) (Auto) 0.1 % Neutrophils # (Auto) 23.03 K/uL Lymphocytes # (Auto) 2.89 K/uL Monocytes # (Auto) 2.12 K/uL Eosinophils # (Auto) 0.24 K/uL Basophils # (Auto) 0.02 K/uL RDW Standard Deviation 49.2 fL RDW Coefficient of Variation 15.3 % Immature Granulocyte % (Auto) 1.9 % Immature Granulocyte # (Auto) 0.55 K/uL Toxic Granulation 2+ Basophilic Stippling 1+ Sodium Level 143 mmol/L Potassium Level 3.8 mmol/L Chloride Level 103 mmol/L Carbon Dioxide Level 35 mmol/L Anion Gap 5.0 mmol/L Blood Urea Nitrogen 35 mg/dl Creatinine 1.00 mg/dl Est Creatinine Clear Calc Drug Dose 37.9 ml/min Estimated GFR () 63.4 Estimated GFR (Non- 54.7 BUN/Creatinine Ratio 34.9 Random Glucose 146 mg/dl Calcium Level 8.6 mg/dl Phosphorus Level 2.4 mg/dl Magnesium Level 1.7 mg/dl Total Bilirubin 0.7 mg/dl Aspartate Amino Transf (AST/SGOT) 32 U/L Alanine Aminotransferase (ALT/SGPT) 174 U/L Alkaline Phosphatase 201 U/L Total Protein 5.1 gm/dl Albumin 2.5 gm/dl Globulin 2.6 gm/dl Albumin/Globulin Ratio 1.0 Assessment and Plan septic shock secondary to complicated UTI POA s/p bilateral ureteral stent placement. UCx growing E coli -currently off levophed and Dobutamine -Unasyn, stop date 09/11 can change to po augmentin 875mg po bid upon d/c.prefer to continue Augmentin until stent removal -continue fluconazole until 09/07 -d/w urology-->f/u in office in 3 weeks. Leukocytosis-likely secondary to above. Improving Acute Hypoxemic Resp Failure. S/P successful extubation. Possibly secondary to aspiration pneumonitis -ABX as noted above Acute Renal failure- multifactorial, obstructive uropathy plus pre renal from hypotension. Improving Elevated troponin, Acute CHF- Echocardiogram with global hypokinesis, right ventricular dilatation and ejection fraction 15-20% -lasix 20 mg IV now -start lasix 20 mg IV BID Thrombocytopenia- secondary to sepsis. Improving -HIT assay is negative X 2 last was sent in 08/30 -hold heparin/aspirin Acute anemia-Hgb stable - s/p 1 unit packed red blood cells, no signs of active bleeding. Diabetes mellitus with hyperglycemia. Overall BSGs stable -treated with insulin infusion DVT proph -on hold d/t low plt -AMBULATION -TEDS/SCDS CODE STATUS -LEVEL I FULL CODE DISPO -[facility] upon d/c
[2016-09-03] MEDS: POTASSIUM CHLORIDE 20 MEQ TABCR PO SCH (20:26)
[2016-09-03] MEDS: FUROSEMIDE INJ 20 MG in SYRINGE 0 ML IV SCH (20:39)
[2016-09-04] VITALS: O2SAT 90
[2016-09-04 00:14] VITALS: BP 146/67; PULSE 76; TEMP 36.6; O2SAT 88
[2016-09-04 00:34] VITALS: O2SAT 95
[2016-09-04] MEDS: AMPICILLIN/SULBACTAM SOD INJ 3,000 MG in SODIUM CHLORIDE 0.9% 100ML 100 ML IV SCH ×3 (01:15→13:18)
[2016-09-04 06:22] LABS: HEMATOCRIT 28.4 % (37-47); MEAN CELL VOLUME 87.9 fL (80-100); MEAN CORPUSCULAR HEMOGLOBIN 29.7 pg (25-34); MEAN CORPUSCULAR HGB CONC 33.8 g/dl (32-36); RED BLOOD COUNT 3.23 M/uL (4.2-5.4); WHITE BLOOD COUNT 23.79 K/uL (4.8-10.8)
[2016-09-04 06:24] LABS: BASO % 0.1 %; BASO ABS # 0.02 K/uL (0-0.2); COMPLETE YES; EOS % 1.2 %; IG% 1.3 %; LYMPH ABS # 2.39 K/uL (1.2-3.4); MEAN PLATELET VOLUME 10.3 fL (7.4-10.4); MONO % 7.4 %; PLATELET COUNT 97 K/uL (130-400)
[2016-09-04 06:50] LABS: BUN/CREATININE RATIO 26.8 (10-20); CALCIUM 8.5 mg/dl (8.5-10.1); CREATININE 0.98 mg/dl (0.60-1.20)
[2016-09-04 07:25] VITALS: BP 158/68; PULSE 80; TEMP 36.8; O2SAT 95
[2016-09-04] MEDS: FUROSEMIDE INJ 20 MG in SYRINGE 0 ML IV SCH (08:49)
[2016-09-04] MEDS: FLUCONAZOLE 100 MG TAB PO SCH (08:50)
[2016-09-04] MEDS: PANTOprazole SOD 40 MG TAB PO SCH (08:50)
[2016-09-04] MEDS: POTASSIUM CHLORIDE 20 MEQ TABCR PO SCH (08:51)
[2016-09-04] MEDS: CARVEDILOL 3.125 MG TAB PO SCH (08:51)
[2016-09-04] MEDS: LATANOPROST 0.005% OP SOLN 2.5 ML BTL OP SCH (08:52)
[2016-09-04] MEDS: INSULIN ASPART 100 UNITS/ML 3 ML PEN SC SCH ×2 (08:57→12:15)
[2016-09-04] MEDS: INSULIN GLARGINE SOLOSTAR 100 UNITS/ML 3 ML PEN SC SCH (08:57)
[2016-09-04] MEDS ORDERED: PRD10 PO ×2 (11:22→11:30)
[2016-09-04] MEDS ORDERED: AMOX875T PO (11:22)
[2016-09-04] MEDS ORDERED: DFL100 PO (11:22)
[2016-09-04] MEDS ORDERED: FURO40TA3 PO (11:22)
--- NOTE | 2016-09-04 11:28 | Discharge Instructions ---
Discharge Instructions Date of Service Sep 04, 2016. Admission Reason for Admission: Septic Shock Discharge Discharge Diagnosis / Problem: septic shock-urosepsis Discharge Goals Goal(s): Improve function, Diagnostic testing, Therapeutic intervention Activity Recommendations Activity Level: Up Ad Desire (ambulate with walker and assistance) Therapies: Physical Therapy . Additional Information Patient informed of condition: Yes Advance Directives: No DNR: No Level of Care: Acute Rehab Communicable Disease: No Prognosis: Improving Instructions / Follow-Up Instructions / Follow-Up You have been treated in the hospital for septic shock from a kidney infection/ kidney stones The following changes/additions have been made to your medication list: -Augmentin 1 tab twice daily. Continue until follow-up with urology -Fluconazole 100 mg once daily for 10 more days -Lasix 40 mg in the morning for 2 more days -Continue prednisone 10 mg tab for 3 days, then cut in half for 2 more days Please follow up with Dr. Mathews from Urology in 2 weeks Please follow up with Dr. Hanna in 1 week Please follow up with Dr. Hall from cardiology in 1 month Please follow daily weights Low sodium/diabetic diet Call your doctor or return to the emergency department if you have any of the following symptoms: -Fever of 101F or greater -Persistent vomiting - Persistent diarrhea -Lethargy -Chest pain -Shortness of breath -severe dizziness -weakness on one side of your body DISCHARGE SUMMARY septic shock secondary to complicated UTI s/p bilateral ureteral stent placement. UCx growing E coli -Admitted to ICU on levophed and dobutamine -Intubated 08/25--> extubated 08/27 -CT abd pelvis 08/25--> bilateral ureteral stones. Urology consulted. -Patient underwent bilateral ureteral stent placement on 08/25 -Initially started on broad-spectrum antibiotics with vancomycin, Zosyn, Levaquin and fluconazole -Infectious disease consulted -Antibiotics narrowed to Unasyn, which can be transitioned to Augmentin upon discharge -Continue Augmentin until stent removal -Continue fluconazole for a total of 14 days -d/w urology-->f/u in office in 3 weeks. Leukocytosis-likely secondary to above. Improving Acute Hypoxemic Resp Failure. S/P successful extubation. Possibly secondary to aspiration pneumonitis -ABX as noted above Acute Renal failure- multifactorial, obstructive uropathy plus pre renal from hypotension. Creatinine now normal Elevated troponin, Acute CHF-likely demand ischemia secondary to septic shock and renal failure. - Echocardiogram with global hypokinesis, right ventricular dilatation and ejection fraction 15-20% -Diuresis with IV Lasix. -Send out on Lasix 40 mg daily for an additional 2 days -Monitor daily weights Thrombocytopenia- secondary to sepsis. Improving -HIT assay is negative X 2 last was sent in 08/30 -Aspirin and heparin were on hold. As platelet are stable, resume daily aspirin 81 mg Acute anemia-Hgb stable - s/p 1 unit packed red blood cells, no signs of active bleeding. Diabetes mellitus with hyperglycemia. Overall BSGs stable -treated with insulin infusion -Resume outpatient regimen upon discharge glimepiride 2 mg daily, metformin 1000 mg twice daily DVT proph -was on heparin-->was held due to low plt (now improved) -AMBULATION -TEDS/SCDS CODE STATUS -LEVEL I FULL CODE DISPO -d/c to [facility] Total Time Spent: Greater than 30 minutes This includes examination of the patient, discharge planning, medication reconciliation, and communication with other providers. Discharge Instructions Please refer to the electronic Patient Visit Report (Discharge Instructions) for additional information. Follow-Up PCP [address] Mathews with urology in 2-3 weeks Additional Copies To Felton Hanna M.D.; Bradley Mathews MD, Urology; Jennifer. Kelly, D.O. Current Hospital Diet Patient's current hospital diet: Diabetes Type 2 Diet, Renal Diet Discharge Diet Recommended Diet: AHA Diet (Heart Healthy), Low Sodium Diet (2gm Na), Diabetes Type 2 Diet Procedures Procedures Performed: Intubated 08/25-->extubated 08/27 Cystoscopy, right retrograde pyelography, bilateral ureteral stent placement 08/25 Pending Studies Studies pending at discharge: no Physician Orders On Transfer Weigh: daily POLST Discussion: without POLST completion Laboratory Results 09/04/16 06:00 Red Blood Count 3.23, Mean Corpuscular Volume 87.9, Mean Corpuscular Hemoglobin 29.7, Mean Corpuscular Hemoglobin Concent 33.8, Mean Platelet Volume 10.3, Neutrophils (%) (Auto) 80.0, Lymphocytes (%) (Auto) 10.0, Monocytes (%) (Auto) 7.4, Eosinophils (%) (Auto) 1.2, Basophils (%) (Auto) 0.1, Neutrophils # (Auto) 19.02, Lymphocytes # (Auto) 2.39, Monocytes # (Auto) 1.76, Eosinophils # (Auto) 0.29, Basophils # (Auto) 0.02 09/04/16 06:00 Test 09/04/16 06:00 09/04/16 11:07 White Blood Count 23.79 K/uL (4.8-10.8) Red Blood Count 3.23 M/uL (4.2-5.4) Hemoglobin 9.6 g/dL (12.0-16.0) Hematocrit 28.4 % (37-47) Mean Corpuscular Volume 87.9 fL (80-100) Mean Corpuscular Hemoglobin 29.7 pg (25-34) Mean Corpuscular Hemoglobin Concent 33.8 g/dl (32-36) Platelet Count 97 K/uL (130-400) Mean Platelet Volume 10.3 fL (7.4-10.4) Neutrophils (%) (Auto) 80.0 % Lymphocytes (%) (Auto) 10.0 % Monocytes (%) (Auto) 7.4 % Eosinophils (%) (Auto) 1.2 % Basophils (%) (Auto) 0.1 % Neutrophils # (Auto) 19.02 K/uL (1.4-6.5) Lymphocytes # (Auto) 2.39 K/uL (1.2-3.4) Monocytes # (Auto) 1.76 K/uL (0.11-0.59) Eosinophils # (Auto) 0.29 K/uL (0-0.5) Basophils # (Auto) 0.02 K/uL (0-0.2) RDW Standard Deviation 48.5 fL (36.4-46.3) RDW Coefficient of Variation 15.2 % (11.5-14.5) Immature Granulocyte % (Auto) 1.3 % Immature Granulocyte # (Auto) 0.31 K/uL (0.00-0.02) Anion Gap 7.0 mmol/L (3-11) Est Creatinine Clear Calc Drug Dose 38.6 ml/min Estimated GFR () 64.9 Estimated GFR (Non- 56.0 BUN/Creatinine Ratio 26.8 (10-20) Calcium Level 8.5 mg/dl (8.5-10.1) Bedside Glucose 236 mg/dl (70-90) Hemoglobin A1c Test 08/15/16 10:03 Range/Units Estimated Average Glucose 203 mg/dl Hemoglobin A1c 8.7 H 4.5-5.6 % Medical Emergencies . Who to Call and When: Medical Emergencies: If at any time you feel your situation is an emergency, please call 911 immediately. . Non-Emergent Contact Non-Emergency issues call your: Primary Care Provider . . "Provider Documentation" section prepared by Valerie Camilo. Core Measure Problem Core Measures: None
--- NOTE | 2016-09-04 11:49 | Discharge Summary ---
Discharge Summary Date of Service Sep 04, 2016. Discharge Summary Admission Date: Aug 24, 2016 at 20:49 Discharge Date: Sep 04, 2016 Discharge Disposition: Rehab Principal Diagnosis: septic shock, urosepsis Problems/Secondary Diagnoses: Diabetes Hypertension Acute renal failure acute CHF Procedures: Bilateral ureteral stent placement 08/25 Intubation 08/25--> extubated 08/27 Consultations: Critical care Urology Cardiology Infectious disease Medication Reconciliation New Medications: Amoxicillin & Pot Clavulanate (Augmentin 875-125 mg) 1 Tab Tab 1 TAB PO BID for 30 Days, #60 TAB Furosemide (Lasix) 40 Mg Tab 1 TAB PO DAILY for 2 Days, #2 TAB 5 Refills Fluconazole (Fluconazole) 100 Mg Tab 100 MG PO QAM for 10 Days, #10 TAB Prednisone (Prednisone) 10 Mg Tab 10 MG PO UD for 6 Days, TAB 1 tab x 3 days 1/2 tab x 3 days then stop Continued Medications: Amlodipine/Benazepril (Lotrel 10MG/20MG) 10 Mg/20 Mg Cap 1 CAP PO DAILY, CAP Ascorbic Acid (Vitamin C) Unknown Strength Tab 1 TAB PO DAILY Aspirin (Aspirin Ec) 81 Mg Tab 81 MG PO DAILY Atorvastatin (Lipitor) 20 Mg Tab 20 MG PO DAILY, TAB Cholecalciferol (Vitamin D3) 1,000 Unit Tab 3 TAB PO DAILY for 90 Days, #270 TAB 3 Refills Ferrous Sulfate (Iron) 325 Mg Tab 1 TAB PO DAILY Glimepiride (Glimepiride) 2 Mg Tab 1 TAB PO DAILY for 90 Days, #90 TAB 3 Refills Metformin Hcl (Glucophage) 500 Mg Tab 1000 MG PO BID, TAB Mometasone Furoate (Nasal) (Mometasone Furoate) 50 Mcg/Act Spr 2 SPRAYS JAKOB DAILY PRN for Nasal Congestion Discontinued Medications: Prednisone (Prednisone) 5 Mg Tab 9 MG PO DAILY, TAB TAPER DOWN TO 7 MG DAILY IN SEPTEMBER Referrals At Discharge Follow up Referrals: Urologist Referral - Within 2 Weeks with Bradley Mathews MD, Urology Discharge Exam Patient has no complaints today. Feeling good. Denies any fever or chills. No abdominal pain. Denies any chest pain or pressure. No shortness of breath. Review of Systems: Constitutional: No fever Respiratory: No cough, No shortness of breath Cardiovascular: No chest pain Abdomen: No nausea Physical Exam: General Appearance: no apparent distress Eyes: EOMI Neck: no JVD Respiratory/Chest: lungs clear Cardiovascular: + pertinent finding (occasionally irregular. No murmur auscultated.) Abdomen / GI: normal bowel sounds, non tender, soft Extremities: + pertinent finding (pitting edema lower extremities bilaterally. Improved from yesterday. No erythema or tenderness appreciated.) Neurologic/Psychiatric: no motor/sensory deficits, oriented x 3 Skin: warm/dry Hospital Course septic shock secondary to complicated UTI s/p bilateral ureteral stent placement. UCx growing E coli -Admitted to ICU on levophed and dobutamine -Intubated 08/25--> extubated 08/27 -CT abd pelvis 08/25--> bilateral ureteral stones. Urology consulted. -Patient underwent bilateral ureteral stent placement on 08/25 -Initially started on broad-spectrum antibiotics with vancomycin, Zosyn, Levaquin and fluconazole -Infectious disease consulted -Antibiotics narrowed to Unasyn, which can be transitioned to Augmentin upon discharge -Continue Augmentin until stent removal -Continue fluconazole for a total of 14 days -d/w urology-->f/u in office in 3 weeks. Leukocytosis-likely secondary to above. Improving Acute Hypoxemic Resp Failure. S/P successful extubation. Possibly secondary to aspiration pneumonitis -ABX as noted above Acute Renal failure- multifactorial, obstructive uropathy plus pre renal from hypotension. Creatinine now normal Elevated troponin, Acute CHF-likely demand ischemia secondary to septic shock and renal failure. - Echocardiogram with global hypokinesis, right ventricular dilatation and ejection fraction 15-20% -Diuresis with IV Lasix. -Send out on Lasix 40 mg daily for an additional 2 days -Monitor daily weights Thrombocytopenia- secondary to sepsis. Improving -HIT assay is negative X 2 last was sent in 08/30 -Aspirin and heparin were on hold. As platelet are stable, resume daily aspirin 81 mg Acute anemia-Hgb stable - s/p 1 unit packed red blood cells, no signs of active bleeding. Diabetes mellitus with hyperglycemia. Overall BSGs stable -treated with insulin infusion -Resume outpatient regimen upon discharge glimepiride 2 mg daily, metformin 1000 mg twice daily DVT proph -was on heparin-->was held due to low plt (now improved) -AMBULATION -TEDS/SCDS CODE STATUS -LEVEL I FULL CODE DISPO -d/c to [facility] Total Time Spent: Greater than 30 minutes This includes examination of the patient, discharge planning, medication reconciliation, and communication with other providers. Discharge Instructions Please refer to the electronic Patient Visit Report (Discharge Instructions) for additional information. Follow-Up PCP [address] Mathews with urology in 2-3 weeks Additional Copies To Felton Hanna M.D.; Bradley Mathews MD, Urology; Jennifer. Mendoza D.O.
[2016-09-04 15:01] VITALS: BP 139/72; PULSE 74; TEMP 36.8; O2SAT 95
[2016-09-04 16:10] VITALS: BP 139/72; PULSE 74; TEMP 36.8; O2SAT 95
[2016-09-20] MEDS ORDERED: AMOX875T PO (08:19)
[2016-09-20] MEDS ORDERED: POTA10CA28 PO (08:19)
[2016-10-01] MEDS ORDERED: PHEN-939 PO (12:47)
[2016-10-01] MEDS ORDERED: OXYC-57 PO (12:47)
[2016-10-25] MEDS ORDERED: CIPR-255 PO (16:20)
[2016-10-25] MEDS ORDERED: PHEN-775 PO (16:20)
== END 2016-09-04 17:30 | DRG 871 ==
LOC: ENRESERVTM → ENRESERVDT → EDBD 18:12 → C.EDC 18:13 → C.MSICU 20:49 → C.2T 08-30 18:56 → C.MS2W 09-03 19:20
PROVIDERS: ADMIT Hospitalist; ATTEND Internal Medicine
PROC: 5A1945Z Respiratory Ventilation, 24-96 Consecutive Hours (ICD-10-PCS; 2016-08-25)
PROC: 0BH17EZ Insertion of Endotracheal Airway into Trachea, Via Natural or Artificial Opening (ICD-10-PCS; 2016-08-25)
PROC: 0T788DZ Dilation of Bilateral Ureters with Intraluminal Device, Via Natural or Artificial Opening Endoscopic (ICD-10-PCS; principal; 2016-08-25 13:00)
PROC: 03HY32Z Insertion of Monitoring Device into Upper Artery, Percutaneous Approach (ICD-10-PCS; 2016-08-25 13:00)
DX: A41.51 Sepsis due to Escherichia coli [E. coli] (principal); R65.21 Severe sepsis with septic shock; N17.9 Acute kidney failure, unspecified; J96.02 Acute respiratory failure with hypercapnia; J69.0 Pneumonitis due to inhalation of food and vomit; G93.41 Metabolic encephalopathy; N13.2 Hydronephrosis with renal and ureteral calculous obstruction; I24.8 Other forms of acute ischemic heart disease; N12 Tubulo-interstitial nephritis, not specified as acute or chronic; D69.6 Thrombocytopenia, unspecified; E78.00 Pure hypercholesterolemia, unspecified; E83.42 Hypomagnesemia; D64.9 Anemia, unspecified; H40.9 Unspecified glaucoma; I10 Essential (primary) hypertension; K22.2 Esophageal obstruction; M35.3 Polymyalgia rheumatica; E11.65 Type 2 diabetes mellitus with hyperglycemia

== ENCOUNTER → 2016-09-18 | Outpatient (CLI) | payer OTHER ==
[~2016-09-18] MED LIST changes: -ASCO100T PO; +ASCO100T4 PO; -PRED-301 PO
[2016-09-18 20:10] LABS: URINE APPEARANCE TURBID (CLEAR); URINE BILIRUBIN NEG (NEG); URINE COLOR ORANGE; URINE EPITHELIAL CELL AUTO >30 /lpf (0-5); URINE NITRITE NEG (NEG); URINE SPECIFIC GRAVITY 1.016 (1.000-1.030); UROBILINOGEN NEG (NEG)
[2016-09-18 20:11] LABS: MANUAL MICROSCOPIC REQUIRED? NO; REVIEW REQ? YES
[2016-09-18 20:22] LABS: URINE PATH CASTS 0-3 GRANULAR CASTS /lpf (0)
== END | disposition home or self-care (01) ==
LOC: C.LAB 19:49
PROVIDERS: ATTEND Urology
DX: N20.0 Calculus of kidney (principal)

== ENCOUNTER 2016-10-01 08:10 | Day surgery (SDC) | payer OTHER ==
[2016-09-20 08:19] VITALS: Ht 144.8 cm; Wt 50.9 kg
[~2016-10-01] VITALS: Ht 144.8 cm; Wt 50.9 kg
[~2016-10-01 08:10] MED LIST changes: -CIPR-255 PO; +CIPROFLOXACIN / D5W 400 MG IV SCH; -DFL100 PO; -FURO40TA3 PO; -GLIM2TAB2 PO; +LACTATED RINGER'S 1000ML 1,000 ML IV SCH; -OXYC-57 PO; -PHEN-775 PO; -PHEN-939 PO; -PRD10 PO; -PRED10TA PO
--- NOTE | 2016-10-01 08:38 | DIAGNOSTIC IMAGING REPORT ---
[facility] CLINICAL HISTORY: Bilateral nephrolithiasis COMPARISON STUDY: CT scan dated 08/25/2016 FINDINGS: There are bilateral nephroureteral stents. There are multiple bilateral renal calculi. The 2 largest the right measure 14 mm and 9 mm respectively. The 2 largest on the left measure 20 mm and 13 mm respectively. Basilar calcifications are evident. There is no pathologic bowel dilatation. There is a scoliosis. There are several pelvic basin calcifications, likely vascular. IMPRESSION: 1. Bilateral nephroureteral stents 2. Bilateral nephrolithiasis 3. No evidence of pathologic bowel dilatation Electronically signed by: Americo Wilkinson M.D. 10/01/2016 8:36 AM Dictated Date/Time: 10/01/2016 8:34 AM
[2016-10-01 08:51] VITALS: BP 164/69; PULSE 91; TEMP 36.9; O2SAT 98
[2016-10-01 09:02] LABS: HEMATOCRIT 29.7 % (37-47); MEAN CELL VOLUME 87.9 fL (80-100); MEAN CORPUSCULAR HEMOGLOBIN 28.7 pg (25-34); MEAN PLATELET VOLUME 9.5 fL (7.4-10.4); PLATELET COUNT 318 K/uL (130-400); RED BLOOD COUNT 3.38 M/uL (4.2-5.4)
[2016-10-01 09:15] LABS: MEAN CORPUSCULAR HGB CONC 32.7 g/dl (32-36)
--- NOTE | 2016-10-01 09:55 | History & Physical Bridge Note ---
H&P Re-Evaluation Bridge Note: I have examined the patient, reviewed the History & Physical and in the interval since the performance of the History & Physical I have noted the following changes of clinical significance: If left stent encrusted will exchange as well
[2016-10-01] MEDS ORDERED: FENTANYL CITRATE INJ 50 MCG/1 ML 2 ML VIAL ONE (10:08)
[2016-10-01] MEDS ORDERED: ONDANSETRON INJ 2 MG/ML 2 ML VIAL ONE (10:08)
[2016-10-01] MEDS ORDERED: LIDOCAINE HCL 2% 2 ML VIAL (20MG/ML) ONE (10:08)
[2016-10-01] MEDS ORDERED: DEXAMETHASONE SOD INJ 4 MG/ML VIAL ONE (10:08)
[2016-10-01] MEDS ORDERED: PROPOFOL IV EMULSION 10 MG/ML 20 ML VIAL IV ONE (10:08)
[2016-10-01] MEDS ORDERED: MIDAZOLAM HCL 1 MG/ML 2ML VIAL ONE (10:08)
[2016-10-01] MEDS ORDERED: CONRAY 30% 150ML BOTTLE ONE (11:06)
[2016-10-01] MEDS ORDERED: GENTAMICIN SULFATE 40 MG/ML 2 ML VIAL ONE (11:21)
[2016-10-01] MEDS ORDERED: PHENYLEPHRINE HCL INJ 10 MG/ML VIAL ONE (11:30)
[2016-10-01] MEDS ORDERED: ATROPINE SULFATE 0.1 MG/ML 5ML SYR IV PRN (12:15)
[2016-10-01] MEDS ORDERED: FENTANYL CITRATE INJ 50 MCG/1 ML 2 ML VIAL IV PRN (12:15)
[2016-10-01] MEDS ORDERED: EpHEDrine SULFATE INJ 50 MG/ML AMP IV PRN (12:15)
[2016-10-01] MEDS ORDERED: ONDANSETRON INJ 2 MG/ML 2 ML VIAL IV PRN (12:15)
--- NOTE | 2016-10-01 12:39 | DIAGNOSTIC IMAGING REPORT ---
FLUOROSCOPIC IMAGES FROM RETROGRADE EXAM CLINICAL HISTORY: Lithotripsy. Cystoscopy. COMPARISON STUDY: CT of the abdomen and pelvis August 25, 2016 and [facility] October 01, 2016. Fluoroscopy time: 67 seconds. FINDINGS: These images demonstrate cannulation of the right ureter with replacement of a right ureteral stent. IMPRESSION: Fluoroscopic images demonstrating right retrograde exam with stent exchange. Electronically signed by: David Nichols M.D. 10/01/2016 12:38 PM Dictated Date/Time: 10/01/2016 12:36 PM
[2016-10-01] MEDS ORDERED: PHEN-939 PO (12:47)
[2016-10-01] MEDS ORDERED: OXYC-57 PO (12:47)
--- NOTE | 2016-10-01 12:49 | Discharge Instructions ---
Discharge Instructions Date of Service October 01, 2016. Admission Reason for Admission: Right Stones Discharge Discharge Diagnosis / Problem: Bilateral stones, s/p R stent exchange, uscope, laser litho Discharge Goals Goal(s): Improve function, Improve disease control, Therapeutic intervention Activity Recommendations Activity Limitations: as noted below Lifting Limitations: no more than 25 pounds, gradually increase as tolerated ( after 3-5 days) Exercise/Sports Limitations: rest today, gradually increase as tolerated ( after 3-5 days) Shower/Bathe: no limitations Driving or Machine Use: resume 1 day after discharge . Instructions / Follow-Up Instructions / Follow-Up Continue Augmentin as previously prescribed. [facility] Xray before office visit for possible right stent removal. Discharge Diet Recommended Diet: Regular Diet (good fluid intake) Procedures Procedures Performed: Cystoscopy, Right Retrograde Pyelography, Right Flexible Ureteroscopy, Laser Lithotripsy, Right Stent Placement Pending Studies Studies pending at discharge: yes List of pending studies: Stone analysis, repeat culture Laboratory Results Hemoglobin A1c Test 08/15/16 10:03 Range/Units Estimated Average Glucose 203 mg/dl Hemoglobin A1c 8.7 H 4.5-5.6 % Medical Emergencies . Who to Call and When: Medical Emergencies: If at any time you feel your situation is an emergency, please call 911 immediately. . Non-Emergent Contact Non-Emergency issues call your: Urologist Call Non-Emergent contact if: you have a fever, temperature is above 101, your pain is not controlled, your pain is worsening, your pain is unusual for you, your pain is concerning you, you have any medication questions . . "Provider Documentation" section prepared by Bradley Mathews. . VTE Core Measure Inpt VTE Proph given/why not?: SCD's [place] Drug Monitoring Program Search Results: patient reviewed within database, no issues identified
--- NOTE | 2016-10-01 12:51 | [facility] Post Operative Brief Note ---
Immediate Operative Summary Operative Date October 01, 2016. Pre-Operative Diagnosis Bilateral Kidney Stones, History of Urinary Tract Infection, Obstructive Uropathy, Indwelling Stents Post-Operative Diagnosis Bilateral Kidney Stones, History of Urinary Tract Infection, Obstructive Uropathy, Indwelling Stents Procedure(s) Performed Cystoscopy, Right Retrograde Pyelography, Right Flexible Ureteroscopy, Laser Lithotripsy, Basket Stone Extraction, Right Stent Exchange Surgeon Dr. Mark Mathews Director Of Corporate Communications Surgeon(s) None Estimated Blood Loss 10 ml Findings No large residual stones, no ureteral injuries, good stent position on fluoro Specimens A) urine- culture & sensitivity B) Right Renal stones for chemical analysis Drains 6 fr 24 cm R ureteral JJ stent, unencrusted L stent left in situ Anesthesia GALMA Complication(s) None Disposition Recovery Room / PACU
[2016-10-01] MEDS ORDERED: OXYCODONE/ACETAMINOPHEN 5-325 TAB PO PRN (13:00)
[2016-10-01] MEDS ORDERED: PHENAZOPYRIDINE HCL 100 MG TAB PO PRN (13:00)
[2016-10-01 13:10] VITALS: BP 122/68; PULSE 78; TEMP 36.7; O2SAT 100
--- NOTE | 2016-10-01 13:32 | Anesthesiology Progress Note ---
Anesthesia Post Op Note Date & Time October 01, 2016 at 13:31 Vital Signs Pain Intensity: 0 Vital Signs Past 12 Hours Date Time Temp Pulse Resp B/P Pulse Ox O2 Delivery O2 Flow Rate FiO2 10/01/16 13:05 36.5 80 16 143/67 100 Nasal Cannula 3 10/01/16 12:55 78 16 133/69 100 Nasal Cannula 3 10/01/16 12:45 74 16 130/58 100 Nasal Cannula 3 10/01/16 12:35 73 16 134/73 100 Mask 10 10/01/16 12:28 36.3 80 16 136/73 100 Mask 10 10/01/16 08:51 36.9 91 20 164/69 98 Room Air Notes Mental Status: alert / awake / arousable, participated in evaluation Pt Amnestic to Procedure: Yes Nausea / Vomiting: adequately controlled Pain: adequately controlled Airway Patency, RR, SpO2: stable & adequate BP & HR: stable & adequate Hydration State: stable & adequate Anesthetic Complications: no major complications apparent
[2016-10-01 13:50] VITALS: BP 120/67; PULSE 84; TEMP 36.6; O2SAT 97
[2016-10-01 14:10] VITALS: BP 132/67; PULSE 82; TEMP 36.5; O2SAT 99
--- NOTE | 2016-10-01 15:32 | OPERATIVE REPORT ---
DATE OF OPERATION: 10/01/2016 PREOPERATIVE DIAGNOSES: Bilateral renal stones with indwelling stent, history of urosepsis with obstructive uropathy. POSTOPERATIVE DIAGNOSES: Same, right stone is addressed today in a staged fashion. PROCEDURE: Cystoscopy, right ureteral stent exchange, right retrograde pyelography with flexible ureteroscopy via access sheath, laser lithotripsy, basket stone extraction. SURGEON: Dr. Bradley Mathews. LINE PATROLLER: None. ANESTHESIA: General anesthesia with laryngeal mask. COMPLICATIONS: None. SPECIMENS SENT TO PATHOLOGY: Bladder urine for culture and sensitivity, right ureteral stone fragments for chemical analysis. DRAINS LEFT IN PLACE: Include a right-sided 6 St Helenian 24 cm double-J firm Cook ureteral stent, left stent left in situ seeing the lack of incrustation. ESTIMATED BLOOD LOSS: Minimal. FINDINGS: No large residual stone fragments in the right kidney noted, no evidence of ureteral injury, good stent position on fluoroscopy. BRIEF HISTORY: Ms. Garcia is a pleasant 75-year-old female who I have seen acutely at the time of her admission for urosepsis and renal failure. She is nicely recovered from this and is now undergoing staged management of her indwelling stones. The right side has the lesser stone burden and is being addressed first. Please see H\T\P for further details. She has been covered with Augmentin pre and postoperatively via her primary care physician. Intravenous ciprofloxacin and gentamicin provided for antibiotic coverage today as well as SCDs used for DVT prophylaxis. DESCRIPTION OF PROCEDURE: The patient was properly identified and brought to the operative suite after identification of appropriate consent on the chart, general anesthesia with laryngeal mask was initiated. The patient was prepped and draped in a standard fashion for this procedure. ent consultant-out procedure was followed. A 22-St Helenian rigid cystoscope was passed into the bladder under direct visualization and bladder was surveyed in its entirety. No intravesical lesions or papillary masses were noted. Ureteral stents were both in good position and noted to be completely unencrusted. Decision was made not to exchange the left ureteral stent barring dislodgement. Right-sided ureteral stent was grasped and brought down to the level of the meatus without difficulties. A sensor tip wire was advanced and kept up to the level of the renal pelvis until the end of the case as a safety wire. Two distinct radiopaque stones were appreciated consistent with the patient's previous imaging. Gentle retrograde pyelography was performed demonstrating a normal ureter without evidence of injuries. This was followed by an Amplatz Super Stiff wire as a working wire which allowed for placement of a 12/14 35 cm ureteral access sheath which was advanced up to the level of the proximal ureter without difficulties or resistance. The obturator was removed and a digital flexible ureteroscope was advanced up to the level of the right renal pelvis. Two large stones were appreciated with no other significant lesions or abnormalities. Using a 200 micron fiber at relatively high frequency and settings, the stones were fragmented into smaller pieces with a significant portion of the stone being simply dusted at the time of intervention. Only minimal laser scores to the renal parenchyma were appreciated. After this was complete, the larger fragments of stone were grasped using a 3-pronged grasper to ensure that passing them was feasible. These were able to be removed from the patient intact without difficulties or resistance throughout a moderately edematous ureter. Seeing the large number of smaller stone fragments, a complete extirpation of stones was not feasible. Again the stone fragments were inspected for a larger pieces of which none were appreciated either on direct visualization or fluoroscopy. After this was complete, complete exit ureteroscopy was performed including removal of the access sheath. This demonstrated no hidden areas of ureteral injury or tears throughout the course of the ureter. Cystoscope was backloaded over the safety wire, a 6 St Helenian 24 cm double-J ureteral stent was replaced with a full coil present within the renal pelvis and a full coil present on direct visualization within the bladder. Bladder was drained, the cystoscope was removed and anesthesia was reversed. The patient was transferred to the recovery room in stable condition. FOLLOWUP CARE: The patient will be discharged home with a prescription for Percocet and Pyridium. She is to complete the antibiotics that she has at home. Outpatient appointment with [facility] for followup and possible right ureteral stent removal was confirmed. We will approach her left stone after she has healed from this side. The patient is instructed to contact us should she note any fevers, chills, nausea, vomiting or other significant difficulties in the postoperative period. I attest to the content of the Intraoperative Record and any orders documented therein. Any exceptio ns are noted below.
== END 2016-10-01 14:15 | disposition home or self-care (01) ==
LOC: C.ACU 08:10
PROVIDERS: ATTEND Urology
DX: N20.0 Calculus of kidney (principal); N13.9 Obstructive and reflux uropathy, unspecified; Z87.440 Personal history of urinary (tract) infections; H40.059 Ocular hypertension, unspecified eye; M25.50 Pain in unspecified joint; I10 Essential (primary) hypertension; E78.5 Hyperlipidemia, unspecified; E11.9 Type 2 diabetes mellitus without complications; E55.9 Vitamin D deficiency, unspecified; Z79.52 Long term (current) use of systemic steroids; Z79.82 Long term (current) use of aspirin; Z79.899 Other long term (current) drug therapy; Z79.84 Long term (current) use of oral hypoglycemic drugs

== ENCOUNTER → 2016-10-10 | Outpatient (CLI) | payer OTHER ==
[~2016-10-10] MED LIST changes: -ASCO100T4 PO; +CIPR-255 PO; -CIPROFLOXACIN / D5W 400 MG IV SCH; -LACTATED RINGER'S 1000ML 1,000 ML IV SCH; +OXYC-57 PO; +PHEN-775 PO; +PHEN-939 PO; +PRED10TA PO
[2016-10-10 13:27] LABS: BASO % 1.1 %; BASO ABS # 0.12 K/uL (0-0.2); COMPLETE YES; EOS % 3.4 %; HEMATOCRIT 28.6 % (37-47); IG% 0.5 %; LYMPH % 28.8 %; LYMPH ABS # 3.01 K/uL (1.2-3.4); MEAN CELL VOLUME 89.7 fL (80-100); MEAN CORPUSCULAR HEMOGLOBIN 28.2 pg (25-34); MEAN CORPUSCULAR HGB CONC 31.5 g/dl (32-36); MEAN PLATELET VOLUME 9.6 fL (7.4-10.4); MONO % 6.7 %; NEUT % 59.5 %; PLATELET COUNT 385 K/uL (130-400); RED BLOOD COUNT 3.19 M/uL (4.2-5.4); WHITE BLOOD COUNT 10.44 K/uL (4.8-10.8)
[2016-10-10 13:35] LABS: URINE APPEARANCE CLOUDY (CLEAR); URINE BILIRUBIN NEG (NEG); URINE EPITHELIAL CELL AUTO >30 /lpf (0-5); URINE NITRITE NEG (NEG); URINE SPECIFIC GRAVITY 1.015 (1.000-1.030); UROBILINOGEN NEG (NEG)
[2016-10-10 13:43] LABS: MANUAL MICROSCOPIC REQUIRED? NO; REVIEW REQ? NO; URINE COLOR STRAW
[2016-10-10 14:28] LABS: BLOOD UREA NITROGEN 21 mg/dl (7-18); BUN/CREATININE RATIO 18.8 (10-20); CALCIUM 9.4 mg/dl (8.5-10.1); CARBON DIOXIDE 26 mmol/L (21-32); CHLORIDE 106 mmol/L (98-107); GLUCOSE 330 mg/dl (70-99); POTASSIUM 4.3 mmol/L (3.5-5.1); SODIUM 139 mmol/L (136-145)
[2016-10-10 14:42] LABS: BETA-HYDROXYBUTYRATE 0.97 mg/dL (0.2-2.81)
== END | disposition home or self-care (01) ==
LOC: C.LAB 12:11
PROVIDERS: ATTEND Urology
DX: N20.0 Calculus of kidney (principal)

== ENCOUNTER → 2016-10-10 | Outpatient (CLI) | payer OTHER ==
--- NOTE | 2016-10-10 09:15 | DIAGNOSTIC IMAGING REPORT ---
[facility] CLINICAL HISTORY: Bilateral kidney stones COMPARISON STUDY: 10/01/2016 FINDINGS: There has been interval fragmentation of the lower pole right renal calculi. Fragmented calculi measuring 19 mm in aggregate are visualized. On the left there are multiple renal calculi including a 19 mm calculus at the level the left renal pelvis and a 12 mm lower pole calculus. There are bilateral nephroureteral stents. There is a 9 mm triangular calcification within the pelvis. This was not visualized the prior study. This likely represents a bladder calculus. There are no findings to indicate bowel obstruction. IMPRESSION: 1. Bilateral nephrolithiasis 2. Bilateral nephroureteral stents 3. Extensive fragmentation of the lower pole right renal calculi 4. Possible 9 mm bladder calculus Electronically signed by: Americo Wilkinson M.D. 10/10/2016 9:13 AM Dictated Date/Time: 10/10/2016 9:11 AM
== END | disposition home or self-care (01) ==
LOC: C.RAD1850 08:38
PROVIDERS: ATTEND Urology
DX: N20.0 Calculus of kidney (principal)

== ENCOUNTER → 2016-10-23 | Outpatient (CLI) | payer OTHER ==
[~2016-10-23] MED LIST changes: -AMOX875T PO; +NovoLIN-R INSULIN PER UNIT CHARGE ONE; -PHEN-939 PO
--- NOTE | 2016-10-23 08:56 | DIAGNOSTIC IMAGING REPORT ---
[facility] CLINICAL HISTORY: Bilateral kidney stones. COMPARISON STUDY: [facility] October 10, 2016. FINDINGS: The right ureteral stent has been removed. The left ureteral stent remains in place. A 1.8 cm left renal pelvis calculus is unchanged. A few calculi within the lower pole of the left kidney measuring up to 1.2 cm are unchanged. Calculus fragments within lower pole of the right kidney are unchanged. No ureteral calculi are identified. There is no evidence for a bowel obstruction. IMPRESSION: 1. Interval removal of the right ureteral stent. No change in position of the left ureteral stent. 2. No change in the 1.8 cm left renal calculus, left renal calculi and right renal fragments. 3. No ureteral calculi identified. Electronically signed by: David Nichols M.D. 10/23/2016 8:55 AM Dictated Date/Time: 10/23/2016 8:52 AM
== END | disposition home or self-care (01) ==
LOC: C.RAD 08:02
PROVIDERS: ATTEND Urology
DX: N20.0 Calculus of kidney (principal)

== ENCOUNTER → 2016-10-24 | Outpatient (CLI) | payer OTHER ==
[~2016-10-24] MED LIST changes: -NovoLIN-R INSULIN PER UNIT CHARGE ONE
== END | disposition home or self-care (01) ==
LOC: C.LAB 12:56
PROVIDERS: ATTEND Internal Medicine
DX: M35.3 Polymyalgia rheumatica (principal)

== ENCOUNTER 2016-10-25 10:41 | Day surgery (SDC) | payer OTHER ==
[2016-10-15 07:31] VITALS: BMI 24.0
[~2016-10-25] VITALS: Ht 144.8 cm; Wt 50.9 kg
[~2016-10-25 10:41] MED LIST changes: -CIPR-255 PO; +CIPROFLOXACIN / D5W 400 MG IV SCH; +GENTAMICIN INJ 120 MG in DEXTROSE 5% 100ML 100 ML IV SCH; +LACTATED RINGER'S 1000ML 1,000 ML IV SCH; -PHEN-775 PO; -PRED10TA PO
[2016-10-25 12:20] VITALS: BP 167/82; PULSE 90; TEMP 36.7; O2SAT 97; Ht 144.8 cm; Wt 50.9 kg
[2016-10-25] MEDS ORDERED: EpHEDrine SULFATE INJ 50 MG/ML AMP IV PRN (12:45)
[2016-10-25] MEDS ORDERED: ONDANSETRON INJ 2 MG/ML 2 ML VIAL IV PRN (12:45)
[2016-10-25] MEDS ORDERED: MoRPHine SULFATE 10 MG/ML CARP/VIAL IV PRN (12:45)
[2016-10-25] MEDS ORDERED: FENTANYL CITRATE INJ 50 MCG/1 ML 2 ML VIAL IV PRN (12:45)
[2016-10-25] MEDS ORDERED: LABETALOL HCL IV 5 MG/ML 20ML IV PRN (12:45)
[2016-10-25] MEDS ORDERED: ATROPINE SULFATE 0.1 MG/ML 5ML SYR IV PRN (12:45)
[2016-10-25] MEDS ORDERED: KETOROLAC TROMETHAMINE 30 MG/ML VIAL IV. PRN (12:45)
[2016-10-25] MEDS ORDERED: PHENYLEPHRINE 100MCG/ML 5ML SYR IV PRN (12:45)
[2016-10-25] MEDS ORDERED: DEXAMETHASONE SOD INJ 4 MG/ML VIAL IV PRN (12:45)
[2016-10-25] MEDS ORDERED: METOCLOPRAMIDE HCL INJ 5 MG/ML 2 ML VIAL IV PRN (12:45)
--- NOTE | 2016-10-25 12:45 | History & Physical Bridge Note ---
H&P Re-Evaluation Bridge Note: I have examined the patient, reviewed the History & Physical and in the interval since the performance of the History & Physical I have noted the following changes of clinical significance: No changes noted
[2016-10-25] MEDS ORDERED: PRED10TA PO (12:57)
[2016-10-25] MEDS ORDERED: NURSING VERBAL MED ORDER ONE ×3 (13:30→14:15)
[2016-10-25] MEDS ORDERED: FENTANYL CITRATE INJ 50 MCG/1 ML 2 ML VIAL ONE (13:34)
[2016-10-25] MEDS ORDERED: PROPOFOL IV EMULSION 10 MG/ML 20 ML VIAL IV ONE (13:34)
[2016-10-25] MEDS ORDERED: LIDOCAINE HCL 2% 2 ML VIAL (20MG/ML) ONE (13:34)
[2016-10-25] MEDS ORDERED: NovoLIN-R INSULIN PER UNIT CHARGE IV ONE (13:45)
[2016-10-25] MEDS ORDERED: CONRAY 30% 150ML BOTTLE ONE (14:11)
[2016-10-25] MEDS ORDERED: NovoLIN-R INSULIN PER UNIT CHARGE SQ ONE ×2 (14:15→15:00)
[2016-10-25] MEDS ORDERED: ROCURONIUM BROMIDE 10 MG/ML 5 ML VIAL ONE (14:21)
[2016-10-25] MEDS ORDERED: ONDANSETRON INJ 2 MG/ML 2 ML VIAL ONE (14:21)
[2016-10-25] MEDS ORDERED: PHENYLEPHRINE 100MCG/ML 5ML SYR ONE (15:46)
--- NOTE | 2016-10-25 16:05 | DIAGNOSTIC IMAGING REPORT ---
INTRAOPERATIVE RADIOGRAPHS CLINICAL HISTORY: Left-sided retrograde ureterogram, laser lithotripsy, and stent exchange. Fluoroscopy time: 70 seconds. FINDINGS: 5 spot fluoroscopic views of the left upper quadrant from a retrograde ureterogram is performed. Mild left-sided hydronephrosis is identified. The final images show the proximal end of a left ureteral stent in place. IMPRESSION: Intraoperative images from left ureteral stent exchange. See operative report for detailed findings. Electronically signed by: Gabriele Díaz M.D. 10/25/2016 4:03 PM Dictated Date/Time: 10/25/2016 4:02 PM
[2016-10-25] MEDS ORDERED: CIPR-255 PO (16:20)
[2016-10-25] MEDS ORDERED: PHEN-775 PO (16:20)
--- NOTE | 2016-10-25 16:21 | Discharge Instructions ---
Discharge Instructions Date of Service October 25, 2016. Admission Reason for Admission: Left Stones Discharge Discharge Diagnosis / Problem: L renal stones s/p uscope, laser lithotripsy, stent exchange Discharge Goals Goal(s): Decrease discomfort, Improve function, Improve disease control, Therapeutic intervention Activity Recommendations Activity Limitations: per Instructions/Follow-up section Lifting Limitations: no more than 25 pounds, gradually increase as tolerated Exercise/Sports Limitations: rest today, gradually increase as tolerated May Resume Sexual Activity: when tolerated Shower/Bathe: no limitations Driving or Machine Use: resume 1 day after discharge . Discharge Diet Recommended Diet: Regular Diet (good fluid intake) Procedures Procedures Performed: Cysto, L RPG, L ureteroscopy, laser lithotripsy, stent exchange Pending Studies Studies pending at discharge: no Laboratory Results Hemoglobin A1c Test 08/15/16 10:03 Range/Units Estimated Average Glucose 203 mg/dl Hemoglobin A1c 8.7 H 4.5-5.6 % Medical Emergencies . Who to Call and When: Medical Emergencies: If at any time you feel your situation is an emergency, please call 911 immediately. . Non-Emergent Contact Non-Emergency issues call your: Urologist Call Non-Emergent contact if: you have a fever, temperature is above 101, your pain is not controlled, your pain is worsening, your pain is unusual for you, your pain is concerning you, you have any medication questions . . "Provider Documentation" section prepared by Bradley Mathews. . VTE Core Measure Inpt VTE Proph given/why not?: SCD's [place] Drug Monitoring Program Search Results: patient reviewed within database, no issues identified (last Rx by myself at earlier surgery)
--- NOTE | 2016-10-25 16:24 | [facility] Post Operative Brief Note ---
Immediate Operative Summary Operative Date October 25, 2016. Pre-Operative Diagnosis Left Renal Stones Post-Operative Diagnosis Left Renal Stones Procedure(s) Performed Cysto, L RPG, L flexible ureteropyeloscopy, laser lithotripsy, basket stone extraction, stent exchange Surgeon Dr. Mark Mathews Supervisor Mechanic Boilermaking Surgeon(s) None Estimated Blood Loss 0 ml Findings Stones dusted and fragmented, consumer sales representative samples removed, no ureteral injury noted, stent in good position after completion, no large fragments remaining Specimens A. left renal stones, NO analysis needed Drains 6 fr 24 cm JJ L ureteral stent Anesthesia [facility] Complication(s) None Disposition Recovery Room / PACU
[2016-10-25] MEDS ORDERED: OXYCODONE/ACETAMINOPHEN 5-325 TAB PO PRN (16:30)
[2016-10-25] MEDS ORDERED: PHENAZOPYRIDINE HCL 200 MG TAB PO PRN (16:30)
[2016-10-25 16:40] VITALS: BP 154/71; PULSE 72; TEMP 36.6; O2SAT 96
--- NOTE | 2016-10-25 16:42 | Anesthesiology Progress Note ---
Anesthesia Post Op Note Date & Time October 25, 2016 at 16:42 Vital Signs Pain Intensity: 0 Vital Signs Past 12 Hours Date Time Temp Pulse Resp B/P Pulse Ox O2 Delivery O2 Flow Rate FiO2 10/25/16 16:30 36.3 72 16 143/76 100 Room Air 10/25/16 16:20 74 16 148/72 100 Mask 10 10/25/16 16:10 75 16 149/76 100 Mask 10 10/25/16 16:02 36.2 84 16 157/79 100 Mask 10 10/25/16 12:20 36.7 90 20 167/82 97 Notes Mental Status: alert / awake / arousable, participated in evaluation Pt Amnestic to Procedure: Yes Nausea / Vomiting: adequately controlled Pain: adequately controlled Airway Patency, RR, SpO2: stable & adequate BP & HR: stable & adequate Hydration State: stable & adequate Anesthetic Complications: no major complications apparent
[2016-10-25 17:10] VITALS: BP 154/72; PULSE 78; O2SAT 99
[2016-10-25 17:40] VITALS: BP 143/63; PULSE 84; TEMP 36.6; O2SAT 97
--- NOTE | 2016-10-26 07:41 | OPERATIVE REPORT ---
DATE OF OPERATION: 10/25/2016 PREOPERATIVE DIAGNOSIS: Left large renal stones. POSTOPERATIVE DIAGNOSIS: Same. PROCEDURE: Cystoscopy, left retrograde pyelography, left ureteral stent exchange, left flexible ureteroscopy with laser lithotripsy and stone extraction. SURGEON: Dr. Bradley Mathews. SAFEMAKER: None. ANESTHESIA: General anesthesia with laryngeal mask. COMPLICATIONS: None. ESTIMATED BLOOD LOSS: Minimal. SPECIMENS SENT TO PATHOLOGY: Left renal stone fragments, no analysis necessary. DRAINS LEFT IN PLACE: Include a 6-Lao 24 cm double-J ureteral stent on the left hand side in good position on fluoroscopy. FINDINGS: Stones dusted with no large remaining fragments appreciated on visual inspection or fluoroscopy, good stent position on completion of case, no ureteral injury or tear. BRIEF HISTORY: Ms. Garcia is a pleasant 75-year-old female whom I have seen at the time of her previous admission for urosepsis with bilateral large upper tract stone burdens. She underwent acute stenting in recovery. She has since been undergoing staged endoscopic management of her stone burden. Right-sided ureteroscopy with laser lithotripsy was successful with minimal remaining stone fragments, and she is currently here for her left-sided surgery. Please see H\T\P and past notes for further details. Intravenous ciprofloxacin is provided for antibiotic coverage and SCDs used for DVT prophylaxis. Informed consent reviewed with the patient preoperatively today. DESCRIPTION OF PROCEDURE: The patient was properly identified and brought to the operative suite after identification of appropriate consent on the chart. General anesthesia with laryngeal mask was initiated. The patient was prepped and draped in standard fashion for this procedure. louver mortiser operator-out procedure was followed. A 22-Lao rigid cystoscope was passed into the bladder under direct visualization when an encrusted stent was noted to be protruding from the left ureteral orifice. No other worrisome findings within the bladder. Stent was grasped and brought down to the level of the meatus. This was then cannulated with a sensor tip wire which was advanced up to the level of the left renal pelvis and kept until the end of the case as a safety wire. The renal pelvis was opacified with contrast to allow for definition of calyceal anatomy demonstrating a large stone within the renal pelvis and the lower pole. An Amplatz Super Stiff wire was advanced without difficulties up to the renal pelvis. This was followed by a 12/14 Lao 35 cm ureteral access sheath which was able to be advanced to proximal ureter without resistance or difficulties. This was followed by a fiberoptic flexible ureteroscope which was passed into the renal pelvis. Stones were visualized on complete pyeloscopy. Using a 200 and then 270 micron fiber on dusting settings, the stone was dusted and fragmented into smaller pieces. Where larger pieces were available, a few senior patient account representative samples were grasped using both a 3-prong and an open-ended nitinol basket and able to be navigated through the ureter. Stones which were felt ot offer some resistance was demonstrated where further fragmented level of the renal pelvis. No renal or renal pelvis injuries were appreciated. After the stones were felt to be sufficiently fragmented free for easy passage of both fluoroscopy and visual inspection, complete exit ureteroscopy including a removal of the access sheath was performed. This demonstrated an intact ureter without lesions, ureteral tears, injuries or large stones. Bladder was nondistended, seen that the access sheath had been in place for the entire case. Cystoscope was backloaded over the safety wire, and a 6-Lao 24 cm double-J ureteral stent was placed with a full coil present at the level of the renal pelvis and a full coil visualized within the bladder. Bladder was drained and cystoscope was removed, anesthesia was reversed. The patient was transferred to recovery room in stable condition. FOLLOWUP CARE: The patient will be discharged home with a prescription for a short course of ciprofloxacin and Pyridium. Per the patient and her family, she continues to have narcotic pain medication at home which she did not use on her prior admission. Outpatient appointment with imaging and for stent removal was confirmed. The patient is instructed to contact us should she note any fevers, chills, nausea, vomiting or other significant difficulties in the postoperative period. Postoperative appointments are confirmed. I attest to the content of the Intraoperative Record and any orders documented therein. Any exceptio ns are noted below.
== END 2016-10-25 18:00 | disposition home or self-care (01) ==
LOC: C.ACU 10:41
PROVIDERS: ATTEND Urology
DX: N20.0 Calculus of kidney (principal); H40.059 Ocular hypertension, unspecified eye; I42.9 Cardiomyopathy, unspecified; Z79.52 Long term (current) use of systemic steroids; I10 Essential (primary) hypertension; E78.5 Hyperlipidemia, unspecified; E11.9 Type 2 diabetes mellitus without complications; E55.9 Vitamin D deficiency, unspecified; M35.3 Polymyalgia rheumatica; N13.9 Obstructive and reflux uropathy, unspecified; Q39.3 Congenital stenosis and stricture of esophagus; K44.9 Diaphragmatic hernia without obstruction or gangrene; Z79.82 Long term (current) use of aspirin; Z79.899 Other long term (current) drug therapy; Z79.84 Long term (current) use of oral hypoglycemic drugs

== ENCOUNTER → 2016-11-06 | Outpatient (CLI) | payer OTHER ==
[~2016-11-06] MED LIST changes: +CIPR-255 PO; -CIPROFLOXACIN / D5W 400 MG IV SCH; -GENTAMICIN INJ 120 MG in DEXTROSE 5% 100ML 100 ML IV SCH; -LACTATED RINGER'S 1000ML 1,000 ML IV SCH; +PRED10TA PO
--- NOTE | 2016-11-06 10:25 | DIAGNOSTIC IMAGING REPORT ---
KUB CLINICAL HISTORY: KIDNEY STONES COMPARISON STUDY: 10/23/2016 FINDINGS: There is a double-pigtail left-sided nephroureteral stent. There is been interval fragmentation of the left renal calculi. Multiple calcific fragments project over the mid to lower pole the left kidney. These extend over a distance of 4 cm. Granular calcifications consistent with calculi are also visualized in the right kidney. IMPRESSION: 1. Bilateral fragmented renal calculi 2. No change in the position of the left-sided nephroureteral stent Electronically signed by: Americo Wilkinson M.D. 11/06/2016 10:23 AM Dictated Date/Time: 11/06/2016 10:22 AM
== END | disposition home or self-care (01) ==
LOC: C.LAB 09:54
PROVIDERS: ATTEND Urology
DX: M35.3 Polymyalgia rheumatica (principal); N20.0 Calculus of kidney

== ENCOUNTER → 2016-11-26 | Outpatient (CLI) | payer OTHER ==
--- NOTE | 2016-11-26 16:00 | MAMMOGRAPHY REPORT ---
BILATERAL DIGITAL SCREENING MAMMOGRAM WITH CAD: 11/26/2016 CLINICAL HISTORY: Routine screening. Patient has no complaints. TECHNIQUE: Bilateral CC and MLO views were obtained. Current study was also evaluated with a Compute r Aided Detection (CAD) system. COMPARISON: Comparison is made to exams dated: 11/23/2015 mammogram, 11/19/2014 mammogram, 11/04/2013 ma mmogram, 11/03/2012 mammogram, 11/02/2011 mammogram, and 10/31/2010 mammogram - [facility] er. BREAST COMPOSITION: The tissue of both breasts is heterogeneously dense, which may obscure small mas ses. FINDINGS: There are diffuse bilateral benign-appearing coarse, rodlike, scattered and grouped microca lcifications which are stable compared to prior exams. There is a stable metallic biopsy marker in t he subareolar right breast. No new suspicious mass, architectural distortion or cluster of microcalc ifications is seen. IMPRESSION: ACR BI-RADS CATEGORY 1: NEGATIVE There is no mammographic evidence of malignancy. A 1 year screening mammogram is recommended. The pa tient will receive written notification of the results. Approximately 10% of breast cancers are not detected with mammography. A negative mammographic report should not delay biopsy if a clinically suggestive mass is present. Margoth Garland M.D. ay/:11/26/2016 13:43:11 Employment Educational Coord: Latonya Pittman RT(R)(M), [facility] letter sent: Normal 1/2 BI-RADS Code: ACR BI-RADS Category 1: Negative
== END | disposition home or self-care (01) ==
LOC: C.MAMM 09:43
PROVIDERS: ATTEND Internal Medicine
DX: Z12.31 Encounter for screening mammogram for malignant neoplasm of breast (principal)

== ENCOUNTER → 2017-01-21 | Outpatient (CLI) | payer OTHER ==
[2017-01-21 11:12] LABS: BLOOD UREA NITROGEN 24 mg/dl (7-18); BUN/CREATININE RATIO 25.4 (10-20); CREATININE 0.94 mg/dl (0.60-1.20)
== END | disposition home or self-care (01) ==
LOC: C.LAB 09:05
PROVIDERS: ATTEND Urology
DX: N20.0 Calculus of kidney (principal)

== ENCOUNTER → 2017-01-22 | Outpatient (CLI) | payer OTHER ==
--- NOTE | 2017-01-22 17:54 | DIAGNOSTIC IMAGING REPORT ---
LEFT LOWER EXTREMITY VENOUS DOPPLER HISTORY: R60.9 Peripheral edema left leg COMPARISON STUDY: None. FINDINGS: There is normal compressibility, flow, and augmentation within the left lower extremity deep venous system. Subcutaneous edema. IMPRESSION: No DVT within the left lower extremity. Electronically signed by: Celso Naidu M.D. 01/22/2017 5:53 PM Dictated Date/Time: 01/22/2017 5:53 PM
[2017-01-22 18:52] LABS: BLOOD UREA NITROGEN 26 mg/dl (7-18); BUN/CREATININE RATIO 23.5 (10-20); CALCIUM 9.8 mg/dl (8.5-10.1); CARBON DIOXIDE 29 mmol/L (21-32); CHLORIDE 107 mmol/L (98-107); GLUCOSE 203 mg/dl (70-99); POTASSIUM 4.5 mmol/L (3.5-5.1); SODIUM 140 mmol/L (136-145)
[2017-01-22 19:03] LABS: THYROID STIMULATING HORMONE 0.914 uIu/ml (0.300-4.500)
== END | disposition home or self-care (01) ==
LOC: C.ULTR 17:22
PROVIDERS: ATTEND Physician Assistant Medical
DX: R60.9 Edema, unspecified (principal); M35.3 Polymyalgia rheumatica

== ENCOUNTER → 2017-02-11 | Outpatient (CLI) | payer OTHER ==
[~2017-02-11] MED LIST changes: +OPTIRAY 300 IV PRN
--- NOTE | 2017-02-11 14:54 | DIAGNOSTIC IMAGING REPORT ---
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 These are similar as compared to the prior exam although somewhat diminished in overall volume in the left. Studies performed following the administration of 50 cc nonionic contrast. There is uniform and enhancement characteristics of the kidneys bilaterally. There are no obstructive changes. Bladder is midline. Patient was unable to tolerate a distended bladder. There is no significant post void residual. IMPRESSION: Nonobstructive lower pole renal calcifications bilaterally. No evidence for an obstructing urinary tract calculus. The above report was generated using voice recognition software. It may contain grammatical, syntax or spelling errors. Electronically signed by: Richardson Boo M.D. 02/11/2017 2:52 PM Dictated Date/Time: 02/11/2017 2:50 PM
== END | disposition home or self-care (01) ==
LOC: C.RAD 12:21
PROVIDERS: ATTEND Urology
DX: N20.0 Calculus of kidney (principal)

== ENCOUNTER → 2017-02-13 | Outpatient (CLI) | payer OTHER ==
[~2017-02-13] MED LIST changes: -OPTIRAY 300 IV PRN
[2017-02-13 14:34] LABS: BLOOD UREA NITROGEN 21 mg/dl (7-18); BUN/CREATININE RATIO 20.9 (10-20)
== END | disposition home or self-care (01) ==
LOC: C.LAB 12:42
PROVIDERS: ATTEND Urology
DX: N20.0 Calculus of kidney (principal)

== ENCOUNTER → 2017-03-25 | Outpatient (CLI) | payer OTHER ==
[2017-03-25 16:06] LABS: CREATININE RANDOM URINE 68.5 mg/dl
[2017-03-25 16:17] LABS: RATIO 379.6 mcg/mg (0-30.0)
[2017-03-26 06:57] LABS: ESTIMATED AVERAGE GLUCOSE 203 mg/dl; HA1C FLAG Normal (Normal)
== END | disposition home or self-care (01) ==
LOC: C.LAB1850 12:46
PROVIDERS: ATTEND Nurse Practitioner Family
DX: E11.9 Type 2 diabetes mellitus without complications (principal)

== ENCOUNTER → 2017-05-20 | Outpatient (CLI) | payer OTHER ==
[~2017-05-20] MED LIST changes: -OXYC-57 PO
[2017-05-20 13:18] LABS: RATIO 32.8 mcg/mg (0-30.0)
== END | disposition home or self-care (01) ==
LOC: C.LAB 09:23
PROVIDERS: ATTEND Nurse Practitioner Family
DX: E11.9 Type 2 diabetes mellitus without complications (principal)

== ENCOUNTER → 2017-06-25 | Outpatient (CLI) | payer OTHER ==
[2017-06-25 12:48] LABS: BASO % 0.8 %; BASO ABS # 0.06 K/uL (0-0.2); EOS % 11.8 %; EOS ABS # 0.91 K/uL (0-0.5); HEMATOCRIT 35.6 % (37-47); HEMOGLOBIN 11.8 g/dL (12.0-16.0); IG# 0.01 K/uL (0.00-0.02); LYMPH % 28.1 %; LYMPH ABS # 2.17 K/uL (1.2-3.4); MEAN CELL VOLUME 91.3 fL (80-100); MEAN CORPUSCULAR HEMOGLOBIN 30.3 pg (25-34); MEAN CORPUSCULAR HGB CONC 33.1 g/dl (32-36); MEAN PLATELET VOLUME 9.8 fL (7.4-10.4); MONO % 6.3 %; MONO ABS # 0.49 K/uL (0.11-0.59); NEUT % 52.9 %; NEUT ABS # 4.08 K/uL (1.4-6.5); PLATELET COUNT 369 K/uL (130-400); RED CELL DISTRIBUTION WIDTH CV 13.3 % (11.5-14.5); RED CELL DISTRIBUTION WIDTH SD 43.8 fL (36.4-46.3); WHITE BLOOD COUNT 7.72 K/uL (4.8-10.8)
[2017-06-25 13:08] LABS: HEMOGLOBIN A1C 7.3 % (4.5-5.6)
[2017-06-25 13:57] LABS: ALBUMIN 4.1 gm/dl (3.4-5.0); ALT/SGPT 21 U/L (12-78); AST/SGOT 21 U/L (15-37); BLOOD UREA NITROGEN 22 mg/dl (7-18); CALCIUM 9.3 mg/dl (8.5-10.1); CARBON DIOXIDE 26 mmol/L (21-32); CREATININE 0.93 mg/dl (0.60-1.20); GLUCOSE 100 mg/dl (70-99); POTASSIUM 4.2 mmol/L (3.5-5.1); SODIUM 137 mmol/L (136-145)
[2017-06-25 13:59] LABS: ALKALINE PHOSPHATASE 74 U/L (45-117); CHOLESTEROL 155 mg/dl (0-200); LDL CHOLESTEROL CALCULATED 96 mg/dl; TOTAL PROTEIN 7.1 gm/dl (6.4-8.2)
== END | disposition home or self-care (01) ==
LOC: C.LABPBG 08:58
PROVIDERS: ATTEND Internal Medicine
DX: E11.9 Type 2 diabetes mellitus without complications (principal); I10 Essential (primary) hypertension; E55.9 Vitamin D deficiency, unspecified; E78.5 Hyperlipidemia, unspecified; N20.0 Calculus of kidney; L40.9 Psoriasis, unspecified

== ENCOUNTER → 2017-07-01 | Outpatient (CLI) | payer OTHER | END | disposition home or self-care (01) | LOC: C.MAMM 09:46 | PROVIDERS: ATTEND Internal Medicine | DX: M81.0 Age-related osteoporosis without current pathological fracture (principal); Z79.52 Long term (current) use of systemic steroids ==

== ENCOUNTER 2017-08-21 14:58 | Emergency (ER) | payer OTHER ==
[~2017-08-21] VITALS: Ht 144.8 cm; Wt 58.7 kg
[~2017-08-21 14:58] MED LIST changes: -ASCO500T16 PO; -GLIP-197 PO; -GLIP2.5T11 PO
[2017-08-21] MEDS ORDERED: DEXTROSE 50% 50 ML SYR ONE (15:01)
[2017-08-21 15:09] VITALS: TEMP 37; Ht 144.8 cm; Wt 58.7 kg
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
[2017-08-21] MEDS ORDERED: GLIP-197 PO (16:41)
[2017-08-21] MEDS ORDERED: ASCO500T16 PO (16:41)
[2017-08-21] MEDS ORDERED: GLIP2.5T11 PO (16:41)
[2017-08-21 17:22] VITALS: BP 163/76; PULSE 88; O2SAT 100
== END 2017-08-21 17:29 | disposition home or self-care (01) ==
LOC: EDBD 14:58 → C.EDC 14:59
DX: E16.2 Hypoglycemia, unspecified (principal); V89.2XXA Person injured in unspecified motor-vehicle accident, traffic, initial encounter; E11.9 Type 2 diabetes mellitus without complications; Z79.899 Other long term (current) drug therapy

== ENCOUNTER → 2017-08-21 | Outpatient (CLI) | payer OTHER ==
[~2017-08-21] MED LIST changes: +ASCO500T16 PO; +GLIP-197 PO; +GLIP2.5T11 PO
--- NOTE | 2017-08-21 12:46 | DIAGNOSTIC IMAGING REPORT ---
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 A dose lowering technique was utilized adhering to the principles of ALARA. COMPARISON STUDY: 08/25/2016 FINDINGS: Study is considerably improved. Minimal bibasilar atelectatic change. Configuration of liver spleen and pancreas are unremarkable. Interval passage or removal of the obstructing calculi procedure described. Interval fragmentation of the residual calcifications. Right kidney has a group of fragmented calcifications within the lower pole measuring 10 x 5 mm in overall maximum dimension. Calcifications clustered in the mid and lower pole left kidney having a maximum overall dimension of 6 x 5 mm. These calcifications again are fragmented with the residual fragments in close apposition. There is no evidence for hydronephrosis. There is no current evidence for an obstructing urinary tract calculus. Infiltrative changes of the perirenal fat have resolved. Bowel pattern is considered nonobstructive. Several small calcified uterine fibroids are present. Findings of mild body wall anasarca have resolved. IMPRESSION: 1. Considerable improvement in the appearance of the scan compared to the prior study. 2. Interval removal or passage of the obstructing calcifications described procedure. 3. Residual calcifications within the kidneys represent residual fragments from larger calcifications are present previously. The above report was generated using voice recognition software. It may contain grammatical, syntax or spelling errors. Electronically signed by: Richardson Boo M.D. 08/21/2017 12:45 PM Dictated Date/Time: 08/21/2017 12:30 PM
== END | disposition home or self-care (01) ==
LOC: C.CTS 12:10
PROVIDERS: ATTEND Urology
DX: N20.0 Calculus of kidney (principal); Z87.440 Personal history of urinary (tract) infections

== ENCOUNTER → 2017-09-18 | Outpatient (CLI) | payer OTHER ==
[~2017-09-18] MED LIST changes: +ASCO500T16 PO; -CIPR-255 PO; +GLIP-197 PO; +GLIP2.5T11 PO; -PRED10TA PO
[2017-09-19 07:41] LABS: HEMOGLOBIN A1C 7.6 % (4.5-5.6)
== END | disposition home or self-care (01) ==
LOC: C.LABPBG 12:10
PROVIDERS: ATTEND Nurse Practitioner Family
DX: E11.9 Type 2 diabetes mellitus without complications (principal); M35.3 Polymyalgia rheumatica

== ENCOUNTER 2017-10-17 09:44 | Emergency (ER) | payer OTHER ==
[~2017-10-17] VITALS: Ht 144.8 cm; Wt 52.8 kg
[2017-10-17 09:46] VITALS: TEMP 36.5; Ht 144.8 cm; Wt 52.8 kg
[2017-10-17] MEDS ORDERED: SODIUM CHLORIDE 0.9% 500ML 500 ML IV STA (10:02)
[2017-10-17 11:11] LABS: BASO % 0.6 %; BASO ABS # 0.05 K/uL (0-0.2); EOS % 1.6 %; EOS ABS # 0.14 K/uL (0-0.5); HEMATOCRIT 29.9 % (37-47); HEMOGLOBIN 9.7 g/dL (12.0-16.0); IG# 0.02 K/uL (0.00-0.02); LYMPH % 17.7 %; LYMPH ABS # 1.52 K/uL (1.2-3.4); MEAN CELL VOLUME 88.2 fL (80-100); MEAN CORPUSCULAR HEMOGLOBIN 28.6 pg (25-34); MEAN CORPUSCULAR HGB CONC 32.4 g/dl (32-36); MEAN PLATELET VOLUME 8.2 fL (7.4-10.4); MONO % 6.4 %; MONO ABS # 0.55 K/uL (0.11-0.59); NEUT % 73.5 %; NEUT ABS # 6.31 K/uL (1.4-6.5); PLATELET COUNT 418 K/uL (130-400); RED CELL DISTRIBUTION WIDTH CV 16.3 % (11.5-14.5); RED CELL DISTRIBUTION WIDTH SD 52.4 fL (36.4-46.3); WHITE BLOOD COUNT 8.59 K/uL (4.8-10.8)
--- NOTE | 2017-10-17 11:24 | DIAGNOSTIC IMAGING REPORT ---
R FOOT MIN 3 VIEWS ROUTINE CLINICAL HISTORY: Right fifth toe ulcer COMPARISON: None. DISCUSSION: The bones are osteopenic. There is a prominent plantar calcaneal spur. There is a tiny Achilles insertional spur. There are vascular calcifications present. There are no acute fractures. There are moderate osteophytic changes at the level of the tarsometatarsal joints. There is cutaneous ulceration adjacent to the fifth toe. There are no underlying destructive lesions. IMPRESSION: 1. 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 No conventional radiographic evidence of osteomyelitis Electronically signed by: Americo Wilkinson M.D. 10/17/2017 11:23 AM Dictated Date/Time: 10/17/2017 11:22 AM
[2017-10-17 11:29] LABS: CALCIUM 8.1 mg/dl (8.5-10.1); CREATININE 1.48 mg/dl (0.60-1.20); POTASSIUM 3.6 mmol/L (3.5-5.1)
[2017-10-17] MEDS ORDERED: ACET-1256 PO (11:34)
[2017-10-17] MEDS ORDERED: PRED10TA PO (11:34)
[2017-10-17] MEDS ORDERED: GLC5 PO (11:34)
[2017-10-17] MEDS ORDERED: DOXY100C76 PO (12:11)
--- NOTE | 2017-10-17 12:33 | EMERGENCY ROOM VISIT NOTE ---
History Report prepared by Shahram: Harry Blanton Under the Supervision of: Dr. Blu Cobian M.D. First contact with patient: 09:52 Chief Complaint: TOE PAIN, INJURY Stated Complaint: HEARING LOSS, TOE MIGHT BE INFECTED History of Present Illness The patient is a 76 year old female who presents to the Emergency Room with complaints of a worsening right toe infection beginning a month ago. She states that the wound is located under her right pinky toe. She has not seen her PCP for the wound. The patient has a history of diabetes. She denies fevers, chills , bleeding/drainage from the wound, or pain into her right leg. Source of History: patient Onset: A month ago Position: toe(s) (under right pinky toe) Quality: other (infection) Timing: worsening Associated Symptoms: No fevers, No chills Note: The patient also complains of facial swelling and difficulty hearing. She denies pain radiating into her right leg. Review of Systems See HPI for pertinent positives and negatives. A total of ten systems were reviewed and were otherwise negative. Past Medical & Surgical Medical Problems: (1) Diabetes (2) E. coli septicemia (3) High cholesterol (4) Leukocytosis (5) Pyelonephritis Family History No pertinent family history stated. Social History Smoking Status: Never Smoker Alcohol Use: none Drug Use: none Marital Status: Occupation Status: retired Current/Historical Medications Scheduled Amlodipine/Benazepril (Lotrel 10MG/20MG), 1 CAP PO QAM Ascorbic Acid (Ascorbic Acid), 500 MG PO DAILY Aspirin (Aspirin Ec), 81 MG PO QAM Atorvastatin (Lipitor), 20 MG PO QPM Cholecalciferol (Vitamin D3), 3 TAB PO QAM Doxycycline Monohydrate (Monodox), 100 MG PO BID Ferrous Sulfate (Iron), 1 TAB PO QPM Glipizide (Glipizide Er), 2.5 MG PO QDB Glipizide (Glipizide), 5 MG PO QDD Metformin Hcl (Glucophage), 1,000 MG PO BID Potassium Chloride (Micro-K Ext Rel), 10 MEQ PO BID Prednisone Tab (Prednisone), 10 MG PO DAILY Scheduled PRN Acetaminophen (Tylenol), 500 MG PO Q4 PRN for Pain Mometasone Furoate (Nasal) (Mometasone Furoate), 2 SPRAYS JAKOB DAILY PRN for Nasal Congestion Allergies Coded Allergies: No Known Allergies (Unverified , 10/17/17) Physical Exam Vital Signs Date Time Temp Pulse Resp B/P (MAP) Pulse Ox O2 Delivery O2 Flow Rate FiO2 10/17/17 12:56 69 18 108/55 99 10/17/17 11:09 65 18 120/57 100 Room Air 10/17/17 09:46 36.5 70 20 93/51 100 Room Air Physical Exam Physical Exam GENERAL: She is oriented to person, place, and time. She appears well- developed and well-nourished. She does not appear distressed. ____ HENT: Exam performed. Head: Normocephalic and atraumatic. Right Ear: External ear normal. No mastoid tenderness. TM jacobs and pearly bilaterally. Left Ear: External ear normal. No mastoid tenderness. TM jacobs and pearly bilaterally. Mouth/Throat: The oropharynx is clear and moist. No trismus in the jaw. No dental abscesses or uvula swelling. No oropharyngeal exudate or tonsillar abscesses. ____ EYES: Conjunctivae and EOM are normal. Pupils are equal, round, and reactive to light. Right eye exhibits no discharge. Left eye exhibits no discharge. No scleral icterus. ____ NECK: Normal range of motion. Neck supple. No JVD present. No spinous process tenderness present. No carotid bruit present. No rigidity. No tracheal deviation and normal range of motion present. No Brudzinski's sign and no Kernig 's sign noted. ____ CV: Normal rate, regular rhythm, normal heart sounds and intact distal pulses. There is no peripheral edema. Palpable radial pulses bue. ____ PULM/CHEST: Effort normal and breath sounds normal. No respiratory distress. No stridor. She has no wheezes. She has no rales. Chest Wall: She exhibits no tenderness. ____ ABD: The abdomen is soft. Bowel sounds are normal. She has no distension. No mass is present. There is no tenderness. There is no rebound, no guarding, no Britton's sign and no tenderness at McBurney's point. Rovsig negative MUSC/SKEL: Normal range of motion. There is no tenderness or deformity. Palpable DP/PT pulses bilaterally. No swelling or pain to the lower extremities bilaterally. LYMPH: No cervical adenopathy. ____ NEURO: She is alert and oriented to person, place, and time. She has normal strength. No cranial nerve deficit or sensory deficit. Coordination and gait normal. GCS eye subscore is 4. GCS verbal subscore is 5. GCS motor subscore is 6. Cerebellar tests wnl. ____ SKIN: Skin is warm and dry. She is not diaphoretic. 1 cm diameter black appearing wound under her right fifth toe. No oozing. No surrounding erythema. _ ___ PSYCH: She has a normal mood and affect. Her behavior is normal. Judgment and thought content normal. ____ Medical Decision & Procedures ER Provider Diagnostic Interpretation: Radiology results as stated below per my review and radiologist interpretation: R FOOT MIN 3 VIEWS ROUTINE DISCUSSION: The bones are osteopenic. There is a prominent plantar calcaneal spur. There is a tiny Achilles insertional spur. There are vascular calcifications present. There are no acute fractures. There are moderate osteophytic changes at the level of the tarsometatarsal joints. There is cutaneous ulceration adjacent to the fifth toe. There are no underlying destructive lesions. IMPRESSION: 1. 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 No conventional radiographic evidence of osteomyelitis Electronically signed by: Americo Wilkinson M.D. 10/17/2017 11:23 AM Laboratory Results 10/17/17 10:57 Red Blood Count 3.39, Mean Corpuscular Volume 88.2, Mean Corpuscular Hemoglobin 28.6, Mean Corpuscular Hemoglobin Concent 32.4, Mean Platelet Volume 8.2, Neutrophils (%) (Auto) 73.5, Lymphocytes (%) (Auto) 17.7, Monocytes (%) (Auto) 6.4, Eosinophils (%) (Auto) 1.6, Basophils (%) (Auto) 0.6, Neutrophils # (Auto) 6.31, Lymphocytes # (Auto) 1.52, Monocytes # (Auto) 0.55, Eosinophils # (Auto) 0.14, Basophils # (Auto) 0.05 10/17/17 10:57 Test 10/17/17 10:57 White Blood Count 8.59 K/uL (4.8-10.8) Red Blood Count 3.39 M/uL (4.2-5.4) Hemoglobin 9.7 g/dL (12.0-16.0) Hematocrit 29.9 % (37-47) Mean Corpuscular Volume 88.2 fL (80-100) Mean Corpuscular Hemoglobin 28.6 pg (25-34) Mean Corpuscular Hemoglobin Concent 32.4 g/dl (32-36) Platelet Count 418 K/uL (130-400) Mean Platelet Volume 8.2 fL (7.4-10.4) Neutrophils (%) (Auto) 73.5 % Lymphocytes (%) (Auto) 17.7 % Monocytes (%) (Auto) 6.4 % Eosinophils (%) (Auto) 1.6 % Basophils (%) (Auto) 0.6 % Neutrophils # (Auto) 6.31 K/uL (1.4-6.5) Lymphocytes # (Auto) 1.52 K/uL (1.2-3.4) Monocytes # (Auto) 0.55 K/uL (0.11-0.59) Eosinophils # (Auto) 0.14 K/uL (0-0.5) Basophils # (Auto) 0.05 K/uL (0-0.2) RDW Standard Deviation 52.4 fL (36.4-46.3) RDW Coefficient of Variation 16.3 % (11.5-14.5) Immature Granulocyte % (Auto) 0.2 % Immature Granulocyte # (Auto) 0.02 K/uL (0.00-0.02) Anion Gap 6.0 mmol/L (3-11) Est Creatinine Clear Calc Drug Dose 22.3 ml/min Estimated GFR () 39.2 Estimated GFR (Non- 33.8 BUN/Creatinine Ratio 26.9 (10-20) Lactic Acid Level 0.5 mmol/L (0.4-2.0) Calcium Level 8.1 mg/dl (8.5-10.1) Laboratory results reviewed by me Medications Administered Medications (Trade) Dose Ordered Sig/Tamika Route Start Time Stop Time Status Last Admin Dose Admin Sodium Chloride 500 ml @ 999 mls/hr Q31M STAT IV 10/17/17 10:02 10/17/17 10:32 DC 10/17/17 11:11 999 MLS/HR ED Course 0954: The patient was evaluated in room B8. A complete history and physical exam was performed. 1002: Ordered Sodium Chloride 500 ml @ 999 mls/hr IV. 1210: The patient's repeat vital signs are stable. Labs within normal limits including white blood cell count and lactic acid.. X-ray does not show evidence of osteomyelitis. Patient will be treated with antibiotics for diabetic foot ulcer. Wound care management will be arranged with aid of case planner. Family is in agreement. Patient will follow up with her PCP in 1-2 days. DISCHARGE - Plan of care discussed with patient and questions answered. The patient was given both verbal and printed discharge instructions. The patient verbalized understanding and ability to comply. The patient is to seek outpatient follow up as noted in the discharge instructions. The patient verbalized understanding and ability to comply. The patient is discharged in stable condition. The patient was instructed to return for worsening symptoms. Medical Decision The patient's vital signs are stable. Labs within normal limits. X-ray does not show evidence of osteomyelitis. Patient will be treated with antibiotics for diabetic foot ulcer. Wound care management will be arranged with aid of case planner. Family is in agreement. Patient will follow up with her PCP in 1-2 days. DISCHARGE - Plan of care discussed with patient and questions answered. The patient was given both verbal and printed discharge instructions. The patient verbalized understanding and ability to comply. The patient is to seek outpatient follow up as noted in the discharge instructions. The patient verbalized understanding and ability to comply. The patient is discharged in stable condition. The patient was instructed to return for worsening symptoms. Medication Reconcilliation Current Medication List: was personally reviewed by me Blood Pressure Screening Patient's blood pressure: Normal blood pressure Blood pressure disposition: Did not require urgent referral Impression Primary Impression: Diabetic foot ulcer Scribe Attestation The scribe's documentation has been prepared under my direction and personally reviewed by me in its entirety. I confirm that the note above accurately reflects all work, treatment, procedures, and medical decision making performed by me. The chart was completed utilizing [employer] voice recognition software. Grammatical errors, random word insertions, pronoun errors, and incomplete sentences are an occasional consequence of this system due to software limitations, ambient noise, and hardware issues. Any formal questions or concerns about the content, text, or information contained within the body of this dictation should be directly addressed to the physician for clarification. Departure Information Dispostion Home / Self-Care Prescriptions Doxycycline Monohydrate (Monodox) 100 Mg Cap 100 MG PO BID for 7 Days, #14 CAP Prov: Blu Cobian M.D. 10/17/17 Referrals Felton Hanna M.D. (PCP) Forms HOME CARE DOCUMENTATION FORM, IMPORTANT VISIT INFORMATION, WORK / SCHOOL INSTRUCTIONS Patient Instructions Diabetic Foot Ulcer Dc, ED Foot Care Diabetic, [facility] Additional Instructions follow up with wound care as instructed Problem Qualifiers Primary Impression: Diabetic foot ulcer Diabetic foot ulcer location: unspecified part of foot Diabetes mellitus type : other specified (including CLARISSE) Laterality: right Non-pressure ulcer stage: unspecified non-pressure ulcer stage Qualified Codes: E13.621 - Other specified diabetes mellitus with foot ulcer; L97.519 - Non-pressure chronic ulcer of other part of right foot with unspecified severity
[2017-10-17 12:56] VITALS: BP 108/55; PULSE 69; O2SAT 99
== END 2017-10-17 12:55 | disposition home or self-care (01) ==
LOC: C.EDB 09:45
DX: E13.621 Other specified diabetes mellitus with foot ulcer (principal); L97.519 Non-pressure chronic ulcer of other part of right foot with unspecified severity; E78.00 Pure hypercholesterolemia, unspecified; Z79.82 Long term (current) use of aspirin; Z79.84 Long term (current) use of oral hypoglycemic drugs; Z79.52 Long term (current) use of systemic steroids; Z79.899 Other long term (current) drug therapy

== ENCOUNTER → 2017-12-31 | Outpatient (CLI) | payer OTHER ==
[~2017-12-31] MED LIST changes: +ACET-1256 PO; +CLOP1TAB15 PO; -GLC/500 PO; +GLC5 PO; -GLIP2.5T11 PO; +PLV75 PO; +PRED10TA PO
[2017-12-31 12:43] LABS: BASO % 0.8 %; BASO ABS # 0.08 K/uL (0-0.2); EOS ABS # 0.32 K/uL (0-0.5); HEMATOCRIT 30.5 % (37-47); HEMOGLOBIN 9.4 g/dL (12.0-16.0); IG# 0.03 K/uL (0.00-0.02); LYMPH ABS # 1.81 K/uL (1.2-3.4); MEAN CELL VOLUME 86.2 fL (80-100); MEAN CORPUSCULAR HEMOGLOBIN 26.6 pg (25-34); MEAN CORPUSCULAR HGB CONC 30.8 g/dl (32-36); MEAN PLATELET VOLUME 9.2 fL (7.4-10.4); MONO % 6.9 %; MONO ABS # 0.73 K/uL (0.11-0.59); NEUT ABS # 7.65 K/uL (1.4-6.5); PLATELET COUNT 395 K/uL (130-400); RED CELL DISTRIBUTION WIDTH SD 44.4 fL (36.4-46.3); WHITE BLOOD COUNT 10.62 K/uL (4.8-10.8)
[2017-12-31 12:53] LABS: PTT PATIENT 24.5 SECONDS (21.0-31.0)
== END | disposition home or self-care (01) ==
LOC: C.LABPBG 09:24
PROVIDERS: ATTEND Internal Medicine
DX: I73.9 Peripheral vascular disease, unspecified (principal); M35.3 Polymyalgia rheumatica

== ENCOUNTER → 2018-01-16 | Outpatient (CLI) | payer OTHER ==
[~2018-01-16] MED LIST changes: +INSDGI SC; +PRD/1 PO
[2018-01-16 16:35] LABS: BASO % 0.5 %; BASO ABS # 0.05 K/uL (0-0.2); EOS % 0.5 %; EOS ABS # 0.06 K/uL (0-0.5); HEMATOCRIT 29.4 % (37-47); HEMOGLOBIN 8.9 g/dL (12.0-16.0); IG# 0.03 K/uL (0.00-0.02); LYMPH % 14.5 %; LYMPH ABS # 1.61 K/uL (1.2-3.4); MEAN CELL VOLUME 87.2 fL (80-100); MEAN CORPUSCULAR HEMOGLOBIN 26.4 pg (25-34); MEAN CORPUSCULAR HGB CONC 30.3 g/dl (32-36); MEAN PLATELET VOLUME 9.1 fL (7.4-10.4); MONO % 3.6 %; NEUT % 80.6 %; NEUT ABS # 8.93 K/uL (1.4-6.5); PLATELET COUNT 383 K/uL (130-400); RED CELL DISTRIBUTION WIDTH CV 15.2 % (11.5-14.5); RED CELL DISTRIBUTION WIDTH SD 48.9 fL (36.4-46.3); WHITE BLOOD COUNT 11.08 K/uL (4.8-10.8)
[2018-01-16 16:40] LABS: PTT PATIENT 23.3 SECONDS (21.0-31.0)
[2018-01-16 16:49] LABS: BLOOD UREA NITROGEN 33 mg/dl (7-18); CALCIUM 8.8 mg/dl (8.5-10.1); CARBON DIOXIDE 25 mmol/L (21-32); GLUCOSE 301 mg/dl (70-99); POTASSIUM 4.6 mmol/L (3.5-5.1); SODIUM 138 mmol/L (136-145)
== END | disposition home or self-care (01) ==
LOC: C.LAB1850 15:20
PROVIDERS: ATTEND Internal Medicine Interventional Cardiology
DX: M25.50 Pain in unspecified joint (principal); N20.0 Calculus of kidney; R60.9 Edema, unspecified; I73.9 Peripheral vascular disease, unspecified; I10 Essential (primary) hypertension

== ENCOUNTER 2018-01-22 05:33 | Day surgery (SDC) | payer OTHER ==
[2018-01-22] VITALS (9 sets, daily range): BP systolic 130–169; BP diastolic 67–82; PULSE 69–82; TEMP 36.6–37.2; O2SAT 97–99; Ht 144.8 cm; Wt 54.0 kg
[~2018-01-22] VITALS: Ht 144.8 cm; Wt 54.0 kg
[~2018-01-22 05:33] MED LIST changes: -INSDGI SC; -PRD/1 PO
[2018-01-22] MEDS ORDERED: SODIUM CHLORIDE 0.9% 1000ML 1,000 ML IV SCH ×2 (06:00→11:20)
[2018-01-22] MEDS ORDERED: PRD/1 PO (06:03)
[2018-01-22] MEDS ORDERED: INSDGI SC (06:03)
[2018-01-22] MEDS ORDERED: NITROGLYCERIN/D5W 100MCG/ML 20ML SYR ONE (07:30)
[2018-01-22] MEDS ORDERED: NiCARDipine HCL INJ 2.5 MG/ML 10 ML AMP ONE (07:35)
[2018-01-22] MEDS ORDERED: FENTANYL CITRATE INJ 50 MCG/1 ML 2 ML VIAL ONE (07:35)
[2018-01-22] MEDS ORDERED: MIDAZOLAM HCL 1 MG/ML 2ML VIAL ONE (07:35)
[2018-01-22] MEDS ORDERED: NITROGLYCERIN 5 MG/ML 10 ML VIAL ONE (07:36)
[2018-01-22] MEDS ORDERED: HEPARIN SOD (PORCINE) 1000 UNIT/ML 10 ML VIAL ONE (07:36)
--- NOTE | 2018-01-22 07:48 | Pre Sedation Assessment ---
Pre Sedation Assessment General Date of Sedation: Jan 22, 2018. Vital Signs Past 12 Hours Date Time Temp Pulse Resp B/P (MAP) Pulse Ox O2 Delivery O2 Flow Rate FiO2 01/22/18 06:06 36.8 74 16 169/82 (111) 99 Room Air Review Cardiovascular: regular rate, rhythm, no edema Lungs: chest non-tender, lungs clear Pre-Sedation Airway Assessment Smoking Status: Never Smoker Hx of Sleep Apnea: No Hx of difficult intubation: No Short Thick Neck: No Thyro-mental Distance: > 3 Finger Breadths Oral Cavity: Dentures ASA Classification: Class III NPO Status Date of Last Intake of Fluids: Jan 21, 2018 Time of Last Intake of Fluids: 1929 Date of Last Intake of Solids: Jan 21, 2018 Time of Last Intake of Solids: 1929 Procedure Planning Contraindications for Sedation: None Current Medications Reviewed: Yes Notes The planned sedation has been discussed with the patient. Informed Consent was obtained. I have identified the patient, determined the appropriateness of sedation and have assessed the patient immediately prior to the procedure. All medicine(s) and interventions are by my order.
[2018-01-22] MEDS ORDERED: LIDOCAINE HCL 1% 20 ML VIAL SQ ONE (08:40)
[2018-01-22] MEDS ORDERED: MIDAZOLAM HCL 1 MG/ML 2ML VIAL IV ONE (08:40)
[2018-01-22] MEDS ORDERED: FENTANYL CITRATE INJ 50 MCG/1 ML 2 ML VIAL IV ONE (08:40)
[2018-01-22] MEDS ORDERED: HEPARIN SOD (PORCINE) 1000 UNIT/ML 10 ML VIAL IV ONE ×2 (09:04→09:25)
[2018-01-22] MEDS ORDERED: NITROGLYCERIN 5 MG/ML 10 ML VIAL IART ONE ×3 (10:04→10:31)
[2018-01-22] MEDS ORDERED: ORM MISCELLANEOUS MED XX ONE ×2 (10:10→10:28)
--- NOTE | 2018-01-22 11:02 | Post Sedation Assessment ---
Post Sedation Assessment General Date of Sedation Jan 22, 2018. Vital Signs: Vital Signs Past 12 Hours Date Time Temp Pulse Resp B/P (MAP) Pulse Ox O2 Delivery O2 Flow Rate FiO2 01/22/18 06:06 36.8 74 16 169/82 (111) 99 Room Air Post Procedure Recovery Score Activity: (2) Moves 4 extremities * Respiration: (2) Deep breath/cough Circulation: (2) +/-20% PreAnes Value Consciousness: (2) Fully Awake Oxygen Saturation: (2) > 92% On Room Air Discharge Sedation Level of Care: Fast Track Phase II Post Sedation Plan On clinical assessment, the patient appears to have tolerated the sedation without complications. Patient is recovering as anticipated. Patient will continue to be monitored by nursing and may be discharged when sedation discharge criteria are met per below protocol. Upon Completions of procedure and additional 15 minutes continue every 5 minute vital signs and the P.A.R. score; then discharge to a Phase I or Fast Track to Phase II per the following guidelines: * Discharge Patient to appropriate Phase II area if PAR is 8 or greater or return to pre- procedure baseline. The post - procedure orders will be as directed. * If PAR score is less than 8 or not return to pre-procedure baseline then patient will follow Phase I monitoring till PAR is reached for Phase II. The Phase I may be done in procedure room or may call to secure a Phase I area. * If naloxone or flumazenil are used for reversal, hold in Phase I for an additional 60 -120 minutes before discharge to Phase II. Please call the Sedation Physician to re-evaluate and complete post-note for discharge to Phase II area. Do NOT discharge from procedure sedation or Phase 1 until post- sedation evaluation note is complete by procedure /sedation MD Sedation Discharge Instructions to be given to the patient at discharge to home.
--- NOTE | 2018-01-22 11:18 | [facility] Operative Report ---
Operative Report Operative Date Jan 22, 2018. Pre-Operative Diagnosis Peripheral Artery Disease Post-Operative Diagnosis Peripheral Artery Disease Procedure(s) Performed Left Lower Extremity Angiogram, Mechanical Atherectomy of Left Posterior Tibial Artery, Percutaneous Transluminal Angioplasty of Left Peroneal Tibial Trunk and Posterior Tibial Artery, Mechanical Closure of Right Femoral Artery, Moderate Sedation from 0840 - Surgeon Dr. Ayala Hot End Operator Surgeon(s) Nancy Bermudez Estimated Blood Loss 20 Findings For full details of patients lower extremity angiography please see operative report from 12/11/2017. Briefly, patient found to have severe left lower extremity tibial disease. In the setting of rest pain decision to intervene on posterior tibial artery. Specimens None Drains None Anesthesia Type IV Sedat Cons RN Only Complication(s) none Disposition Recovery Room / PACU Description of Procedure US guided access right DESK DIRECTOR. rim catheter, glideadvantage. Later, selective angiogram with a quickcross in SFA to visualize the foot, Noted to have mild to moderate popliteal disease, occluded proximal EDSON, 70% TPT disease, occluded proximal peroneal and DISC RULER OPERATOR with multiple sequential 95+% stenosis. DISC RULER OPERATOR lesions crossed eventually able to be crossed with a command and confianza wire with the aid of an 0.14 quickcross and corsair catheter. Intravascular distal position confirmed via injection through corsair. Wire exchanged for CombineNeter wire. CSI with 1.25 micro crown (multiple run at low, medium and high). Angioplasty of DISC RULER OPERATOR with 2.0 balloon. Angioplasty of TPT/proximal DISC RULER OPERATOR with 2.5 balloon. IA nitroglycerin for vessel spasm. Post procedure good angiographic result, no evidence of dissection/perforation. Inline DISC RULER OPERATOR flow to plantar arteries. Contrast used: 95cc. Patient tolerated well. Mynx left groin with manual hemostasis. Summary: 1. Left lower extremity 70% TPT, occluded proximal anterior tibial and peroneal arteries and diffuse, calcified 95+% disease in post tibial artery. 2. Successful angioplasty and mechanical orbital atherectomy of left posterior tibial artery - Successful angioplasty of left TPT. I attest to the content of the Intraoperative Record and any orders documented therein. Any exceptions are noted below.
--- NOTE | 2018-01-22 11:20 | Discharge Instructions ---
Discharge Instructions Procedure Procedure Date: Jan 22, 2018. Reason for Visit: Peripheral Arterial Disease,Peripheral Edema. Discharge Discharge Date: Jan 22, 2018. Discharge Diagnosis: Peripheral arterial disease Last Recorded Wt (Kilograms): 54 Anesthesia Post Anesthesia Instructions: If you have had General Anesthesia or IV Sedation: * Do not drive today. * Resume driving when surgeon permits. * Do not make important decisions or sign legal documents today. * Call surgeon for: 1. Temperature elevations greater than 101 degrees F. 2. Uncontrollable pain. 3. Excessive bleeding. 4. Persistent nausea and vomiting. 5. Medication intolerance (nausea, vomiting or rash). * For nausea and vomiting use only clear liquids such as: tea, soda, bouillon until nausea subsides, then gradually increase diet as tolerated. * If you have any concerns or questions, call your surgeon's office. If physician is unavailable and it is an emergency, call 911 or go to the nearest emergency room. Instructions Activity Recommendations: limitations as noted below Recommended Home Diet: resume previous diet, low sodium, low cholesterol Allergies: Coded Allergies: No Known Allergies (Unverified , 01/22/18) Follow Up Additional Instructions: ACTIVITY RECOMMENDATIONS: It is common to feel weak and fatigue for a few days. * Do not drive or operate any motorized equipment for the next 2 days. * Limit stair usage (2 or 3 trips a day only) for the next three days. * Do not lift anything heavier than 10 pounds for the next three days. * Do not engage in vigorous exercise or any sports for the next five days. * You may shower the day after your procedure, but do not immerse the area for three days. Cleanse the site gently with soap and water. SPECIAL CARE INSTRUCTIONS: * You may replace the pressure dressing or band-aid the morning after the procedure. * After your procedure, it is normal to have a small bruise or small lump at the site. Examine your site daily for any change in the bruise or lump, redness, swelling, drainage or numbness. Notify your doctor if any change. BLEEDING: * If there is a small amount of bleeding at the site, lie down and apply firm pressure with a clean cloth for ten minutes. When the bleeding stops, lie quietly keeping the procedure limb straight for six hours. Notify your doctor as soon as possible. * If the bleeding does not stop after ten minutes or if there is a large amount of bleeding or spurting, call 911 immediately. Continue to lie down and hold firm pressure until help arrives. SKIN IRRITATION: * You may experience some redness and/or swelling in the area where radiation was administered. If any skin irritation occurs, please contact your family physician. FOLLOW UP VISIT: Keep any scheduled doctor appointments. Follow-up with: 3-[address] Jamie Piña Recommendations: Call your doctor if: * Temperature above 101 degrees * Pain not relieved by pain medicine ordered * There is increased drainage or redness from any incision * You have any unanswered questions or concerns. Your Doctors Instructions noted above were prepared by provider Johnny Ayala. Patient Signature Section: Patient Instructions Signature Page Marianela Garcia Patient (or Guardian) Signature/Date: I have read and understand the instructions given to me by my caregivers. Caregiver/RN/Doctor Signature/Date: The above-named patient and/or guardian has received patient instructions on this date. + Original Patient Signature Page (only) stays with chart. Please make copy for patient.
[2018-01-22] MEDS ORDERED: ONDANSETRON INJ 2 MG/ML 2 ML VIAL IV PRN (11:30)
[2018-01-22] MEDS ORDERED: ACETAMINOPHEN 325 MG TAB PO PRN (11:30)
== END 2018-01-22 14:48 | disposition home or self-care (01) ==
LOC: C.ACU 05:33
PROVIDERS: ATTEND Internal Medicine Interventional Cardiology
DX: I73.9 Peripheral vascular disease, unspecified (principal); E11.621 Type 2 diabetes mellitus with foot ulcer; L97.519 Non-pressure chronic ulcer of other part of right foot with unspecified severity; M35.3 Polymyalgia rheumatica; E55.9 Vitamin D deficiency, unspecified; I10 Essential (primary) hypertension; E78.5 Hyperlipidemia, unspecified; Z79.52 Long term (current) use of systemic steroids; Z87.442 Personal history of urinary calculi; Z87.440 Personal history of urinary (tract) infections

== ENCOUNTER 2019-04-10 07:22 | Inpatient (IN) ==
--- NOTE | 2019-03-02 10:33 | Anesthesiology Consultation ---
Date of Service March 02, 2019 Assessment & Plan (1) Encounter for pre-operative examination: - Check BSG AM DOS - ASA instructions: per patient, advised to continue as directed perioperatively* Chart Review Chart Review: Pending: Refer to Additional Notes / Consult section (pending preop testing (labs, EKG, CXR)) and Patient seen in Pre Admission Testing Teaching & Discussion Pre-Anesthesia Teaching/Discussion Notes: Instructed NPO after midnight before surgery,except medications with 15 cc of water. Medication instructions provided according to the PAT guidelines. History Surgery Operation Date: 04/10/19 14:20 Proposed Procedures p Left Total Shoulder Arthroplasty - Juan R Kaye, Height/Weight Height: 4 ft 9 in Weight: 52.5 kg Allergies Allergy/AdvReac Type Severity Reaction Status Date / Time No Known Allergies Allergy Verified 11/26/18 10:53 Medications Home Medications Medication Instructions Recorded Confirmed Last Taken aspirin 81 mg tablet,delayed 81 mg PO QAM 01/27/18 02/23/19 05/28/18 06:00 release mometasone 50 mcg/actuation nasal 2 sprays INTNAS DIRECTED 01/27/18 02/23/19 Unknown spray amlodipine 5 mg tablet 10 mg PO QAM 08/29/18 02/23/19 Unknown docusate sodium 100 mg capsule 100 mg PO DIRECTED 08/29/18 02/23/19 Unknown acetaminophen 325 mg capsule 325 mg PO Q6H PRN cap 11/17/18 02/23/19 Unknown atorvastatin 10 mg tablet 20 mg PO QPM #90 tab 11/17/18 02/23/19 Unknown insulin aspart (U-100) 100 unit/mL 2 units SUBCUT QPM #1 ml 11/17/18 02/23/19 Unknown (3 mL) subcutaneous pen blood sugar diagnostic strips #10 ea 11/20/18 11/26/18 Unknown cholecalciferol (vitamin D3) 2,000 4,000 units PO QAM tab 11/20/18 02/23/19 Unknown unit tablet ferrous sulfate 325 mg (65 mg 325 mg PO QAM tab 11/20/18 02/23/19 Unknown iron) tablet,delayed release latanoprost 0.005 % eye drops 1 drops OP QPM ml 11/20/18 02/23/19 Unknown metformin 500 mg tablet 1,000 mg PO QAM tab 11/20/18 02/23/19 Unknown pen needle, diabetic 31 gauge x #30 ea 11/20/18 11/26/18 Unknown 08/16" gabapentin 400 mg capsule 400 mg PO HS #90 cap 12/11/18 02/23/19 Unknown Tresiba FlexTouch U-100 03/02/19 Unknown Past Medical History Medical History Hypoglycemia associated with type 2 diabetes mellitus Peripheral edema chronic L>R s/p surgery PMR (polymyalgia rheumatica) Bilateral kidney stones Borderline glaucoma with ocular hypertension Diabetes mellitus type 2, uncontrolled IDDM Hiatal hernia Hyperlipidemia Hypertension Psoriasis PAD (peripheral artery disease) s/p Left popliteal-tibial bypass (07/2018) Exercise / Class Metabolic Activity III < 4 Walking/Shop/Light housework Past Family History Family History Mother Breast cancer Unknown Hyperlipidemia Hypertension Sister Diabetes Past Surgical History Surgical History S/P popliteal-tibial bypass Left popliteal-tibial bypass (07/2018) S/P cystoscopy with ureteral stent placement bilateral H/O section x 2 History of cataract surgery bilateral History of esophagogastroduodenoscopy (EGD) with Dilitation History of tooth extraction uppers Status post femoral-popliteal bypass surgery [facility] 07/22, left Past Anesthesia History No Hx of Anesthesia Complications and No Family Hx of Anesthesia Complications History of PONV No Hx of PONV and No Hx of Motion Sickness Social History Smoking Status: Never smoker Do You Dip or Chew Tobacco: No Hx Alcohol Use: No Hx Substance Use: No substance use type: does not use Review of Systems Patient denies chest pain, shortness of breath, reflux, cough, wheezing, palpitations. Physical Exam Vital Signs VITALS BP 163/74 P 81 TEMP 98.1 SP02 95%RA RESP 16 PHYSICAL Full neck and c-spine range of motion. Full TMJ range of motion. TMD 3 finger breaths Mallampati Score 3 Dentition: full upper denture, lower missing molars Lungs: clear throughout to auscultation Cardiac: regular rate and rhythm, no murmurs noted Spine: normal Carotid arteries: negative bruit Extremities: no edema
--- NOTE | 2019-03-02 10:41 | PAT Medication Instructions ---
Medication Instructions Date of Service March 02, 2019 Home Medications Medication Instructions Recorded atorvastatin 10 mg tablet 20 mg PO QPM #90 tab 11/17/18 gabapentin 400 mg capsule 400 mg PO HS #90 cap 12/11/18 aspirin 81 mg tablet,delayed release 81 mg PO QAM mometasone 50 mcg/actuation nasal spray 2 sprays INTNAS DIRECTED amlodipine 5 mg tablet 10 mg PO QAM docusate sodium 100 mg capsule 100 mg PO DIRECTED acetaminophen 325 mg capsule 325 mg PO Q6H PRN atorvastatin 10 mg tablet 20 mg PO QPM insulin aspart (U-100) 100 unit/mL (3 mL) subcutaneous pen 2 units SUBCUT QPM cholecalciferol (vitamin D3) 2,000 unit tablet 4,000 units PO QAM ferrous sulfate 325 mg (65 mg iron) tablet,delayed release 325 mg PO QAM latanoprost 0.005 % eye drops 1 drops OP QPM metformin 500 mg tablet 1,000 mg PO QAM gabapentin 400 mg capsule 400 mg PO HS erlotinib 6 units ASK your prescriber and surgeon aspirin 81 mg tablet,delayed release 81 mg PO QAM erlotinib 6 units DO NOT take the morning of surgery docusate sodium 100 mg capsule 100 mg PO DIRECTED cholecalciferol (vitamin D3) 2,000 unit tablet 4,000 units PO QAM ferrous sulfate 325 mg (65 mg iron) tablet,delayed release 325 mg PO QAM metformin 500 mg tablet 1,000 mg PO QAM Take morning of surgery With a small sip of water, OTHERWISE NOTHING TO EAT OR DRINK AFTER MIDNIGHT: mometasone 50 mcg/actuation nasal spray 2 sprays INTNAS DIRECTED (if needed) amlodipine 5 mg tablet 10 mg PO QAM acetaminophen 325 mg capsule 325 mg PO Q6H PRN (okay to take up to 4 hours prior to surgery if needed) Take evening before surgery mometasone 50 mcg/actuation nasal spray 2 sprays INTNAS DIRECTED (if needed) acetaminophen 325 mg capsule 325 mg PO Q6H PRN (if needed) atorvastatin 10 mg tablet 20 mg PO QPM insulin aspart (U-100) 100 unit/mL (3 mL) subcutaneous pen 2 units SUBCUT QPM latanoprost 0.005 % eye drops 1 drops OP QPM gabapentin 400 mg capsule 400 mg PO HS Other Notes If you have any questions please call us at [phone] or [phone] or [phone] or [phone]
--- NOTE | 2019-03-02 11:36 | XRay Report ---
XR chest Pre-admission PA/Lat CLINICAL HISTORY: Preoperative evaluation. COMPARISON STUDY: Chest radiograph August 30, 2016 FINDINGS: Lung volumes are normal. Lungs are clear. There is no pneumothorax or pleural effusion. Car diac size is normal. Mediastinal contours are normal. There is no evidence for pulmonary edema. IMPRESSION: No acute cardiopulmonary findings. Electronically signed by: David Nichols M.D. 03/02/2019 11:35 AM
[2019-03-02 13:03] LABS: Basophils # (auto) 0.09 K/uL (0-0.2); Eosinophils # (auto) 0.63 K/uL (0-0.5); Hematocrit (blood only) 37.2 % (37-47); Hemoglobin 11.9 g/dL (12.0-16.0); Immature Granulocytes # (auto) 0.02 K/uL (0.00-0.02); Immature Granulocytes % (auto) 0.2 %; Lymphocytes # (auto) 1.85 K/uL (1.2-3.4); Lymphocytes % (auto) 20.5 %; Mean Corpuscular Hemoglobin 28.7 pg (25-34); Mean Corpuscular Volume 89.6 fL (80-100); Mean Platelet Volume 9.9 fL (7.4-10.4); Monocytes # (auto) 0.83 K/uL (0.11-0.59); Monocytes % (auto) 9.2 %; Neutrophils # (auto) 5.61 K/uL (1.4-6.5); Neutrophils % (auto) 62.1 %; Platelet Count 294 K/uL (130-400); RDW Coefficient of Variation 13.1 % (11.5-14.5); RDW Standard Deviation 43.3 fL (36.4-46.3); Red Blood Count 4.15 M/uL (4.2-5.4); White Blood Count 9.03 K/uL (4.8-10.8)
[2019-03-02 13:18] LABS: Partial Thromboplastin Time 26.2 Seconds (21.0-31.0); Prothrombin Time 10.6 Seconds (9.0-12.0)
[2019-03-02 13:23] LABS: Estimated Average Glucose 177 mg/dl; Hemoglobin A1C 7.8 % (4.5-5.6)
[2019-03-02 13:58] LABS: BUN Creatinine Ratio 29.2 (10-20); Calcium 9.2 mg/dl (8.5-10.1); Creatinine Clr Calc Pharmacy 37.9 ml/min; Est GFR (African American) 76.6; Est GFR (Non-African American) 66.1; Potassium 4.1 mmol/L (3.5-5.1)
--- NOTE | 2019-04-09 19:43 | History & Physical Report ---
Date of Service April 09, 2019 Assessment & Plan (1) Rotator cuff arthropathy of left shoulder: We will proceed with a left reverse shoulder arthroplasty. Postoperatively she will be placed in a arm sling and kept overnight for postoperative medical management. She plans to use [employer] upon discharge. Present on Admission?: Yes History of Present Illness Chief Complaint: Rotator cuff arthropathy of the left shoulder Primary Care Provider: Felton Hanna MD Kim is a pleasant 78-year-old female who is been having a 2-year history of significant left shoulder pain. Initially she had a dog pulled her shoulder about 2 years ago and that is where it started. X-rays and clinical examination have been diagnostic for rotator cuff arthropathy of the left shoulder. After failing conservative treatment, she has elected to proceed with a left reverse shoulder arthroplasty. Allergies Allergy/AdvReac Type Severity Reaction Status Date / Time No Known Allergies Allergy Verified 04/03/19 10:33 Home Medications Home Medications Medication Instructions Recorded Confirmed Type aspirin 81 mg tablet,delayed 81 mg PO QAM 01/27/18 04/03/19 History release mometasone 50 mcg/actuation nasal 2 sprays INTNAS DIRECTED 01/27/18 04/03/19 History spray amlodipine 5 mg tablet 10 mg PO QAM 08/29/18 04/03/19 History docusate sodium 100 mg capsule 100 mg PO DIRECTED 08/29/18 04/03/19 History acetaminophen 325 mg capsule 325 mg PO Q6H PRN cap 11/17/18 04/03/19 History atorvastatin 10 mg tablet 20 mg PO QPM #90 tab 11/17/18 04/03/19 Rx insulin aspart (U-100) 100 unit/mL 2 units SUBCUT QPM #1 ml 11/17/18 04/03/19 History (3 mL) subcutaneous pen blood sugar diagnostic strips #10 ea 11/20/18 11/26/18 History cholecalciferol (vitamin D3) 2,000 4,000 units PO QAM tab 11/20/18 04/03/19 History unit tablet ferrous sulfate 325 mg (65 mg 325 mg PO QAM tab 11/20/18 04/03/19 History iron) tablet,delayed release latanoprost 0.005 % eye drops 1 drops OP QPM ml 11/20/18 04/03/19 History metformin 500 mg tablet 1,000 mg PO QAM tab 11/20/18 04/03/19 History pen needle, diabetic 31 gauge x #30 ea 11/20/18 11/26/18 History 3/" gabapentin 400 mg capsule 400 mg PO HS #90 cap 12/11/18 04/03/19 Rx insulin degludec (U-100) 100 6 units SQ DAILY ml 04/03/19 04/03/19 History unit/mL (3 mL) subcutaneous pen Past Med/Surg History Social History Preferred Language: Greenlandic Communication Ability: Effective Driver Guard Required: No Beliefs That Will Affect Care: None Current Living Situation: Other Current Living Situation Comment: daughter Feels Safe at Home: Yes Smoking Status: Never smoker Second Hand Exposure: No ; Hx Alcohol Use: No Hx Substance Use: No Review of Systems All systems reviewed & are unremarkable except as noted in HPI & below Physical Exam Constitutional: WD/WN, vitals as above Eyes: PERRL, conjunctivae normal, anicteric sclerae ENMT: external ear and nose normal, oropharynx normal Neck: trachea midline, no thyromegaly Respiratory: normal respiratory effort Cardiovascular: RRR, no murmur, no edema Gastrointestinal (Abdomen): normal bowel sounds, soft, nontender, no hepatosplenomegaly Musculoskeletal: Physical examination of the left shoulder reveals decreased range of motion and significant weakness. There is tenderness palpation along the anterior glenohumeral joint line. The right upper extremity is neurovascularly intact. Psychiatric: A+Ox3, euthymic affect Results & Data Diagnostic Findings Radiographs of the left shoulder show some signs of osteoarthritis with blunting of the greater tuberosity and some superior migration of the humeral head on the glenoid.
[~2019-04-10 07:22] MED LIST changes: -ACET-1256 PO; +ACETAMINOPHEN 500 MG TAB PO SCH; -AMLO10CA PO; -ASCO500T16 PO; -ASPI81TA28 PO; -ATOR-22 PO; +BUPIVACAINE 0.5 % 5 MG/1 ML PF 10ML VIAL ONE; +CEFAZOLIN 1000MG 1,000 MG/7.5 ML SYR IV SCH; -CHOL1000 PO; -CLOP1TAB15 PO; +FAMOTIDINE 20 MG TAB PO SCH; -FERR1TAB23 PO; +GABAPENTIN 300 MG CAP PO SCH; -GLC5 PO; -GLIP-197 PO; +LR 15ML/HR IV SCH; +LR 60ML/HR IV SCH; -MOME6000 NAE; -PLV75 PO; -POTA10CA28 PO; -PRED10TA PO; +ROPIVACAINE 0.5% HCL/PF 150 MG, BUPIVACAINE 0.5% MPF 30 ML, EPINEPHrine 30MG/30ML (OR U... INSTIL SCH; +TRANEXAMIC ACID 1,000 MG **IV Intra-op IV SCH; +TRANEXAMIC ACID 1,000 MG **IV Pre-op IV SCH
[2019-04-10] MEDS ORDERED: fentaNYL citrate 100 MCG/2 ML VIAL ONE (08:00)
[2019-04-10] MEDS ORDERED: MIDAZOLAM HCL 1 MG/ML 2ML VIAL ONE (08:00)
--- NOTE | 2019-04-10 08:33 | History & Physical Bridge Note ---
Date of Service April 10, 2019 History & Physical Bridge Note I have examined the patient, reviewed the History & Physical and in the interval since the performance of the History & Physical I have noted the following changes of clinical significance: no changes noted
[2019-04-10] MEDS ORDERED: ORTHO JOINT ANESTHETIC ONE (09:46)
[2019-04-10] MEDS ORDERED: GLYCOPYRROLATE 0.2 MG/ML VIAL ONE (10:39)
[2019-04-10] MEDS ORDERED: NEOSTIGMINE METHYLSULFATE 5 MG/5 ML SYR ONE (10:39)
[2019-04-10] MEDS ORDERED: ePHEDrine sulfate 50 MG/ML SYR ONE (10:39)
[2019-04-10] MEDS ORDERED: DEXAMETHASONE SOD INJ 4 MG/ML VIAL ONE (10:39)
[2019-04-10] MEDS ORDERED: LIDOCAINE HCL 2% 2 ML VIAL/AMP(20MG/ML) INFIL ONE (10:39)
[2019-04-10] MEDS ORDERED: ROCURONIUM BROMIDE 10 MG/ML 5 ML VIAL ONE (10:39)
[2019-04-10] MEDS ORDERED: PROPOFOL IV EMULSION 10 MG/ML 20 ML VIAL IV ONE (10:39)
[2019-04-10] MEDS ORDERED: ONDANSETRON INJ 2 MG/ML 2 ML VIAL ONE (10:39)
[2019-04-10] MEDS ORDERED: PHENYLEPHRINE 100MCG/ML 5ML SYR ONE (10:39)
--- NOTE | 2019-04-10 11:22 | Operative Report ---
Post Operative Report Pre & Post Diagnosis Operation Date: 04/10/19 10:00 Pre-Op Diagnosis: LEFT SHOULDER rotator cuff arthropathy Post-Op Diagnosis: LEFT SHOULDER rotator cuff arthropathy I identified the patient and participated in the time-out.: Yes Procedure Operation Date: 04/10/19 10:00 Actual Procedures p Left reverse total shoulder Arthroplasty(Left) - Juan R Kaye DO Surgeon Juan R Kaye DO Digital Marketing Program Manager Juan R Hutchins PAC Estimated Blood Loss 100 Findings Consistent with Post-Op Diagnosis Specimens Left humeral head Complications none Disposition Disposition: Recovery Room Indications Fouzia is a pleasant 78-year-old female who is been doing with chronic increasing left shoulder pain. X-rays and clinical examination were diagnostic for rotator cuff arthropathy of the left shoulder. After failing conservative treatment, she elected proceed with a left reverse shoulder arthroplasty. Description of Procedure Implants used: I used a [employer] Comprehensive reverse total shoulder arthroplasty system with a size 7 press fit mini humeral stem, a standard humeral tray and a standard humeral bearing, a 25 mm mini baseplate with a 6.5 mm central screw and superior and inferior locking screws, and a size 36 mm eccentric glenosphere. The patient arrived at [facility] for the above procedure. There were seen in the preoperative holding area and the operative extremity was identified and signed. They were given a preoperative antibiotic and an interscalene nerve block. They were taken back to the operating room, laid on table in supine position, and put under general anesthesia. They were then put into the beachchair position. The shoulder was then prepped and draped in sterile fashion. A timeout was done and the patient and the operative extremity was properly identified. A deltopectoral approach was used. Dissection was taken down through the fascia and the deltoid was retracted laterally and the conjoined tendon was retracted medially. The anterior shoulder was exposed. The long head of the biceps tendon was tenodesed to the upper border of the pectoralis major. The subscapularis was then released off the lesser tuberosity with a centimeter of cuff tissue remaining. The inferior capsule was released and the humeral head was dislocated. A canal finding reamer was sent down the center of the humeral canal. Sequential reaming up to a size 7 reamer was done. Off that reamer, a proximal humeral resection guide was placed. The proximal humerus was resected at 135 of inclination and 25 of retroversion. Osteophytes were then removed and the glenoid was exposed. Time was spent doing a complete capsular and labral release. The glenoid guide was then placed in the inferior aspect of the glenoid. A 3.2 mm Steinmann pin was then placed into the glenoid vault at 10 of inclination. The glenoid baseplate was then reamed. The final size 25 mm mini baseplate was then impacted in the place. A 6.5 mm central screw was then placed followed by superior and inferior locking screws. A 36 mm eccentric glenoid sphere was then impacted into place. Surrounding soft tissues were then injected with 100 cc an orthopedic pain control cocktail. The proximal humerus was then exposed. Sequential broaching of the humerus up to a size 7 broach was done. Off that broach a standard humeral tray was trialed. The shoulder was then reduced, brought through a full range of motion and felt to be stable. The shoulder was then dislocated and the broach was removed. The final size 7 mini press-fit humeral stem was then impacted into place. A standard humeral bearing was then snapped onto a standard humeral tray and the ring-lock mechanism was engaged. The humeral tray was then impacted onto the humeral stem. The shoulder was once again reduced, brought through a full range of motion and felt to be stable. The subscapularis was then tenodesed back to the lesser tuberosity with transosseous FiberWire sutures and side to side sutures with the arm in 45 of external rotation. A dilute betadyne lavage was then done for 3 minutes. The joint was then irrigated with normal saline solution. Hemostasis was obtained. The skin was then closed with 2-0 Vicryl, 3-0V lock suture, and wesley. A soft dressing and a regular arm sling was placed. The patient was then extubated and transferred to a hospital bed. They were taken to the postanesthesia care unit in stable condition. They tolerated the procedure well. I attest to the content of the Intraoperative Record and any orders documented therein. Any exceptions are noted below.
--- NOTE | 2019-04-10 12:18 | XRay Report ---
XR shoulder LT min 2V routine HISTORY: 78 years-old Female Post shoulder surgery left shoulder total joint arthroplasty. COMPARISON: Chest radiograph 03/02/2019 TECHNIQUE: 2 views of the left shoulder FINDINGS: Reverse total joint arthroplasty demonstrates satisfactory alignment without acute fracture. Overlyin g skin wesley are noted along with expected postsurgical soft tissue swelling and deep tissue air. M oderate AC joint osteoarthritis. Imaged lung diaz appear clear. IMPRESSION: Satisfactory alignment of the reverse left shoulder total joint arthroplasty. The above report was generated using voice recognition software. It may contain grammatical, syntax o r spelling errors. Electronically signed by: Dawit Greene M.D. 04/10/2019 12:17 PM
[2019-04-10] MEDS ORDERED: HYDROmorphone INJ 0.5 MG/0.5 ML SYR IV PRN (13:01)
[2019-04-10] MEDS ORDERED: ONDANSETRON INJ 2 MG/ML 2 ML VIAL IV PRN (13:01)
[2019-04-10] MEDS ORDERED: OXYCODONE HCL IR 5 MG TAB (IMMEDIATE RELEASE) PO PRN (13:01)
[2019-04-10] MEDS ORDERED: BISACODYL 10 MG SUPP PR PRN (13:01)
[2019-04-10] MEDS ORDERED: MAGNESIUM HYDROXIDE SUSP 30 ML UDC PO PRN (13:01)
[2019-04-10] MEDS ORDERED: METOCLOPRAMIDE HCL INJ 5 MG/ML 2 ML VIAL IV PRN (13:01)
[2019-04-10] MEDS ORDERED: NALOXONE HCL 0.4 MG/1 ML VIAL/CARP IV PRN (13:01)
[2019-04-10] MEDS ORDERED: PHARMACY GLYCEMIC MGMT CONSULT SCH (13:27)
[2019-04-10] MEDS ORDERED: FLUTICASONE PROPIONATE NA SPR 16 GM BTL PRN (13:30)
[2019-04-10] MEDS ORDERED: GLUCOSE 40% GEL 15 GM TUBE PO PRN (14:00)
[2019-04-10] MEDS ORDERED: GLUCAGON FOR INJ 1 MG VIAL IM PRN (14:00)
[2019-04-10] MEDS ORDERED: CARBOHYDRATES FOR HYPOGLYCEMIA PO PRN (14:00)
[2019-04-10] MEDS ORDERED: DEXTROSE 50% 50 ML SYRINGE IV PRN (14:00)
[2019-04-10] MEDS ORDERED: GLUCOSE 10 TABS/TUBE PO PRN (14:00)
[2019-04-10] MEDS ORDERED: NovoLIN-N (NPH) PER UNIT CHARGE SQ ONE (14:15)
--- NOTE | 2019-04-10 14:19 | Pharmacy Report ---
Glycemic Control Consultation - Date of Service April 10, 2019 - Scope Scope: Glycemic Pharmacist consulted by Juan R Hutchins PA-C on 04/10/19 for glycemic control and to write orders per [facility] inpatient glycemic control protocol - Objective Weight: 53.5 kg Accuchecks BSG (last 24hrs): 04/10/19 04/10/19 04/10/19 07:45 11:57 13:29 POC Glucose 135 H 137 H 176 H HbA1c: Hemoglobin A1c 7.8 % (4.5-5.6) H 03/02/19 10:48 - Recent Pertinent Medications Outpatient Anti-diabetic Regimen: * Tresiba 6 units HS * Novolog 2 units with dinner * Metformin 1gram PO QAM * A1c = 7.8 % 03/02/19 Risk Factors for Insulin Resistance: * Steroids: Dexamethasone 4mg IV intraop * Recent Surgery: POD 0 -Left reverse total shoulder Arthroplasty * Diet: Type 2 DM - Assessment & Plan Assessment & Plan: ASSESSMENT: * 78 year old female, s/p left shoulder arthroplasty. Type 2 diabetic with good control at home for patient's age on metformin and only 8 units of insulin per day. Blood sugar of 176mg/dl postop. Patient did take her 6 unit so Tresiba last night. * Oral agents are not recommended for inpatient use d/t drug interactions, changing PO intake, and difficulty titrating for acute hyper/hypoglycemia. ADA recommends re-initiating outpatient oral agents 1-2 days prior to discharge if/when appropriate if they were held on admission. * Will hold oral agents for admission and utilize SQ basal bolus insulin regimen which is the recommended regimen for inpatient glycemic control. * Patient did receive 4mg IV Dexamethasone today, will give NPH dose to cover those effects. * Will stress CF and CR to cover post prandial effect of steroids, and do additional check overnight. * Will loosen CF and CR as steroid effects noemy. * Bedtime Lantus on scale per blood sugar. (Using Lantus, Tresiba non- formulary). * ADA & AACE recommend a goal blood sugar range 140-180 mg/dl for the majority of critically ill & non-critically ill patients. However, more stringent targets may be selected in individual cases. Will utilize more stringent goal of 110-140mg/dl based on patient age & comorbidities. Additionally, tighter glycemic control is warranted to facilitate wound/infection healing. PLAN FOR INPATIENT GLYCEMIC CONTROL: * Holding outpatient oral diabetes medications * NPH 12 units (0.22mg/kg) x 1 dose now * Basal insulin * Lantus 0-10 units SQ HS * BSG < 110mg/dl - 0 units * BSG 110-180mg/dl - 6 units * BSG > 180mg/dl - 10 units * Bolus insulin * NovoLog per scale ACHS or Q6hrs while NPO * Goal Range: Low 110 mg/dL - High 140 mg/dL * Correction Factor: 30 mg/dL/unit * Nutritional / Prandial insulin per carb ratio of 1 unit per 12 grams CHO consumed * Please note that the plan above was derived based on current level of insulin resistance and hospital stress. These recommendations are appropriate for inpatient admission only. Plan of care upon discharge will need to be reassessed to avoid potential outpatient hypo/hyperglycemia. Thank you.
[2019-04-10] MEDS: SODIUM CHLORIDE 0.9% 1000ML 1,000 ML IV SCH (14:20)
[2019-04-10] MEDS: INSULIN ASPART 100 UNITS/ML 3 ML PEN SC SCH ×3 (14:21→20:39)
[2019-04-10] MEDS: ACETAMINOPHEN 500 MG TAB PO SCH ×2 (14:22→22:03)
[2019-04-10] MEDS: CEFAZOLIN 2000MG 2,000 MG/15 ML SYR IV SCH (17:54)
[2019-04-10] MEDS: DOCUSATE SODIUM 100 MG CAP PO SCH (20:38)
[2019-04-10] MEDS ORDERED: GABAPENTIN 400 MG CAP PO SCH (21:00)
[2019-04-10] MEDS ORDERED: SENNA 8.6 MG TAB PO SCH (21:00)
[2019-04-10] MEDS ORDERED: INSULIN GLARGINE SOLOSTAR 100 UNITS/ML 3 ML PEN SC SCH (21:00)
[2019-04-10] MEDS ORDERED: ATORVASTATIN 20 MG TAB PO SCH (21:00)
[2019-04-11] MEDS: SODIUM CHLORIDE 0.9% 1000ML 1,000 ML IV SCH (00:43)
[2019-04-11] MEDS ORDERED: INSULIN ASPART 100 UNITS/ML 3 ML PEN SC ONE (02:00)
[2019-04-11] MEDS: CEFAZOLIN 2000MG 2,000 MG/15 ML SYR IV SCH (02:05)
[2019-04-11 05:30] LABS: Basophils # (auto) 0.01 K/uL (0-0.2); Basophils % (auto) 0.1 %; Hematocrit (blood only) 28.3 % (37-47); Hemoglobin 9.3 g/dL (12.0-16.0); Immature Granulocytes # (auto) 0.02 K/uL (0.00-0.02); Immature Granulocytes % (auto) 0.2 %; Lymphocytes # (auto) 1.12 K/uL (1.2-3.4); Lymphocytes % (auto) 10.4 %; Mean Corpuscular Hgb Conc 32.9 g/dL (32-36); Mean Corpuscular Volume 88.2 fL (80-100); Mean Platelet Volume 9.2 fL (7.4-10.4); Monocytes % (auto) 8.3 %; Neutrophils # (auto) 8.77 K/uL (1.4-6.5); Platelet Count 249 K/uL (130-400); RDW Coefficient of Variation 13.7 % (11.5-14.5); RDW Standard Deviation 44.3 fL (36.4-46.3); Red Blood Count 3.21 M/uL (4.2-5.4); White Blood Count 10.82 K/uL (4.8-10.8)
[2019-04-11 05:58] LABS: BUN Creatinine Ratio 20.9 (10-20); Calcium 8.2 mg/dl (8.5-10.1); Creatinine Clr Calc Pharmacy 36.9 ml/min; Est GFR (African American) 73.4; Est GFR (Non-African American) 63.4; Potassium 4.4 mmol/L (3.5-5.1)
[2019-04-11] MEDS: ACETAMINOPHEN 500 MG TAB PO SCH (05:58)
[2019-04-11] MEDS: DOCUSATE SODIUM 100 MG CAP PO SCH (08:29)
[2019-04-11] MEDS: INSULIN ASPART 100 UNITS/ML 3 ML PEN SC SCH (08:32)
[2019-04-11] MEDS ORDERED: MULTIVITAMIN TAB PO SCH (09:00)
[2019-04-11] MEDS ORDERED: AMLODIPINE BESYLATE 5 MG TAB PO SCH (09:00)
[2019-04-11] MEDS ORDERED: ASPIRIN 81 MG ECTAB PO SCH (09:00)
--- NOTE | 2019-04-11 09:19 | Orthopedic Progress Note ---
Date of Service April 11, 2019 Assessment & Plan (1) Rotator cuff arthropathy of left shoulder: Overall she is doing very well. She is not having much pain in the left shoulder. She is happy with her progress this point. She will be seen by physical therapy today for ambulation and range of motion exercises. She can be discharged home later today with her daughter. She will follow-up with orthopedics in 2 weeks. Present on Admission?: Yes Rene Bear was seen and examined at bedside this morning. Overall she is doing very well. She not having much pain in the left shoulder. She was able to get some sleep last night. She has no complaints. Physical Exam Musculoskeletal: On physical examination of the left shoulder, the dressing is clean and dry. Her radial median and ulnar nerves are checked and intact at the wrist. Her axillary nerve is not checked yet. She still a little trouble extending her thumb but she was able to extend her wrist. Results & Data Vital Signs (Past 12 Hours) Vital Signs Temp Pulse Resp BP Pulse Ox 04/11/19 07:26 37 C 67 16 129/59 L 95 04/11/19 03:29 36.8 C 80 16 115/70 96 04/10/19 23:16 36.5 C 59 L 16 112/60 95 Laboratory Results H & H 03/02/19 04/11/19 Range/Units 10:48 05:03 Hgb 11.9 L 9.3 L (12.0-16.0) g/dL Hct 37.2 28.3 L (37-47) % Coagulation 03/02/19 Range/Units 10:48 INR 1.0 (0.9-1.1) Diagnostic Findings Postoperative x-rays of the left shoulder show the prosthesis to be in anatomic alignment without any evidence of fracture, dislocation, or loosening. PG Care Time/CCT Total # of Minutes Spent Total Time Spent with Patient: Total time spent is greater than 50% in coordination of care (as documented) at patient's floor/unit and/or counseling patient:
--- NOTE | 2019-04-11 12:56 | Anesthesiology Progress Note ---
Date of Service April 11, 2019 Anesthesia Post Procedure Vital Signs Vital Signs: Temp Pulse Resp BP Pulse Ox 04/11/19 11:19 37 C 67 16 129/59 L 95 04/11/19 07:26 37 C 67 16 129/59 L 95 04/11/19 03:29 36.8 C 80 16 115/70 96 04/10/19 23:16 36.5 C 59 L 16 112/60 95 04/10/19 19:34 36.6 C 70 17 118/65 96 04/10/19 15:54 36.5 C 71 17 120/64 94 04/10/19 14:55 36.5 C 72 18 120/63 98 04/10/19 13:50 37.2 C 74 18 145/74 H 98 04/10/19 13:18 37.1 C 74 18 128/68 99 Notes Mental Status: alert / awake / arousable and participated in evaluation Patient Amnestic to Procedure: Yes Nausea / Vomiting: adequately controlled Pain: adequately controlled Airway Patency, RR, SpO2: stable & adequate BP & HR: stable & adequate Hydration State: stable & adequate Anesthetic Complications: no major complications apparent and Pt Satisfied with anesthetic care Notes: Block is functioning well. Pt does report today that she is having some mild difficulty swallowing. Advised patient this may be from her intubation for yesterdays procedure. I encouraged her to stick with soft, easy to swallow foods until these symptoms improved. Encouraged to contact PAT and speak with anesthesia if these symptoms dont improve.
--- NOTE | 2019-04-14 16:16 | Discharge Summary ---
Date of Service April 14, 2019 Admission HPI Per Admitting Provider Kim is a pleasant 78-year-old female who is been having a 2-year history of significant left shoulder pain. Initially she had a dog pulled her shoulder about 2 years ago and that is where it started. X-rays and clinical examination have been diagnostic for rotator cuff arthropathy of the left shoulder. After failing conservative treatment, she has elected to proceed with a left reverse shoulder arthroplasty. Principal Diagnosis Left reverse shoulder arthroplasty Discharge Data Allergies Allergy/AdvReac Type Severity Reaction Status Date / Time No Known Allergies Allergy Verified 04/10/19 07:50 Consultations 04/10/19 13:01 Consult Case Management - Discharge Planning Routine Procedures Performed Operation Date: 04/10/19 10:00 Actual Procedures p Left Total Shoulder Arthroplasty(Left) - Juan R Kaye DO Ordered Studies 04/10/19 05:00 US - OR guided needle placemen Routine Hospital Course (1) Rotator cuff arthropathy of left shoulder: On April 11, 2019 Marianela arrived at [facility] and underwent a left reverse shoulder arthroplasty without complication. She had a general anesthetic and a left interscalene nerve block. Postoperatively she was placed in a arm sling and discharged to general orthopedic floors. Her hospital course was uneventful. On postop day #1 her H&H was stable and her pain was well controlled. She was able to participate well with physical therapy doing ambulation and range of motion exercises. She was then discharged to home. She will follow-up with orthopedics in 2 weeks. Total Time Total Time Spent Total Time Spent (In Minutes): 20 Discharge Plan Discharge Items Patient Disposition: Home - Home Health Services Reason For Visit: LEFT SHOULDER DEGENERATIVE JOINT DISEASE Discharge Diagnosis: Left reverse shoulder arthroplasty Activity: As commented below Non-emergency contact: Surgeon Call non-emergency contact if: your wound has increased redness and your wound has increased drainage Follow-up/Referrals: Felton Hanna MD [Primary Care Provider] - Diet: Regular Addtl Attending Provider Instructions: Activity and Therapy Recommendations: * If you are using [facility] then therapy will be provided at your home until they feel you have accomplished all of your goals. * If you are using [facility] then Physical Therapy will be provided until they feel you are ready to start Outpatient Physical Therapy. * If you are not using home therapy then Outpatient Physical Therapy should start about 3-5 days from your day of surgery. Therapy will last about 8-12 weeks * Wear your sling for 3 weeks, unless otherwise instructed. You may remove your sling to shower and to dress, but otherwise, you should be in your sling at all times, including while sleeping * The shoulder replacement is very stable and you can use your hand while in the sling * You were shown a series of exercises in the hospital. Do these exercises daily including the exercises you were shown in physical therapy. Medications: * Narcotic You will likely be sent home from the hospital with a prescription for the narcotic pain medication that worked best throughout your stay. * Other medications may be prescribed for specific circumstances. If you have a ny questions, please call the office at . * Resume previous home medications unless otherwise instructed Dressing Care: Leave the plastic dressing in place for 5 days. After 5 days you may remove the plastic dressing. If the incision is not draining then you may leave the wesley open to air. If there is a little bit of drainage or if the wesley are getting stuck on your clothing then cover the incision with a dry dressing. The wesley will be removed at your 2 week follow-up appointment. Showering: You may shower with the plastic dressing in place. Let the shower spray hit the other shoulder. You can pat the plastic dry. If the dressing becomes wet underneath the plastic then simply remove the dressing. Keep the incision dry until you are 5 days out from the day of surgery. At that time you can shower with the wesley exposed. Let the soapy shower water run over the wesley and pat them dry. Do not scrub or soak the incision. Things To Watch For: * Drainage from the incision site that occurs more than one week after your surgery. * Increased redness at the incision site. * Fever above 102 degrees Fahrenheit. * Unusual chest pain or shortness of breath. * Call [facility] at with any of the above problems Follow-Up Visit: Follow-up with Dr. Kaye 2-3 weeks after your day of surgery. An appointment was probably scheduled when you signed-up for surgery in the office. If you have any questions call Office Instructions: More detailed instructions as well as Frequently Asked Questions were provided in a folder by our office when you signed-up for surgery. Please review these instructions when you get home. If you have any further questions or concerns, please feel free to call the office at [phone] Pending Studies at Discharge: No Stand-Alone Forms: [facility], [facility], Smoking Cessation Medications and DC Order Prescriptions: New tramadol 50 mg tablet 50 mg PO Q6H PRN (Reason: pain) Qty: 30 RF: 0 Continued aspirin [Ecotrin Low Strength] 81 mg tablet,delayed release (DR/EC) 81 mg PO QAM RF: 0 mometasone 50 mcg/actuation spray,non-aerosol 2 sprays INTNAS DIRECTED RF: 0 amlodipine 5 mg tablet 10 mg PO QAM RF: 0 docusate sodium [Colace] 100 mg capsule 100 mg PO DIRECTED RF: 0 ferrous sulfate 325 mg (65 mg iron) tablet,delayed release (DR/EC) 325 mg PO QAM RF: 0 gabapentin 400 mg capsule 400 mg PO HS Qty: 90 RF: 2 acetaminophen 325 mg capsule 325 mg PO Q6H PRN (Reason: fever or pain) RF: 0 latanoprost 0.005 % drops 1 drops OP QPM RF: 0 atorvastatin 10 mg tablet 20 mg PO QPM Qty: 90 RF: 3 insulin aspart U-100 100 unit/mL (3 mL) insulin pen 2 units subcut QPM Qty: 1 RF: 0 (DME) pen needle, diabetic [BD Ultra-Fine Mini Pen Needle] 31 gauge x 3/16" needle See Dose Instructions .ROUTE .MEDSUPPLY Qty: 30 RF: 0 metformin 500 mg tablet 1,000 mg PO QAM RF: 0 (DME) OneTouch Ultra Blue Test Strip strip See Dose Instructions .ROUTE .MEDSUPPLY Qty: 10 RF: 0 cholecalciferol (vitamin D3) 2,000 unit tablet 4,000 units PO QAM RF: 0 Tresiba FlexTouch U-100 100 unit/mL (3 mL) insulin pen 6 units SQ DAILY RF: 0 Discharge Orders: Discharge Order (Routine); Ordered 04/11/19 Ordered By: Juan R Barron/Other Patient Handouts: ED Sling Admission Data Admit Date/Time: 04/10/19 11:50 Attending Provider: Juan R Kaye Admit Provider: Jaun R Kaye Primary Care Provider: Felton Hanna Other Providers: [facility],Home [facility] Other Interventions: Discharge Summary Assessment (RN) Last Done: 04/11/19 11:19 DC Date/Time DO NOT enter until pt leaves facility: 04/11/19 13:30
== END 2019-04-11 13:30 | disposition home health service (06) | DRG 483 ==
LOC: ASU 07:22 → 3E 11:50

== ENCOUNTER 2021-07-04 12:04 | Inpatient (IN) ==
[2021-07-04] MEDS ORDERED: SODIUM CHLORIDE 0.9% 500 ML IV ONE (12:31)
--- NOTE | 2021-07-04 12:32 | Emergency Department Note ---
Impression & Plan Acute UTI, Hypoxia, Weakness ED Provider Note Provider: Heladio King MD DATE OF SERVICE: 07/04/2021 CHIEF COMPLAINT: Weakness, shortness of breath/low oxygen HISTORY OF PRESENT ILLNESS: Patient is a 80-year-old female history of PAD, type 2 diabetes, LVH, PMR, hypertension, kidney stones, and episode of COVID-19 in May 2021 requiring hospitalization and a brief period of high flow oxygen. Patient evidently seen in the outpatient clinic today and referred here today. Patient was hospitalized in [place] and then [place] for Covid in May. Discharged to rehab and came home on this June 23. Lives with daughter and since then daughter and the patient reports she has been quite weak and just in bed not moving around very much. Last several days she reports she felt a little more short of breath and just weak. Daughter reports that the patient is also seem to maybe a little bit foggy or confused at time. The patient states she just does not seem to remember things that well anymore. Was at the primary care office today and noted to have with ambulation some hypoxia. Outpatient blood work and a chest x-ray ordered. The chest x-rays obtained concerning for possible in her development of some basilar pneumonia versus other infectious/inflammatory etiology. Patient was sent here for further evaluation today. Patient herself denies significant pain at this time. She denies any significant trauma or syncope. Some decreased liquid intake the last several days reported. Patient denies fevers or cough, but reports feeling cold. Has since prior hospitalization Crocker catheter now with some darker urine reported. REVIEW OF SYSTEMS: A total of 10 review of systems was obtained and negative except as stated above in the HPI. PAST MEDICAL HISTORY: As noted above MEDICATIONS: Reviewed home medications SOCIAL HISTORY: Does not smoke currently, lives at home with daughter PHYSICAL EXAM: GENERAL: alert and oriented in no acute distress on stretcher fateigue in appearance Head: normocephalic and atraumatic EYES: No injection, discharge or icterus. NECK: Trachea midline. LUNGS: Airway patent. No retractions. Breath sounds clear without wheeze HEART: Regular tachycardic rate and rhythm. No chest wall tenderness ABDOMEN: Soft and non-tender, without guarding or rebound. SKIN: Acyanotic and dry. Mildly cool distal extremities (hands) EXTREMITIES: Without swelling, tenderness or deformity NEUROLOGICAL: No focal deficits. No aphasia. No facial droop or slurred speech. EK bpm sinus tachycardia. No PVC noted. No acute ST segment elevation noted with nonspecific T wave changes. QTC 430. Compared to previous from March 022018, more tachycardic with more pronounced T wave changes but less lateral T wave inversion. CONTINUOUS CARDIAC MONITORING: was ordered and showed a heart rate of 100s-110s bpm in sinus tachycardia Patient's laboratory studies and imaging reviewed. Differential includes Infection, dehydration, metabolic abnormality, hypo/hyperglycemia, electrolyte disturbance, anemia, hypoxia, cardiac sources, intracerebral event, toxicologic, neurologic, as well as other pathologies. IMPRESSION/MEDICAL DECISION MAKING: Patient recently hospitalized for Covid requiring oxygen out of rehab and now back at home with some worsening weakness, several days of some worsening shortness of breath, and some mild confusion according to the daughter. Mildly hypoxic here on room air appears fatigued. Question if she is developed new pneumonia based on x-rays. PE was questioned and will be investigated with CT. Given some fluid hydration as she is has some decreased output. Question some component of possible UTI as she has a chronic Crocker now. Patient denies any chest pain and I doubt this represents ACS/NJ at this time acutely or significant intra-abdominal pathology. Blood work today with significant leukocytosis of almost 22. Mild anemia. Mild thrombocytosis. Given the recent hospitalization, hypoxia, and elevated white blood cell count, covered empirically with a dose of Zosyn. VBG without acidosis or hypercarbia. Normal electrolytes and Cr. Troponin not elevated. COVID test today negative. Lactate mildly elevated 2.2. Procal 0.15. Chronic prior indwelling Crocker changed and UA sent from new Crocker. UA positive and patient with chronic indwelling Crocker. CT of the head without acute intracranial changes per radiology. CT of the chest without evidence of PE with some interstitial lung disease and patchy groundglass opacities. Patient received more than 30 mL/kg IV fluid hydration here. Updated the patient and daughter at bedside with findings. Patient having some improvement. Again covered broadly with Zosyn. Question how much of a component of this may be deconditioning after recent illness as well as may be early developing pneumonia versus just a UTI. Given her weakness and at times confusion and new mild oxygen requirement they are in agreement with the plan for further observation. Hospitalist contacted. DIAGNOSIS: hypoxia, weakness, acute uti DISPOSITION: Hospitalist will evaluate Patient was agreeable with this plan. Past Med/Surg History Medical History Acute respiratory distress syndrome (ARDS) due to COVID-19 virus Bilateral kidney stones Borderline glaucoma with ocular hypertension Chronic anemia Diabetes mellitus type 2, uncontrolled Diabetic ulcer of right foot E. coli septicemia Encounter for pre-operative examination Foot ulcer Hiatal hernia High cholesterol History of COVID-19 Hyperlipidemia Hypertension Insulin dose changed Leukocytosis Leukocytosis PAD (peripheral artery disease) Peripheral edema PMR (polymyalgia rheumatica) Pressure ulcer of right ankle, stage 2 Psoriasis Pyelonephritis Pyelonephritis Septic shock Septic shock Septicemia Skin ulcer of left foot including toes Ulcer of left great toe due to diabetes mellitus Surgical History H/O section History of cataract surgery History of esophagogastroduodenoscopy (EGD) History of tooth extraction S/P cystoscopy with ureteral stent placement S/P popliteal-tibial bypass Status post femoral-popliteal bypass surgery Family History Mother Breast cancer Myocardial infarction Unknown Hyperlipidemia Hypertension Sister Diabetes Father No problems noted. Denies family history of Ovarian cancer Prostate cancer Colorectal cancer Social History Smoking Status: Never smoker Second Hand Exposure: No; Hx Alcohol Use: No Hx Substance Use: No Preferred Language: [place] Communication Ability: Effective Visual Impairment: Limited Hearing Ability: Normal Patient Service Representative Required: No Beliefs That Will Affect Care: None marital status: / Current Living Situation: Family Current Living Situation Comment: with a daughter current occupational status: retired Feels Safe at Home: Yes Childhood Exposure to Second-Hand Smoke: No caffeine: No during the past year weight has: remained stable Dental Care, Regularly: Yes Physical Activity Frequency: 1-2 Times per Week Seatbelt Use: always Sunscreen Use: Yes Assistive Devices: Brace/Splint/Immobilizer Allergies Allergies Allergy/AdvReac Type Severity Reaction Status Date / Time No Known Allergies Allergy Verified 07/04/21 14:47 Home Meds Home Medications Medication Instructions Recorded Confirmed aspirin 81 mg tablet,delayed 81 mg PO QAM 01/27/18 07/04/21 release (Ecotrin Low Strength) docusate sodium 100 mg capsule 100 mg PO Q2D 08/29/18 07/04/21 (Colace) acetaminophen 325 mg capsule 325 mg PO Q6H PRN cap 11/17/18 07/04/21 cholecalciferol (vitamin D3) 50 4,000 units PO QAM tab 11/20/18 07/04/21 mcg (2,000 unit) tablet ferrous sulfate 325 mg (65 mg 325 mg PO QAM tab 11/20/18 07/04/21 iron) tablet,delayed release latanoprost 0.005 % eye drops 1 drops OPB HS ml 12/21/19 07/04/21 atorvastatin 10 mg tablet 10 mg PO HS 07/04/21 07/04/21 gabapentin 400 mg capsule 400 mg PO HS 07/04/21 07/04/21 insulin aspart U-100 100 unit/mL 2 unit SQ HS 07/04/21 07/04/21 (3 mL) subcutaneous pen (Novolog Flexpen U-100 Insulin aspart) Previous Rx's Medication Instructions Recorded amlodipine 5 mg tablet 10 mg PO QAM #180 tab 07/23/19 pen needle, diabetic 31 gauge x #200 ea 01/04/21/16" (BD Ultra-Fine Mini Pen Needle) OneTouch Ultra Test (blood sugar #300 ea NS 02/23/21 diagnostic) Oxygen Home #1 ea 07/04/21 Results & Data (ED) Vital Signs Vital Signs - 24 hr 07/04/21 12:10 07/04/21 13:40 Temperature 36.4 C L Temperature Source Temporal Artery Scan Pulse Rate 112 H Respiratory Rate 22 Blood Pressure 104/65 Blood Pressure Mean 78 Blood Pressure Position Sitting Pulse Oximetry 89 L 99 Oxygen Delivery Method Room Air Nasal Cannula Sepsis Recent Fever Within 48 Hours No Sepsis New/Unexplained Change in Mental Status No Sepsis Action Taken by Nursing Physician Notified Laboratory Data Result diagrams: 07/04/21 13:07 07/04/21 13:07 Lab Results 07/04/21 07/04/21 07/04/21 Range/Units 13:07 13:07 13:07 WBC 21.94 H (4.8-10.8) K/uL RBC 3.83 L (4.2-5.4) M/uL Hgb 11.6 L (12.0-16.0) g/dL Hct 35.9 L (37-47) % MCV 93.7 (80-100) fL MCH 30.3 (25-34) pg MCHC 32.3 (32-36) g/dL RDW Std Deviation 49.9 H (36.4-46.3) fL RDW Coeff of Gregory 14.6 H (11.5-14.5) % Plt Count 496 H (130-400) K/uL MPV 9.0 (7.4-10.4) fL Immature Gran % (Auto) 0.2 % Neut % (Auto) 91.4 % Lymph % (Auto) 4.1 % [place] % (Auto) 3.8 % Eos % (Auto) 0.3 % Baso % (Auto) 0.2 % Neut # (Auto) 20.03 H (1.4-6.5) K/uL Lymph # (Auto) 0.91 L (1.2-3.4) K/uL [place] # (Auto) 0.84 H (0.11-0.59) K/uL Eos # (Auto) 0.06 (0-0.5) K/uL Baso # (Auto) 0.05 (0-0.2) K/uL Immature Gran # (Auto) 0.05 H (0.00-0.02) K/uL PT 10.9 (9.0-12.0) Seconds INR 1.1 (0.9-1.1) VBG pH (7.36-7.41) VBG pCO2 (38-50) mmHg VBG pO2 mmHg VBG HCO3 mmol/L VBG O2 Saturation % VBG Base Excess mEq/L Barometric Pressure mm/Hg Sodium 138 (136-145) mmol/L Potassium 4.5 (3.5-5.1) mmol/L Chloride 105 (98-107) mmol/L Carbon Dioxide 24 (21-32) mmol/L Anion Gap 9 (3-11) BUN 24 H (6-23) mg/dl Creatinine 0.94 (0.6-1.2) mg/dl Est Cr Clr Drug Dosing Not Reportable Est GFR ( Amer) 65.9 ml/min Est GFR (Non-Af Amer) 56.9 ml/min BUN/Creatinine Ratio 25.5 H (10-20) Glucose 175 H (70-99(Fasting)) mg/dl Lactate (0.4-2.0) mmol/L Calcium 9.2 (8.5-10.1) mg/dl Magnesium 2.0 (1.7-2.4) mg/dl Total Bilirubin 0.4 (0.2-1.0) mg/dl AST 13 (13-39) U/L ALT 9 (7-52) U/L Alkaline Phosphatase 71 (34-104) U/L Troponin I < 0.03 (0-0.04) ng/ml Total Protein 7.1 (6.0-8.3) gm/dl Albumin 3.6 (3.4-5.0) gm/dl Globulin 3.5 (2.5-4.0) gm/dl Albumin/Globulin Ratio 1.0 (0.9-2) Procalcitonin (0-0.5) ng/ml Urine Color Urine Appearance (Clear) Urine pH (4.5-7.5) Ur Specific [place] (1.000-1.030) Urine Protein (Negative) Urine Glucose (UA) (Negative) Urine Ketones (Negative) Urine Blood (Negative) Urine Nitrite (Negative) Urine Bilirubin (Negative) Urine Urobilinogen (Negative) Ur Leukocyte Esterase (Negative) Urine WBC (Auto) (0-5) /hpf Urine RBC (Auto) (0-4) /hpf U Hyaline Cast (Auto) (0-5) /lpf U Epithel Cells (Auto) (0-5) /lpf Urine Bacteria (Auto) (Negative) SARS-CoV-2, RNA, NAAT (NEGATIVE) 07/04/21 07/04/21 07/04/21 Range/Units 13:07 13:07 13:07 WBC (4.8-10.8) K/uL RBC (4.2-5.4) M/uL Hgb (12.0-16.0) g/dL Hct (37-47) % MCV (80-100) fL MCH (25-34) pg MCHC (32-36) g/dL RDW Std Deviation (36.4-46.3) fL RDW Coeff of Gregory (11.5-14.5) % Plt Count (130-400) K/uL MPV (7.4-10.4) fL Immature Gran % (Auto) % Neut % (Auto) % Lymph % (Auto) % [place] % (Auto) % Eos % (Auto) % Baso % (Auto) % Neut # (Auto) (1.4-6.5) K/uL Lymph # (Auto) (1.2-3.4) K/uL [place] # (Auto) (0.11-0.59) K/uL Eos # (Auto) (0-0.5) K/uL Baso # (Auto) (0-0.2) K/uL Immature Gran # (Auto) (0.00-0.02) K/uL PT (9.0-12.0) Seconds INR (0.9-1.1) VBG pH 7.37 (7.36-7.41) VBG pCO2 46 (38-50) mmHg VBG pO2 18 mmHg VBG HCO3 26 mmol/L VBG O2 Saturation < 60.0 % VBG Base Excess 0 mEq/L Barometric Pressure 741.0 mm/Hg Sodium (136-145) mmol/L Potassium (3.5-5.1) mmol/L Chloride (98-107) mmol/L Carbon Dioxide (21-32) mmol/L Anion Gap (3-11) BUN (6-23) mg/dl Creatinine (0.6-1.2) mg/dl Est Cr Clr Drug Dosing Est GFR ( Amer) ml/min Est GFR (Non-Af Amer) ml/min BUN/Creatinine Ratio (10-20) Glucose (70-99(Fasting)) mg/dl Lactate 2.2 H* (0.4-2.0) mmol/L Calcium (8.5-10.1) mg/dl Magnesium (1.7-2.4) mg/dl Total Bilirubin (0.2-1.0) mg/dl AST (13-39) U/L ALT (7-52) U/L Alkaline Phosphatase (34-104) U/L Troponin I (0-0.04) ng/ml Total Protein (6.0-8.3) gm/dl Albumin (3.4-5.0) gm/dl Globulin (2.5-4.0) gm/dl Albumin/Globulin Ratio (0.9-2) Procalcitonin 0.15 (0-0.5) ng/ml Urine Color Urine Appearance (Clear) Urine pH (4.5-7.5) Ur Specific [place] (1.000-1.030) Urine Protein (Negative) Urine Glucose (UA) (Negative) Urine Ketones (Negative) Urine Blood (Negative) Urine Nitrite (Negative) Urine Bilirubin (Negative) Urine Urobilinogen (Negative) Ur Leukocyte Esterase (Negative) Urine WBC (Auto) (0-5) /hpf Urine RBC (Auto) (0-4) /hpf U Hyaline Cast (Auto) (0-5) /lpf U Epithel Cells (Auto) (0-5) /lpf Urine Bacteria (Auto) (Negative) SARS-CoV-2, RNA, NAAT (NEGATIVE) 07/04/21 07/04/21 Range/Units 13:15 14:30 WBC (4.8-10.8) K/uL RBC (4.2-5.4) M/uL Hgb (12.0-16.0) g/dL Hct (37-47) % MCV (80-100) fL MCH (25-34) pg MCHC (32-36) g/dL RDW Std Deviation (36.4-46.3) fL RDW Coeff of Gregory (11.5-14.5) % Plt Count (130-400) K/uL MPV (7.4-10.4) fL Immature Gran % (Auto) % Neut % (Auto) % Lymph % (Auto) % [place] % (Auto) % Eos % (Auto) % Baso % (Auto) % Neut # (Auto) (1.4-6.5) K/uL Lymph # (Auto) (1.2-3.4) K/uL [place] # (Auto) (0.11-0.59) K/uL Eos # (Auto) (0-0.5) K/uL Baso # (Auto) (0-0.2) K/uL Immature Gran # (Auto) (0.00-0.02) K/uL PT (9.0-12.0) Seconds INR (0.9-1.1) VBG pH (7.36-7.41) VBG pCO2 (38-50) mmHg VBG pO2 mmHg VBG HCO3 mmol/L VBG O2 Saturation % VBG Base Excess mEq/L Barometric Pressure mm/Hg Sodium (136-145) mmol/L Potassium (3.5-5.1) mmol/L Chloride (98-107) mmol/L Carbon Dioxide (21-32) mmol/L Anion Gap (3-11) BUN (6-23) mg/dl Creatinine (0.6-1.2) mg/dl Est Cr Clr Drug Dosing Est GFR ( Amer) ml/min Est GFR (Non-Af Amer) ml/min BUN/Creatinine Ratio (10-20) Glucose (70-99(Fasting)) mg/dl Lactate (0.4-2.0) mmol/L Calcium (8.5-10.1) mg/dl Magnesium (1.7-2.4) mg/dl Total Bilirubin (0.2-1.0) mg/dl AST (13-39) U/L ALT (7-52) U/L Alkaline Phosphatase (34-104) U/L Troponin I (0-0.04) ng/ml Total Protein (6.0-8.3) gm/dl Albumin (3.4-5.0) gm/dl Globulin (2.5-4.0) gm/dl Albumin/Globulin Ratio (0.9-2) Procalcitonin (0-0.5) ng/ml Urine Color Yellow Urine Appearance Clear (Clear) Urine pH 5.0 (4.5-7.5) Ur Specific [place] 1.030 (1.000-1.030) Urine Protein Negative (Negative) Urine Glucose (UA) Negative (Negative) Urine Ketones 1+ H (Negative) Urine Blood 2+ H (Negative) Urine Nitrite Positive A (Negative) Urine Bilirubin Negative (Negative) Urine Urobilinogen Negative (Negative) Ur Leukocyte Esterase 2+ H (Negative) Urine WBC (Auto) >30 H (0-5) /hpf Urine RBC (Auto) 10-30 H (0-4) /hpf U Hyaline Cast (Auto) 0 (0-5) /lpf U Epithel Cells (Auto) 0-5 (0-5) /lpf Urine Bacteria (Auto) 1+ H (Negative) SARS-CoV-2, RNA, NAAT NEGATIVE (NEGATIVE) Administered Medications Sodium Chloride (Nss 1000ml) 1,000 mls @ 999 mls/hr IV .Q1H1M ONE Stop: 07/04/21 15:28 Last Admin: 07/04/21 14:37 Dose: 999 mls/hr Documented by: [id number] Discontinued Medications Sodium Chloride (Nss) 500 mls @ 999 mls/hr IV .Q31M ONE Stop: 07/04/21 13:01 Last Infusion: 07/04/21 14:17 Dose: 0 mls/hr Documented by: [id number] Admin: 07/04/21 13:42 Dose: 999 mls/hr Documented by: [id number] Piperacillin Sod/Tazobactam Sod (Zosyn) 4.5 gm in 120 mls @ 240 mls/hr IV NOW ONE Stop: 07/04/21 14:56 Last Admin: 07/04/21 14:37 Dose: 240 mls/hr Documented by: [id number] Ioversol (Optiray 320 125ml) 120 ml IV ONCE ONE Stop: 07/04/21 14:15 Last Admin: 07/04/21 14:14 Dose: 120 ml Documented by: [id number] Imaging Data Radiologist's Impression: Chest X-Ray 07/04/21 12:24 XR chest 1V portable HISTORY: Weakness. Shortness of breath. COMPARISON: Chest 03/02/2019. FINDINGS: Hazy peripheral airspace opacities seen throughout the lungs. This is new from the prior study and favors a viral pneumonia. The heart is mildly enlarged. No pleural effusions. No pneumothorax. There is a left shoulder prosthesis. IMPRESSION: Hazy peripheral airspace opacities seen throughout the lungs likely representing a viral pneumonia. ACT 112: Negative or not required by law. Electronically signed by: Celso Naidu M.D. 07/04/2021 12:[address] 07/04/21 12:[address] DOSE: HISTORY: weak/confused TECHNIQUE: Multiaxial CT images of the head were performed without the use of intravenous contrast. Automated exposure control was utilized for this study. A dose lowering technique was utilized adhering to the principles of ALARA. Comparison: None. Findings: The paranasal sinuses and mastoid air cells are clear. The calvarium and skull base are intact. There is no mass, hematoma, midline shift, acute infarct. White matter hypodensity is nonspecific but suggestive of microvascular ischemic change. The ventricles and sulci demonstrate mild age-related involutional changes. 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 There are old infarcts are also seen within the bilateral basal ganglia. Impression: No acute infarct or intracranial hemorrhage identified. Chronic changes as described above. ACT 112: Negative or not required by law. Electronically signed by: Celso Naidu M.D. 07/04/2021 2:48 PM Chest CTA 07/04/21 12:26 CT angio chest PE protocol CLINICAL HISTORY: Shortness of breath. History of Covid in May. Evaluate f or pulmonary embolus. COMPARISON STUDY: Portable chest from 222 CT DOSE: 749.81 mGy.cm TECHNIQUE: CT Angio of the chest was performed.followed by image post processing with coronal, and sagittal MIP reformats. Contrast Volume: Optiray 320, 120 ml FINDINGS: Vasculature: There is homogeneous perfusion of the pulmonary vasculature bilaterally. No intraluminal filling defects or evidence for pulmonary embolus is seen. Airway: The airway is clear. No endobronchial lesion is identified. Lungs: There is evidence for a background of interstitial fibrosis with interlobular septal thickening at the lung periphery. This is seen involving the upper and lower lobes bilaterally. Additionally, there are mild patchy groundglass opacity seen bilaterally characteristic of a viral type pneumonitis. The findings are characteristic of early versus residual Covid [address] from previous Covid diagnosis is available for comparison. Pleura: There is no evidence for pleural effusion. There is no evidence for pneumothorax. There is minimal pleural thickening posteriorly, bilaterally. Mediastinum: There is no evidence for pathologic adenopathy. The heart size is within normal limits. Coronary artery calcification is present. The thoracic aorta is within normal limits. There is no evidence for pericardial effusion. Upper abdomen:The adrenal glands are normal bilaterally. There is evidence for small to moderate size hiatal hernia with mucosal thickening Osseous structures: There is no acute osseous pathology. Degenerative changes are seen within the spine. Impression: 1. No CTA evidence for pulmonary embolus. 2. Interstitial lung disease is present bilaterally. 3. Additionally, there are a few patchy groundglass opacities seen bilaterally which could represent early versus residual Covid pneumonia. Patient has history of Covid infection in May. No baseline study was available for comparison. 4. Coronary artery calcification. 5. Small to moderate size hiatal hernia with mucosal thickening. ACT 112: Negative or not required by law. Electronically signed by: Christoph Cortez M.D. 07/04/2021 2:28 PM Discharge Plan Visit Data Chief Complaint: Shortness of Breath/Dyspnea Stated Complaint: PNEUMONIA, REF BY ED Provider: Heladio King Discharge Problem: Acute UTI, Hypoxia, Weakness Patient Disposition: Being Evaluated by Hospitalist Forms Stand Alone Forms: My [facility] Prescriptions Prescriptions: No Action aspirin [Ecotrin Low Strength] 81 mg tablet,delayed release (DR/EC) 81 mg PO QAM RF: 0 docusate sodium [Colace] 100 mg capsule 100 mg PO Q2D RF: 0 ferrous sulfate 325 mg (65 mg iron) tablet,delayed release (DR/EC) 325 mg PO QAM RF: 0 amlodipine 5 mg tablet 10 mg PO QAM Qty: 180 RF: 3 (DME) pen needle, diabetic [BD Ultra-Fine Mini Pen Needle] 31 gauge x 3/16" needle See Rx Instructions .ROUTE .MEDSUPPLY Qty: 200 RF: 3 (DME) OneTouch Ultra Test Strip See Rx Instructions .ROUTE .MEDSUPPLY Qty: 300 RF: 3 acetaminophen 325 mg capsule 325 mg PO Q6H PRN (Reason: fever or pain) RF: 0 latanoprost 0.005 % drops 1 drops OPB HS RF: 0 cholecalciferol (vitamin D3) 2,000 unit tablet 4,000 units PO QAM RF: 0 (DME) Oxygen Home Liters Per Minute See Rx Instructions .Route Qty: 1 RF: 0 atorvastatin 10 mg tablet 10 mg PO HS RF: 0 gabapentin 400 mg capsule 400 mg PO HS RF: 0 insulin aspart U-100 [Novolog Flexpen U-100 Insulin] 100 unit/mL (3 mL) insulin pen 2 unit SQ HS RF: 0 Referrals Referrals: Felton Hanna MD [Primary Care Provider] -
--- NOTE | 2021-07-04 12:42 | XRay Report ---
XR chest 1V portable HISTORY: Weakness. Shortness of breath. COMPARISON: Chest 03/02/2019. FINDINGS: Hazy peripheral airspace opacities seen throughout the lungs. This is new from the prior st udy and favors a viral pneumonia. The heart is mildly enlarged. No pleural effusions. No pneumothorax . There is a left shoulder prosthesis. IMPRESSION: Hazy peripheral airspace opacities seen throughout the lungs likely representing a viral pneumonia. ACT 112: Negative or not required by law. Electronically signed by: Celso Naidu M.D. 07/04/2021 12:41 PM
[2021-07-04 13:29] LABS: Base Excess VBG 0 mEq/L; HCO3 VBG 26 mmol/L; Hematocrit (blood only) 35.9 % (37-47); Hemoglobin 11.6 g/dL (12.0-16.0); Mean Corpuscular Hemoglobin 30.3 pg (25-34); Mean Corpuscular Hgb Conc 32.3 g/dL (32-36); Mean Corpuscular Volume 93.7 fL (80-100); PCO2 VBG 46 mmHg (38-50); PO2 VBG 18 mmHg; Platelet Count 496 K/uL (130-400); RDW Coefficient of Variation 14.6 % (11.5-14.5); RDW Standard Deviation 49.9 fL (36.4-46.3); Red Blood Count 3.83 M/uL (4.2-5.4); White Blood Count 21.94 K/uL (4.8-10.8); pH VBG 7.37 (7.36-7.41)
[2021-07-04 13:44] LABS: INR 1.1 (0.9-1.1); Prothrombin Time 10.9 Seconds (9.0-12.0)
[2021-07-04 13:47] LABS: Oxygen Saturation VBG < 60.0 %
[2021-07-04 13:51] LABS: Basophils # (auto) 0.05 K/uL (0-0.2); Basophils % (auto) 0.2 %; Eosinophils # (auto) 0.06 K/uL (0-0.5); Eosinophils % (auto) 0.3 %; Immature Granulocytes # (auto) 0.05 K/uL (0.00-0.02); Immature Granulocytes % (auto) 0.2 %; Lymphocytes # (auto) 0.91 K/uL (1.2-3.4); Lymphocytes % (auto) 4.1 %; Monocytes # (auto) 0.84 K/uL (0.11-0.59); Monocytes % (auto) 3.8 %; Neutrophils # (auto) 20.03 K/uL (1.4-6.5); Neutrophils % (auto) 91.4 %
[2021-07-04 13:56] LABS: Troponin I < 0.03 ng/ml (0-0.04)
[2021-07-04 14:01] LABS: Alanine Aminotransferase 9 U/L (7-52); Albumin Level 3.6 gm/dl (3.4-5.0); Alkaline Phosphatase 71 U/L (34-104); Anion Gap 9 (3-11); Aspartate Aminotransferase 13 U/L (13-39); BUN Creatinine Ratio 25.5 (10-20); Bilirubin,Total 0.4 mg/dl (0.2-1.0); Blood Urea Nitrogen 24 mg/dl (6-23); Calcium 9.2 mg/dl (8.5-10.1); Carbon Dioxide 24 mmol/L (21-32); Chloride 105 mmol/L (98-107); Est GFR (African American) 65.9 ml/min; Est GFR (Non-African American) 56.9 ml/min; Globulin 3.5 gm/dl (2.5-4.0); Glucose 175 mg/dl (70-99(Fasting)); Potassium 4.5 mmol/L (3.5-5.1); Sodium 138 mmol/L (136-145); Total Protein 7.1 gm/dl (6.0-8.3)
[2021-07-04] MEDS ORDERED: OPTIRAY 320 125ml IV ONE (14:14)
[2021-07-04] MEDS ORDERED: PIPERACILLIN/TAZOBACTAM 4.5 GM/120 ML BAG IV ONE (14:27)
[2021-07-04] MEDS ORDERED: PIPERACILL/TAZOBAC CONSULT ACTIVE PRN (14:27)
[2021-07-04] MEDS ORDERED: SODIUM CHLORIDE 0.9% 1000ML 1,000 ML IV ONE (14:28)
--- NOTE | 2021-07-04 14:29 | CT Scan Report ---
CT angio chest PE protocol CLINICAL HISTORY: Shortness of breath. History of Covid in May. Evaluate for pulmonary embolus. COMPARISON STUDY: Portable chest from 222 CT DOSE: 749.81 mGy.cm TECHNIQUE: CT Angio of the chest was performed.followed by image post processing with coronal, and s agittal MIP reformats. Contrast Volume: Optiray 320, 120 ml FINDINGS: Vasculature: There is homogeneous perfusion of the pulmonary vasculature bilaterally. No intraluminal filling defects or evidence for pulmonary embolus is seen. Airway: The airway is clear. No endobronchial lesion is identified. Lungs: There is evidence for a background of interstitial fibrosis with interlobular septal thickenin g at the lung periphery. This is seen involving the upper and lower lobes bilaterally. Additionally, there are mild patchy groundglass opacity seen bilaterally characteristic of a viral type pneumonitis . The findings are characteristic of early versus residual Covid [address] from pr evious Covid diagnosis is available for comparison. Pleura: There is no evidence for pleural effusion. There is no evidence for pneumothorax. There is m inimal pleural thickening posteriorly, bilaterally. Mediastinum: There is no evidence for pathologic adenopathy. The heart size is within normal limits. Coronary artery calcification is present. The thoracic aorta is within normal limits. There is no gonzalo dence for pericardial effusion. Upper abdomen:The adrenal glands are normal bilaterally. There is evidence for small to moderate size hiatal hernia with mucosal thickening Osseous structures: There is no acute osseous pathology. Degenerative changes are seen within the sp ine. Impression: 1. No CTA evidence for pulmonary embolus. 2. Interstitial lung disease is present bilaterally. 3. Additionally, there are a few patchy groundglass opacities seen bilaterally which could represent early versus residual Covid pneumonia. Patient has history of Covid infection in May. No baselin e study was available for comparison. 4. Coronary artery calcification. 5. Small to moderate size hiatal hernia with mucosal thickening. ACT 112: Negative or not required by law. Electronically signed by: Christoph Cortez M.D. 07/04/2021 2:28 PM
--- NOTE | 2021-07-04 14:49 | CT Scan Report ---
HEAD CT NONCONTRAST CT DOSE: HISTORY: weak/confused TECHNIQUE: Multiaxial CT images of the head were performed without the use of intravenous contrast. A utomated exposure control was utilized for this study. A dose lowering technique was utilized adheri ng to the principles of ALARA. Comparison: None. Findings: The paranasal sinuses and mastoid air cells are clear. The calvarium and skull base are int act. There is no mass, hematoma, midline shift, acute infarct. White matter hypodensity is nonspecifi c but suggestive of microvascular ischemic change. The ventricles and sulci demonstrate mild age-rela alonzo involutional changes. 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 There are old infarcts are also seen within the bilateral basal ganglia. Impression: No acute infarct or intracranial hemorrhage identified. Chronic changes as described above. ACT 112: Negative or not required by law. Electronically signed by: Celso Naidu M.D. 07/04/2021 2:48 PM
[2021-07-04 14:50] LABS: Appearance Urine Clear (Clear); Bacteria Urine Automated 1+ (Negative); Bilirubin Urine Negative (Negative); Blood Urine 2+ (Negative); Cast Urine Automated 0 /lpf (0-5); Color Urine Yellow; Epithelial Cell Urine Auto 0-5 /lpf (0-5); Glucose Urine UA Negative (Negative); Ketones Urine 1+ (Negative); Leukocyte Esterase Urine 2+ (Negative); Nitrite Urine Positive (Negative); Protein Urine Negative (Negative); Urobilinogen Urine Negative (Negative); WBC Urine Automated >30 /hpf (0-5)
--- NOTE | 2021-07-04 16:30 | Electrocardiogram Report ---
Test Reason : Blood Pressure : / mmHG Vent. Rate : 109 BPM Atrial Rate : 109 BPM P-R Int : 168 ms QRS Dur : 080 ms QT Int : 320 ms P-R-T Axes : 080 -24 128 degrees QTc Int : 430 ms Poor data quality, interpretation may be adversely affected Sinus tachycardia Left ventricular hypertrophy with repolarization abnormality Cannot rule out Septal infarct , age undetermined Abnormal ECG When compared with ECG of 02-MAR-2019 10:51, Vent. rate has increased BY 40 BPM Minimal criteria for Septal infarct are now Present ST less depressed in Lateral leads T wave inversion less evident in Anterolateral leads Confirmed by Hamlet Ding ([id number]) on 07/04/2021 4:30:23 PM Referred By: Confirmed By:Hamlet Ding
--- NOTE | 2021-07-04 17:22 | History & Physical Report ---
Date of Service July 04, 2021 Assessment & Plan (1) Weakness: Plan: Patient with some weakness and confusion, likely secondary to mild toxic metabolic encephalopathy, post Covid syndrome We will ask PT/OT to evaluate. Reportedly doing very well at home post rehab Further treatment as noted below (2) Acute UTI: Plan: Patient has acute UTI, catheter associated. Present on admission Admit for further treatment Await final culture results Patient was treated with Zosyn in the emergency room, okay to change his over to Rocephin pending cultures I will ask urology to evaluate this patient had urinary retention prior to discharge from [facility] bed (3) Post-COVID chronic dyspnea: Plan: No acute treatment necessary at this time Antibiotics as noted above for UTI PT/OT evaluation as noted Consider home O2 evaluation prior to discharge depending on progress (4) High cholesterol: Plan: Continue atorvastatin (5) Diabetes mellitus type 2, uncontrolled: Plan: Will start sliding scale insulin along with a diabetic diet (6) Hypertension: Plan: Blood pressure 130/63 Continue amlodipine (7) Hyperlipidemia: History of Present Illness Chief Complaint: confusion Primary Care Provider: Felton Hanna MD This is an 80-year-old female with past medical history type 2 diabetes mellitus, LVH, hypertension, recent COVID-19 that presents today with confusion. Patient was seen with her daughter and both are decent historians. Patient had recent Covid as noted. She was hospitalized at [facility] facilities and I was subsequently discharged from there after she recovered. She was sent to rehab and was subsequently discharged back home on 06/23. The daughter tells me that she was doing very well after this. 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 However, over the past few days she has been getting much worse. She was more confused at home. She also noted some generalized weakness and diminished appetite. She is apparently slightly more short of breath as well. She was seen by her primary care physician earlier and there was some mild bibasilar infiltrates consistent with infection. Of note, the patient had a Crocker catheter placed at the rehab and she was to have this changed earlier this week but this was delayed. She was to see urology as an outpatient but was not yet seen. On work-up in the emergency room she was found to have a urinary tract infection. At the time my evaluation, the patient was drinking out of a cup. She did seem to be very confused and was awake alert and oriented x3. Patient had a Crocker ca theter that was draining clear yellow urine, this was just changed by ER staff. Patient is now being admitted for mild toxic metabolic encephalopathy and a UTI. Allergies Allergy/AdvReac Type Severity Reaction Status Date / Time No Known Allergies Allergy Verified 07/04/21 14:47 Home Medications Medication Instructions Recorded Confirmed Type aspirin 81 mg tablet,delayed 81 mg PO QAM 01/27/18 07/04/21 History release (Ecotrin Low Strength) docusate sodium 100 mg capsule 100 mg PO Q2D 08/29/18 07/04/21 History (Colace) acetaminophen 325 mg capsule 325 mg PO Q6H PRN cap 11/17/18 07/04/21 History cholecalciferol (vitamin D3) 50 4,000 units PO QAM tab 11/20/18 07/04/21 History mcg (2,000 unit) tablet ferrous sulfate 325 mg (65 mg 325 mg PO QAM tab 11/20/18 07/04/21 History iron) tablet,delayed release amlodipine 5 mg tablet 10 mg PO QAM #180 tab 07/23/19 07/04/21 Rx latanoprost 0.005 % eye drops 1 drops OPB HS ml 12/21/19 07/04/21 History pen needle, diabetic 31 gauge x #200 ea 01/04/21 07/04/21 Rx 3/16" (BD Ultra-Fine Mini Pen Needle) OneTouch Ultra Test (blood sugar #300 ea NS 02/23/21 07/04/21 Rx diagnostic) Oxygen Home #1 ea 07/04/21 07/04/21 Rx atorvastatin 10 mg tablet 10 mg PO HS 07/04/21 07/04/21 History gabapentin 400 mg capsule 400 mg PO HS 07/04/21 07/04/21 History insulin aspart U-100 100 unit/mL 2 unit SQ HS 07/04/21 07/04/21 History (3 mL) subcutaneous pen (Novolog Flexpen U-100 Insulin aspart) Past Med/Surg History Medical History Acute respiratory distress syndrome (ARDS) due to COVID-19 virus Bilateral kidney stones Borderline glaucoma with ocular hypertension Chronic anemia Diabetes mellitus type 2, uncontrolled Diabetic ulcer of right foot ulcer right 5th digit resolved E. coli septicemia Encounter for pre-operative examination Foot ulcer Hiatal hernia High cholesterol History of COVID-19 Hyperlipidemia Hypertension Insulin dose changed Leukocytosis Leukocytosis pt denies PAD (peripheral artery disease) s/p Left popliteal-tibial bypass (07/2018) Peripheral edema chronic L>R s/p surgery PMR (polymyalgia rheumatica) Pressure ulcer of right ankle, stage 2 Psoriasis Pyelonephritis Pyelonephritis Septic shock Septic shock Septicemia pt denies Skin ulcer of left foot including toes ulcer left 2nd digit dorsum resolved Ulcer of left great toe due to diabetes mellitus Surgical History H/O section x 2 History of cataract surgery bilateral History of esophagogastroduodenoscopy (EGD) with Dilitation History of tooth extraction uppers S/P cystoscopy with ureteral stent placement bilateral S/P popliteal-tibial bypass Left popliteal-tibial bypass (07/2018) Status post femoral-popliteal bypass surgery S 07/22, left Family History Mother Breast cancer Myocardial infarction Unknown Hyperlipidemia Hypertension Sister Diabetes Father , age 34 No problems noted. Denies family history of Ovarian cancer Prostate cancer Colorectal cancer Social History Smoking Status: Never smoker Second Hand Exposure: No; Hx Alcohol Use: No Hx Substance Use: No Preferred Language: Kinyarwanda Communication Ability: Effective Visual Impairment: Limited Hearing Ability: Normal Stone Rigger Required: No Beliefs That Will Affect Care: None marital status: / Current Living Situation: Family Current Living Situation Comment: with a daughter current occupational status: retired Feels Safe at Home: Yes Childhood Exposure to Second-Hand Smoke: No caffeine: No during the past year weight has: remained stable Dental Care, Regularly: Yes Physical Activity Frequency: 1-2 Times per Week Seatbelt Use: always Sunscreen Use: Yes Assistive Devices: Brace/Splint/Immobilizer Review of Systems Constitutional: no fever, no chills, no weakness, no weight loss and no weight gain Eyes: as per Subjective / HPI Respiratory: no cough, no chest congestion, no dyspnea and no dyspnea on exertion Cardiovascular: no chest pain, no orthopnea, no palpitations, no lightheadedness and no edema Gastrointestinal: no abdominal pain, no nausea, no vomiting, no constipation and no diarrhea/loose stools Genitourinary: as per Subjective / HPI and + difficulty urinating; no dysuria, no urinary frequency, no urinary hesitancy, no urinary urgency and no flank pain Musculoskeletal: no back pain, no neck pain, no joint pain, no stiffness and no myalgia Integumentary: no rash Neurologic: + confusion; no gait abnormality, no unsteadiness, no falls and no generalized weakness Physical Exam Constitutional: cooperative; no acute distress Neck: trachea midline, no thyromegaly Respiratory: normal respiratory effort Auscultation: lungs clear to auscultation bilaterally; no crackles, no rales, no rhonchi and no wheezes Cardiovascular: Rate/Rhythm: regular rate and regular rhythm Heart Sounds: normal S1 and normal S2 Gastrointestinal (Abdomen): Inspection/Auscultation: abdomen normal to inspect ion Percussion/Palpation: abdomen soft; abdomen nontender, no guarding, abdomen not rigid and no hepatosplenomegaly Skin: no rashes, warm and dry Genitourinary: Crocker, slightly sedimented urine in tubing Results & Data Results & Data ([facility]) Vital Signs (Past 12 Hours) Vital Signs Temp Pulse Resp BP Pulse Ox 07/04/21 16:30 103 H 20 130/63 93 07/04/21 16:08 100 07/04/21 16:00 104 H 24 124/65 92 07/04/21 15:42 106 H 22 128/72 96 07/04/21 15:30 103 H 22 100 07/04/21 15:00 108 H 20 96 07/04/21 14:30 107 H 17 98 07/04/21 14:00 105 H 21 100 07/04/21 13:40 99 07/04/21 13:30 107 H 17 99 07/04/21 13:00 108 H 20 97 07/04/21 12:34 113 H 17 99 07/04/21 12:10 36.4 C L 112 H 22 104/65 89 L Laboratory Results Laboratory Results WBC 21.94 K/uL (4.8-10.8) H 07/04/21 13:07 RBC 3.83 M/uL (4.2-5.4) L 07/04/21 13:07 Hgb 11.6 g/dL (12.0-16.0) L 07/04/21 13:07 Hct 35.9 % (37-47) L 07/04/21 13:07 MCV 93.7 fL (80-100) 07/04/21 13:07 MCH 30.3 pg (25-34) 07/04/21 13:07 MCHC 32.3 g/dL (32-36) 07/04/21 13:07 RDW Std Deviation 49.9 fL (36.4-46.3) H 07/04/21 13:07 RDW Coeff of Gregory 14.6 % (11.5-14.5) H 07/04/21 13:07 Plt Count 496 K/uL (130-400) H 07/04/21 13:07 MPV 9.0 fL (7.4-10.4) 07/04/21 13:07 Immature Gran % (Auto) 0.2 % 07/04/21 13:07 Neut % (Auto) 91.4 % 07/04/21 13:07 Lymph % (Auto) 4.1 % 07/04/21 13:07 [place] % (Auto) 3.8 % 07/04/21 13:07 Eos % (Auto) 0.3 % 07/04/21 13:07 Baso % (Auto) 0.2 % 07/04/21 13:07 Neut # (Auto) 20.03 K/uL (1.4-6.5) H 07/04/21 13:07 Lymph # (Auto) 0.91 K/uL (1.2-3.4) L 07/04/21 13:07 [place] # (Auto) 0.84 K/uL (0.11-0.59) H 07/04/21 13:07 Eos # (Auto) 0.06 K/uL (0-0.5) 07/04/21 13:07 Baso # (Auto) 0.05 K/uL (0-0.2) 07/04/21 13:07 Immature Gran # (Auto) 0.05 K/uL (0.00-0.02) H 07/04/21 13:07 PT 10.9 Seconds (9.0-12.0) 07/04/21 13:07 INR 1.1 (0.9-1.1) 07/04/21 13:07 VBG pH 7.37 (7.36-7.41) 07/04/21 13:07 VBG pCO2 46 mmHg (38-50) 07/04/21 13:07 VBG pO2 18 mmHg 07/04/21 13:07 VBG HCO3 26 mmol/L 07/04/21 13:07 VBG O2 Saturation < 60.0 % 07/04/21 13:07 VBG Base Excess 0 mEq/L 07/04/21 13:07 Barometric Pressure 741.0 mm/Hg 07/04/21 13:07 Sodium 138 mmol/L (136-145) 07/04/21 13:07 Potassium 4.5 mmol/L (3.5-5.1) 07/04/21 13:07 Chloride 105 mmol/L (98-107) 07/04/21 13:07 Carbon Dioxide 24 mmol/L (21-32) 07/04/21 13:07 Anion Gap 9 (3-11) 07/04/21 13:07 BUN 24 mg/dl (6-23) H 07/04/21 13:07 Creatinine 0.94 mg/dl (0.6-1.2) 07/04/21 13:07 Est Cr Clr Drug Dosing Not Reportable 07/04/21 13:07 Est GFR ( Amer) 65.9 ml/min 07/04/21 13:07 Est GFR (Non-Af Amer) 56.9 ml/min 07/04/21 13:07 BUN/Creatinine Ratio 25.5 (10-20) H 07/04/21 13:07 Glucose 175 mg/dl (70-99(Fasting)) H 07/04/21 13:07 Lactate 1.3 mmol/L (0.4-2.0) 07/04/21 15:00 Calcium 9.2 mg/dl (8.5-10.1) 07/04/21 13:07 Magnesium 2.0 mg/dl (1.7-2.4) 07/04/21 13:07 Total Bilirubin 0.4 mg/dl (0.2-1.0) 07/04/21 13:07 AST 13 U/L (13-39) 07/04/21 13:07 ALT 9 U/L (7-52) 07/04/21 13:07 Alkaline Phosphatase 71 U/L (34-104) 07/04/21 13:07 Troponin I < 0.03 ng/ml (0-0.04) 07/04/21 13:07 Total Protein 7.1 gm/dl (6.0-8.3) 07/04/21 13:07 Albumin 3.6 gm/dl (3.4-5.0) 07/04/21 13:07 Globulin 3.5 gm/dl (2.5-4.0) 07/04/21 13:07 Albumin/Globulin Ratio 1.0 (0.9-2) 07/04/21 13:07 Procalcitonin 0.15 ng/ml (0-0.5) 07/04/21 13:07 TSH 2.701 uIu/ml (0.300-4.500) 07/04/21 13:07 Urine Color Yellow 07/04/21 14:30 Urine Appearance Clear (Clear) 07/04/21 14:30 Urine pH 5.0 (4.5-7.5) 07/04/21 14:30 Ur Specific [place] 1.030 (1.000-1.030) 07/04/21 14:30 Urine Protein Negative (Negative) 07/04/21 14:30 Urine Glucose (UA) Negative (Negative) 07/04/21 14:30 Urine Ketones 1+ (Negative) H 07/04/21 14:30 Urine Blood 2+ (Negative) H 07/04/21 14:30 Urine Nitrite Positive (Negative) A 07/04/21 14:30 Urine Bilirubin Negative (Negative) 07/04/21 14:30 Urine Urobilinogen Negative (Negative) 07/04/21 14:30 Ur Leukocyte Esterase 2+ (Negative) H 07/04/21 14:30 Urine WBC (Auto) >30 /hpf (0-5) H 07/04/21 14:30 Urine RBC (Auto) 10-30 /hpf (0-4) H 07/04/21 14:30 U Hyaline Cast (Auto) 0 /lpf (0-5) 07/04/21 14:30 U Epithel Cells (Auto) 0-5 /lpf (0-5) 07/04/21 14:30 Urine Bacteria (Auto) 1+ (Negative) H 07/04/21 14:30 Nasal Screen MRSA (PCR) Negative (Negative) 07/04/21 15:40 SARS-CoV-2, RNA, NAAT NEGATIVE (NEGATIVE) 07/04/21 13:15 Impressions Chest X-Ray 07/04/21 12:24 XR chest 1V portable HISTORY: Weakness. Shortness of breath. COMPARISON: Chest 03/02/2019. FINDINGS: Hazy peripheral airspace opacities seen throughout the lungs. This is new from the prior study and favors a viral pneumonia. The heart is mildly enlarged. No pleural effusions. No pneumothorax. There is a left shoulder prosthesis. IMPRESSION: Hazy peripheral airspace opacities seen throughout the lungs likely representing a viral pneumonia. ACT 112: Negative or not required by law. Electronically signed by: Celso Naidu M.D. 07/04/2021 12:[address] 07/04/21 12:[address] DOSE: HISTORY: weak/confused TECHNIQUE: Multiaxial CT images of the head were performed without the use of intravenous contrast. Automated exposure control was utilized for this study. A dose lowering technique was utilized adhering to the principles of ALARA. Comparison: None. Findings: The paranasal sinuses and mastoid air cells are clear. The calvarium and skull base are intact. There is no mass, hematoma, midline shift, acute infarct. White matter hypodensity is nonspecific but suggestive of microvascular ischemic change. The ventricles and sulci demonstrate mild age-related involutional changes. 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 There are old infarcts are also seen within the bilateral basal ganglia. Impression: No acute infarct or intracranial hemorrhage identified. Chronic changes as described above. ACT 112: Negative or not required by law. Electronically signed by: Celso Naidu M.D. 07/04/2021 2:48 PM Chest CTA 07/04/21 12:26 CT angio chest PE protocol CLINICAL HISTORY: Shortness of breath. History of Covid in May. Evaluate for pulmonary embolus. COMPARISON STUDY: Portable chest from 222 CT DOSE: 749.81 mGy.cm TECHNIQUE: CT Angio of the chest was performed.followed by image post processing with coronal, and sagittal MIP reformats. Contrast Volume: Optiray 320, 120 ml FINDINGS: Vasculature: There is homogeneous perfusion of the pulmonary vasculature bilaterally. No intraluminal filling defects or evidence for pulmonary embolus is seen. Airway: The airway is clear. No endobronchial lesion is identified. Lungs: There is evidence for a background of interstitial fibrosis with interlobular septal thickening at the lung periphery. This is seen involving the upper and lower lobes bilaterally. Additionally, there are mild patchy groundglass opacity seen bilaterally characteristic of a viral type pneumonitis. The findings are characteristic of early versus residual Covid [address] from previous Covid diagnosis is available for comparison. Pleura: There is no evidence for pleural effusion. There is no evidence for pneumothorax. There is minimal pleural thickening posteriorly, bilaterally. Mediastinum: There is no evidence for pathologic adenopathy. The heart size is w ithin normal limits. Coronary artery calcification is present. The thoracic aorta is within normal limits. There is no evidence for pericardial effusion. Upper abdomen:The adrenal glands are normal bilaterally. There is evidence for small to moderate size hiatal hernia with mucosal thickening Osseous structures: There is no acute osseous pathology. Degenerative changes are seen within the spine. Impression: 1. No CTA evidence for pulmonary embolus. 2. Interstitial lung disease is present bilaterally. 3. Additionally, there are a few patchy groundglass opacities seen bilaterally which could represent early versus residual Covid pneumonia. Patient has history of Covid infection in May. No baseline study was available for comparison. 4. Coronary artery calcification. 5. Small to moderate size hiatal hernia with mucosal thickening. ACT 112: Negative or not required by law. Electronically signed by: Christoph Cotrez M.D. 07/04/2021 2:28 PM PG Care Time/CCT Total # of Minutes Spent Total Time Spent with Patient: Total time spent is greater than 50% in coordination of care (as documented) at patient's floor/unit and/or counseling patient: Coding Level of Care Code 72179 Initial Inpt Care Lvl 3 Diagnoses Acute UTI N39.0 Weakness R53.1 High cholesterol E78.00 Diabetes mellitus type 2, uncontrolled E11.65 Glycemic state: with hyperglycemia Hypertension I10 Hypertension type: essential hypertension Hyperlipidemia E78.2 Hyperlipidemia type: mixed hyperlipidemia Post-COVID chronic dyspnea R06.09; U09.9 (1) Diabetes mellitus type 2, uncontrolled Glycemic state: with hyperglycemia Qualified Code(s): E11.65 - Type 2 diabetes mellitus with hyperglycemia (2) Hypertension Hypertension type: essential hypertension Qualified Code(s): I10 - Essential (primary) hypertension (3) Hyperlipidemia Hyperlipidemia type: mixed hyperlipidemia Qualified Code(s): E78.2 - Mixed hyperlipidemia
[2021-07-04] MEDS ORDERED: ACETAMINOPHEN 325 MG TAB PO PRN (21:02)
[2021-07-04] MEDS ORDERED: ONDANSETRON INJ 2 MG/ML 2 ML VIAL IV PRN (21:02)
[2021-07-04] MEDS ORDERED: NON-FORMULARY MEDICATION (Acetaminophen 325 mg capsule) PO PRN (21:02)
--- NOTE | 2021-07-04 21:28 | Urology Consultation ---
Date of Consultation July 04, 2021 Assessment & Plan (1) Urinary retention: Patient has been admitted by the hospitalist service. Concerning her urinary tension recommend proceeding as follows: Maintain the patient's Crocker catheter for tonight Continue treatment of the patient's urinary tract infection with Rocephin. Antibiotics can be tailored based on pending culture results Patient was scheduled to see [facility] physician group urology on 07/20/2021 for further recommendations. If the patient remains hospitalized at [facility] may be reasonable to attempt a voiding trial while in the hospital. Additional recommendation were made based on her clinical course as unfolds Remainder of plan as directed by primary team History of Present Illness Reason for Consultation: Urinary retention Attending Physician: Herb Perez DO History of Present Illness Is an 80-year-old female who was admitted to [facility] on 05/19/2021 secondary to acute hypoxic respiratory failure secondary to COVID-19 pneumonia. The patient required an extensive and lengthy stay in the hospital and became quite debilitated during this hospitalization was ultimately deemed stable for discharge on 06/09/2021 at which time she was discharged to acute rehab facility. While at the rehab facility the patient did have a Crocker catheter placed as she experienced urinary retention. She notes that the Crocker catheter has remained in place since rehab and she was ultimately scheduled to follow-up with [facility] physician group urology, Dr. Andrade, 07/20/2021. Did discuss the patient's urinary retention with her and she said that she has never had this problem in the past. She notes that with since the Crocker catheter has been placed at her rehab facility there have not been any attempts at a voiding trial. Patient was ultimately discharged from the rehab facility and has been residing with her daughter. Patient presented to her primary care team today for follow- up at which time the patient reported some increased shortness of breath and a slight cough. Her pulse ox was checked at her primary care office and patient's oxygen levels were noted to be about 82 to 83% with ambulation. Patient ultimately had a chest x-ray performed the patient was noted to have she peripherally located infiltrates at the bases. Due to her previous Covid infection and her declining status it was felt the patient required further evaluation in the emergency department and she therefore presented to [facility] emergency department today. Since arrival to the emergency department patient did have labs and imaging which I independently reviewed. A chest x-ray showed the patient had peripheral airspace opacities that were felt to be consistent with a viral pneumonia. CT scan of patient's head showed no acute intracranial bleeding or stroke. A CT s can of the chest was performed that showed no evidence of pulmonary emboli. Groundglass opacities were seen bilaterally felt to represent either residual Covid pneumonia or concurrent pneumonia. Labs include a CBC her white blood cell count was 21.9. Hemoglobin and hematocrit 11.6 and 35.9. Platelet count was 496,000. Her coagulation studies were noted to be normal. A chemistry profile showed sodium and potassium were normal. Her creatinine was also within normal range. There is a slight elevation of her BUN at 24. Cardiac enzymes were checked and were negative and a TSH was within normal range. A urine culture was checked that was positive for nitrites. There is also 2+ positive for leukocyte Estrace and greater than 30 white blood cells per high-power field were noted along with 1+ bacteria. And MSRA nasal swab was noted to be negative and a Covid test was performed which was also negative. Because of the patient's weakened and conditioned state was felt that she required admission to the hospital. Patient's Crocker catheter was reportedly changed by the emergency department today. Urine culture has been sent and the patient has thus far been treated with Rocephin for in the form of antibiotics. At the time of my interview the patient was resting comfortably bed she was no distress. Allergies Allergy/AdvReac Type Severity Reaction Status Date / Time No Known Allergies Allergy Verified 07/04/21 14:47 Home Medications Medication Instructions Recorded Confirmed Type aspirin 81 mg tablet,delayed 81 mg PO QAM 01/27/18 07/04/21 History release (Ecotrin Low Strength) docusate sodium 100 mg capsule 100 mg PO Q2D 08/29/18 07/04/21 History (Colace) acetaminophen 325 mg capsule 325 mg PO Q6H PRN cap 11/17/18 07/04/21 History cholecalciferol (vitamin D3) 50 4,000 units PO QAM tab 11/20/18 07/04/21 History mcg (2,000 unit) tablet ferrous sulfate 325 mg (65 mg 325 mg PO QAM tab 11/20/18 07/04/21 History iron) tablet,delayed release amlodipine 5 mg tablet 10 mg PO QAM #180 tab 07/23/19 07/04/21 Rx latanoprost 0.005 % eye drops 1 drops OPB HS ml 12/21/19 07/04/21 History pen needle, diabetic 31 gauge x #200 ea 01/04/21 07/04/21 Rx 3/16" (BD Ultra-Fine Mini Pen Needle) OneTouch Ultra Test (blood sugar #300 ea NS 02/23/21 07/04/21 Rx diagnostic) Oxygen Home #1 ea 07/04/21 07/04/21 Rx atorvastatin 10 mg tablet 10 mg PO HS 07/04/21 07/04/21 History gabapentin 400 mg capsule 400 mg PO HS 07/04/21 07/04/21 History insulin aspart U-100 100 unit/mL 2 unit SQ HS 07/04/21 07/04/21 History (3 mL) subcutaneous pen (Novolog Flexpen U-100 Insulin aspart) Patient History Medical History Acute respiratory distress syndrome (ARDS) due to COVID-19 virus Bilateral kidney stones Borderline glaucoma with ocular hypertension Chronic anemia Diabetes mellitus type 2, uncontrolled Diabetic ulcer of right foot ulcer right 5th digit resolved E. coli septicemia Encounter for pre-operative examination Foot ulcer Hiatal hernia High cholesterol History of COVID-19 Hyperlipidemia Hypertension Insulin dose changed Leukocytosis Leukocytosis pt denies PAD (peripheral artery disease) s/p Left popliteal-tibial bypass (07/2018) Peripheral edema chronic L>R s/p surgery PMR (polymyalgia rheumatica) Pressure ulcer of right ankle, stage 2 Psoriasis Pyelonephritis Pyelonephritis Septic shock Septic shock Septicemia pt denies Skin ulcer of left foot including toes ulcer left 2nd digit dorsum resolved Ulcer of left great toe due to diabetes mellitus Surgical History H/O section x 2 History of cataract surgery bilateral History of esophagogastroduodenoscopy (EGD) with Dilitation History of tooth extraction uppers S/P cystoscopy with ureteral stent placement bilateral S/P popliteal-tibial bypass Left popliteal-tibial bypass (07/2018) Status post femoral-popliteal bypass surgery S 07/22, left Family History Mother Breast cancer Myocardial infarction Unknown Hyperlipidemia Hypertension Sister Diabetes Father , age 34 No problems noted. 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: No Beliefs That Will Affect Care: None marital status: / Current Living Situation: Family Current Living Situation Comment: with a daughter current occupational status: retired Feels Safe at Home: Yes Childhood Exposure to Second-Hand Smoke: No caffeine: No during the past year weight has: remained stable Dental Care, Regularly: Yes Physical Activity Frequency: 1-2 Times per Week Seatbelt Use: always Sunscreen Use: Yes Assistive Devices: Brace/Splint/Immobilizer Review of Systems Constitutional: + fatigue and + weakness; no fever and no chills Eyes: no diplopia Ear, Nose, Mouth, Throat: no hearing loss Respiratory: + cough and + dyspnea Cardiovascular: no chest pain Gastrointestinal: no abdominal pain Genitourinary: Crocker catheter present at time of admission Musculoskeletal: no back pain Integumentary: no rash Neurologic: + generalized weakness; no localized weakness Physical Exam Constitutional: well developed and well nourished; no acute distress Eyes: no conjunctival abnormality ENMT: Ears: no hearing impairment Neck: trachea midline Respiratory: normal respiratory effort; no respiratory distress and no labored breathing Patient was not using accessory muscles at time of exam Cardiovascular: Rate/Rhythm: regular rate and regular rhythm Gastrointestinal (Abdomen): Soft, nontender Musculoskeletal: No calf tenderness Skin: no rashes Neurologic: moves all extremities Genitourinary: no CVA tenderness Crocker catheter in place draining yellow urine. Results & Data ([facility]) Vital Signs (Past 12 Hours) Vital Signs Temp Pulse Pulse Resp BP BP Pulse Ox 07/04/21 20:33 96 H 18 116/57 L 93 07/04/21 18:30 93 H 22 123/64 91 07/04/21 18:00 92 H 23 128/60 92 07/04/21 17:30 96 H 22 124/63 93 07/04/21 17:00 98 H 22 93 07/04/21 16:30 103 H 20 130/63 93 07/04/21 16:08 100 07/04/21 16:00 104 H 24 124/65 92 07/04/21 15:42 106 H 22 128/72 96 07/04/21 15:30 103 H 22 100 07/04/21 15:00 108 H 20 96 07/04/21 14:30 107 H 17 98 07/04/21 14:00 105 H 21 100 07/04/21 13:40 99 07/04/21 13:30 107 H 17 99 07/04/21 13:00 108 H 20 97 07/04/21 12:34 113 H 17 99 07/04/21 12:10 36.4 C L 112 H 22 104/65 89 L PG Care Time/CCT Total # of Minutes Spent Total Time Spent with Patient: Total time spent is greater than 50% in coordination of care (as documented) at patient's floor/unit and/or counseling patient: Coding Level of Care Code 75890 Inpt Consult Level 5 Diagnoses Urinary retention R33.9
[2021-07-04] MEDS: cefTRIAXone SODIUM 1,000 MG in DEXTROSE 5% 50 ML IV SCH (23:23)
[2021-07-04] MEDS: ATORVASTATIN 10 MG TAB PO SCH (23:23)
[2021-07-04] MEDS: HEPARIN SOD 5,000 UNIT/0.5 ML VIAL SQ SCH (23:23)
[2021-07-04] MEDS: LATANOPROST 0.005% OP SOLN 2.5 ML BTL OPB SCH (23:23)
[2021-07-04] MEDS: GABAPENTIN 400 MG CAP PO SCH (23:23)
[2021-07-05 05:31] LABS: Basophils # (auto) 0.06 K/uL (0-0.2); Basophils % (auto) 0.5 %; Eosinophils # (auto) 0.35 K/uL (0-0.5); Eosinophils % (auto) 3.1 %; Hematocrit (blood only) 28.6 % (37-47); Hemoglobin 9.2 g/dL (12.0-16.0); Immature Granulocytes # (auto) 0.03 K/uL (0.00-0.02); Immature Granulocytes % (auto) 0.3 %; Lymphocytes # (auto) 2.13 K/uL (1.2-3.4); Mean Corpuscular Hemoglobin 30.1 pg (25-34); Mean Corpuscular Hgb Conc 32.2 g/dL (32-36); Mean Corpuscular Volume 93.5 fL (80-100); Mean Platelet Volume 8.8 fL (7.4-10.4); Monocytes # (auto) 0.99 K/uL (0.11-0.59); Monocytes % (auto) 8.8 %; Neutrophils # (auto) 7.66 K/uL (1.4-6.5); Neutrophils % (auto) 68.3 %; Platelet Count 382 K/uL (130-400); RDW Coefficient of Variation 14.6 % (11.5-14.5); RDW Standard Deviation 50.1 fL (36.4-46.3); Red Blood Count 3.06 M/uL (4.2-5.4); White Blood Count 11.22 K/uL (4.8-10.8)
[2021-07-05 06:06] LABS: BUN Creatinine Ratio 18.9 (10-20); Calcium 7.8 mg/dl (8.5-10.1); Creatinine Clr Calc Pharmacy 36.3 ml/min; Est GFR (African American) 88.1 ml/min; Magnesium 1.9 mg/dl (1.7-2.4); Potassium 4.1 mmol/L (3.5-5.1)
[2021-07-05] MEDS: HEPARIN SOD 5,000 UNIT/0.5 ML VIAL SQ SCH (06:20)
[2021-07-05] MEDS: DOCUSATE SODIUM 100 MG CAP PO SCH (08:04)
[2021-07-05] MEDS: FERROUS SULFATE 325 MG TAB PO SCH (08:04)
[2021-07-05] MEDS: ASPIRIN 81 MG ECTAB PO SCH (08:04)
[2021-07-05] MEDS: CHOLECALCIFEROL 1,000 UNITS 25 MCG TAB PO SCH (08:04)
[2021-07-05] MEDS ORDERED: amLODIPine BESYLATE 5 MG TAB PO SCH (09:00)
--- NOTE | 2021-07-05 20:01 | Hospitalist Progress Note ---
Date of Service July 05, 2021 Assessment & Plan (1) Catheter-associated urinary tract infection: Plan: Catheter needs changing regardless due to catheter associated UTI therefore we will trial without catheter at midnight tonight and replace tomorrow if she does not pass. Gram-negative bacilli on urine culture. Awaiting for culture results and sensitivities. Continue ceftriaxone 1 g IV daily pending results of above. Given concurrent white blood count which is improving I suspect this is the major cause of her weakness below. (2) Weakness: Plan: Physical therapy recommend returning home although noted significant hypoxia on exertion Plan on discharge tomorrow once two-step completed and trial without catheter complete (3) Hypoxia: Plan: Suspect some post Covid fibrosis and hypoxia on exertion. Consider lung function tests as an outpatient. TTE - assess for valvular abnormality. No pericardial effusion suspected since she had a CT chest. 2 step in the morning. Low suspicion of secondary bacterial pneumonia but consider selecting antibiotic to cover both chest and urine once cultures returned. (4) Post-COVID chronic dyspnea: Plan: No acute treatment necessary at this time Antibiotics as noted above for UTI Suspect this is the reason for her hypoxia on exertion however difficult to rule out early secondary bacterial pneumonia therefore consider selecting an antibiotic to cover both chest and urine once culture is returned. 2 step in the morning (5) High cholesterol: Plan: Continue atorvastatin 10 mg at bedtime CK normal therefore not contributory as not having myalgias. (6) Diabetes mellitus type 2, uncontrolled: Plan: HbA1c 7.1 (7) Hypertension: Plan: Blood pressure 130/63 Continue amlodipine (initially discontinued however received this morning and her blood pressure has been stable all day) Plan: VTE prophylaxis -Lovenox 40 mg subcu daily Diet -regular Disposition -stable for transfer to [facility] no need for telemetry at this time Admission and Anticipated Discharge Date Admission Date: July 04, 2021 Subjective No suprapubic pain. Did well with physical therapy today and can return home except for her oxygen drop on exertion. She is sharp for having just had COVID and alert and orientated. Reports already feeling much improved since coming in. No symptoms at rest and no shortness of breath on exertion only a lot of fatigue. No sadler change since her discharge for COVID - she reports this was not changed in the ER. Review of Systems Review of Systems: All systems reviewed & are unremarkable except as noted in Subjective Physical Exam Constitutional: cooperative; no acute distress ENMT: Mouth: oral mucous membranes not dry Neck: trachea midline, no thyromegaly Respiratory: normal respiratory effort Auscultation: lungs clear to auscultation bilaterally; no crackles, no rales, no rhonchi and no wheezes Cardiovascular: Rate/Rhythm: regular rate and regular rhythm Heart Sounds: no murmur Extremities: normal capillary refill; no calf tenderness and no pedal edema Gastrointestinal (Abdomen): Inspection/Auscultation: abdomen normal to inspection; abdomen not distended Percussion/Palpation: abdomen soft; abdomen nontender, no guarding and abdomen not rigid Musculoskeletal: no cyanosis or clubbing, extremities motor strength 5/5 Skin: no rashes, warm and dry Neurologic: moves all extremities and awake; no focal motor deficits (no lateralizing weakness) and not confused Psychiatric: A+Ox3, euthymic affect Results & Data Results & Data ([facility]) Vital Signs (Past 12 Hours) Vital Signs Temp Pulse Pulse Resp BP Pulse Ox Pulse Ox 07/05/21 19:04 37.6 C H 93 H 18 128/57 L 92 07/05/21 18:25 90 07/05/21 16:00 37.3 C 95 H 20 147/62 H 93 07/05/21 15:25 92 07/05/21 13:21 37.1 C 95 H 18 134/67 95 07/05/21 10:48 91 Pulse Ox Pulse Ox 07/05/21 19:04 07/05/21 18:25 07/05/21 16:00 07/05/21 15:25 07/05/21 13:21 07/05/21 10:48 92 83 L PG Care Time/CCT Total # of Minutes Spent Total Time Spent with Patient: Total time spent is greater than 50% in coordination of care (as documented) at patient's floor/unit and/or counseling patient: Coding Level of Care Code 80234 Subseq Hosp Care Lvl 2 Diagnoses Weakness R53.1 Post-COVID chronic dyspnea R06.09; U09.9 High cholesterol E78.00 Diabetes mellitus type 2, uncontrolled E11.65 Glycemic state: with hyperglycemia Hypertension I10 Hypertension type: essential hypertension Catheter-associated urinary tract infection T83.511A; N39.0 Hypoxia R09.02 (1) Diabetes mellitus type 2, uncontrolled Glycemic state: with hyperglycemia Qualified Code(s): E11.65 - Type 2 diabetes mellitus with hyperglycemia (2) Hypertension Hypertension type: essential hypertension Qualified Code(s): I10 - Essential (primary) hypertension
[2021-07-05] MEDS: GABAPENTIN 400 MG CAP PO SCH (21:05)
[2021-07-05] MEDS: LATANOPROST 0.005% OP SOLN 2.5 ML BTL OPB SCH (21:06)
[2021-07-05] MEDS: ATORVASTATIN 10 MG TAB PO SCH (21:06)
[2021-07-05] MEDS: ENOXAPARIN INJ 40 MG/0.4 ML SYR SQ SCH (21:06)
[2021-07-05] MEDS: cefTRIAXone SODIUM 1,000 MG in DEXTROSE 5% 50 ML IV SCH (22:35)
[2021-07-06] MEDS: CHOLECALCIFEROL 1,000 UNITS 25 MCG TAB PO SCH (08:44)
[2021-07-06] MEDS: ASPIRIN 81 MG ECTAB PO SCH (08:44)
[2021-07-06] MEDS: FERROUS SULFATE 325 MG TAB PO SCH (08:44)
[2021-07-06] MEDS: amLODIPine BESYLATE 5 MG TAB PO SCH (08:44)
--- NOTE | 2021-07-06 15:58 | Hospitalist Progress Note ---
Date of Service July 06, 2021 Assessment & Plan (1) Catheter-associated urinary tract infection: Plan: Urine culture grew out Klebsiella Pneumonia susceptible to Augmentin. Blood cultures negative x 2. -- Trial without catheter. -- IV Rocephin for now. -- Will discharge on oral Augmentin. -- WBC# is trending down. (2) Urinary retention: Plan: -- Manage as outlined above. (3) Post-COVID chronic dyspnea: (4) Hypoxia: Plan: Her O2 saturations are WNL when sitting quietly, however she desaturates with ambulation. -- Two-step test today shows that she requires 3L/min of O2 via NC with activities. -- Set-up with home O2. -- Probable discharge tomorrow. (5) Type 2 diabetes mellitus: Plan: -- Continue blood sugar checks. -- Diabetic diet. -- She uses Novolog Insulin 2 units subq qHS at home. Admission and Anticipated Discharge Date Admission Date: July 04, 2021 Supervising Physician Co-Signing Physician Notes chart reviewed agree carmita butler pa-c Subjective Mrs. 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 Patient states that she is feeling better today than at the time of admission. She feels like her strength is improved and denies any urinary symptoms. Additionally, her O2 saturations are WNL when sitting quietly, however she desaturates with ambulation. Two-step test today shows that she requires 3L/min of O2 via NC with activities. Patient still has an occasional nonproductive cough. She has been short of breath since having COVID in May 2021. Review of Systems Review of Systems: 10 point review of systems was completed and is negative with the exception of what is mentioned in the HPI. Physical Exam Physical Exam: GENERAL: Patient in no acute distress. HEENT: Head is atraumatic, normocephalic. EOM's intact. Facies symmetric. No perioral cyanosis. NECK: No JVD. JVP is not elevated. Carotid upstrokes are + 2 bilaterally without obvious bruits. CHEST/LUNGS: Clear to auscultation throughout all lung diaz. No wheezes, rales, or crackles. CVS: S1 and S2 are regular with a grade 1/6 apical holosystolic murmur. HR is 80 bpm. No obvious diastolic murmurs. No gallops or rubs. PMI is nondispl aced. No lifts, heaves, or thrills. No abdominal aortic or renal bruits. ABDOMINAL EXAM: Bowel sounds are present. No masses, organomegaly, or tenderness. CVA's are non-tender to jarring. EXTREMITIES: No clubbing or cyanosis. No edema. Intact radial pulses bilaterally. NEUROLOGIC EXAM: Patient is awake, alert, and oriented. Pleasant and cooperative. Answers questions appropriately. Speech is clear. Normal movement in all 4 extremities. Gait pattern was not assessed. Results & Data Results & Data ([facility]) Vital Signs (Past 12 Hours) Vital Signs Temp Pulse Pulse Pulse Pulse Pulse Pulse 07/06/21 14:53 37.1 C 90 07/06/21 11:46 37.1 C 99 H 07/06/21 07:48 37.2 C 91 H 07/06/21 07:47 119 H 118 H 116 H 121 H 07/06/21 07:01 81 Pulse Pulse Resp Resp Resp Resp Resp 07/06/21 14:53 20 07/06/21 11:46 20 07/06/21 07:48 20 07/06/21 07:47 107 H 102 H 22 22 21 22 07/06/21 07:01 Resp Resp BP Pulse Ox Pulse Ox Pulse Ox Pulse Ox 07/06/21 14:53 134/69 94 07/06/21 11:46 147/67 H 91 07/06/21 07:48 156/75 H 92 07/06/21 07:47 20 18 85 L 85 L 90 07/06/21 07:01 Pulse Ox Pulse Ox Pulse Ox 07/06/21 14:53 07/06/21 11:46 07/06/21 07:48 07/06/21 07:47 82 L 93 92 07/06/21 07:01 Laboratory Results Laboratory Results - last 24 hr 07/06/21 07/06/21 07:40 11:39 POC Glucose 96 108 H Diagnostic Findings CTA CHEST 07/04/21: 1. No CTA evidence for pulmonary embolus. 2. Interstitial lung disease is present bilaterally. 3. Additionally, there are a few patchy groundglass opacities seen bilaterally which could represent early versus residual Covid pneumonia. Patient has history of Covid infection in May. No baseline study was available for comparison. 4. Coronary artery calcification. 5. Small to moderate size hiatal hernia with mucosal thickening. CT SCAN HEAD 07/04/21: The paranasal sinuses and mastoid air cells are clear. The calvarium and skull base are intact. There is no mass, hematoma, midline shift, acute infarct. White matter hypodensity is nonspecific but suggestive of microvascular ischemic change. The ventricles and sulci demonstrate mild age-related involutional changes. 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 There are old infarcts are also seen within the bilateral basal ganglia. Impression: No acute infarct or intracranial hemorrhage identified. Chronic changes as described above. CXR 07/04/21: Hazy peripheral airspace opacities seen throughout the lungs. This is new from the prior study and favors a viral pneumonia. The heart is mildly enlarged. No pleural effusions. No pneumothorax. There is a left shoulder prosthesis. IMPRESSION: Hazy peripheral airspace opacities seen throughout the lungs likely representing a viral pneumonia. PG Care Time/CCT Total # of Minutes Spent Total Time Spent with Patient: Total time spent is greater than 50% in coordination of care (as documented) at patient's floor/unit and/or counseling patient:34 Coding Level of Care Code 84928 Subseq Hosp Care Lvl 3 Diagnoses Catheter-associated urinary tract infection T83.511A; N39.0 Urinary retention R33.9 Post-COVID chronic dyspnea R06.09; U09.9 Hypoxia R09.02 Type 2 diabetes mellitus E11.9 Time Spent (min) 48
--- NOTE | 2021-07-06 18:44 | XCELERA ---
[id number]
[2021-07-06] MEDS: ATORVASTATIN 10 MG TAB PO SCH (20:35)
[2021-07-06] MEDS: GABAPENTIN 400 MG CAP PO SCH (20:35)
[2021-07-06] MEDS: ENOXAPARIN INJ 40 MG/0.4 ML SYR SQ SCH (20:36)
[2021-07-06] MEDS: LATANOPROST 0.005% OP SOLN 2.5 ML BTL OPB SCH (20:36)
[2021-07-06] MEDS: cefTRIAXone SODIUM 1,000 MG in DEXTROSE 5% 50 ML IV SCH (22:15)
[2021-07-06 23:21] VITALS: PULSE 88
[2021-07-07] MEDS: ASPIRIN 81 MG ECTAB PO SCH (08:14)
[2021-07-07] MEDS: amLODIPine BESYLATE 5 MG TAB PO SCH (08:14)
[2021-07-07] MEDS: FERROUS SULFATE 325 MG TAB PO SCH (08:15)
[2021-07-07] MEDS: CHOLECALCIFEROL 1,000 UNITS 25 MCG TAB PO SCH (08:15)
[2021-07-07] MEDS: DOCUSATE SODIUM 100 MG CAP PO SCH (08:16)
--- NOTE | 2021-07-07 10:52 | Discharge Summary ---
Date of Service July 07, 2021 Admission HPI Per Admitting Provider This is an 80-year-old female with past medical history type 2 diabetes mellitus, LVH, hypertension, recent COVID-19 that presents today with confusion. Patient was seen with her daughter and both are decent historians. Patient had recent Covid as noted. She was hospitalized at [facility] and was subsequently discharged from there after she recovered. She was sent to rehab and was subsequently discharged back home on 06/23. The daughter tells me that she was doing very well after this. 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 However, over the past few days she has been getting much worse. She was more confused at home. She also noted some generalized weakness and diminished appetite. She is apparently slightly more short of breath as well. She was seen by her primary care physician earlier and there was some mild bibasilar infiltrates consistent with infection. Of note, the patient had a Crocker catheter placed at the rehab and she was to have this changed earlier this week but this was delayed. She was to see urology as an outpatient but was not yet seen. On work-up in the emergency room she was found to have a urinary tract infection. At the time my evaluation, the patient was drinking out of a cup. She did seem to be very confused and was awake alert and oriented x3. Patient had a Crocker catheter that was draining clear yellow urine, this was just changed by ER staff. Patient is now being admitted for mild toxic metabolic encephalopathy and a UTI. Admission Exam Per Admitting Provider Constitutional: cooperative; no acute distress Neck: trachea midline, no thyromegaly Respiratory: normal respiratory effort Auscultation: lungs clear to auscultation bilaterally; no crackles, no rales, no rhonchi and no wheezes Cardiovascular: Rate/Rhythm: regular rate and regular rhythm Heart Sounds: normal S1 and normal S2 Gastrointestinal (Abdomen): Inspection/Auscultation: abdomen normal to inspection Percussion/Palpation: abdomen soft; abdomen nontender, no guarding, abdomen not rigid and no hepatosplenomegaly Skin: no rashes, warm and dry Genitourinary:L Crocker, slightly sedimented urine in tubing Principal Diagnosis -- Catheter Associated UTI, Klebsiella Pneumonia grew in urine culture. -- Urinary Retention, resolved. -- Post-COVID exertional hypoxia. Discharge Exam GENERAL: Patient in no acute distress. HEENT: Head is atraumatic, normocephalic. EOM's intact. Facies symmetric. No perioral cyanosis. NECK: No JVD. JVP is not elevated. Carotid upstrokes are + 2 bilaterally without obvious bruits. CHEST/LUNGS: Clear to auscultation throughout all lung diaz. No wheezes, rales, or crackles. CVS: S1 and S2 are regular with a grade 1/6 apical holosystolic murmur. HR is 76 bpm. No obvious diastolic murmurs. No gallops or rubs. PMI is nondisplaced. No lifts, heaves, or thrills. No abdominal aortic or renal bruits. ABDOMINAL EXAM: Bowel sounds are present. No masses, organomegaly, or tenderness. CVA's are non-tender to jarring. EXTREMITIES: No clubbing or cyanosis. No edema. Intact radial pulses bilaterally. NEUROLOGIC EXAM: Patient is awake, alert, and oriented. Pleasant and cooperative. Answers questions appropriately. Speech is clear. Normal movement in all 4 extremities. Gait pattern was not assessed. Discharge Data Allergies Allergy/AdvReac Type Severity Reaction Status Date / Time No Known Allergies Allergy Verified 07/04/21 14:47 Vaccinations Laboratory Results - last 24 hr 07/06/21 07/06/21 07/06/21 11:39 16:16 20:01 POC Glucose 108 H 125 H 177 H 07/07/21 07:29 POC Glucose 92 Consultations 07/04/21 14:54 ED Decision to Admit Stat 07/04/21 21:02 Consult Urology Routine Ordered Studies 07/04/21 12:24 CT head/brain wo con Stat: The paranasal sinuses and mastoid air cells are clear. The calvarium and skull base are intact. There is no mass, hematoma, midline shift, acute infarct. White matter hypodensity is nonspecific but suggestive of microvascular ischemic change. The ventricles and sulci demonstrate mild age-related involutional changes. 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 There are old infarcts are also seen within the bilateral basal ganglia. Impression: No acute infarct or intracranial hemorrhage identified. Chronic changes as described above. 07/04/21 12:26 CT angio chest PE protocol Stat: Vasculature: There is homogeneous perfusion of the pulmonary vasculature bilaterally. No intraluminal filling defects or evidence for pulmonary embolus is seen. Airway: The airway is clear. No endobronchial lesion is identified. Lungs: There is evidence for a background of interstitial fibrosis with interlobular septal thickening at the lung periphery. This is seen involving the upper and lower lobes bilaterally. Additionally, there are mild patchy groundglass opacity seen bilaterally characteristic of a viral type pneumonitis. The findings are characteristic of early versus residual Covid [address] from previous Covid diagnosis is available for comparison. Pleura: There is no evidence for pleural effusion. There is no evidence for pneumothorax. There is minimal pleural thickening posteriorly, bilaterally. Mediastinum: There is no evidence for pathologic adenopathy. The heart size is w ithin normal limits. Coronary artery calcification is present. The thoracic aorta is within normal limits. There is no evidence for pericardial effusion. Upper abdomen:The adrenal glands are normal bilaterally. There is evidence for small to moderate size hiatal hernia with mucosal thickening Osseous structures: There is no acute osseous pathology. Degenerative changes are seen within the spine. Impression: 1. No CTA evidence for pulmonary embolus. 2. Interstitial lung disease is present bilaterally. 3. Additionally, there are a few patchy ground glass opacities seen bilaterally which could represent early versus residual Covid pneumonia. Patient has history of Covid infection in May. No baseline study was available for comparison. 4. Coronary artery calcification. 5. Small to moderate size hiatal hernia with mucosal thickening. Hospital Course (1) Catheter-associated urinary tract infection: Mrs. 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 Patient states that she is feeling better today than at the time of admission. She feels like her strength is improved and denies any urinary symptoms. Urine culture grew out Klebsiella Pneumonia susceptible to Augmentin. Blood cultures negative x 2. -- Successful trial without urinary catheter, no urinary symptoms or urinary retention. -- Discharge on oral Augmentin. (2) Urinary retention: Likely secondary to UTI, possibly medications - now resolved. -- Urinary catheter has been discontinued. (3) Post-COVID chronic dyspnea: (4) Hypoxia: -- Her O2 saturations are WNL when sitting quietly, however she desaturates with ambulation. -- Two-step test 07/06/21 shows that she requires 3L/min of O2 via NC with activities. -- She has been short of breath since having COVID in May 2021. -- Home O2 has been set up. -- Discharge to home today. (5) Type 2 diabetes mellitus: -- Continue routine blood sugar checks. -- Diabetic diet. -- Continue Novolog Insulin 2 units subq qHS at home. 1. Augmentin 875 mg - Take 1 tablet by mouth twice a day until finished. #10, 0 refills. 2. Oxygen 3L/min via nasal cannula for walking, activities. Total Time Total Time Spent Total Time Spent (In Minutes): 38 Discharge Plan Discharge Items Patient Disposition: Home - Self-Care Reason For Visit: CA-UTI, POST COVID SYNDROME Discharge Diagnosis: 1. Catheter Associated UTI. 2. Exertional Hypoxia. 3. Post COVID Dyspnea. Condition on Discharge: Good Activity: Resume your previous activity Lifting: Gradually increase as tolerated Bathing: No limitations Exercise/Sports: Gradually increase as tolerated Driving/Machine Use: No limitations Weightbearing: Full weightbearing Non-emergency contact: Primary Care Provider Call non-emergency contact if: you have any medication questions, your symptoms worsen and you have a fever Follow-up/Referrals: Felton Hanna MD [Primary Care Provider] - 07/17/21 2:00 pm Diet: Carb Consistent or DM2 Addtl Attending Provider Instructions: take the Augmentin (amoxicillin/clavulanate) twice a day until the prescription is completenext dose at bedtime tonightto finish out a course of antibiotics for the infection. Separately, with people with post Covid syndromes, it is fairly common to need extra oxygen for a while. Right now it looks like you need to be on oxygen at a setting of 3 when you are walking. Fortunately seem to be okay whenever you are sitting at rest. Hopefully this will not be a "forever normal"often over time, albeit frustratingly slow, we will see people show improvement. Get a pulse ox so that you can follow your oxygen numbers at homeand you can review those with your family doc to see if it looks like they could help you start to come off of the oxygen over time Pending Studies at Discharge: No Stand-Alone Forms: My [facility] Medications and DC Order Prescriptions: New amoxicillin-pot clavulanate 875-125 mg tablet 1 tab PO BID Qty: 7 RF: 0 Continued aspirin [Ecotrin Low Strength] 81 mg tablet,delayed release (DR/EC) 81 mg PO QAM RF: 0 docusate sodium [Colace] 100 mg capsule 100 mg PO Q2D RF: 0 ferrous sulfate 325 mg (65 mg iron) tablet,delayed release (DR/EC) 325 mg PO QAM RF: 0 amlodipine 5 mg tablet 10 mg PO QAM Qty: 180 RF: 3 (DME) pen needle, diabetic [BD Ultra-Fine Mini Pen Needle] 31 gauge x 3/16" ne edle See Rx Instructions .ROUTE .MEDSUPPLY Qty: 200 RF: 3 (DME) OneTouch Ultra Test Strip See Rx Instructions .ROUTE .MEDSUPPLY Qty: 300 RF: 3 acetaminophen 325 mg capsule 325 mg PO Q6H PRN (Reason: fever or pain) RF: 0 latanoprost 0.005 % drops 1 drops OPB HS RF: 0 cholecalciferol (vitamin D3) 2,000 unit tablet 4,000 units PO QAM RF: 0 (DME) Oxygen Home Liters Per Minute See Rx Instructions .Route Qty: 1 RF: 0 atorvastatin 10 mg tablet 10 mg PO HS RF: 0 gabapentin 400 mg capsule 400 mg PO HS RF: 0 insulin aspart U-100 [Novolog Flexpen U-100 Insulin] 100 unit/mL (3 mL) insulin pen 2 unit SQ HS RF: 0 Discharge Orders: Discharge Order (Routine); Ordered 07/07/21 Ordered By: Elliot García Admission Data Admit Date/Time: 07/04/21 17:23 Attending Provider: Quinton Suresh Admit Provider: Herb Perez Primary Care Provider: Felton Hanna Other Providers: Herb Perez ; Johnny Garland ; Sam Infante Other Interventions: Discharge Summary Assessment (RN) Last Done: 07/07/21 16:33 Supervising Physician Co-Signing Physician Notes I personally examined the patient and verified all bentley points of history and exam, discussed case, and agree with decision making with Eugenie BROWN Feeling up to leaving. No new complaints. Vitals noted, in general she is awake and alert pleasant no distress. HEENT normocephalic atraumatic mucous membranes moist. Breathing unlabored no accessory muscle use good effort. Cath associated UTIstable for home. Finish out p.o. antibiotics Post Covid hypoxiaset up for oxygen for home. Coding Level of Care Code D/C DAY MANAGEMENT >30 MINS Diagnoses Catheter-associated urinary tract infection T83.511A; N39.0 Urinary retention R33.9 Post-COVID chronic dyspnea R06.09; U09.9 Hypoxia R09.02 Type 2 diabetes mellitus E11.9 Time Spent (min) 54
[2021-07-07] MEDS ORDERED: AMOXICILLIN/CLAVULANATE 875 MG TAB PO ONE (14:28)
[2021-07-07 15:17] VITALS: BP 150/69; TEMP 98.6; O2SAT 94
--- NOTE | 2021-07-19 07:02 | Coding Query ---
CODING QUERY To promote full compliance with coding requirements relating to patient care, provider participation is requested in all cases of oil rag washer uncertainty. Please assist us with the question(s) below: Coding Question(s): Patient admitted with CAUTI. Recent history of Covid 19/ ARDS May admission. H/P documented patient with weakness and confusion possibly 2nd to mild (toxic) metabolic encephalopathy Post Covid. Please check below the phrase that describes the metabolic encephalopathy. DS mentioned hypoxia/dyspnea due to Post Covid . Thanks for your help. . Faraz Peñaloza NEONATAL NURSE [facility] Physician's Response(s): x__ Patient had Post Covid toxic/metabolic encephalopathy POA Patient did not have Post Covid toxic/metabolic encephalopathy Cannot Clinically correlate if patient had Post Covid toxic/metabolic encephalopathy Other: Please document: Principal Diagnosis: "that condition established after study, to be chiefly responsible for occasioning the admission of the patient to the hospital for care." Co-Existing Principal Diagnosis: "when two or more diagnoses equally meet the criteria for principal diagnosis as determined by the circumstances of admission, diagnostic work up, and/or therapy provided, and the Alphabetic Index, Tabular List, or another coding guideline does not provide sequencing direction, any one of the diagnoses may be sequenced first." "When the physician has documented what appears to be a current diagnosis in the body of the record, but has not included the diagnosis in the final diagnostic statement, the physician should be asked whether the diagnosis should be added." (Source Coding Clinic 2 QTR90. p3-4) [place]
== END 2021-07-07 17:02 | disposition home health service (06) | DRG 698 ==
LOC: ED 12:04 → EDINP 17:23 → SUATTDRO 17:23 → 2N 21:01

== ENCOUNTER 2023-05-27 16:27 | Observation (INO) ==
--- NOTE | 2023-05-27 16:33 | Emergency Department Note ---
Impression & Plan Acute upper gastrointestinal bleeding, Hematemesis, Acute prerenal azotemia ED Provider Note NAME: APRIL LUJAN AGE: 82 SEX: F : 1940 ARRIVES VIA: Ambulance INFORMANT: Patient, ED PROVIDER(S): Fabio Silva MD CHIEF COMPLAINT: Hematemesis MEDICAL DECISION MAKING: Patient presents due to concern for vomiting blood. 2 IVs were placed IV fluids were ordered the patient was ordered Protonix bolus and drip in addition to the blood work and type and screen. Patient's blood work shows a normal white count with a hemoglobin 9.7. This is always a 2-1/2 point drop from her prior given the patient's significant BUN to creatinine ratio patient does have a presumptive upper GI bleed. I did speak with the on-call hospitalist Dr. Infante the patient was to be admitted by Dr. Elizalde. I did speak with Dr. Elizalde and the patient was admitted. I did convey the findings and recommendations to the patient the patient's family who are comfortable plan of care Discussion w/ other healthcare providers: Dr. Infante and Dr. Elizalde Prior /Outside records reviewed: I reviewed a primary care visit from April 15, 2023. Patient was seen by Gorge Vargas. Patient does have a history of interstitial lung disease type 2 diabetes and heart murmur. Patient was also prior history of peripheral artery disease. Patient does take aspirin and Mobic Differential diagnosis: Diverticulitis, AVM, coagulopathy, colitis, inflammatory bowel disease, malignancy, esophagitis, peptic ulcer disease, variceal bleed, gastritis, fissure, hemorrhoids, as well as other pathologies. Diagnostics, as interpreted by me: ECG: Sinus tachycardia, rate of 111, normal intervals, normal axis no ST elevations, T wave inversion in the high lateral leads Cardiac monitoring: An order was placed for continuous cardiac monitoring. The monitor shows a rate of 92 with sinus rhythm. Patient was placed on pulse oximetry Medical decision rules: None Imaging studies: None HPI: Patient presents due to concern for vomiting blood. The patient reportedly had an episode of dark emesis around 7:00 this morning and then around 3 PM and vomited what appeared to be a clot. He denies any bloody stools and no dark stools. Patient does occasionally take Mobic but states that she currently takes this only on the weekends of this when she uses her arm more she does have some chronic right shoulder pain. Patient does take a baby aspirin but does not take any other blood any medications. The patient denies any falls or trauma. The patient states she currently does not feel nauseous and has no current abdominal pain. No falls or trauma PAST MEDICAL HISTORY: See Below PAST SURGICAL HISTORY: See Below SOCIAL HISTORY: See Below HOME MEDICATIONS: See Below ALLERGIES: See Below VITALS: See Below PHYSICAL EXAMINATION: GENERAL: NAD, non-toxic. EYE EXAM: Normal conjunctiva. PERRL, no anisocoria and EOM's grossly intact w/o pain. OROPHARYNX: Moist mucus membranes, grossly normal dentition. NECK: Supple, no nuchal rigidity, no adenopathy, non-tender. No signs of meningismus. FROM of the neck with good chin to chest and neck extension. No stridor. LUNGS: Clear to auscultation. Normal chest wall mechanics. HEART: NSR, no MRG. ABDOMEN: Abdomen soft, non-tender, no masses, no rebound or guarding. BACK: No CVA TTP. SKIN: No rashes and no bruising. UPPER EXTREMITIES: Upper extremities are grossly normal. LOWER EXTREMITIES: Grossly normal, no edema. NEURO EXAM: A&O x3, cranial nerves II-XII grossly intact, normal speech, moves all 4 extremities. Past Med/Surg History Medical History Sensorineural hearing loss of both ears Catheter-associated urinary tract infection Urinary retention Weakness Hypoxia Acute respiratory distress syndrome (ARDS) due to COVID-19 virus History of COVID-19 History of skin cancer Scabies Chronic anemia Encounter for pre-operative examination PAD (peripheral artery disease) s/p Left popliteal-tibial bypass (07/2018) Peripheral edema chronic L>R s/p surgery PMR (polymyalgia rheumatica) Insulin dose changed Bilateral kidney stones Borderline glaucoma with ocular hypertension Hiatal hernia Hyperlipidemia Hypertension Psoriasis Ulcer of left great toe due to diabetes mellitus Foot ulcer Skin ulcer of left foot including toes ulcer left 2nd digit dorsum resolved Pressure ulcer of right ankle, stage 2 Diabetic ulcer of right foot ulcer right 5th digit resolved Septic shock Leukocytosis pt denies Septicemia pt denies Pyelonephritis Septic shock Pyelonephritis Leukocytosis E. coli septicemia High cholesterol Surgical History Status post reverse total arthroplasty of left shoulder Status post reverse total shoulder replacement History of esophagogastroduodenoscopy (EGD) with Dilitation History of tooth extraction uppers History of cataract surgery bilateral S/P popliteal-tibial bypass Left popliteal-tibial bypass (07/2018) Status post femoral-popliteal bypass surgery [facility] 07/22, left S/P cystoscopy with ureteral stent placement bilateral H/O section x 2 Family History Mother Breast cancer Myocardial infarction Heart disease Unknown Hyperlipidemia Hypertension Sister Diabetes Father , age 34 No problems noted. Denies family history of Ovarian cancer Prostate cancer Colorectal cancer Cancer Stroke Asthma Social History Smoking Status: Never smoker Second Hand Exposure: No; Do You Dip or Chew Tobacco: No; Hx Alcohol Use: No Hx Substance Use: No Preferred Language: Guatemalan Communication Ability: Effective Visual Impairment: Limited Hearing Ability: Normal Recruitment And Outreach Assistant Required: No Beliefs That Will Affect Care: None marital status: / Current Living Situation: Family Current Living Situation Comment: Lives with Daughter current occupational status: retired Feels Safe at Home: Yes Childhood Exposure to Second-Hand Smoke: No Diet: regular Diet Comment: regular caffeine: No during the past year weight has: remained stable Dental Care, Regularly: Yes Physical Activity Frequency: 1-2 Times per Week Seatbelt Use: always Sunscreen Use: Yes Assistive Devices: Denture - Upper and Glasses Allergies Allergies Allergy/AdvReac Type Severity Reaction Status Date / Time No Known Drug Allergies Allergy Unknown Verified 04/15/23 08:33 Home Meds Home Medications Medication Instructions Recorded Confirmed aspirin 81 mg tablet,delayed 81 mg PO QAM 01/27/18 04/15/23 release (Ecotrin Low Strength) acetaminophen 325 mg capsule 325 mg PO Q6H PRN fever or pain 11/17/18 04/15/23 cholecalciferol (vitamin D3) 50 4,000 units PO QAM 11/20/18 04/15/23 mcg (2,000 unit) tablet ferrous sulfate 325 mg (65 mg 325 mg PO QAM 11/20/18 04/15/23 iron) tablet,delayed release latanoprost 0.005 % eye drops 1 drops OPB HS 12/21/19 04/15/23 docusate sodium 100 mg capsule 100 mg PO DAILY 03/18/23 04/15/23 (Colace) Previous Rx's Medication Instructions Recorded pen needle, diabetic 31 gauge x #200 ea 04/11/22 3" (BD Ultra-Fine Mini Pen Needle) atorvastatin 10 mg tablet 10 mg PO HS #90 tabs 11/12/22 insulin degludec 100 unit/mL (3 3 unit (0.03 mL) subcut DAILY 90 11/12/22 mL) subcutaneous pen (Tresiba days #15 mL FlexTouch U-100 insulin) gabapentin 400 mg capsule 400 mg PO HS #90 caps 12/19/22 amlodipine 5 mg tablet See Rx Instructions .Route 02/13/23 .COMPLEX #180 tabs meloxicam 7.5 mg tablet 7.5 mg PO BID PRN pain #60 tabs 03/31/23 blood sugar diagnostic (OneTouch #300 ea 04/29/23 Verio test strips) Results & Data (ED) Vital Signs Vital Signs - 24 hr 05/27/23 16:32 05/27/23 16:46 05/27/23 17:16 Temperature 36.9 C Temperature Source Oral Pulse Rate 105 H 85 Pulse Rate [Apical] 95 H Respiratory Rate 18 18 21 Respiratory Effort / Characteristics Non-Labored Non-Labored Respiratory Depth Normal Normal Blood Pressure 167/87 H Blood Pressure [Right Arm] 167/87 H Blood Pressure Mean 113 Blood Pressure Mean [Right Arm] 113 Pulse Oximetry 99 99 98 Oxygen Delivery Method Room Air Room Air Room Air Oxygen Flow Rate 0 Sepsis Recent Fever Within 48 Hours No Sepsis New/Unexplained Change in Mental Status No Sepsis Action Taken by Nursing No Action Required 05/27/23 17:30 05/27/23 18:24 Temperature Temperature Source Pulse Rate 95 H Pulse Rate [Apical] 99 H Respiratory Rate 18 Respiratory Effort / Characteristics Non-Labored Respiratory Depth Normal Blood Pressure Blood Pressure [Right Arm] 144/89 H Blood Pressure Mean Blood Pressure Mean [Right Arm] 107 Pulse Oximetry 97 Oxygen Delivery Method Room Air Oxygen Flow Rate Sepsis Recent Fever Within 48 Hours Sepsis New/Unexplained Change in Mental Status Sepsis Action Taken by [facility] Medications Current Medication List: was personally reviewed by me Laboratory Data Attestation: I reviewed the patient's lab results. 05/27/23 16:40 05/27/23 16:40 Lab Results 05/27/23 05/27/23 Range/Units 16:40 17:07 WBC 8.76 (4.8-10.8) K/ul RBC 3.24 L (4.20-5.40) M/uL Hgb 9.7 L (12.0-16.0) g/dl Hct 30.4 L (37.0-47.0) % MCV 93.8 (80.0-100.0) fL MCH 29.9 (25.0-34.0) pg MCHC 31.9 L (32.0-36.0) g/dL RDW Std Deviation 42.8 (36.4-46.3) fL RDW Coeff of Gregory 12.4 (11.5-14.5) % Plt Count 286 (130-400) K/uL MPV 9.3 L (9.4-12.4) fL Immature Gran % (Auto) 0.5 % Neut % (Auto) 67.7 % Lymph % (Auto) 21.8 % [place] % (Auto) 6.3 % Eos % (Auto) 2.6 % Baso % (Auto) 1.1 % Neut # (Auto) 5.93 (1.40-6.50) K/uL Lymph # (Auto) 1.91 (1.20-3.40) K/uL [place] # (Auto) 0.55 (0.11-0.59) K/uL Eos # (Auto) 0.23 (0.00-0.50) K/uL Baso # (Auto) 0.10 (0.00-0.20) K/uL Immature Gran # (Auto) 0.04 (0.01-0.20) K/uL PT 11.6 (9.0-12.0) Seconds INR 1.1 (0.9-1.1) APTT 22 (21-31) Seconds PTT Ratio 0.8 Sodium 140 (136-145) mmol/L Potassium 4.8 (3.5-5.1) mmol/L Chloride 108 H (98-107) mmol/L Carbon Dioxide 26 (21-32) mmol/L Anion Gap 6 (3-11) BUN 56 H (6-23) mg/dl Creatinine 0.88 (0.6-1.2) mg/dl Est Cr Clr Drug Dosing 32.7 ml/min Est GFR ( Amer) 70.4 ml/min Est GFR (Non-Af Amer) 60.8 ml/min BUN/Creatinine Ratio 63.6 H (10-20) Glucose 197 H (70-99(Fasting)) mg/dl Calcium 9.0 (8.6-10.3) mg/dl Total Bilirubin 0.4 (0.2-1.0) mg/dl AST 11 L (13-39) U/L ALT 8 (7-52) U/L Alkaline Phosphatase 59 (34-104) U/L Total Protein 6.2 (6.0-8.3) gm/dl Albumin 3.6 (3.4-5.0) gm/dl Globulin 2.6 (2.5-4.0) gm/dl Albumin/Globulin Ratio 1.4 (0.9-2) Blood Type A Positive Antibody Screen NEGATIVE Administered Medications Pantoprazole Sodium 40 mg/ (Dextrose) 100 mls @ 20 mls/hr IV Q5H [facility] [place] Stop: 06/26/23 16:59 Last Infusion: 05/27/23 22:41 Dose: Infused Documented By: Admin: 05/27/23 17:27 Dose: 8 mg/hr, 20 mls/hr Documented By: EZIO Discontinued Medications Sodium Chloride (Nss) 1,000 mls @ 999 mls/hr IV .Q1H1M RICHIE Stop: 05/27/23 17:45 Last Infusion: 05/27/23 18:10 Dose: Infused Documented By: Admin: 05/27/23 17:05 Dose: 999 mls/hr Documented By: EZIO Pantoprazole Sodium 80 mg/ (Dextrose) 120 mls @ 480 mls/hr IV NOW ONE Stop: 05/27/23 16:56 Last Infusion: 05/27/23 17:25 Dose: Infused Documented By: Admin: 05/27/23 17:10 Dose: 480 mls/hr Documented By: EZIO Discharge Plan Visit Data Chief Complaint: GI Assessment Stated Complaint: VOMITED BLOOD AT 0700. NO CURRENT COMPLAINTS ED Provider: Fabio Silva Discharge Problem: Acute upper gastrointestinal bleeding, Hematemesis, Acute prerenal azotemia Patient Disposition: Admitted As Inpatient Discharge Instructions Interventions: ED Discharge Assessment Last Done: 05/27/23 21:15 Discharge Problem: Hematemesis Qualifiers: Nausea presence: unspecified Qualified Code(s): K92.0 - Hematemesis
[2023-05-27] MEDS ORDERED: PANTOPRAZOLE BOLUS/DRIP IV STA (16:42)
[2023-05-27] MEDS ORDERED: PANTOprazole 80 MG in DEXTROSE 5% 100 ML IV ONE (16:42)
[2023-05-27] MEDS ORDERED: SODIUM CHLORIDE 0.9% 1,000 ML IV SCH (16:45)
[2023-05-27 16:54] LABS: Basophils % (auto) 1.1 %; Eosinophils # (auto) 0.23 K/uL (0.00-0.50); Eosinophils % (auto) 2.6 %; Hematocrit (blood only) 30.4 % (37.0-47.0); Hemoglobin 9.7 g/dl (12.0-16.0); Immature Granulocytes # (auto) 0.04 K/uL (0.01-0.20); Immature Granulocytes % (auto) 0.5 %; Lymphocytes # (auto) 1.91 K/uL (1.20-3.40); Lymphocytes % (auto) 21.8 %; Mean Corpuscular Hemoglobin 29.9 pg (25.0-34.0); Mean Corpuscular Hgb Conc 31.9 g/dL (32.0-36.0); Mean Corpuscular Volume 93.8 fL (80.0-100.0); Mean Platelet Volume 9.3 fL (9.4-12.4); Monocytes # (auto) 0.55 K/uL (0.11-0.59); Monocytes % (auto) 6.3 %; Neutrophils # (auto) 5.93 K/uL (1.40-6.50); Neutrophils % (auto) 67.7 %; Platelet Count 286 K/uL (130-400); RDW Coefficient of Variation 12.4 % (11.5-14.5); RDW Standard Deviation 42.8 fL (36.4-46.3); Red Blood Count 3.24 M/uL (4.20-5.40); White Blood Count 8.76 K/ul (4.8-10.8)
[2023-05-27 17:12] LABS: Albumin Globulin Ratio 1.4 (0.9-2); Albumin Level 3.6 gm/dl (3.4-5.0); BUN Creatinine Ratio 63.6 (10-20); Bilirubin,Total 0.4 mg/dl (0.2-1.0); Creatinine Clr Calc Pharmacy 32.7 ml/min; Est GFR (African American) 70.4 ml/min; Est GFR (Non-African American) 60.8 ml/min; Globulin 2.6 gm/dl (2.5-4.0); Potassium 4.8 mmol/L (3.5-5.1); Total Protein 6.2 gm/dl (6.0-8.3)
[2023-05-27 17:25] LABS: INR 1.1 (0.9-1.1); Partial Thromboplastin Ratio 0.8; Partial Thromboplastin Time 22 Seconds (21-31); Prothrombin Time 11.6 Seconds (9.0-12.0)
[2023-05-27] MEDS: PANTOprazole 40 MG in DEXTROSE 5% MINI-B 100 ML IV SCH ×2 (17:27→22:48)
--- NOTE | 2023-05-27 19:12 | History & Physical Report ---
Date of Service May 27, 2023 Assessment & Plan (1) Hematemesis: Plan: Presents with episode of nonbloody emesis earlier this morning followed by kenrick hematemesis around 3 PM today, no further episodes. Has not been having melena or bright blood per rectum. Does take baby aspirin and infrequent doses of meloxicam 7.5 mg 2 or 3 times a week. Concerning for acute upper GI bleeding. Differential diagnosis includes Adriana-Burrell tear, peptic ulcer or duodenal ulcer, esophagitis or gastritis, vascular ectasia, less likely malignancy. -Admit to hospital under observation -Follow serial hematocrit -Type and screen obtained by the ED, I consented the patient for transfusion if needed signed consent as with the paper chart, transfuse for hematocrit less than 21% -Continue pantoprazole drip -Appears stable so we will allow clear liquid diet for dinner, n.p.o. after midnight She is prone to hypoglycemia so will give D5 half NS at 75 mL/h while n.p.o. -Consult gastroenterology in the morning, consider EGD -Hold aspirin and NSAIDs (2) Type 2 diabetes mellitus: Plan: Usually at home she takes only 2 units of insulin degludec at at bedtime and is prone to nocturnal hypoglycemia -Hold long-acting insulin -Serial glucose checks -Will use very conservative dosing of aspart as needed, goal blood sugar [id number] (3) LVH (left ventricular hypertrophy): Plan: Noted on echocardiogram 07/2021 that I reviewed, LVEF 70% with moderate to severe concentric LVH This is reflected on her EKG from the ED, I personally reviewed the tracing shows mild sinus tachycardia LVH pattern there is a T wave inversion in lead I and minimal ST depression in V3V6 (4) PAD (peripheral artery disease): Plan: History of left poplitealtibial bypass in 2019, stable. No current limb ischemia or foot wounds. Hold aspirin, continue atorvastatin (5) Borderline glaucoma with ocular hypertension: Plan: Continue eyedrops at bedtime (6) Hiatal hernia: (7) Hyperlipidemia: Plan: Continue atorvastatin (8) Interstitial lung disease: Plan: Stable, not hypoxic Admission and Anticipated Discharge Date Anticipated date of discharge: 05/29/23 History of Present Illness Chief Complaint: Vomited blood Primary Care Provider: GRANT Ruiz Ms. Garcia was in her usual state of health until this morning when she had an episode of emesis and it looked like a chocolate Oreo ball that she had eaten earlier. She was then doing fine until about 3:00 this afternoon when she had an episode of kenrick hematemesis that looked like red blood clots and was about a tablespoon or little more. She has not had any further nausea. No epigastric pain no back pain. No melena or bright blood per rectum. She does take 81 mg aspirin daily because of her peripheral arterial disease. She takes meloxicam 7.5 mg 2 or 3 times a week, last took this on Saturday for her shoulder arthritis. She has no prior history of peptic ulcer disease or GI bleeding. She had a EGD at least 5 or 6 years ago which was done for dysphagia and she had a dilation. She never had any further problems with dysphagia following that. She reports normal screening colonoscopies, that was at least some years ago she cannot recall exactly when. She denies any chest pain heartburn shortness of breath cough fevers abdominal pain dysuria urinary frequency. She does have some chronic shoulder pain that is related to osteoarthritis and relieved by Mobic. She did have 1 episode of loose stool this morning that was nonbloody. Allergies Allergy/AdvReac Type Severity Reaction Status Date / Time No Known Drug Allergies Allergy Unknown Verified 04/15/23 08:33 Home Medications Medication Instructions Recorded Confirmed Type aspirin 81 mg tablet,delayed 81 mg PO QAM 01/27/18 04/15/23 History release (Ecotrin Low Strength) acetaminophen 325 mg capsule 325 mg PO Q6H PRN fever or pain 11/17/18 04/15/23 History cholecalciferol (vitamin D3) 50 4,000 units PO QAM 11/20/18 04/15/23 History mcg (2,000 unit) tablet ferrous sulfate 325 mg (65 mg 325 mg PO QAM 11/20/18 04/15/23 History iron) tablet,delayed release latanoprost 0.005 % eye drops 1 drops OPB HS 12/21/19 04/15/23 History pen needle, diabetic 31 gauge x #200 ea 04/11/22 04/15/23 Rx 3/16" (BD Ultra-Fine Mini Pen Needle) atorvastatin 10 mg tablet 10 mg PO HS #90 tabs 11/12/22 04/15/23 Rx insulin degludec 100 unit/mL (3 3 unit (0.03 mL) subcut DAILY 90 11/12/22 04/15/23 Rx mL) subcutaneous pen (Tresiba days #15 mL FlexTouch U-100 insulin) gabapentin 400 mg capsule 400 mg PO HS #90 caps 12/19/22 04/15/23 Rx amlodipine 5 mg tablet See Rx Instructions .Route 02/13/23 04/15/23 Rx .COMPLEX #180 tabs docusate sodium 100 mg capsule 100 mg PO DAILY 03/18/23 04/15/23 History (Colace) meloxicam 7.5 mg tablet 7.5 mg PO BID PRN pain #60 tabs 03/31/23 04/15/23 Rx blood sugar diagnostic (OneTouch #300 ea 04/29/23 Rx Verio test strips) Past Med/Surg History Medical History Sensorineural hearing loss of both ears Catheter-associated urinary tract infection Urinary retention Weakness Hypoxia Acute respiratory distress syndrome (ARDS) due to COVID-19 virus History of COVID-19 History of skin cancer Scabies Chronic anemia Encounter for pre-operative examination PAD (peripheral artery disease) s/p Left popliteal-tibial bypass (07/2018) Peripheral edema chronic L>R s/p surgery PMR (polymyalgia rheumatica) Insulin dose changed Bilateral kidney stones Borderline glaucoma with ocular hypertension Hiatal hernia Hyperlipidemia Hypertension Psoriasis Ulcer of left great toe due to diabetes mellitus Foot ulcer Skin ulcer of left foot including toes ulcer left 2nd digit dorsum resolved Pressure ulcer of right ankle, stage 2 Diabetic ulcer of right foot ulcer right 5th digit resolved Septic shock Leukocytosis pt denies Septicemia pt denies Pyelonephritis Septic shock Pyelonephritis Leukocytosis E. coli septicemia High cholesterol Surgical History Status post reverse total arthroplasty of left shoulder Status post reverse total shoulder replacement History of esophagogastroduodenoscopy (EGD) with Dilitation History of tooth extraction uppers History of cataract surgery bilateral S/P popliteal-tibial bypass Left popliteal-tibial bypass (07/2018) Status post femoral-popliteal bypass surgery [facility] 07/22, left S/P cystoscopy with ureteral stent placement bilateral H/O section x 2 Family History Mother Breast cancer Myocardial infarction Heart disease Unknown Hyperlipidemia Hypertension Sister Diabetes Father , age 34 No problems noted. Denies family history of Ovarian cancer Prostate cancer Colorectal cancer Cancer Stroke Asthma Social History Smoking Status: Never smoker Second Hand Exposure: No; Do You Dip or Chew Tobacco: No; Hx Alcohol Use: No Hx Substance Use: No Preferred Language: Argentine Communication Ability: Effective Visual Impairment: Limited Hearing Ability: Normal Selling Specialist Required: No Beliefs That Will Affect Care: None marital status: / Current Living Situation: Family Current Living Situation Comment: with a daughter current occupational status: retired Feels Safe at Home: Yes Childhood Exposure to Second-Hand Smoke: No Diet: regular Diet Comment: regular caffeine: No during the past year weight has: remained stable Dental Care, Regularly: Yes Physical Activity Frequency: 1-2 Times per Week Seatbelt Use: always Sunscreen Use: Yes Assistive Devices: Walker Review of Systems Review of Systems: All systems reviewed & are unremarkable except as noted in HPI & below Physical Exam Physical Exam: PHYSICAL EXAMINATION Last 24h vital signs reviewed, see documentation in flowsheet General: comfortable appearing, no distress, lying on gurney in ED, well- appearing HEENT: Normocephalic, atraumatic, pupils round and equal, sclerae anicteric, no conjunctival injection, moist mucus membranes Lungs: Normal respiratory effort. Clear to auscultation bilaterally. No RRW Heart: Regular rate and rhythm, no murmurs. No JVD Abdomen: Soft, nontender, nondistended. Bowel sounds present. Extremities: Warm, dry, well-perfused. No extremity edema. Neuro: Alert and oriented x 4, face symmetric, moves 4 extremities well, icer hand equal, moves lower extremities equal Psych: Normal affect and behavior Results & Data Results & Data Vital Signs (Past 12 Hours) Vital Signs Temp Pulse Pulse Resp BP BP Pulse Ox 05/27/23 18:24 99 H 18 144/89 H 97 05/27/23 17:30 95 H 05/27/23 17:16 85 21 98 05/27/23 16:46 95 H 18 167/87 H 99 05/27/23 16:32 36.9 C 105 H 18 167/87 H 99 O2 Del Method O2 Flow Rate 05/27/23 18:24 Room Air 05/27/23 17:30 05/27/23 17:16 Room Air 0 05/27/23 16:46 Room Air 05/27/23 16:32 Room Air Laboratory Results 05/27/23 05/27/23 Range/Units 17:07 16:40 WBC 8.76 (4.8-10.8) K/ul RBC 3.24 L (4.20-5.40) M/uL Hgb 9.7 L (12.0-16.0) g/dl Hct 30.4 L (37.0-47.0) % MCV 93.8 (80.0-100.0) fL MCH 29.9 (25.0-34.0) pg MCHC 31.9 L (32.0-36.0) g/dL RDW Std Deviation 42.8 (36.4-46.3) fL RDW Coeff of Gregory 12.4 (11.5-14.5) % Plt Count 286 (130-400) K/uL MPV 9.3 L (9.4-12.4) fL Immature Gran % (Auto) 0.5 % Neut % (Auto) 67.7 % Lymph % (Auto) 21.8 % [place] % (Auto) 6.3 % Eos % (Auto) 2.6 % Baso % (Auto) 1.1 % Neut # (Auto) 5.93 (1.40-6.50) K/uL Lymph # (Auto) 1.91 (1.20-3.40) K/uL [place] # (Auto) 0.55 (0.11-0.59) K/uL Eos # (Auto) 0.23 (0.00-0.50) K/uL Baso # (Auto) 0.10 (0.00-0.20) K/uL Immature Gran # (Auto) 0.04 (0.01-0.20) K/uL PT 11.6 (9.0-12.0) Seconds INR 1.1 (0.9-1.1) APTT 22 (21-31) Seconds PTT Ratio 0.8 Sodium 140 (136-145) mmol/L Potassium 4.8 (3.5-5.1) mmol/L Chloride 108 H (98-107) mmol/L Carbon Dioxide 26 (21-32) mmol/L Anion Gap 6 (3-11) BUN 56 H (6-23) mg/dl Creatinine 0.88 (0.6-1.2) mg/dl Est Cr Clr Drug Dosing 32.7 ml/min Est GFR ( Amer) 70.4 ml/min Est GFR (Non-Af Amer) 60.8 ml/min BUN/Creatinine Ratio 63.6 H (10-20) Glucose 197 H (70-99(Fasting)) mg/dl Calcium 9.0 (8.6-10.3) mg/dl Total Bilirubin 0.4 (0.2-1.0) mg/dl AST 11 L (13-39) U/L ALT 8 (7-52) U/L Alkaline Phosphatase 59 (34-104) U/L Total Protein 6.2 (6.0-8.3) gm/dl Albumin 3.6 (3.4-5.0) gm/dl Globulin 2.6 (2.5-4.0) gm/dl Albumin/Globulin Ratio 1.4 (0.9-2) Blood Type A Positive Antibody Screen NEGATIVE Medications Administered ED administered IV pantoprazole bolus and drip Code Status & VTE Plan Code Status Discussed, she prefers to be full code VTE Prophylaxis Plan VTE Prophylaxis will be ordered: Yes Reason for no VTE drug order: Contraindicated (Acute bleed) PG Care Time/CCT Total # of Minutes Spent Total Time Spent with Patient: Total time spent is greater than 50% in coordination of care (as documented) at patient's floor/unit and/or counseling patient: Coding Level of Care Code 80961 INT INP/OBS CARE 2/55MIN Diagnoses Hematemesis K92.0 Type 2 diabetes mellitus E11.9 LVH (left ventricular hypertrophy) I51.7 PAD (peripheral artery disease) I73.9 Borderline glaucoma with ocular hypertension H40.059 Hiatal hernia K44.9 Mixed hyperlipidemia E78.2 Hyperlipidemia type: mixed hyperlipidemia Interstitial lung disease J84.9 (7) Hyperlipidemia Hyperlipidemia type: mixed hyperlipidemia Qualified Code(s): E78.2 - Mixed hyperlipidemia
[2023-05-27] MEDS ORDERED: DEXTROSE 50% 50 ML SYRINGE IV PRN (21:35)
[2023-05-27] MEDS ORDERED: MELATONIN 3 MG TAB PO PRN (21:35)
[2023-05-27] MEDS ORDERED: ACETAMINOPHEN 325 MG TAB PO PRN (21:35)
[2023-05-27] MEDS ORDERED: GLUCAGON FOR INJ 1 MG VIAL SQ PRN (21:35)
[2023-05-27] MEDS ORDERED: GLUCOSE 10 TAB/TUBE PO PRN (21:35)
[2023-05-27] MEDS ORDERED: ONDANSETRON INJ 2 MG/ML 2 ML VIAL IV PRN (21:35)
[2023-05-27] MEDS ORDERED: GLUCOSE 40% GEL 15 GM TUBE PO PRN (21:35)
[2023-05-27] MEDS ORDERED: CARBOHYDRATES FOR HYPOGLYCEMIA PO PRN (21:35)
[2023-05-27] MEDS: GABAPENTIN 400 MG CAP PO SCH (22:44)
[2023-05-27] MEDS: ATORVASTATIN 10 MG TAB PO SCH (22:44)
[2023-05-27] MEDS: LATANOPROST 0.005% OP SOLN 2.5 ML BTL OPB SCH (22:45)
[2023-05-27 23:52] LABS: Hematocrit (blood only) 23.4 % (37.0-47.0)
[2023-05-28] MEDS: D5W AND 1/2NSS 1,000 ML IV SCH ×2 (00:04→13:28)
[2023-05-28] MEDS: INSULIN ASPART PER UNIT CHARGE SC SCH ×5 (00:08→20:56)
[2023-05-28] MEDS: PANTOprazole 40 MG in DEXTROSE 5% MINI-B 100 ML IV SCH ×3 (04:22→13:28)
[2023-05-28] MEDS: amLODIPine BESYLATE 5 MG TAB PO SCH (07:51)
[2023-05-28 07:52] LABS: Hematocrit (blood only) 23.9 % (37.0-47.0); Mean Corpuscular Hemoglobin 30.4 pg (25.0-34.0); Mean Corpuscular Hgb Conc 33.5 g/dL (32.0-36.0); Mean Corpuscular Volume 90.9 fL (80.0-100.0); Mean Platelet Volume 9.9 fL (9.4-12.4); Platelet Count 230 K/uL (130-400); RDW Coefficient of Variation 12.5 % (11.5-14.5); RDW Standard Deviation 41.3 fL (36.4-46.3); Red Blood Count 2.63 M/uL (4.20-5.40); White Blood Count 6.16 K/ul (4.8-10.8)
[2023-05-28 08:10] LABS: BUN Creatinine Ratio 45.6 (10-20); Calcium 7.9 mg/dl (8.6-10.3); Creatinine Clr Calc Pharmacy 30.6 ml/min; Est GFR (African American) 68.5 ml/min; Est GFR (Non-African American) 59.1 ml/min; Potassium 3.8 mmol/L (3.5-5.1)
--- NOTE | 2023-05-28 08:16 | Hospitalist Progress Note ---
Date of Service May 28, 2023 Assessment & Plan (1) Hematemesis: Plan: Acute upper GI bleed presenting with hematemesis Acute blood loss anemia due to upper GI bleeding Presents with episode of nonbloody emesis morning of 05/27 followed by kenrick hematemesis around 3 PM today, no further episodes. Has not been having melena or bright blood per rectum. Does take baby aspirin and infrequent doses of meloxicam 7.5 mg 2 or 3 times a week. Concerning for acute upper GI bleeding. Differential diagnosis includes Adriana-Burrell tear, peptic ulcer or duodenal ulcer, esophagitis or gastritis, vascular ectasia, less likely malignancy. 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 -Consult gastroenterology -Hold aspirin and NSAIDs addendum late in day: discussed with GI and reviewed EGD report with patient and her daughters - 2 clean-based duodenal ulcers, esophagus possible Wild's biopsies taken -daughter reports she was taking advil PM every night for a long time, in addition to the mobic so these are likely NSAID-related ulcers. -bid PPI po -follow up biopsies -advance diet -H/H in am -home in am if tolerating po well and no e/o bleeding (2) Type 2 diabetes mellitus: Plan: Usually at home she takes only 2 units of insulin degludec at at bedtime and is prone to nocturnal hypoglycemia -Hold long-acting insulin -Serial glucose checks -Will use very conservative dosing of aspart as needed, goal blood sugar [id number] -BG rev 05/28 and at goal (3) LVH (left ventricular hypertrophy): Plan: Noted on echocardiogram 07/2021 that I reviewed, LVEF 70% with moderate to severe concentric LVH This is reflected on her EKG from the ED, I personally reviewed the tracing shows mild sinus tachycardia LVH pattern there is a T wave inversion in lead I and minimal ST depression in V3V6 (4) PAD (peripheral artery disease): Plan: History of left poplitealtibial bypass in 2019, stable. No current limb ischemia or foot wounds. Hold aspirin, continue atorvastatin (5) Borderline glaucoma with ocular hypertension: Plan: Continue eyedrops at bedtime (6) Hiatal hernia: (7) Hyperlipidemia: Plan: Continue atorvastatin (8) Interstitial lung disease: Plan: Stable, not hypoxic Plan insomnia, also has low appetite chronically. discussed she needs to stop advil PM. trial low-dose mirtazapine and melatonin PRN DVT ppx: SCDs Admission and Anticipated Discharge Date Admission Date: May 27, 2023 Subjective no hematemesis or melena reported overnight no abdominal pain, hungry, was eating dinner well in pm Physical Exam 2 Physical Exam: PHYSICAL EXAMINATION Last 24h vital signs reviewed, see documentation in flowsheet exam unchanged 05/28: General: looks well, sitting up in bed, daughters in room HEENT: Normocephalic, atraumatic, pupils round and equal, sclerae anicteric, no conjunctival injection, moist mucus membranes Lungs: Normal respiratory effort. Clear to auscultation bilaterally. No RRW Heart: Regular rate and rhythm, no murmurs. No JVD Abdomen: Soft, nontender, nondistended. No epigastric tenderness. Bowel sounds present. Extremities: Warm, dry, well-perfused. No extremity edema. Neuro: Alert and oriented x 4, face symmetric, moves 4 extremities well, federal judicial law clerk equal, moves lower extremities equal Psych: Normal affect and behavior Results & Data Results & Data Vital Signs (Past 12 Hours) Vital Signs Temp Pulse Pulse Resp BP BP Pulse Ox 05/28/23 06:10 36.7 C 70 16 129/67 99 05/27/23 21:38 36.8 C 85 18 152/69 H 99 05/27/23 21:37 36.8 C 85 18 152/69 H 99 05/27/23 20:27 83 15 144/89 H 95 O2 Del Method 05/28/23 06:10 Room Air 05/27/23 21:38 Room Air 05/27/23 21:37 Room Air 05/27/23 20:27 Room Air Laboratory Results 05/28/23 06:51 05/28/23 06:51 PG Care Time/CCT Total # of Minutes Spent Total Time Spent with Patient: I spent greater than 50 minutes on clincial care today including reviewing chart notes, vitals, labs, two bedside visits, examining patient, counseling patient and family, discussion with GI, documentation Coding Level of Care Code 73200 SUB INP/OBS CARE 50MIN Diagnoses Hematemesis K92.0 Type 2 diabetes mellitus E11.9 LVH (left ventricular hypertrophy) I51.7 PAD (peripheral artery disease) I73.9 Borderline glaucoma with ocular hypertension H40.059 Hiatal hernia K44.9 Mixed hyperlipidemia E78.2 Hyperlipidemia type: mixed hyperlipidemia Interstitial lung disease J84.9 (7) Hyperlipidemia Hyperlipidemia type: mixed hyperlipidemia Qualified Code(s): E78.2 - Mixed hyperlipidemia
[2023-05-28] MEDS ORDERED: METOCLOPRAMIDE HCL INJ 5 MG/ML 2 ML VIAL IV STA (08:58)
--- NOTE | 2023-05-28 09:31 | Gastrointestinal Consultation ---
Date of Consultation May 28, 2023 Assessment & Plan (1) Hematemesis: (2) Acute upper gastrointestinal bleeding: Plan Diff DX: Adriana-Burrell tear vs Peter's erosions vs esophagitis vs PUD vs AVM vs other. 1. NPO. 2. Reglan 10 mg IV x 1 now. 3. Continue PPI ggt at 8 mg/hr. 4. EGD today with Dr. Ibarra for further evaluation. 5. Further recommendations will be made pending results of testing. Thank you for allowing us to participate in the care of this patient. If you have any questions or concerns, please do not hesitate to contact us. Supervising Physician Co-Signing Physician Notes I saw the patient and agree with the findings as documented by GRANT Rueda Proceed with EGD. risks/benefits and procedure discussed with patient, who agrees to proceed History of Present Illness Reason for Consultation: Hematemesis Requesting Physician: Dr. Elizalde Attending Physician: Nancy Elizalde MD History of Present Illness Patient is a 82 y.o. 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 Dixon) admitted with an acute onset of nausea with vomiting and hematemesis x 1 yesterday. She states the emesis was kenrick blood with some clots. H&H in March was noted to be 12.1/23.4. On arrival, her hemoglobin was noted to be 9.7. Hemoglobin was 8.0 last evening and stable at 8.0 this morning. She has had no further vomiting since admission. No bowel movements. Denies any abdominal pain or nausea. Risk factors: daily ASA use and Meloxicam PRN for shoulder pain. Patient has been made NPO and started on a PPI ggt. Allergies Allergy/AdvReac Type Severity Reaction Status Date / Time No Known Drug Allergies Allergy Unknown Verified 04/15/23 08:33 Home Medications Medication Instructions Recorded Confirmed Type aspirin 81 mg tablet,delayed 81 mg PO QAM 01/27/18 04/15/23 History release (Ecotrin Low Strength) acetaminophen 325 mg capsule 325 mg PO Q6H PRN fever or pain 11/17/18 04/15/23 History cholecalciferol (vitamin D3) 50 4,000 units PO QAM 11/20/18 04/15/23 History mcg (2,000 unit) tablet ferrous sulfate 325 mg (65 mg 325 mg PO QAM 11/20/18 04/15/23 History iron) tablet,delayed release latanoprost 0.005 % eye drops 1 drops OPB HS 12/21/19 04/15/23 History pen needle, diabetic 31 gauge x #200 ea 04/11/22 04/15/23 Rx 3/16" (BD Ultra-Fine Mini Pen Needle) atorvastatin 10 mg tablet 10 mg PO HS #90 tabs 11/12/22 04/15/23 Rx insulin degludec 100 unit/mL (3 3 unit (0.03 mL) subcut DAILY 90 11/12/22 04/15/23 Rx mL) subcutaneous pen (Tresi days #15 mL FlexTouch U-100 insulin) gabapentin 400 mg capsule 400 mg PO HS #90 caps 12/19/22 04/15/23 Rx amlodipine 5 mg tablet See Rx Instructions .Route 02/13/23 04/15/23 Rx .COMPLEX #180 tabs docusate sodium 100 mg capsule 100 mg PO DAILY 03/18/23 04/15/23 History (Colace) meloxicam 7.5 mg tablet 7.5 mg PO BID PRN pain #60 tabs 03/31/23 04/15/23 Rx blood sugar diagnostic (OneTouch #300 ea 04/29/23 Rx Verio test strips) Patient History Medical History Sensorineural hearing loss of both ears Catheter-associated urinary tract infection Urinary retention Weakness Hypoxia Acute respiratory distress syndrome (ARDS) due to COVID-19 virus History of COVID-19 History of skin cancer Scabies Chronic anemia Encounter for pre-operative examination PAD (peripheral artery disease) s/p Left popliteal-tibial bypass (07/2018) Peripheral edema chronic L>R s/p surgery PMR (polymyalgia rheumatica) Insulin dose changed Bilateral kidney stones Borderline glaucoma with ocular hypertension Hiatal hernia Hyperlipidemia Hypertension Psoriasis Ulcer of left great toe due to diabetes mellitus Foot ulcer Skin ulcer of left foot including toes ulcer left 2nd digit dorsum resolved Pressure ulcer of right ankle, stage 2 Diabetic ulcer of right foot ulcer right 5th digit resolved Septic shock Leukocytosis pt denies Septicemia pt denies Pyelonephritis Septic shock Pyelonephritis Leukocytosis E. coli septicemia High cholesterol Surgical History Status post reverse total arthroplasty of left shoulder Status post reverse total shoulder replacement History of esophagogastroduodenoscopy (EGD) with Dilitation History of tooth extraction uppers History of cataract surgery bilateral S/P popliteal-tibial bypass Left popliteal-tibial bypass (07/2018) Status post femoral-popliteal bypass surgery [facility] 07/22, left S/P cystoscopy with ureteral stent placement bilateral H/O section x 2 Family History Mother Breast cancer Myocardial infarction Heart disease Unknown Hyperlipidemia Hypertension Sister Diabetes Father , age 34 No problems noted. Denies family history of Ovarian cancer Prostate cancer Colorectal cancer Cancer Stroke Asthma Social History Smoking Status: Never smoker Second Hand Exposure: No; Do You Dip or Chew Tobacco: No; Hx Alcohol Use: No Hx Substance Use: No Preferred Language: Frisian Communication Ability: Effective Visual Impairment: Limited Hearing Ability: Normal Ticket Seller Required: No Beliefs That Will Affect Care: None marital status: / Current Living Situation: Family Current Living Situation Comment: Lives with Daughter current occupational status: retired Feels Safe at Home: Yes Childhood Exposure to Second-Hand Smoke: No Diet: regular Diet Comment: regular caffeine: No during the past year weight has: remained stable Dental Care, Regularly: Yes Physical Activity Frequency: 1-2 Times per Week Seatbelt Use: always Sunscreen Use: Yes Assistive Devices: Denture - Upper and Glasses Review of Systems Constitutional: no fever and no chills Respiratory: no cough and no dyspnea Cardiovascular: no chest pain and no palpitations Gastrointestinal: as per Subjective / HPI Physical Exam Constitutional: WD/WN, vitals as above Eyes: EOM intact bilaterally Respiratory: normal respiratory effort, lungs clear to auscultation Cardiovascular: Rate/Rhythm: regular rate and regular rhythm Heart Sounds: + murmur Gastrointestinal (Abdomen): normal bowel sounds, soft, nontender, no hepatosplenomegaly Skin: warm and dry Psychiatric: A+Ox3, euthymic affect Results & Data Vital Signs (Past 12 Hours) Vital Signs Temp Pulse Resp BP Pulse Ox O2 Del Method 05/28/23 06:10 36.7 C 70 16 129/67 99 Room Air 05/27/23 21:38 36.8 C 85 18 152/69 H 99 Room Air 05/27/23 21:37 36.8 C 85 18 152/69 H 99 Room Air Diagnostic Findings Laboratory Results WBC 6.16 K/ul (4.8-10.8) 05/28/23 06:51 RBC 2.63 M/uL (4.20-5.40) L 05/28/23 06:51 Hgb 8.0 g/dl (12.0-16.0) L 05/28/23 06:51 Hct 23.9 % (37.0-47.0) L 05/28/23 06:51 MCV 90.9 fL (80.0-100.0) 05/28/23 06:51 MCH 30.4 pg (25.0-34.0) 05/28/23 06:51 MCHC 33.5 g/dL (32.0-36.0) 05/28/23 06:51 RDW Std Deviation 41.3 fL (36.4-46.3) 05/28/23 06:51 RDW Coeff of Gregory 12.5 % (11.5-14.5) 05/28/23 06:51 Plt Count 230 K/uL (130-400) 05/28/23 06:51 MPV 9.9 fL (9.4-12.4) 05/28/23 06:51 Immature Gran % (Auto) 0.5 % 05/27/23 16:40 Neut % (Auto) 67.7 % 05/27/23 16:40 Lymph % (Auto) 21.8 % 05/27/23 16:40 [place] % (Auto) 6.3 % 05/27/23 16:40 Eos % (Auto) 2.6 % 05/27/23 16:40 Baso % (Auto) 1.1 % 05/27/23 16:40 Neut # (Auto) 5.93 K/uL (1.40-6.50) 05/27/23 16:40 Lymph # (Auto) 1.91 K/uL (1.20-3.40) 05/27/23 16:40 [place] # (Auto) 0.55 K/uL (0.11-0.59) 05/27/23 16:40 Eos # (Auto) 0.23 K/uL (0.00-0.50) 05/27/23 16:40 Baso # (Auto) 0.10 K/uL (0.00-0.20) 05/27/23 16:40 Immature Gran # (Auto) 0.04 K/uL (0.01-0.20) 05/27/23 16:40 PT 11.6 Seconds (9.0-12.0) 05/27/23 16:40 INR 1.1 (0.9-1.1) 05/27/23 16:40 APTT 22 Seconds (21-31) 05/27/23 16:40 PTT Ratio 0.8 05/27/23 16:40 Sodium 140 mmol/L (136-145) 05/28/23 06:51 Potassium 3.8 mmol/L (3.5-5.1) D 05/28/23 06:51 Chloride 112 mmol/L (98-107) H 05/28/23 06:51 Carbon Dioxide 24 mmol/L (21-32) 05/28/23 06:51 Anion Gap 4 (3-11) 05/28/23 06:51 BUN 41 mg/dl (6-23) H 05/28/23 06:51 Creatinine 0.90 mg/dl (0.6-1.2) 05/28/23 06:51 Est Cr Clr Drug Dosing 30.6 ml/min 05/28/23 06:51 Est GFR ( Amer) 68.5 ml/min 05/28/23 06:51 Est GFR (Non-Af Amer) 59.1 ml/min 05/28/23 06:51 BUN/Creatinine Ratio 45.6 (10-20) H 05/28/23 06:51 Glucose 136 mg/dl (70-99(Fasting)) H 05/28/23 06:51 POC Glucose 134 mg/dl (70-99) H 05/28/23 06:00 Calcium 7.9 mg/dl (8.6-10.3) L 05/28/23 06:51 Total Bilirubin 0.4 mg/dl (0.2-1.0) 05/27/23 16:40 AST 11 U/L (13-39) L 05/27/23 16:40 ALT 8 U/L (7-52) 05/27/23 16:40 Alkaline Phosphatase 59 U/L (34-104) 05/27/23 16:40 Total Protein 6.2 gm/dl (6.0-8.3) 05/27/23 16:40 Albumin 3.6 gm/dl (3.4-5.0) 05/27/23 16:40 Globulin 2.6 gm/dl (2.5-4.0) 05/27/23 16:40 Albumin/Globulin Ratio 1.4 (0.9-2) 05/27/23 16:40 Blood Type A Positive 05/27/23 17:07 Antibody Screen NEGATIVE 05/27/23 17:07 PG Care Time/CCT Total # of Minutes Spent Total Time Spent with Patient: Total time spent is greater than 50% in coordination of care (as documented) at patient's floor/unit and/or counseling patient: Coding Level of Care Code 13800 INT INP/OBS CARE 3/75MIN Diagnoses Hematemesis K92.0 Nausea presence: unspecified Acute upper gastrointestinal bleeding K92.2 (1) Hematemesis Nausea presence: unspecified Qualified Code(s): K92.0 - Hematemesis
--- NOTE | 2023-05-28 09:56 | Anesthesiology Consultation ---
Date of Service May 28, 2023 Assessment & Plan Chart Review Chart Review: Acceptable Risk for Surgery and Patient NOT seen in Pre Admission Testing Consults Requested none ASA ASA4 Proposed Anesthesia Anesthesia Type: MAC History Surgery Operation Date: 05/28/23 16:30 Proposed Procedures p Esophagogastroduodenoscopy Dr. Stacey Ibarra MD Height/Weight Height: 4 ft 10 in Weight: 43.8 kg Allergies Allergy/AdvReac Type Severity Reaction Status Date / Time No Known Drug Allergies Allergy Unknown Verified 04/15/23 08:33 Medications Home Medications Medication Instructions Recorded Confirmed Last Taken aspirin 81 mg tablet,delayed 81 mg PO QAM 01/27/18 04/15/23 07/04/21 release (Ecotrin Low Strength) acetaminophen 325 mg capsule 325 mg PO Q6H PRN fever or pain 11/17/18 04/15/23 04/07/19 07:00 cholecalciferol (vitamin D3) 50 4,000 units PO QAM 11/20/18 04/15/23 07/04/21 mcg (2,000 unit) tablet ferrous sulfate 325 mg (65 mg 325 mg PO QAM 11/20/18 04/15/23 07/04/21 iron) tablet,delayed release latanoprost 0.005 % eye drops 1 drops OPB HS 12/21/19 04/15/23 07/04/21 pen needle, diabetic 31 gauge x #200 ea 04/11/22 04/15/23 Unknown 3/16" (BD Ultra-Fine Mini Pen Needle) atorvastatin 10 mg tablet 10 mg PO HS #90 tabs 11/12/22 04/15/23 Unknown insulin degludec 100 unit/mL (3 3 unit (0.03 mL) subcut DAILY 11/12/22 04/15/23 Unknown mL) subcutaneous pen (Tresiba days #15 mL FlexTouch U-100 insulin) gabapentin 400 mg capsule 400 mg PO HS #90 caps 12/19/22 04/15/23 Unknown amlodipine 5 mg tablet See Rx Instructions .Route 02/13/23 04/15/23 Unknown .COMPLEX #180 tabs docusate sodium 100 mg capsule 100 mg PO DAILY 03/18/23 04/15/23 Unknown (Colace) meloxicam 7.5 mg tablet 7.5 mg PO BID PRN pain #60 tabs 03/31/23 04/15/23 Unknown blood sugar diagnostic (OneTouch #300 ea 04/29/23 Unknown Verio test strips) Active Medications Generic Name Dose Route Start Last Admin Trade Name Freq PRN Reason Stop Dose Admin Amlodipine Besylate 10 mg 05/28/23 09:00 05/28/23 07:51 Amlodipine Besylate 5 Mg Tab PO 06/27/23 08:59 10 mg QAM RICHIE Administration Atorvastatin Calcium 10 mg 05/27/23 21:35 05/27/23 22:44 Atorvastatin 10 Mg Tab PO 06/26/23 21:34 10 mg HS RICHIE Administration Gabapentin 400 mg 05/27/23 21:35 05/27/23 22:44 Gabapentin 400 Mg Cap PO 06/26/23 21:34 400 mg HS RICHIE Administration Pantoprazole Sodium 40 mg/ 100 mls @ 20 mls/hr 05/27/23 17:00 05/28/23 07:52 Dextrose IV 06/26/23 16:59 8 mg/hr Q5H RICHIE 20 mls/hr Administration 8 MG/HR Dextrose/Sodium Chloride 1,000 mls @ 75 mls/hr 05/27/23 23:55 05/28/23 00:04 D5w And 1/2nss IV 06/26/23 23:54 75 mls/hr .[id number] RICHIE Administration Insulin Aspart 0 units 05/28/23 00:00 05/28/23 06:01 Insulin Aspart Per Unit Charge SC 06/27/23 00:00 Not Given Q6 RICHIE Latanoprost 1 drops 05/27/23 21:35 05/27/23 22:45 Latanoprost 0.005% Op Soln 2.5 Ml Btl OPB 06/26/23 21:34 1 drops HS RICHIE Administration Past Medical History Medical History Sensorineural hearing loss of both ears Catheter-associated urinary tract infection Urinary retention Weakness Hypoxia Acute respiratory distress syndrome (ARDS) due to COVID-19 virus History of COVID-19 History of skin cancer Scabies Chronic anemia Encounter for pre-operative examination PAD (peripheral artery disease) s/p Left popliteal-tibial bypass (07/2018) Peripheral edema chronic L>R s/p surgery PMR (polymyalgia rheumatica) Insulin dose changed Bilateral kidney stones Borderline glaucoma with ocular hypertension Hiatal hernia Hyperlipidemia Hypertension Psoriasis Ulcer of left great toe due to diabetes mellitus Foot ulcer Skin ulcer of left foot including toes ulcer left 2nd digit dorsum resolved Pressure ulcer of right ankle, stage 2 Diabetic ulcer of right foot ulcer right 5th digit resolved Septic shock Leukocytosis pt denies Septicemia pt denies Pyelonephritis Septic shock Pyelonephritis Leukocytosis E. coli septicemia High cholesterol Exercise / Class Metabolic Activity III < 4 Walking/Shop/Light housework Past Family History Family History Mother Breast cancer Myocardial infarction Heart disease Unknown Hyperlipidemia Hypertension Sister Diabetes Father , age 34 No problems noted. Denies family history of Ovarian cancer Prostate cancer Colorectal cancer Cancer Stroke Asthma Past Surgical History Surgical History Status post reverse total arthroplasty of left shoulder Status post reverse total shoulder replacement History of esophagogastroduodenoscopy (EGD) with Dilitation History of tooth extraction uppers History of cataract surgery bilateral S/P popliteal-tibial bypass Left popliteal-tibial bypass (07/2018) Status post femoral-popliteal bypass surgery S 07/22, left S/P cystoscopy with ureteral stent placement bilateral H/O section x 2 Past Anesthesia History No Hx of Anesthesia Complications and No Family Hx of Anesthesia Complications History of PONV No Hx of PONV and No Hx of Motion Sickness Social History Smoking Status: Never smoker Do You Dip or Chew Tobacco: No Hx Alcohol Use: No Hx Substance Use: No substance use type: does not use Physical Exam Vital Signs Last Vital Signs Temp 36.7 C 05/28/23 06:10 Pulse 70 05/28/23 06:10 Resp 16 05/28/23 06:10 BP 129/67 05/28/23 06:10 Pulse Ox 99 05/28/23 06:10 O2 Del Method Room Air 05/28/23 06:10 O2 Flow Rate 0 05/27/23 17:16 Testing Laboratory Results 05/28/23 06:51 05/28/23 06:51 PT 11.6 Seconds (9.0-12.0) 05/27/23 16:40 INR 1.1 (0.9-1.1) 05/27/23 16:40 APTT 22 Seconds (21-31) 05/27/23 16:40 Blood Type A Positive 05/27/23 17:07 Antibody Screen NEGATIVE 05/27/23 17:07 05/28/23 05/28/23 06:00 00:06 POC Glucose 134 H 128 H Electrocardiogram Date: 05/27/23 Findings: + LVH and + ST @ (@ 111) Echocardiogram Date: 07/06/21 EF: > 70% hyperdynamic Fxn LV Function: normal RWMA: + none Other Findings: + LVH (moderate - severe) and + diastolic dysfunction Valvular Disease: + no significant valvular disease
--- NOTE | 2023-05-28 10:26 | Electrocardiogram Report ---
Test Reason : Blood Pressure : / mmHG Vent. Rate : 111 BPM Atrial Rate : 111 BPM P-R Int : 182 ms QRS Dur : 076 ms QT Int : 336 ms P-R-T Axes : 061 -13 129 degrees QTc Int : 456 ms Sinus tachycardia Left ventricular hypertrophy Nonspecific ST abnormality Abnormal ECG When compared with ECG of 04-JUL-2021 12:44, Minimal criteria for Septal infarct are no longer Present Non-specific change in ST segment in Anterior leads Confirmed by Alex Stewart ([id number]) on 05/28/2023 10:26:05 AM Referred By: REFERRED SELF Confirmed By:Devang Stewart
[2023-05-28] MEDS ORDERED: ePHEDrine sulfate 50 MG/ML AMP IV PRN (11:21)
[2023-05-28] MEDS ORDERED: ATROPINE SULFATE 0.1 MG/ML 10ML SYR IV PRN (11:21)
[2023-05-28] MEDS ORDERED: LIDOCAINE 2% 2 ML VIAL/AMP(20MG/ML) INFIL ONE (11:46)
[2023-05-28] MEDS ORDERED: PROPOFOL IV EMULSION 10 MG/ML 20 ML VIAL IV ONE (11:46)
--- NOTE | 2023-05-28 12:14 | GI REPORT ---
Patient Name: Marianela Garcia Procedure Date: 05/28/2023 11:37 AM Date of : 1940 Admit Type: Inpatient Age: 82 Gender: Female Attending MD: Mele Ibarra MD, Procedure: Upper GI endoscopy Providers: Mele Ibarra MD Referring MD: Referred Self Indications: Hematemesis Medicines: Monitored Anesthesia Care Complications: No immediate complications. Estimated blood loss: None. Estimated Blood Loss: Estimated blood loss: none. Procedure: Pre-Anesthesia Assessment: - Prior Anticoagulants: The patient has taken no anticoagulant or antiplatelet agents. - ASA Grade Assessment: III - A patient with severe systemic disease. After obtaining informed consent, the endoscope was passed under direct vision. Throughout the procedure, the patient's blood pressure, pulse, and oxygen saturations were monitored continuously. The Endoscope was introduced through the mouth, and advanced to the second part of duodenum. The upper GI endoscopy was accomplished without difficulty. The patient tolerated the procedure well. Findings: There were esophageal mucosal changes consistent with long-segment Wild's esophagus present in the distal esophagus. The maximum longitudinal extent of these mucosal changes was 6 cm in length. Mucosa was biopsied with a cold forceps for histology. A total of 4 specimen bottles were sent to pathology. A medium-sized hiatal hernia was present. The entire examined stomach was normal. Biopsies were taken with a cold forceps for Helicobacter pylori testing. Estimated blood loss: none. Two non-bleeding cratered duodenal ulcers with no stigmata of bleeding were found in the duodenal bulb. The second portion of the duodenum was normal. 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 Biopsied. - Medium-sized hiatal hernia. - Normal stomach. Biopsied. - Non-bleeding duodenal ulcers with no stigmata of bleeding. - Normal second portion of the duodenum. Recommendation: - [facility]. - Advance diet as tolerated today. - Await pathology results. -continue protonix BID for now Mele Ibarra MD 05/28/2023 12:14:08 PM This report has been signed electronically. Note Initiated On: 05/28/2023 11:37 AM Number of Addenda: 0 I attest to the content of the Intraoperative Record and orders documented therein, exceptions below {[id number]}
--- NOTE | 2023-05-28 12:19 | Anesthesiology Progress Note ---
Date of Service May 28, 2023 Anesthesia Post Procedure Vital Signs Vital Signs: Temp Pulse Pulse Pulse Resp BP BP 05/28/23 12:12 76 16 94/44 L 05/28/23 11:04 36.6 C 91 H 18 145/78 H 05/28/23 06:10 36.7 C 70 16 129/67 05/27/23 21:38 36.8 C 85 18 152/69 H 05/27/23 21:37 36.8 C 85 18 152/69 H 05/27/23 20:27 83 15 05/27/23 18:24 99 H 18 05/27/23 17:30 95 H 05/27/23 17:16 85 21 05/27/23 16:46 95 H 18 05/27/23 16:32 36.9 C 105 H 18 167/87 H BP Pulse Ox O2 Del Method O2 Flow Rate 05/28/23 12:12 97 Room Air 05/28/23 11:04 97 Room Air 05/28/23 06:10 99 Room Air 05/27/23 21:38 99 Room Air 05/27/23 21:37 99 Room Air 05/27/23 20:27 144/89 H 95 Room Air 05/27/23 18:24 144/89 H 97 Room Air 05/27/23 17:30 05/27/23 17:16 98 Room Air 0 05/27/23 16:46 167/87 H 99 Room Air 05/27/23 16:32 99 Room Air Transfer of Care Handoff Completed per policy Notes Mental Status: alert / awake / arousable Patient Amnestic to Procedure: Yes Nausea / Vomiting: adequately controlled Pain: adequately controlled Airway Patency, RR, SpO2: stable & adequate BP & HR: stable & adequate Hydration State: stable & adequate Anesthetic Complications: no major complications apparent
[2023-05-28] MEDS ORDERED: Nursing to Pharmacy Communication SCH (14:45)
[2023-05-28] MEDS: PANTOprazole 40 MG TAB PO SCH (20:58)
[2023-05-28] MEDS: GABAPENTIN 400 MG CAP PO SCH (20:58)
[2023-05-28] MEDS: LATANOPROST 0.005% OP SOLN 2.5 ML BTL OPB SCH (20:59)
[2023-05-28] MEDS ORDERED: MIRTAZAPINE TAB 15 MG TAB PO SCH (21:00)
[2023-05-28] MEDS: ATORVASTATIN 10 MG TAB PO SCH (21:46)
[2023-05-29] MEDS: INSULIN ASPART PER UNIT CHARGE SC SCH (08:16)
[2023-05-29 08:36] LABS: Hematocrit (blood only) 22.1 % (37.0-47.0); Hemoglobin 7.3 g/dl (12.0-16.0)
[2023-05-29] MEDS: amLODIPine BESYLATE 5 MG TAB PO SCH (09:50)
[2023-05-29] MEDS: PANTOprazole 40 MG TAB PO SCH (09:51)
--- NOTE | 2023-05-29 19:20 | Discharge Summary ---
Date of Service May 29, 2023 Admission HPI Per Admitting Provider Ms. Garcia was in her usual state of health until this morning when she had an episode of emesis and it looked like a chocolate Oreo ball that she had eaten earlier. She was then doing fine until about 3:00 this afternoon when she had an episode of kenrick hematemesis that looked like red blood clots and was about a tablespoon or little more. She has not had any further nausea. No epigastric pain no back pain. No melena or bright blood per rectum. She does take 81 mg aspirin daily because of her peripheral arterial disease. She takes meloxicam 7.5 mg 2 or 3 times a week, last took this on Saturday for her shoulder arthritis. She has no prior history of peptic ulcer disease or GI bleeding. She had a EGD at least 5 or 6 years ago which was done for dysphagia and she had a dilation. She never had any further problems with dysphagia following that. She reports normal screening colonoscopies, that was at least some years ago she cannot recall exactly when. She denies any chest pain heartburn shortness of breath cough fevers abdominal pain dysuria urinary frequency. She does have some chronic shoulder pain that is related to osteoarthritis and relieved by Mobic. She did have 1 episode of loose stool this morning that was nonbloody. Principal Diagnosis acute upper GI bleed related to NSAID-induced duodenal ulcers and esophagitis, acute blood loss anemia Discharge Exam PHYSICAL EXAMINATION Last 24h vital signs reviewed, see documentation in flowsheet exam unchanged 05/29: General: sitting in bed, daughter at bedside Lungs: Normal respiratory effort. Clear to auscultation bilaterally. No RRW Heart: Regular rate and rhythm, no murmurs. Abdomen: Soft, nontender, nondistended. Bowel sounds present. Extremities: Warm, dry, well-perfused. No extremity edema. Neuro: Alert and oriented x 4, face symmetric, moves 4 extremities well Psych: Normal affect and behavior Discharge Data Allergies Allergy/AdvReac Type Severity Reaction Status Date / Time No Known Drug Allergies Allergy Unknown Verified 04/15/23 08:33 Consultations 05/27/23 17:39 ED Decision to Admit Stat 05/27/23 21:35 Consult Gastroenterology Routine Procedures Performed Operation Date: 05/28/23 16:30 Actual Procedures p EGD Biopsy Cytology - Mele Ibarra MD Ordered Studies 05/29/23 07:00 05/28/23 06:51 Hospital Course (1) Hematemesis: Acute upper GI bleed presenting with hematemesis Acute blood loss anemia due to upper GI bleeding Presents with episode of nonbloody emesis morning of 05/27 followed by kenrick hematemesis around 3 PM today, no further episodes. Has not been having melena or bright blood per rectum. Does take baby aspirin and infrequent doses of meloxicam 7.5 mg 2 or 3 times a week. Concerning for acute upper GI bleeding. Differential diagnosis includes Adriana-Burrell tear, peptic ulcer or duodenal ulcer, esophagitis or gastritis, vascular ectasia, less likely malignancy. Treated with IV pantoprazole bolus and drip. Had initial Hct drop after fluids, then remained stable. Consulted GI EGD 05/28 with findings of two clean based nonbleeding duodenal ulcers, esophagus suspicious for Wild's, biopsied -path resulted after discharge, reviewed: gastric biopsy neg for H. pylori, esophagus biopsies consistent with reflux esophagitis -Hct 37 PRISON KEEPER -->30-->23.4-->23.9-->22 mild drop overnight but had brown stool last night, no active bleeding on EGD -recommended bid PPI, probably 4-6 weeks, then continue daily PPI -follow up with GI -resume low dose ASA -hold NSAIDS - daughter reports she was taking advil PM every night for a long time, in addition to the mobic so these are likely NSAID-related ulcers. -she will stop the advil PM and try to avoid the meloxicam. shoulder replacement is being planned soon so arthritis pain will improve (2) Type 2 diabetes mellitus: Usually at home she takes only 2 units of insulin degludec at at bedtime and is prone to nocturnal hypoglycemia (3) LVH (left ventricular hypertrophy): Noted on echocardiogram 07/2021 that I reviewed, LVEF 70% with moderate to severe concentric LVH This is reflected on her EKG from the ED, I personally reviewed the tracing shows mild sinus tachycardia LVH pattern there is a T wave inversion in lead I and minimal ST depression in V3V6 (4) PAD (peripheral artery disease): History of left poplitealtibial bypass in 2019, stable. No current limb ischemia or foot wounds. aspirin, continue atorvastatin (5) Borderline glaucoma with ocular hypertension: Continue eyedrops at bedtime (6) Hiatal hernia: (7) Hyperlipidemia: Continue atorvastatin (8) Interstitial lung disease: Stable, not hypoxic Plan insomnia, also has low appetite chronically. discussed she needs to stop advil PM. trial low-dose mirtazapine - Rx given for 7.5 mg HS, can titrate up to 15 mg as outpatient, and melatonin PRN Total Time Total Time Spent Total Time Spent (In Minutes): I personally spent: 40 minutes today on clinical care activities for discharge including: reviewing chart notes and vital signs, pathology report reviewing labs examining and counseling the patient counseling the patient's family writing prescriptions and discharge instructions documentation Discharge Plan Discharge Items Patient Disposition: Home - Self-Care Reason For Visit: HEMATEMESIS Discharge Diagnosis: Acute upper GI bleed due to NSAID-related duodenal ulcers Activity: Resume your previous activity Non-emergency contact: Primary Care Provider Call non-emergency contact if: you have any medication questions and your symptoms worsen Follow-up/Referrals: Alber Porter CRNP [Primary Care Provider] - 06/11/23 10:20 am (APPOINTMENT WITH [facility]) Mele Ibarra MD [Physician] - (PLEASE CALL DR IBARRA TO SCHEDULE FOLLOW UP APPT TO DISCUSS RESULTS OF PROCEDURE ) Diet: Carb Consistent or DM2 Addtl Attending Provider Instructions: Dear Ms. Garcia, You were treated for bleeding from your stomach. You were treated with intravenous acid-suppression medicine. You had EGD (endoscopy) which showed two ulcers in your duodenum that were no longer bleeding at that time. There were also signs of chronic inflammation in your esophagus related to acid reflux, this was biopsied and the results are pending -follow up with gastroenterology for biopsy results -take omeprazole 40 mg twice a day to heal the ulcers and prevent acid reflux, eventually your doctors can decrease this to daily -avoid NSAIDS including advil/motrin PM, and try to reduce or avoid meloxicam for now until the ulcers have time to heal -acetaminophen (tylenol) is safe for your stomach -you can resume your baby aspirin daily You are anemic from the bleeding but did not require blood transfusion -take iron supplement every other day for 4-6 weeks -follow up with your primary care doctor to check your blood count and iron stores in about a month I gave you a prescription for mirtazapine to help with sleep and appetite. You can also use melatonin 1 - 3 mg at bedtime as needed for sleep Pending Studies at Discharge: Yes (esophagus biopsies) Stand-Alone Forms: [facility], Smoking Cessation Medications and DC Order Prescriptions: New mirtazapine 15 mg Tablet 7.5 mg PO HS Qty: 30 0RF omeprazole 40 mg capsule,delayed release(DR/EC) 40 mg PO BID Qty: 60 0RF Continued aspirin [Ecotrin Low Strength] 81 mg tablet,delayed release (DR/EC) 81 mg PO QAM ferrous sulfate 325 mg (65 mg iron) tablet,delayed release (DR/EC) 325 mg PO QAM docusate sodium [Colace] 100 mg capsule 100 mg PO DAILY Rx Instructions: every other day (DME) pen needle, diabetic [BD Ultra-Fine Mini Pen Needle] 31 gauge x 3/16" needle See Rx Instructions .ROUTE .MEDSUPPLY Qty: 200 3RF Rx Instructions: Inject insulin twice daily gabapentin 400 mg capsule 400 mg PO HS Qty: 90 3RF Rx Instructions: TAKE 1 CAPSULE BY MOUTH AT BEDTIME amlodipine 5 mg tablet See Rx Instructions .ROUTE .COMPLEX Qty: 180 3RF Dose Instruction: TAKE 2 TABLETS BY MOUTH EVERY MORNING Rx Instructions: TAKE 2 TABLETS BY MOUTH EVERY MORNING (DME) OneTouch Verio test strips Strip See Rx Instructions .ROUTE .MEDSUPPLY Qty: 300 3RF Rx Instructions: test Blood Sugar TID atorvastatin 10 mg tablet 10 mg PO HS Qty: 90 3RF Tresiba FlexTouch U-100 100 unit/mL (3 mL) insulin pen 3 unit subcut DAILY 90 Days Qty: 15 3RF acetaminophen 325 mg capsule 325 mg PO Q6H PRN (Reason: fever or pain) latanoprost 0.005 % drops 1 drops OPB HS Rx Instructions: Both eyes cholecalciferol (vitamin D3) 2,000 unit tablet 4,000 units PO QAM Held meloxicam 7.5 mg tablet 7.5 mg PO BID PRN (Reason: pain) Qty: 60 0RF Hold Instructions: Resume on 06/12/23. Discharge Orders: Discharge Order (Routine); Ordered 05/29/23 Ordered By: Nancy Barron/Other Patient Handouts: GI Bleeding Causes and Tests Admission Data Admit Date/Time: 05/27/23 18:58 Attending Provider: Nancy Elizalde Admit Provider: Nancy Elizalde Primary Care Provider: Alber Porter Other Providers: Nancy Elizalde; Kylah Estes; Vincent Dixon; Mel Reyes; Shanti Pate; Graciela Khoury; Mele Ibarra; Everardo Bob; Kj Oliva; Hoda Goldman; Mercedez Lewis; Reji Perkins; Vashti Sparks; Ernestine Atkins; Mary Cavazos; Ernestina Hilario; Nathaly Aguilera; Sai Del Valle; Morgan Soto; Arelis Santos; Sari Sandoval Jr Other Interventions: Discharge Summary Assessment (RN) Last Done: 05/29/23 11:11 Coding Level of Care Code 23331 INP/OBS DISCH >30 MIN Diagnoses Hematemesis K92.0 Type 2 diabetes mellitus E11.9 LVH (left ventricular hypertrophy) I51.7 PAD (peripheral artery disease) I73.9 Borderline glaucoma with ocular hypertension H40.059 Hiatal hernia K44.9 Mixed hyperlipidemia E78.2 Hyperlipidemia type: mixed hyperlipidemia Interstitial lung disease J84.9
== END 2023-05-29 12:16 | disposition home or self-care (01) ==
LOC: ED 16:27 → 3N 16:27

== ENCOUNTER 2024-01-31 10:55 | Observation (INO) ==
--- NOTE | 2024-01-08 10:28 | PAT Medication Instructions ---
Medication Instructions Date of Service January 08, 2024 Home Medications Medication Instructions Recorded gabapentin 400 mg capsule 400 mg PO HS #90 caps 12/19/22 blood sugar diagnostic (OneTouch #200 ea 11/05/23 Verio test strips) repaglinide 0.5 mg tablet 0.5 mg PO TID #90 tabs 12/04/23 atorvastatin 10 mg tablet 10 mg PO HS #90 tabs 12/23/23 aspirin 81 mg tablet,delayed release (Ecotrin Low Strength) 81 mg PO QAM acetaminophen 325 mg capsule 325 mg PO Q6H PRN fever or pain cholecalciferol (vitamin D3) 50 mcg (2,000 unit) tablet 4,000 units PO QAM ferrous sulfate 325 mg (65 mg iron) tablet,delayed release 325 mg PO QAM latanoprost 0.005 % eye drops 1 drops OPB HS gabapentin 400 mg capsule 400 mg PO HS docusate sodium 100 mg capsule (Colace) 100 mg PO HS amlodipine 5 mg tablet 10 mg PO QAM pantoprazole 40 mg tablet,delayed release (Protonix) 40 mg PO QAM repaglinide 0.5 mg tablet 0.5 mg PO TID atorvastatin 10 mg tablet 10 mg PO HS lisinopril 5 mg tablet 5 mg PO QAM ASK your prescriber and surgeon aspirin 81 mg tablet,delayed release (Ecotrin Low Strength) 81 mg PO QAM DO NOT take the morning of surgery cholecalciferol (vitamin D3) 50 mcg (2,000 unit) tablet 4,000 units PO QAM ferrous sulfate 325 mg (65 mg iron) tablet,delayed release 325 mg PO QAM repaglinide 0.5 mg tablet 0.5 mg PO TID lisinopril 5 mg tablet 5 mg PO QAM Take morning of surgery With a small sip of water, OTHERWISE NOTHING TO EAT OR DRINK AFTER MIDNIGHT: acetaminophen 325 mg capsule 325 mg PO Q6H PRN fever or pain (if needed) amlodipine 5 mg tablet 10 mg PO QAM pantoprazole 40 mg tablet,delayed release (Protonix) 40 mg PO QAM Take evening before surgery acetaminophen 325 mg capsule 325 mg PO Q6H PRN fever or pain (if needed) latanoprost 0.005 % eye drops 1 drops OPB HS gabapentin 400 mg capsule 400 mg PO HS docusate sodium 100 mg capsule (Colace) 100 mg PO HS repaglinide 0.5 mg tablet 0.5 mg PO TID atorvastatin 10 mg tablet 10 mg PO HS Other Notes If you have any questions please call us at [phone] or [phone] or [phone] or [phone]
--- NOTE | 2024-01-10 11:15 | Anesthesiology Consultation ---
Date of Service January 10, 2024 Assessment & Plan (1) Encounter for pre-operative examination: - [place] medical clearance needed per discussion of case with Dr. Ojeda. Workload note sent to [place] PCP. Patient's daughter returned call and was made aware, she denied questions or concerns regarding the need for medical cleaerance. - check BSG am DOS. - Outpatient joint assessment: Patient is currently scheduled for inpatient pathway. If re-evaluated and patient/surgeon requests outpatient pathway, patient is not ideal candidate for outpatient joint program from anesthesia standpoint. Chart Review Chart Review: Pending: Refer to Additional Notes / Consult section and Patient seen in Pre Admission Testing Teaching & Discussion Pre-Anesthesia Teaching/Discussion Notes: Instructed NPO after midnight before surgery, except medications with 15 cc of water. Medication instructions provided according to the PAT guidelines. History Surgery Operation Date: 01/31/24 10:00 Proposed Procedures p Right Reverse Total Shoulder Arthroplasty - Juan R Kaye, Height/Weight Height: 4 ft 9 in Weight: 48.3 kg Allergies Allergy/AdvReac Type Severity Reaction Status Date / Time No Known Drug Allergies Allergy Unknown Verified 01/07/24 08:05 Medications Home Medications Medication Instructions Recorded Confirmed Last Taken aspirin 81 mg tablet,delayed 81 mg PO QAM 01/27/18 01/07/24 07/29/23 08:00 release (Ecotrin Low Strength) acetaminophen 325 mg capsule 325 mg PO Q6H PRN fever or pain 11/17/18 01/07/24 04/07/19 07:00 cholecalciferol (vitamin D3) 50 4,000 units PO QAM 11/20/18 01/07/24 07/04/21 mcg (2,000 unit) tablet ferrous sulfate 325 mg (65 mg 325 mg PO QAM 11/20/18 01/07/24 07/28/23 20:00 iron) tablet,delayed release latanoprost 0.005 % eye drops 1 drops OPB HS 12/21/19 01/07/24 07/28/23 20:00 gabapentin 400 mg capsule 400 mg PO HS #90 caps 12/19/22 01/07/24 07/28/23 20:00 docusate sodium 100 mg capsule 100 mg PO HS 03/18/23 01/07/24 07/27/23 (Colace) amlodipine 5 mg tablet 10 mg PO QAM 07/23/23 01/07/24 07/29/23 07:30 pantoprazole 40 mg tablet,delayed 40 mg PO QAM 07/23/23 01/07/24 07/29/23 07:30 release (Protonix) blood sugar diagnostic (OneTouch #200 ea 11/05/23 12/13/23 Unknown Verio test strips) repaglinide 0.5 mg tablet 0.5 mg PO TID #90 tabs 12/04/23 01/07/24 Unknown atorvastatin 10 mg tablet 10 mg PO HS #90 tabs 12/23/23 01/07/24 Unknown lisinopril 5 mg tablet 5 mg PO QAM 01/07/24 01/07/24 Unknown Past Medical History Medical History (Updated 01/10/24 @ 11:19 by Nathaly Melton PA-C) Acute respiratory distress syndrome (ARDS) due to COVID-19 virus hx ~2020. 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 Exercise / Class Metabolic Activity III < 4 Walking/Shop/Light housework (denies chest discomfort or shortness of breath with usual activities) Past Family History Family History Mother Heart disease Myocardial infarction Breast cancer Unknown Hyperlipidemia Hypertension Sister Diabetes Father , age 34 No problems noted. Other No family history of adverse response to anesthesia Denies family history of Ovarian cancer Prostate cancer Colorectal cancer Cancer Stroke Asthma Past Surgical History Surgical History (Updated 01/10/24 @ 11:21 by Nathaly Melton PA-C) H/O section x 2 History of cataract surgery bilateral History of esophagogastroduodenoscopy (EGD) with dilatation History of lithotripsy History of tooth extraction uppers Hx of basal cell carcinoma excision Hx of colonoscopy S/P cystoscopy with ureteral stent placement bilateral Status post femoral-popliteal bypass surgery [facility] 07/22, left Status post reverse total arthroplasty of left shoulder 2018 Past Anesthesia History No Hx of Anesthesia Complications and No Family Hx of Anesthesia Complications History of PONV No Hx of PONV and No Hx of Motion Sickness Social History Smoking Status: Never smoker Do You Dip or Chew Tobacco: No Hx Alcohol Use: No Hx Substance Use: No substance use type: does not use Review of Systems Snoring, denies witnessed apneas. Patient denies chest pain, shortness of breath, dyspnea on exertion, fever, chills, cough, wheezing, or palpitations. Physical Exam Vital Signs Vitals BP 151/77 P 64 TEMP 97.5 SP02 98% on RA RESP 18 Physical Patient resting comfortably in chair in no acute distress, alert and oriented, responding appropriately throughout visit Full cervical extension range of motion without pain TMD 3.5 finger breadths Mallampati Score 2 Dentition: upper dentures, denies chipped or loose teeth, caps/crowns, implants or bridges Lungs: normal respiratory effort. Good air movement, clear throughout to auscultation, no adventitious breath sounds Cardiac: regular rate and rhythm, no murmurs noted Carotid arteries: negative bruit bilat Lab Results Anesthesia Preop Results Results Anesthesia Widget: WBC 8.09 K/ul (4.8-10.8) 01/10/24 Hgb 12.1 g/dl (12.0-16.0) 01/10/24 Hct 37.2 % (37.0-47.0) 01/10/24 Plt 283 K/uL (130-400) 01/10/24 Na 139 mmol/L (136-145) 12/23/23 K 4.4 mmol/L (3.5-5.1) 12/23/23 Cl 103 mmol/L (98-107) 12/23/23 CO2 30 mmol/L (21-32) 12/23/23 BUN 16 mg/dl (6-23) 12/23/23 Creat 0.87 mg/dl (0.6-1.2) 12/23/23 Glucose Level 113 mg/dl (70-99(Fasting)) H 12/23/23 PT 10.9 Seconds (9.0-12.0) 01/10/24 PTT 26 Seconds (21-31) 01/10/24 INR 1.0 (0.9-1.1) 01/10/24 HA1c 6.4 % (4.5-5.6) H 12/11/23 Blood Type A Positive 01/10/24 Antibody Screen NEGATIVE 01/10/24 Testing Electrocardiogram Date: 01/10/24 Sinus bradycardia with sinus arrhythmia, rate 55 bpm 1st degree AV block Left ventricular hypertrophy with repolarization abnormality Chest X-Ray Date: 01/10/24 Cardiomegaly with no active disease in the chest. Echocardiogram Date: 07/06/21 EF > 70% Moderate to severe cLVH No LV regional wall motion abnormalities Mild LA dilation Moderate mitral annular calcification Type 1 diastolic dysfunction
--- NOTE | 2024-01-30 06:44 | History & Physical Report ---
Date of Service January 30, 2024 Assessment & Plan (1) Rotator cuff tear arthropathy of right shoulder: We will proceed with a right reverse shoulder arthroplasty. Postoperatively she will be placed in a sling and kept overnight in the hospital for postop medical management. She plans to have the hospital set up home health for discharge. History of Present Illness Chief Complaint: Left arthropathy of the right shoulder. Primary Care Provider: GRANT Ruiz Marianela is a pleasant 83-year-old female who I did a left reverse shoulder arthroplasty in 2019. She did very well with that. Unfortunately, she has been dealing with increasing right shoulder pain. Previous x-rays and MRI have been diagnostic for cuff tear arthropathy of the right shoulder. After failing conservative treatment, she has elected proceed with a right reverse shoulder arthroplasty. Allergies Allergy/AdvReac Type Severity Reaction Status Date / Time No Known Drug Allergies Allergy Unknown Verified 01/27/24 11:36 Home Medications Medication Instructions Recorded Confirmed Type aspirin 81 mg tablet,delayed 81 mg PO QAM 01/27/18 01/27/24 History release (Ecotrin Low Strength) acetaminophen 325 mg capsule 325 mg PO Q6H PRN fever or pain 11/17/18 01/27/24 History cholecalciferol (vitamin D3) 50 4,000 units PO QAM 11/20/18 01/27/24 History mcg (2,000 unit) tablet ferrous sulfate 325 mg (65 mg 325 mg PO QAM 11/20/18 01/27/24 History iron) tablet,delayed release latanoprost 0.005 % eye drops 1 drops OPB HS 12/21/19 01/27/24 History docusate sodium 100 mg capsule 100 mg PO HS 03/18/23 01/27/24 History (Colace) amlodipine 5 mg tablet 10 mg PO QAM 07/23/23 01/27/24 History pantoprazole 40 mg tablet,delayed 40 mg PO QAM 07/23/23 01/27/24 History release (Protonix) blood sugar diagnostic (OneTouch #200 ea 11/05/23 01/27/24 Rx Verio test strips) repaglinide 0.5 mg tablet 0.5 mg PO TID #90 tabs 12/04/23 01/27/24 Rx atorvastatin 10 mg tablet 10 mg PO HS #90 tabs 12/23/23 01/27/24 Rx lisinopril 5 mg tablet 5 mg PO QAM #90 tabs 01/22/24 01/27/24 Rx gabapentin 400 mg capsule 400 mg PO HS #90 caps 01/27/24 01/27/24 Rx Past Med/Surg History Problem List Rotator cuff tear arthropathy of right shoulder Esophagitis Duodenal ulcer hemorrhage 05/2023 - had EGD and treated at [facility]. treated with medication. Hematemesis Rotator cuff tear Type 2 diabetes mellitus Sensorineural hearing loss of both ears Interstitial lung disease pt denies History of COVID-19 Pulmonary scarring Post-COVID chronic dyspnea Diabetic nephropathy associated with type 2 diabetes mellitus Type 2 diabetes mellitus Loss of protective sensation of skin of foot Chronic anemia S/P popliteal-tibial bypass Left popliteal-tibial bypass (07/2018) Borderline glaucoma with ocular hypertension Hiatal hernia Hyperlipidemia Hypertension Microalbuminuria Nephrolithiasis Nocturnal hypoglycemia PAD (peripheral artery disease) Type 2 diabetes mellitus with diabetic peripheral angiopathy without gangrene Medical History Eosinophilic esophagitis Duodenal ulcer disease dx in 05/2023 LVH (left ventricular hypertrophy) Psoriasis Hypertension controlled, stable per pt; white coat HTN Hyperlipidemia Hiatal hernia Diabetic neuropathy feet Chronic anemia Borderline glaucoma with ocular hypertension GERD (gastroesophageal reflux disease) controlled, stable per pt Diabetes mellitus, type 2 IDDM Acute respiratory distress syndrome (ARDS) due to COVID-19 virus hx ~2020. hospitalized at [facility] History of skin cancer BCC PAD (peripheral artery disease) s/p Left popliteal-tibial bypass (07/2018) Peripheral edema chronic L>R s/p surgery PMR (polymyalgia rheumatica) Bilateral kidney stones hx, sx w/stent Surgical History Hx of colonoscopy Hx of basal cell carcinoma excision History of lithotripsy Status post reverse total arthroplasty of left shoulder 2018 History of esophagogastroduodenoscopy (EGD) with dilatation History of tooth extraction uppers History of cataract surgery bilateral Status post femoral-popliteal bypass surgery [facility] 07/22, left S/P cystoscopy with ureteral stent placement bilateral H/O section x 2 Family History Mother Heart disease Myocardial infarction Breast cancer Unknown Hyperlipidemia Hypertension Sister Diabetes Father , age 34 No problems noted. Other No family history of adverse response to anesthesia Denies family history of Ovarian cancer Prostate cancer Colorectal cancer Cancer Stroke Asthma Social History Smoking Status: Never smoker Second Hand Exposure: No; Do You Dip or Chew Tobacco: No; Hx Alcohol Use: No Hx Substance Use: No Preferred Language: Honduran Communication Ability: Effective Visual Impairment: Limited Hearing Ability: Normal Lap Machine Tender Required: No Beliefs That Will Affect Care: None marital status: / Current Living Situation: Family Current Living Situation Comment: Lives with Daughter and her family current occupational status: retired Feels Safe at Home: Yes Childhood Exposure to Second-Hand Smoke: No Diet: regular Diet Comment: regular caffeine: No during the past year weight has: remained stable Dental Care, Regularly: Yes Physical Activity Frequency: 1-2 Times per Week Seatbelt Use: always Sunscreen Use: Yes Assistive Devices: Denture - Upper and Glasses Review of Systems All systems reviewed & are unremarkable except as noted in HPI & below. Physical Exam On physical examination of the right shoulder, she is 120 degrees forward elevation and 20 degrees of abduction. She has 4 out of 5 motor strength with full can testing and external rotation.. Constitutional WD/WN, vitals as above Eyes PERRL, conjunctivae normal, anicteric sclerae ENMT external ear and nose normal, oropharynx normal Neck trachea midline, no thyromegaly Respiratory normal respiratory effort Cardiovascular RRR, no murmur, no edema Gastrointestinal (Abdomen) normal bowel sounds, soft, nontender, no hepatosplenomegaly Psychiatric A+Ox3, euthymic affect Results & Data Results & Data Laboratory Results . Diagnostic Findings X-rays and MRI of the right shoulder show slight superior migration of the humeral head in the glenoid. There is large chronic retracted rotator cuff tear.. PG Care Time/CCT Total # of Minutes Spent Total Time Spent with Patient: Total time spent is greater than 50% in coordination of care (as documented) at patient's floor/unit and/or counseling patient: Coding Level of Care Code None Diagnoses Rotator cuff tear arthropathy of right shoulder M75.101; M12.811
[~2024-01-31 10:55] MED LIST changes: -ACETAMINOPHEN 500 MG TAB PO SCH; -CEFAZOLIN 1000MG 1,000 MG/7.5 ML SYR IV SCH; -FAMOTIDINE 20 MG TAB PO SCH; -GABAPENTIN 300 MG CAP PO SCH; -LR 15ML/HR IV SCH; -LR 60ML/HR IV SCH; -ROPIVACAINE 0.5% HCL/PF 150 MG, BUPIVACAINE 0.5% MPF 30 ML, EPINEPHrine 30MG/30ML (OR U... INSTIL SCH; -TRANEXAMIC ACID 1,000 MG **IV Intra-op IV SCH; -TRANEXAMIC ACID 1,000 MG **IV Pre-op IV SCH
[2024-01-31] MEDS ORDERED: ONDANSETRON INJ 2 MG/ML 2 ML VIAL ONE (11:07)
[2024-01-31] MEDS ORDERED: LIDOCAINE 2% 2 ML VIAL/AMP(20MG/ML) INFIL ONE (11:07)
[2024-01-31] MEDS ORDERED: PROPOFOL IV EMULSION 10 MG/ML 20 ML VIAL IV ONE (11:07)
[2024-01-31] MEDS ORDERED: DEXAMETHASONE SOD INJ 4 MG/ML VIAL ONE (11:07)
[2024-01-31] MEDS ORDERED: MIDAZOLAM HCL 1 MG/ML 2ML VIAL ONE (11:07)
[2024-01-31] MEDS ORDERED: fentaNYL citrate PF 100 MCG/2 ML VIAL ONE (11:07)
[2024-01-31] MEDS: ACETAMINOPHEN 500 MG TAB PO SCH ×2 (11:46→20:57)
[2024-01-31] MEDS: LR 15ML/HR IV SCH (11:46)
[2024-01-31] MEDS: LR 60ML/HR IV SCH (11:46)
[2024-01-31] MEDS: dexAMETHasone**PF** 10 MG/ML VIAL IV SCH (11:47)
[2024-01-31] MEDS: GABAPENTIN 300 MG CAP PO SCH (11:47)
[2024-01-31] MEDS: FAMOTIDINE 20 MG TAB PO SCH (11:47)
--- NOTE | 2024-01-31 11:56 | History & Physical Bridge Note ---
Date of Service January 31, 2024 History & Physical Bridge Note I have examined the patient, reviewed the History & Physical and in the interval since the performance of the History & Physical I have noted the following changes of clinical significance: no changes noted
[2024-01-31] MEDS ORDERED: fentaNYL citrate PF 100 MCG/2 ML VIAL IV PRN (12:13)
[2024-01-31] MEDS ORDERED: ONDANSETRON INJ 2 MG/ML 2 ML VIAL IV PRN ×2 (12:13→15:39)
[2024-01-31] MEDS ORDERED: ATROPINE SULFATE 0.1 MG/ML 10ML SYR IV PRN (12:13)
[2024-01-31] MEDS ORDERED: ePHEDrine sulfate 50 MG/ML AMP IV PRN (12:13)
[2024-01-31] MEDS: TRANEXAMIC ACID 1,000 MG **IV Pre-op IV SCH (12:54)
[2024-01-31] MEDS: ceFAZolin 2000MG 2,000 MG/15 ML SYR IV SCH ×2 (13:01→19:47)
[2024-01-31] MEDS ORDERED: PHENYLEPHRINE 100MCG/ML 10ML SYR IV ONE (13:17)
[2024-01-31] MEDS: ROPIV 0.5% 246mg, Ketorolac 30mg, EPINEPHrine 0.5mg in NSS INFIL SCH (13:36)
[2024-01-31] MEDS ORDERED: ePHEDrine sulfate 50 MG/ML AMP ONE (13:36)
[2024-01-31] MEDS: ORTHO JOINT ANESTHETIC ONE (13:37)
[2024-01-31] MEDS: TRANEXAMIC ACID 1,000 MG **IV Intra-op IV SCH (13:53)
--- NOTE | 2024-01-31 13:57 | Operative Report ---
PG Post Operative Report Pre & Post Diagnosis Operation Date: 01/31/24 13:00 Pre-Op Diagnosis: Cuff tear arthropathy of the right shoulder with tendinopathy long head of the biceps tendon Post-Op Diagnosis: Cuff tear arthropathy of the right shoulder with tendinopathy long head of the biceps tendon I identified the patient and participated in the time-out.: Yes Procedure Operation Date: 01/31/24 13:00 Actual Procedures p Right Reverse Total Shoulder Arthroplasty, Uncemented(Right) with open biceps tenodesis as a distinct and separate procedure (modifier 59)- Juan R Kaye DO Surgeon Juan R Kaye DO Environmental Issues Instructor Juan R Hutchins PA-C Estimated Blood Loss 150 Findings Consistent with Post-Op Diagnosis Specimens Right humeral head Description of Procedure A CPT code modifier 59: The long head of the biceps tendon was enlarged and inflamed consistent with tendinopathy. A tenodesis was opted. This was a s eparate and distinct portion of the procedure. For these reasons, a CPT code modifier 59 will be added to this case. Implants used: I used a [employer] Comprehensive reverse total shoulder arthroplasty system with a size 8 press fit micro humeral stem, a standard humeral tray and a +6 offset humeral bearing, a 25 mm baseplate with a 6.5 mm central screw and superior and inferior locking screws, and a size 36 mm eccentric glenosphere. Marianela arrived at [facility] for the above procedure. She was seen in the preoperative holding area and the operative extremity was identified and signed. She was given a preoperative antibiotic, TXA, and an interscalene nerve block. She was taken back to the operating room, laid on table in supine position, and put under general anesthesia. She was then put into the beachchair position. The shoulder was then prepped and draped in sterile fashion. A timeout was done and the patient and the operative extremity was properly identified. A deltopectoral approach was used. Dissection was taken down through the fascia and the deltoid was retracted laterally and the conjoined tendon was retracted medially. The anterior shoulder was exposed. The biceps groove was opened up and the biceps tendon was examined extensively. The biceps tendon demonstrated enlargement and inflammatory changes consistent with longstanding inflammation in the context of osteoarthritis and cuff arthropathy. The long head of the biceps tendon was then tenodesed to the upper border of the pectoralis major. This was a separate and distinct portion of the procedure. The subscapularis was then directly released off the lesser tuberosity with a peel technique. The inferior capsule was released and the humeral head was dislocated. A canal finding reamer was sent down the center of the humeral canal. Sequential reaming up to a size 8 reamer was done. Off that reamer, a proximal humeral resection guide was placed. The proximal humerus was resected at 135 of inclination and 25 of retroversion. Osteophytes were then removed and the glenoid was exposed. Time was spent doing a complete capsular and labral release. The glenoid guide was then placed in the inferior aspect of the glenoid. A 3.2 mm Steinmann pin was then placed into the glenoid vault at 10 of inclination. The glenoid baseplate was then reamed. The final size 25 mm baseplate was then impacted in the place. A 6.5 mm central screw was then placed followed by superior and inferior locking screws. A 36 mm eccentric glenosphere was then impacted into place. Surrounding soft tissues were then injected with 100 cc an orthopedic pain control cocktail. The proximal humerus was then exposed. Sequential broaching of the humerus up to a size 8 broach was done. Off that broach a +6 offset humeral tray was trialed. The shoulder was then reduced, brought through a full range of motion, and felt to be stable. The shoulder was then dislocated and the broach was removed. The final size 8 micro press-fit humeral stem was then impacted into place. A standard humeral bearing was then snapped onto a +6 offset humeral tray. The humeral tray was then impacted onto the humeral stem. The shoulder was once again reduced, brought through a full range of motion, and felt to be stable. The subscapularis was poor quality and unable to be repaired. A dilute betadyne lavage was then done for 3 minutes. The joint was then irrigated with normal saline solution. Hemostasis was obtained. The interval was closed with 2-0 Vicryl suture. The skin was then closed with 2-0 Vicryl and wesley. A Silverlon dressing was placed and the arm was rested in a regular arm sling. She was then extubated and transferred to a hospital bed. She taken to the postanesthesia care unit in stable condition. She tolerated the procedure well. Juan R Hutchins PA-C, was present for the entire procedure. He was critical for patient positioning, prepping, draping, retraction exposure, wound closure and application of sterile dressing. I attest to the content of the Intraoperative Record and any orders documented therein. Any exceptions are noted below.
--- NOTE | 2024-01-31 14:39 | Anesthesiology Progress Note ---
Date of Service January 31, 2024 Anesthesia Post Procedure Vital Signs Vital Signs: Temp Pulse Pulse Resp BP Pulse Ox O2 Del Method 01/31/24 14:20 90 12 137/61 100 Oxymask 01/31/24 14:12 36.0 C L 80 10 L 120/52 L 100 Oxymask 01/31/24 11:16 36.6 C 81 18 163/88 H 99 Room Air O2 Flow Rate 01/31/24 14:20 4 01/31/24 14:12 6 01/31/24 11:16 Pain Intensity Left Shoulder: Pain Intensity: 2 Transfer of Care Handoff Completed per policy Notes Mental Status: alert / awake / arousable Patient Amnestic to Procedure: Yes Nausea / Vomiting: adequately controlled Pain: adequately controlled Airway Patency, RR, SpO2: stable & adequate BP & HR: stable & adequate Hydration State: stable & adequate Anesthetic Complications: no major complications apparent
[2024-01-31] MEDS ORDERED: NALOXONE HCL 0.4 MG/1 ML VIAL/CARP IV PRN (15:39)
[2024-01-31] MEDS ORDERED: bisacodyL 10 MG SUPP PR PRN (15:39)
[2024-01-31] MEDS ORDERED: oxyCODONE HCL IR 5 MG TAB (IMMEDIATE RELEASE) PO PRN (15:39)
[2024-01-31] MEDS ORDERED: PHARMACY GLYCEMIC MGMT CONSULT PRN (15:39)
[2024-01-31] MEDS ORDERED: MAGNESIUM HYDROXIDE SUSP 30 ML UDC PO PRN (15:39)
[2024-01-31] MEDS ORDERED: HYDROmorphone INJ 0.5 MG/0.5 ML SYR IV PRN (15:39)
[2024-01-31] MEDS ORDERED: METOCLOPRAMIDE HCL INJ 5 MG/ML 2 ML VIAL IV PRN (15:39)
[2024-01-31] MEDS ORDERED: CARBOHYDRATES FOR HYPOGLYCEMIA PO PRN (17:00)
[2024-01-31] MEDS ORDERED: GLUCOSE 10 TAB/TUBE PO PRN (17:00)
[2024-01-31] MEDS ORDERED: GLUCOSE 40% GEL 15 GM TUBE PO PRN (17:00)
[2024-01-31] MEDS ORDERED: GLUCAGON FOR INJ 1 MG VIAL IM PRN (17:00)
[2024-01-31] MEDS ORDERED: DEXTROSE 50% 50 ML SYRINGE IV PRN (17:00)
[2024-01-31] MEDS: SODIUM CHLORIDE 0.9% 1,000 ML IV SCH (17:05)
[2024-01-31] MEDS: INSULIN ASPART PER UNIT CHARGE SC SCH (17:53)
--- NOTE | 2024-01-31 19:04 | XRay Report ---
RIGHT SHOULDER 2 VIEWS CLINICAL HISTORY: Postoperative examination. FINDINGS: 2 portable views of the right shoulder are compared to study dated 12/25/2023. The skeletal structures are osteopenic. A right shoulder arthroplasty is in near anatomic alignment. No acute frac ture is seen. Skin clips, subcutaneous gas, and soft tissue swelling overlying the right shoulder are expected postsurgical changes. The acromioclavicular joint is maintained. Atelectasis is seen at the right lung base. IMPRESSION: Expected postoperative findings status post right shoulder arthroplasty. No acute fractur e is seen. Electronically signed by: Gabriele Díaz M.D. 01/31/2024 7:03 PM
[2024-01-31] MEDS: ATORVASTATIN 10 MG TAB PO SCH (19:47)
[2024-01-31] MEDS: SENNA 8.6 MG TAB PO SCH (19:48)
[2024-01-31] MEDS: LATANOPROST 0.005% OP SOLN 2.5 ML BTL OPB SCH (19:48)
[2024-01-31] MEDS: DOCUSATE SODIUM 100 MG CAP PO SCH (19:48)
[2024-01-31] MEDS: GABAPENTIN 400 MG CAP PO SCH (19:48)
[2024-01-31] MEDS: LANTUS PER UNIT CHARGE SC SCH (21:23)
[2024-02-01] MEDS: FERROUS SULFATE 325 MG TAB PO SCH (07:58)
[2024-02-01] MEDS: PANTOprazole 40 MG TAB PO SCH (07:58)
[2024-02-01] MEDS: amLODIPine BESYLATE 5 MG TAB PO SCH (07:58)
[2024-02-01] MEDS: MULTIVITAMIN TAB PO SCH (07:58)
[2024-02-01] MEDS: lisinopril 5 MG TAB PO SCH (07:58)
[2024-02-01] MEDS: ASPIRIN 81 MG ECTAB PO SCH (07:58)
--- NOTE | 2024-02-01 08:41 | Orthopedic Progress Note ---
Date of Service February 01, 2024 Assessment & Plan (1) Status post reverse total replacement of right shoulder: Overall she is doing very well. She is not having much pain in the right shoulder. She will be seen by physical therapy today for ambulation and range of motion exercises. She can be discharged home later today. She will follow- up orthopedics in 2 weeks. Rene Bear was seen and examined at bedside this morning. Overall she is doing very well. She is not having much pain in the right shoulder. She was able to get some sleep last night. She has no complaints.. Review of Systems All systems reviewed & are unremarkable except as noted in HPI & below. Physical Exam On physical examination of the right shoulder, the dressing is clean and dry. She is wearing her sling as instructed. The nerve block is still working and she does not have much function of her hand yet.. Results & Data Results & Data Laboratory Results . Diagnostic Findings Postoperative x-rays of the right shoulder show the prosthesis to be in anatomic alignment without any evidence of fracture, his cage, or loosening.. PG Care Time/CCT Total # of Minutes Spent Total Time Spent with Patient: Total time spent is greater than 50% in coordination of care (as documented) at patient's floor/unit and/or counseling patient: Coding Level of Care Code 89034 Post Operative Follow-Up Diagnoses Status post reverse total replacement of right shoulder Z96.611
--- NOTE | 2024-02-01 08:42 | Discharge Summary ---
Date of Service February 01, 2024 Admission HPI (Per Admitting) Marianela is a pleasant 83-year-old female who I did a left reverse shoulder arthroplasty in 2019. She did very well with that. Unfortunately, she has been dealing with increasing right shoulder pain. Previous x-rays and MRI have been diagnostic for cuff tear arthropathy of the right shoulder. After failing conservative treatment, she has elected proceed with a right reverse shoulder arthroplasty. Admission Exam (Per Admitting) On physical examination of the right shoulder, she is 120 degrees forward elevation and 20 degrees of abduction. She has 4 out of 5 motor strength with full can testing and external rotation.. Principal Diagnosis Same as "Discharge Diagnosis" noted below under Discharge Instructions. Discharge Exam On physical examination of the right shoulder, the dressing is clean and dry. She is wearing her sling as instructed. The nerve block is still working and she does not have much function of her hand yet.. Discharge Data Procedures Performed Operation Date: 01/31/24 13:00 Actual Procedures p Right Reverse Total Shoulder Arthroplasty, Uncemented(Right) - Juan R Kaye DO Ordered Studies 01/31/24 05:00 US - OR guided needle placemen Routine Hospital Course (1) Status post reverse total replacement of right shoulder: On January 31, 2024 Tra arrived at [facility] and underwent a right reverse shoulder replacement without complication. She had a general anesthetic and a right interscalene nerve block. Postoperatively she was placed in a sling and transferred to the general orthopedic floors. Her hospital course was uneventful. On postop day #1, her vital signs were stable and her pain was well-controlled. She was able to participate well with physical therapy doing ambulation and range of motion exercises. She was then discharged to home. She will follow with orthopedics in 2 weeks. PG Care Time/CCT Total # of Minutes Spent Total Time Spent with Patient: Total time spent is greater than 50% in coordination of care (as documented) at patient's floor/unit and/or counseling patient: Discharge Plan Discharge Items Reason For Visit: Right Shoulder Degenerative Joint Disease Discharge Diagnosis: Right reverse shoulder replacement Activity: Per Instructions section Non-emergency contact: Surgeon Call non-emergency contact if: your wound has increased redness and your wound has increased drainage Follow-up/Referrals: Alber Porter CRNP [Primary Care Provider] - Diet: Regular Addtl Attending Provider Instructions: Activity and Therapy Recommendations: * If you are using [facility] then therapy will be provided at your home until they feel you have accomplished all of your goals. * If you are using [facility] then Physical Therapy will be provided until they feel you are ready to start Outpatient Physical Therapy. * If you are not using home therapy then Outpatient Physical Therapy should start about 3-5 days from your day of surgery. Therapy will last about 8-12 weeks * Wear your sling for 3 weeks, unless otherwise instructed. You may remove your sling to shower and to dress, but otherwise, you should be in your sling at all times, including while sleeping * The shoulder replacement is very stable and you can use your hand while in the sling * You were shown a series of exercises in the hospital. Do these exercises daily including the exercises you were shown in physical therapy. Medications: * Narcotic You will likely be sent home from the hospital with a prescription for the narcotic pain medication that worked best throughout your stay. * Cefadroxil -take the antibiotic twice a day for 10 days to help prevent infection. * Other medications may be prescribed for specific circumstances. If you have any questions, please call the office at . * Resume previous home medications unless otherwise instructed Dressing Care: Leave the Silverlon dressing in place for 7 days. After 7 days you may remove the dressing. If the incision is not draining then you may leave the wesley open to air. If there is a little bit of drainage or if the wesley are getting stuck on your clothing then cover the incision with a dry dressing. The wesley will be removed at your 2 week follow-up appointment. Showering: You may shower with the Silverlon dressing in place. Do not let the shower spray hit the dressing directly. Pat the Silverlon dressing dry. If the dressing becomes wet underneath, then simply remove the dressing. Keep the incision dry until you are 7 days out from the day of surgery. After 7 days you may remove the Silverlon dressing and shower with the wesley exposed. Let soapy water run over the wesley and pat them dry. Do not scrub or soak the incision. Things To Watch For: * Drainage from the incision site that occurs more than one week after your surgery. * Increased redness at the incision site. * Fever above 102 degrees Fahrenheit. * Unusual chest pain or shortness of breath. * Call [facility] at with any of the above problems Follow-Up Visit: Follow-up with Dr. Kaye's PA (Juan R Hutchins) 2-3 weeks after your day of surgery. He will remove your wesley and answer any questions. If you have any additional questions or concerns, Dr Kaye is usually in the office at the same time and will be available An appointment was probably scheduled when you signed-up for surgery in the office. If you have any questions call More detailed instructions as well as Frequently Asked Questions were provided in a folder by our office when you signed-up for surgery. Please review these instructions when you get home. If you have any further questions or concerns, please feel free to call the office at [phone] Pending Studies at Discharge: No Stand-Alone Forms: My [facility] Medications and DC Order Prescriptions: New tramadol 50 mg tablet 50 mg PO Q6H PRN (Reason: pain) Qty: 30 0RF cefadroxil 500 mg capsule 500 mg PO BID 10 Days Qty: 20 0RF Continued aspirin [Ecotrin Low Strength] 81 mg tablet,delayed release (DR/EC) 81 mg PO QAM ferrous sulfate 325 mg (65 mg iron) tablet,delayed release (DR/EC) 325 mg PO QAM docusate sodium [Colace] 100 mg capsule 100 mg PO HS Rx Instructions: every other day atorvastatin 10 mg tablet 10 mg PO HS Qty: 90 3RF lisinopril 5 mg tablet 5 mg PO QAM Qty: 90 1RF repaglinide 0.5 mg tablet 0.5 mg PO TID Qty: 90 1RF Patient Comments: usually only takes at supper time Rx Instructions: administer within 30 minutes of a meal or snack acetaminophen 325 mg capsule 325 mg PO Q6H PRN (Reason: fever or pain) latanoprost 0.005 % drops 1 drops OPB HS Rx Instructions: Both eyes cholecalciferol (vitamin D3) 2,000 unit tablet 4,000 units PO QAM (DME) OneTouch Verio test strips Strip See Rx Instructions .ROUTE .MEDSUPPLY Qty: 200 3RF Rx Instructions: test Blood Sugar 2 times daily gabapentin 400 mg capsule 400 mg PO HS Qty: 90 3RF Rx Instructions: TAKE 1 CAPSULE BY MOUTH AT BEDTIME amlodipine 5 mg tablet 10 mg PO QAM Rx Instructions: TAKE 2 TABLETS BY MOUTH EVERY MORNING pantoprazole [Protonix] 40 mg tablet,delayed release (DR/EC) 40 mg PO QAM Admission Data Admit Date/Time: 01/31/24 14:12 Attending Provider: Juan R Kaye Admit Provider: Juan R Kaye Primary Care Provider: Alber Porter
[2024-02-01 12:19] VITALS: BP 120/62; PULSE 66; RESP 12; TEMP 97.5; O2SAT 95
== END 2024-02-01 11:51 | disposition home health service (06) ==
LOC: ASU 10:55 → 3E 10:55